=== PATIENT | male | born 1950 | race Caucasian/White ===

== ENCOUNTER 2017-06-13 02:19 | Observation (INO) | payer MEDICARE, SELFPAY ==
[2017-06-13] VITALS (18 sets, daily range): BP systolic 108–128; BP diastolic 46–68; PULSE 63–83; RESP 14–18; TEMP 36.4–37.1; O2SAT 94–100; BMI 23.1; BMI 19.5; BMI 19.6
--- NOTE | 2017-06-13 02:21 | NURSING ---
CALLED FOR EKG, PULLED OLD EKG'S FOR
--- NOTE | 2017-06-13 02:39 | RAD_ITS ---
STUDY: X-RAY CHEST REASON FOR EXAM: Male, 67 years old. Chest pain TECHNIQUE: Single frontal view of the chest. COMPARISON: 07/31/2016 FINDINGS: The lungs are clear and expanded. There is no demonstrated pleural abnormality. Normal size heart. Normal mediastinum and aj. Normal visualized pulmonary arteries. Normal visualized aortic arch and descending thoracic aorta. There are diffuse degenerative changes of the visualized thoracic spine. Normal visualized ribs, clavicles, and shoulders. There is no demonstrated abnormality of the visualized soft tissue structures of the upper abdomen. RAD/Chest 1 View (Portable) IMPRESSION: No acute pulmonary findings. Electronically Signed: Kalia Garcia MD at 3:43 EDT Tel , Service support ,
--- NOTE | 2017-06-13 02:39 | EKG12_ITS ---
Test Reason : CP Blood Pressure : / mmHG Vent. Rate : 081 BPM Atrial Rate : 081 BPM P-R Int : 132 ms QRS Dur : 084 ms QT Int : 348 ms P-R-T Axes : 073 064 -61 degrees QTc Int : 404 ms Sinus rhythm with marked sinus arrhythmia Nonspecific ST and T wave abnormality Abnormal ECG Confirmed by JOSE HERNANDEZ, FRANCO ([id number]), science editor KWAKU MOSER ([id number] on 06/18/2017 3:43:54 PM Referred By: XANDER Confirmed By:FRANCO GARCIA MD
[2017-06-13 02:54] LABS: Absolute Neutrophil Count 4.1 X10^3/uL (2.0-7.7); Basophil# 0.03 X10^3/uL; Basophil% 0.4 % (0-1); Eosinophil# 0.11 X10^3/uL; Eosinophils% 1.4 % (0-5); Hemoglobin 13.2 g/dl (13.0-16.5); Lymphocyte % 35.4 % (19-41); Mean Corp Hgb Conc 34.7 g/gl (32-36); Mean Corpuscular Hgb 32.1 pg (27.0-32.0); Mean Corpuscular Volume 92.5 fL (80-94); Mean Platelet Vol. 10.4 fl (6.2-12.0); Monocyte# 0.89 X10^3/uL; Monocyte% 11.3 % (0-10); Neutrophil # 4.08 X10^3/uL (2.7-7.7); Neutrophil % 51.5 % (47-70); Platelet Count 220 K/mm3 (150-450); RBC Distribution Width CV 12.9 % (11.6-14.6); RBC Distribution Width SD 43.3 fl (35.1-43.9); Red Blood Count 4.11 M/mm3 (4.6-6.2); White Blood Count 7.9 K/mm3 (4.4-11.0)
[2017-06-13 02:55] LABS: POSITIVE COUNT NO; POSITIVE DIFFERENTIAL NO; POSITIVE MORPHOLOGY NO
[2017-06-13 04:22] LABS: Anion Gap 7 (5-15); BUN 29 mg/dL (7-18); BUN/Creat Ratio 17.4 RATIO (10-20); Calcium,Total 8.7 mg/dL (8.5-10.1); Chloride 99 mmol/L (98-107); Creatinine, Serum 1.67 mg/dL (0.70-1.30); EST Glomerular Filtration Rate 44 mL/min (>60); Est Glom Filt Rate - Afr Amer 53 mL/min (>60); Glucose 99 mg/dL (74-106); Potassium 3.9 mmol/L (3.5-5.1); Sodium Level 138 mmol/L (136-145)
--- NOTE | 2017-06-13 04:40 | ED.DCSUM_ITS ---
- ER Visit Summary Date of Service: 06/13/17 Chief Complaint: [] Chest pain History of Present Illness: The patient is a 67 M resents with chest pain that started an hour and a half ago right-sided continuous heaviness. Current severity is mild to moderate. Relieved by nitroglycerin ?1 by EMS. Given aspirin by them. History of COPD. He had a heart catheterization in August 2015 which showed a branch of his LAD with 70-80% blockage. No stent was placed. He has had multiple chest pain visits to the emergency department. He is on Xarelto for history of atrial fibrillation. He does have multiple cardiac risk factors for disease. Physical Examination: Vital signs reviewed General: Well-nourished well-developed Head: Normocephalic atraumatic Eyes: Pupils equal round and reactive to light extraocular movements intact ENT: TMs clear no hemotympanum no trauma Neck: Nontender full range of motion Cardiovascular: Regular rate iregular rhythm no murmurs normal S1-S2 Respiratory: No distress clear to auscultation bilaterally chest nontender Abdomen: Soft nontender nondistended normal bowel sounds no masses Back: Nontender no CVA tenderness Extremities: Nontender active range of motion ?4 extremities no trauma Skin: Normal color no trauma Neuro alert oriented cranial nerves II through XII intact normal strength sensation reflexes Test Results: [] Emergency Department Course and Treatment: [] EKG shows sinus arrhythmia 81. ST depression noted inferior leads as well as V4 through V6. Chest x-ray is chronic COPD changes. Troponin negative. CBC normal. Chemistry shows creatinine 1.6. Patient was given 2 nitroglycerin here with good relief of symptoms. He still has some very mild tightness. Discussed with the hospitalist and will be admitted. His heart score is 7. Treatment Plan: [] Disposition: [] Impression: [] Chest pain with EKG changes This note was generated with [employer] dictation software. It may contain incorrect words, spelling, and punctuation that were not noted in review of the chart prior to signing ED Disposition - Plan for ED Patient: Chief Complaint: Chest Pain Referrals: Russell White MD [Primary Care Provider] -
--- NOTE | 2017-06-13 04:52 | PCM.HP.STD ---
Problem List (1) WHIT (obstructive sleep apnea) Status: Chronic (2) CAD (coronary artery disease) Status: Chronic Comment: [facility]: 10/07/2010, 09/06/2015 (3) HTN (hypertension) Status: Chronic Qualifiers: (4) Paroxysmal atrial fibrillation Status: Chronic (5) Dilated cardiomyopathy Status: Chronic (6) HLD (hyperlipidemia) Status: Chronic Qualifiers: (7) Benign essential HTN Status: Chronic (8) DM2 (diabetes mellitus, type 2) Status: Chronic Qualifiers: (9) COPD (chronic obstructive pulmonary disease) Status: Chronic Qualifiers: History of Present Illness Date of Admission: 06/13/17 Chief Complaint: Chest pain, could not get up. The patient is a 67 year old M with past medical history as mentioned above presented to the emergency room because of chest pain and he mentioned that he was not able to get up. When I interviewed the patient, his main and first complaint was that he was not able to get up. Shortly after, he started having chest pain at rest, on the right side of his chest, pressure-like pain, 6 out of 10 in severity, not radiating, somewhat relieved by nitroglycerin, without aggravating factors and without other associated symptoms. He denied associated shortness of breath, palpitation, dizziness or lightheadedness. He reported chronic cough. He has a history of chronic chest pain. He had cardiac catheterization back in August, that revealed angiographically normal left main coronary artery, mild disease of the left anterior descending artery, moderate diffuse disease of the first diagonal branch, mild to moderate disease of the RCA and no high-grade stenosis of the left circumflex. At that time, he had no interventions. He had a stress test on June, for chest pain and that was normal without evidence of stress-induced myocardial ischemia. After that stress test in June,, patient was admitted 1 month ago for chest pain and he had no more workup done at that time except for cardiac enzymes and EKG and he was discharged home and continued on medical treatment. In the emergency room, his vital signs were stable. His routine blood work is remarkable for creatinine of 1.67. His troponin is negative. EKG revealed normal sinus rhythm with minimal ST segment depression in leads V5 and V6 and those changes are new compared to EKG from Jul, 2016. Chest x-ray showed no acute infiltrate, consolidation or effusion. Past Medical History Past Medical History (Chronic Problems): Chronic Problems (Last Updated 06/13/17 @ 04:52 by Donnie Chacko MD) Hypokalemia (Chronic) HWIT (obstructive sleep apnea) (Chronic) CAD (coronary artery disease) (Chronic) C: 10/07/2010, 09/06/2015 HTN (hypertension) (Chronic) Unspecified systolic (congestive) heart failure (Chronic) Paroxysmal atrial fibrillation (Chronic) Dilated cardiomyopathy (Chronic) HLD (hyperlipidemia) (Chronic) Overweight (Chronic) Lower extremity edema (Chronic) Chest pain (Chronic) Benign essential HTN (Chronic) DM2 (diabetes mellitus, type 2) (Chronic) Tobacco user (Chronic) COPD (chronic obstructive pulmonary disease) (Chronic) Allergies Penicillins Allergy (Verified 06/12/17 14:11) Shortness of breath Home Medications: Ambulatory Orders Medication Instructions Recorded Atorvastatin Calcium [Lipitor] 40 mg PO QHS 05/27/16 Digoxin 125 mcg PO DAILY 05/27/16 Furosemide [Lasix] 40 mg PO DAILY 05/27/16 Levothyroxine [Synthroid] 75 mcg PO DAILY 05/27/16 Rivaroxaban [Xarelto] 20 mg PO DAILY 05/27/16 Sitagliptin Phosphate [Januvia] 50 mg PO DAILY 05/27/16 Multivitamin [Multiple Vitamins] 1 ea PO DAILY 06/24/16 Metformin HCl [Metformin HCl ER] 500 mg PO BID 07/31/16 Citalopram [Celexa] 10 mg PO DAILY 12/04/16 Pantoprazole Sodium [Protonix] 20 mg PO DAILY 12/04/16 Carvedilol [Coreg] 25 mg PO BID 01/10/17 Ranolazine [Ranexa] 500 mg PO BID 01/10/17 potassium chloride ER 20 mEq 20 meq PO BID #60 tab 03/19/17 tablet,extended release(part/cryst) Surgical History: herniorrhaphy, tonsillectomy Psychiatric History: Depression Lives: Alone Smoking Status: Current every day smoker Tobacco Use: Cigarettes Alcohol: None Drugs: None - *Family History Maternal History Items: No pertinent history Paternal History Items: - - Rheumatic heart disease Review of Systems Constitutional: Reports: Weakness, Fatigue. Denies: Anorexia, Chills, Fever Eyes: Denies: Blurred vision, Double vision, Drainage, Redness HEENT: Denies: Difficulty Hearing, Ear Pain, Eye Pain, Nasal Congestion, Sore Throat Cardiovascular: Reports: Chest Pain, Chest Pressure. Denies: Edema, Heaviness, Light Headedness, Paroxysmal Noc. Dyspnea, Syncope Respiratory: Reports: Cough. Denies: Pleuritic Pain, Shortness of Breath, Sputum production, Wheezing Gastrointestinal: Denies: Abdominal Pain, Constipation, Diarrhea, Nausea, Vomiting Genitourinary: Denies: Dysuria, Frequency, Hematuria Musculoskeletal: Denies: Arm Pain, Back Pain, Foot Pain Skin: Denies: Dryness, Rash Neurological: Denies: Balance problems, Double vision, Change in Speech, Slurred speech, Confusion, Incoordination, Numbness Psychiatric: Denies: Anxiety, Depression VTE Information - Inpt Only VTE Present on Admission: No VTE Mechan Device Prophylaxis: None VTE Pharm Prophylaxis ordered?: No - Physical Exam General: Alert, Oriented x3, Cooperative, No apparent distress HEENT: Atraumatic, PERRLA, EOMI Oral: Moist Mucosa, No Gingival or Mucosal Lesions/ Ulcerations Neck: Supple, No JVD, Negative Carotid Bruits, Trachea Midline, Thyroid Normal Size and Texture Lungs: Clear to auscultation, No rhonchi, No wheeze, No rales, Diminished, - - Decreased breath sounds bilateral, otherwise clear. Cardiovascular: Regular rate, Regular Rhythm, Normal S1, Normal S2, PMI Normal Abdomen: Bowel Sounds Present, Soft, Non Tender, Non-Distended, No Hepato-splenomegaly Extremities: No clubbing, No cyanosis, No edema Skin: No rashes, No breakdown Lymphatic: No Cervical, Supraclavicular, or Inguinal Adenopathy Neurological: Cranial nerves II-XII grossly intact, Motor Exam 5/5 strength throughout Psych/Mental Status: Flat Affect Vital Signs Temp Pulse Resp BP Pulse Ox 98.8 F 69 18 116/62 97 06/13/17 02:20 06/13/17 03:29 06/13/17 03:29 06/13/17 03:29 06/13/17 03:29 Oxygen Flow Rate (L/min) 2 Oxygen Delivery Method Nasal Cannula Weight: 143 lb 1.28 oz Body Mass Index (BMI) 23.1 Finger Stick Blood Glucose 202 Laboratory Tests Past 24 Hrs 06/13/17 06/13/17 02:29 02:29 WBC 7.9 RBC 4.11 L Hgb 13.2 Hct 38.0 L MCV 92.5 MCH 32.1 H MCHC 34.7 RDW 12.9 RDW Differential 43.3 Plt Count 220 MPV 10.4 Immature Gran % (Auto) 0.000 Neut % (Auto) 51.5 Lymph % (Auto) 35.4 [place] % (Auto) 11.3 H Eos % (Auto) 1.4 Baso % (Auto) 0.4 Absolute Neuts (auto) 4.1 Absolute Lymphs (auto) 2.80 Total Counted Not Reportable Sodium 138 Potassium 3.9 Chloride 99 Carbon Dioxide 32.0 Anion Gap 7 BUN 29 H Creatinine 1.67 H Estim Creat Clear Calc 38.20 Est GFR (MDRD) Af Amer 53 L Est GFR (MDRD) Non-Af 44 L BUN/Creatinine Ratio 17.4 Glucose 99 Calcium 8.7 Troponin I < 0.02 Clinical Impression(s) from Imaging Studies Chest X-Ray 06/13/17 02:39 IMPRESSION: No acute pulmonary findings. Electronically Signed: Kalia Garcia MD at 3:43 EDT Tel , Service support , Assessment/Plan This is a 67 years old male patient presented to the medicine because of chest pain and difficulty ambulating and he was found to have minimal EKG changes on lateral chest leads including V5 and V6 and he is being admitted for evaluation. #1 atypical chest pain/EKG changes: It is on the right side. EKG reviewed, revealed minimal ST segment depression in leads V5 and V6. Those changes are new compared to EKG from Jul, 2016. First troponin is negative. Patient had cardiac catheterization back in August, which was reviewed as above. Also, had a stress test on June, which was normal. 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 Hold Coreg because he is going for stress test. Also, patient complains of difficulty ambulating and he is not sure why. Plan for PT OT evaluation and treatment. #2 stage III chronic kidney disease: His baseline creatinine has been fluctuating anywhere from 1.1-1.8 mg/dL. Admission creatinine is 1.67 mg/dL, stable at baseline. #3 paroxysmal A. fib: Heart rate stable, rate in the control. Continue digoxin for rate control, continue Xarelto for anticoagulation, hold Coreg for stress test. #4 type 2 diabetes mellitus: N.p.o. for now for stress test, Accu-Cheks, insulin scale, hold metformin, continue Januvia. #5 hypertension: Blood pressure stable, continue digoxin, hold Coreg as above. #6 dilated nonischemic cardiomyopathy/chronic probably diastolic CHF: #7 COPD: Albuterol as needed, DuoNeb every 6 hours. Chest x-ray showed no acute findings. #8 DVT prophylaxis: Continue Xarelto. This note was generated with [employer] dictation software. It may contain incorrect words, spelling, and punctuation that were not noted in checking the note before signing. Code Visit OBSV E&M: 87368 Initial observation care L3
--- NOTE | 2017-06-13 05:03 | HP.PCM_ITS ---
Problem List (1) WHIT (obstructive sleep apnea) Status: Chronic (2) CAD (coronary artery disease) Status: Chronic Comment: [facility]: 10/07/2010, 09/06/2015 (3) HTN (hypertension) Status: Chronic Qualifiers: (4) Paroxysmal atrial fibrillation Status: Chronic (5) Dilated cardiomyopathy Status: Chronic (6) HLD (hyperlipidemia) Status: Chronic Qualifiers: (7) Benign essential HTN Status: Chronic (8) DM2 (diabetes mellitus, type 2) Status: Chronic Qualifiers: (9) COPD (chronic obstructive pulmonary disease) Status: Chronic Qualifiers: History of Present Illness Date of Admission: 06/13/17 Chief Complaint: Chest pain, could not get up. The patient is a 67 year old M with past medical history as mentioned above presented to the emergency room because of chest pain and he mentioned that he was not able to get up. When I interviewed the patient, his main and first complaint was that he was not able to get up. Shortly after, he started having chest pain at rest, on the right side of his chest, pressure-like pain, 6 out of 10 in severity, not radiating, somewhat relieved by nitroglycerin, without aggravating factors and without other associated symptoms. He denied associated shortness of breath, palpitation, dizziness or lightheadedness. He reported chronic cough. He has a history of chronic chest pain. He had cardiac catheterization back in August, that revealed angiographically normal left main coronary artery, mild disease of the left anterior descending artery, moderate diffuse disease of the first diagonal branch, mild to moderate disease of the RCA and no high-grade stenosis of the left circumflex. At that time, he had no interventions. He had a stress test on June, for chest pain and that was normal without evidence of stress-induced myocardial ischemia. After that stress test in June,, patient was admitted 1 month ago for chest pain and he had no more workup done at that time except for cardiac enzymes and EKG and he was discharged home and continued on medical treatment. In the emergency room, his vital signs were stable. His routine blood work is remarkable for creatinine of 1.67. His troponin is negative. EKG revealed normal sinus rhythm with minimal ST segment depression in leads V5 and V6 and those changes are new compared to EKG from Jul, 2016. Chest x-ray showed no acute infiltrate, consolidation or effusion. Past Medical History Past Medical History (Chronic Problems): Chronic Problems (Last Updated 06/13/17 @ 04:52 by Donnie Chacko MD) Hypokalemia (Chronic) WHIT (obstructive sleep apnea) (Chronic) CAD (coronary artery disease) (Chronic) C: 10/07/2010, 09/06/2015 HTN (hypertension) (Chronic) Unspecified systolic (congestive) heart failure (Chronic) Paroxysmal atrial fibrillation (Chronic) Dilated cardiomyopathy (Chronic) HLD (hyperlipidemia) (Chronic) Overweight (Chronic) Lower extremity edema (Chronic) Chest pain (Chronic) Benign essential HTN (Chronic) DM2 (diabetes mellitus, type 2) (Chronic) Tobacco user (Chronic) COPD (chronic obstructive pulmonary disease) (Chronic) Allergies Penicillins Allergy (Verified 06/12/17 14:11) Shortness of breath Home Medications: Ambulatory Orders Medication Instructions Recorded Atorvastatin Calcium [Lipitor] 40 mg PO QHS 05/27/16 Digoxin 125 mcg PO DAILY 05/27/16 Furosemide [Lasix] 40 mg PO DAILY 05/27/16 Levothyroxine [Synthroid] 75 mcg PO DAILY 05/27/16 Rivaroxaban [Xarelto] 20 mg PO DAILY 05/27/16 Sitagliptin Phosphate [Januvia] 50 mg PO DAILY 05/27/16 Multivitamin [Multiple Vitamins] 1 ea PO DAILY 06/24/16 Metformin HCl [Metformin HCl ER] 500 mg PO BID 07/31/16 Citalopram [Celexa] 10 mg PO DAILY 12/04/16 Pantoprazole Sodium [Protonix] 20 mg PO DAILY 12/04/16 Carvedilol [Coreg] 25 mg PO BID 01/10/17 Ranolazine [Ranexa] 500 mg PO BID 01/10/17 potassium chloride ER 20 mEq 20 meq PO BID #60 tab 03/19/17 tablet,extended release(part/cryst) Surgical History: herniorrhaphy, tonsillectomy Psychiatric History: Depression Lives: Alone Smoking Status: Current every day smoker Tobacco Use: Cigarettes Alcohol: None Drugs: None - *Family History Maternal History Items: No pertinent history Paternal History Items: - - Rheumatic heart disease Review of Systems Constitutional: Reports: Weakness, Fatigue. Denies: Anorexia, Chills, Fever Eyes: Denies: Blurred vision, Double vision, Drainage, Redness HEENT: Denies: Difficulty Hearing, Ear Pain, Eye Pain, Nasal Congestion, Sore Throat Cardiovascular: Reports: Chest Pain, Chest Pressure. Denies: Edema, Heaviness, Light Headedness, Paroxysmal Noc. Dyspnea, Syncope Respiratory: Reports: Cough. Denies: Pleuritic Pain, Shortness of Breath, Sputum production, Wheezing Gastrointestinal: Denies: Abdominal Pain, Constipation, Diarrhea, Nausea, Vomiting Genitourinary: Denies: Dysuria, Frequency, Hematuria Musculoskeletal: Denies: Arm Pain, Back Pain, Foot Pain Skin: Denies: Dryness, Rash Neurological: Denies: Balance problems, Double vision, Change in Speech, Slurred speech, Confusion, Incoordination, Numbness Psychiatric: Denies: Anxiety, Depression VTE Information - Inpt Only VTE Present on Admission: No VTE Mechan Device Prophylaxis: None VTE Pharm Prophylaxis ordered?: No - Physical Exam General: Alert, Oriented x3, Cooperative, No apparent distress HEENT: Atraumatic, PERRLA, EOMI Oral: Moist Mucosa, No Gingival or Mucosal Lesions/ Ulcerations Neck: Supple, No JVD, Negative Carotid Bruits, Trachea Midline, Thyroid Normal Size and Texture Lungs: Clear to auscultation, No rhonchi, No wheeze, No rales, Diminished, - - Decreased breath sounds bilateral, otherwise clear. Cardiovascular: Regular rate, Regular Rhythm, Normal S1, Normal S2, PMI Normal Abdomen: Bowel Sounds Present, Soft, Non Tender, Non-Distended, No Hepato- splenomegaly Extremities: No clubbing, No cyanosis, No edema Skin: No rashes, No breakdown Lymphatic: No Cervical, Supraclavicular, or Inguinal Adenopathy Neurological: Cranial nerves II-XII grossly intact, Motor Exam 5/5 strength throughout Psych/Mental Status: Flat Affect Vital Signs Temp Pulse Resp BP Pulse Ox 98.8 F 69 18 116/62 97 06/13/17 02:20 06/13/17 03:29 06/13/17 03:29 06/13/17 03:29 06/13/17 03:29 Oxygen Flow Rate (L/min) 2 Oxygen Delivery Method Nasal Cannula Weight: 143 lb 1.28 oz Body Mass Index (BMI) 23.1 Finger Stick Blood Glucose 202 Laboratory Tests Past 24 Hrs 06/13/17 06/13/17 02:29 02:29 WBC 7.9 RBC 4.11 L Hgb 13.2 Hct 38.0 L MCV 92.5 MCH 32.1 H MCHC 34.7 RDW 12.9 RDW Differential 43.3 Plt Count 220 MPV 10.4 Immature Gran % (Auto) 0.000 Neut % (Auto) 51.5 Lymph % (Auto) 35.4 [place] % (Auto) 11.3 H Eos % (Auto) 1.4 Baso % (Auto) 0.4 Absolute Neuts (auto) 4.1 Absolute Lymphs (auto) 2.80 Total Counted Not Reportable Sodium 138 Potassium 3.9 Chloride 99 Carbon Dioxide 32.0 Anion Gap 7 BUN 29 H Creatinine 1.67 H Estim Creat Clear Calc 38.20 Est GFR (MDRD) Af Amer 53 L Est GFR (MDRD) Non-Af 44 L BUN/Creatinine Ratio 17.4 Glucose 99 Calcium 8.7 Troponin I < 0.02 Clinical Impression(s) from Imaging Studies Chest X-Ray 06/13/17 02:39 IMPRESSION: No acute pulmonary findings. Electronically Signed: Kalia Garcia MD at 3:43 EDT Tel , Service support , Assessment/Plan This is a 67 years old male patient presented to the medicine because of chest pain and difficulty ambulating and he was found to have minimal EKG changes on lateral chest leads including V5 and V6 and he is being admitted for evaluation. #1 atypical chest pain/EKG changes: It is on the right side. EKG reviewed, revealed minimal ST segment depression in leads V5 and V6. Those changes are new compared to EKG from Jul, 2016. First troponin is negative. Patient had cardiac catheterization back in August, which was reviewed as above. Also, had a stress test on June, which was normal. 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 Hold Coreg because he is going for stress test. Also, patient complains of difficulty ambulating and he is not sure why. Plan for PT OT evaluation and treatment. #2 stage III chronic kidney disease: His baseline creatinine has been fluctuating anywhere from 1.1-1.8 mg/dL. Admission creatinine is 1.67 mg/dL, stable at baseline. #3 paroxysmal A. fib: Heart rate stable, rate in the control. Continue digoxin for rate control, continue Xarelto for anticoagulation, hold Coreg for stress test. #4 type 2 diabetes mellitus: N.p.o. for now for stress test, Accu-Cheks, insulin scale, hold metformin, continue Januvia. #5 hypertension: Blood pressure stable, continue digoxin, hold Coreg as above. #6 dilated nonischemic cardiomyopathy/chronic probably diastolic CHF: #7 COPD: Albuterol as needed, DuoNeb every 6 hours. Chest x-ray showed no acute findings. #8 DVT prophylaxis: Continue Xarelto. This note was generated with [employer] dictation software. It may contain incorrect words, spelling, and punctuation that were not noted in checking the note before signing. Code Visit OBSV E&M: 05752 Initial observation care L3
[2017-06-13] MEDS: 0.9% Normal Saline 1,000 ML 75 ML IV ×2 (05:58→20:07)
[2017-06-13] MEDS: Levothyroxine 75 MCG Tablet PO (06:56)
[2017-06-13 07:06] LABS: Bedside Glucose 90 mg/dL (70-110)
[2017-06-13] MEDS: Ipratropium/Albuterol Sulfate 3 ML AMPUL.NEB INHALATION ×3 (07:11→18:47)
[2017-06-13 08:43] LABS: International Normalized Ratio 1.5; Prothrombin Time (Protime)PT. 17.9 SECONDS (11.7-14.9)
[2017-06-13 08:44] LABS: Partial Thromboplast Time 31.4 Seconds (24.1-36.2)
[2017-06-13 13:00] LABS: Bedside Glucose 150 mg/dL (70-110)
--- NOTE | 2017-06-13 13:03 | STRESSREP ---
Stress Test Report Pharmacologic myocardial perfusion stress test. 67-year-old man with a history of chest pain. Medications Lipitor Lanoxin Xarelto Ranexa. Stress protocol: Resting EKG demonstrates normal sinus rhythm with a rate of [address] changes noted resting blood pressure is 150/78 mmHg. 0.4 mg of regadenoson was infused per usual protocol followed by rapid intravenous saline flush injection continuous EKG monitoring was performed. The maximum heart rate attained was 105 bpm which was 69% maximum predicted heart rate maximum workload attained was 1 metabolic equivalent. At rest nonspecific ST-T wave changes were noted at peak infusion nonspecific ST-T wave changes were noted. Resting blood pressure is 150/78 with a final blood pressure 128/64. Myocardial perfusion protocol. 11.5 mCi of technetium 99m sestamibi was injected at rest. 0.4 mg of regadenoson was infused per usual protocol. At peak infusion 32.4 mCi of technetium 99m sestamibi was injected. Stress images were obtained stress and rest images were reconstructed and compared in the short axis vertical long horizontal long axis. Gated images were also obtained pre- Perfusion SPECT analysis: Review of the stress images demonstrate normal uptake of tracer noted in all areas of the myocardium. The resting images similarly demonstrate normal uptake of tracer noted in all areas of the myocardium. No areas of reversibility are noted to suggest ischemia. No previous infarct is noted. Gated SPECT analysis: The gated ejection fraction is noted to be 67%. Conclusion: Normal pharmacologic myocardial perfusion stress test. Preserved ejection fraction.
[2017-06-13] MEDS: Citalopram 10 MG Tablet PO (13:53)
[2017-06-13] MEDS: Ranolazine 500 MG Tablet PO ×2 (13:53→22:45)
[2017-06-13] MEDS: LINAGLIPTIN 5 MG TABLET PO (13:53)
[2017-06-13] MEDS: Digoxin 125 MCG Tablet PO (13:53)
[2017-06-13] MEDS: Rivaroxaban 20 MG Tablet PO (13:53)
[2017-06-13] MEDS: Pantoprazole Sodium 20 MG Tablet PO (13:53)
[2017-06-13] MEDS: Furosemide 40 MG Tablet PO (13:53)
--- NOTE | 2017-06-13 14:53 | CASEMGMT ---
SW reviewed chart and patient is active with [employer]. ROSANA called [facility] and let Radha on the coverage line know this information as well as patient is being d/c today. Patient gets Meals on Wheels M-F, he has a medical alert button, and he has home health aides through [facility] 8.5 hrs a week split over 3 days. Sandrita SMALL MSW
[2017-06-13 16:36] LABS: Bedside Glucose 159 mg/dL (70-110)
--- NOTE | 2017-06-13 16:42 | CHAPLAIN ---
Type of Pastoral Visit _x__ Initial Visit ___ Follow-up Visit ___ On-call Visit ___ General Patient Visit ___ Spiritual Assessment ___ Family Conference ___ Bereavement ___ Rapid Response ___ Code Blue ___ Other (describe below) Pastoral Care Referral From _x__ Patient ___ Family ___ Nurse ___ Physician ___ Production Trainer ___ Winter Intern ___ Other (describe below) Sacrament/Intervention _x__ Active listening ___ Anointing ___ Buddhism ___ Bereavement ___ Communion _x__ Manuela exploration ___ _x__ Life review _x__ Prayer ___ Reconciliation ___ Sacrament of Sick _x__ Supportive presence ___ Wedding ___ Other (describe below) Pastoral Comments patient is slow in speech but is very talkative; pt lives alone and expressed his understanding that sometimes he needs help; pt has many ideas about religions; pt says that I may be psychic; pt admits to having history of mental health issues; this is birthday for patient and when asked what he needs he replies I just want to have someone to talk with; gave some extra time and presence to patient
[2017-06-13] MEDS: Capsaicin 0.025% 1 APPLIC Tube TOPICAL (17:04)
--- NOTE | 2017-06-13 18:16 | PN_ITS ---
Subjective: Patient is a 67-year-old male with a past medical history of nonischemic cardiomyopathy, obstructive sleep apnea, coronary artery disease, fatty infiltration of the liver, hypertension, paroxysmal atrial fibrillation, hyperlipidemia, diabetes mellitus type 2 and tobacco dependence who presented to the ED on 06/13/17 complaining of chest pain. Apparently he was lying on his couch and tried to get up but was unable to do so. He made multiple attempts and the pain started after these multiple attempts. He had to call 911 for help to get off his couch. The pain was located on the right side of the chest and increased with deep breath and movement. He had no shortness of breath, palpitations, dizziness or lightheadedness. Vital signs at presentation to the emergency room were temperature 98.8, pulse rate 72, blood pressure 128/70, respiratory rate 16 and he was 94% saturated on 2 L nasal cannula. Chest x-ray showed no infiltrates, no pulmonary vascular congestion and no pleural effusions. The heart was not enlarged. EKG showed normal sinus rhythm with NS ST/T wave changes in the inferior and lateral leads. Troponin was less than 0.02. Creatinine was elevated at 1.67 with a BUN of 29. Creatinine clearance is 38. White blood cell count, hemoglobin and platelets were all within normal limits. He was admitted to a monitored bed on PCU and serial cardiac enzymes were obtained and were negative. A chemical nuclear stress test was done and was negative for ischemia and revealed a 67% gated nuclear ejection fraction. An echocardiogram done in December 2016 showed a 50% ejection fraction. Telemetry showed NSR with PAC's. CT scan of the abd and pelvis done in 2013 showed normal size kidneys. He is taking Lasix 40 mg PO daily. He was seen in Dr. Godfrey's office yesterday and he complained of trouble swallowing. 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 He denied any CP yesterday. He continues to smoke and drinks beer a few times a week. Heart catheterization in 2015 demonstrated angiographically normal left main, LAD mild disease, first diagonal moderate mid segment diffuse disease, codominant left circumflex with no high-grade stenosis, codominant RCA with mild to moderate disease. He has lost 60 LBS in the past year. He is severely malnourished. He told the school psychology specialist that he has decreased intake because he has reflux when swallowing. - Physical Exam General: Alert, Cooperative, No apparent distress, - - cachectic in appearance HEENT: Atraumatic, Normocephalic Oral: Dry Mucosa, - - Poor dentition Neck: Supple, Negative Carotid Bruits, Trachea Midline Lungs: Clear to auscultation, Diminished Cardiovascular: Regular rate, Regular Rhythm, Normal S1, Normal S2, No murmurs, No rub noted, No Gallop Abdomen: Bowel Sounds Present, Soft, Non Tender, Non-Distended Extremities: No clubbing, No cyanosis, No edema, No Calf Tenderness Skin: No rashes Musculoskeletal: Muscle Wasting Neurological: Cranial nerves II-XII grossly intact, Neuro grossly intact Psych/Mental Status: Flat Affect Vital Signs Temp Pulse Resp BP Pulse Ox 98.7 F 66 16 120/62 99 06/13/17 15:39 06/13/17 15:39 06/13/17 15:39 06/13/17 15:39 06/13/17 15:39 Oxygen Flow Rate (L/min) 2 Oxygen Delivery Method Room Air Weight: 125 lb 0.034 oz Body Mass Index (BMI) 19.5 Laboratory Tests Past 24 Hrs 06/13/17 06/13/17 06/13/17 07:05 07:05 10:57 PT 17.9 H INR 1.5 APTT 31.4 Troponin I < 0.02 < 0.02 06/13/17 16:44 PT INR APTT Troponin I < 0.02 POC Glucose 06/13/17 06/13/17 06/13/17 16:23 12:57 06:59 POC Glucose 159 H 150 H 90 Medical Necessity - Tobacco Use Smoking Status: Current every day smoker Tobacco Use: Cigarettes Assessment/Plan Impressions 1. non-cardiac chest pain. With the weight loss and the trouble swallowing I am worried he may have esophageal pathology. Will order a UGI with esophagram for the AM. Obtain Dr. White's recent office notes and the results of any EGD's or colonoscopies done within the past year. Also obtain recent lab. 2. CRF? etiology? dry? UTI obstruction? check a renal US. Hold the lasix. 1 Liter of fluid over night. Recheck the lab in the AM. check a post void residual and a PSA 3. unintentional 60 lb weight loss over the past year 4. COPD - no reversibility with bronchodilators 5. WHIT 6. dysphagia 7. tobacco dependence 8. Severe malnutrition 9. Nonischemic cardiomyopathy - EF on the stress today is 67% 10. Hypertension 11. Hyperlipidemia. DC the Metformin in light of the renal failure. 12. Diabetes mellitus type 2 - check a HGBA1C 13. Hypothyroidism 14. Chronic anticoagulation with Xarelto for atrial fibrillation-with creatinine clearance of 38 Xarelto should probably be changed to apixaban. 15. Depression 16. PAC's Keep in the hospital tonight for further testing.
--- NOTE | 2017-06-13 18:36 | US_ITS ---
STUDY: RENAL ULTRASOUND - COMPLETE REASON FOR EXAM: Male, 67 years old. Abnormal labs TECHNIQUE: Ultrasound evaluation of the kidneys was performed with real-time and static munguia-scale imaging. COMPARISON: None. FINDINGS: RIGHT KIDNEY: Normal location of the right kidney, which is normal in size. The right kidney measures 9.6 cm. There is a normal cortex of the right kidney. The renal cortex measures 1.0 cm. There is no right renal mass or cyst. There are no right renal calculi. There is no right hydronephrosis. DISTAL RIGHT URETER: There is non-visualization of the distal right ureter. There is no demonstrated right ureterovesical junction calculus. There is no demonstrated right ureteral jet. LEFT KIDNEY: Normal location of the left kidney, which is normal in size. The left kidney measures 10.3 cm. There is a normal cortex of the left kidney. The renal cortex measures 1.4 cm. There is no left renal mass or cyst. There is 0.4 cm echogenic focus with a stone or prominent vessel. There is no left hydronephrosis. DISTAL LEFT URETER: There is non-visualization of the distal left ureter. There is no demonstrated left ureterovesical junction calculus. There is no demonstrated left ureteral jet. BLADDER: The distended urinary bladder has a volume of 184 ml. There is a normal wall thickness of the distended urinary bladder. There is no demonstrated mass within the urinary bladder. There are no demonstrated bladder calculi. US/Kidney and Bladder IMPRESSION: No hydronephrosis. Echogenic focus of the left kidney with stone or prominent vessel. Electronically Signed: Willie Guzman MD at 23:57 EDT , Service support ,
[2017-06-13 20:06] LABS: Hemoglobin A1c 6.4 % (4.2-6.3)
[2017-06-13 20:10] LABS: PSA,Total - Annual Screen 3.95 ng/mL (0.00-4.00)
[2017-06-13 20:52] LABS: Digoxin Level 1.53 ng/mL (0.80-2.00)
--- NOTE | 2017-06-13 20:58 | NURSING ---
Pt up to bathroom to void, unable to obtain ua or prevoid amt. Pt missed urinary hat, but pt with large amount of output. Bladder scanned post void and was a 0, pt feels like bladder emptied completely.
[2017-06-13] MEDS: Atorvastatin Calcium 40 MG Tablet PO (22:45)
[2017-06-13] MEDS: Glucerna Shake 120 ML LIQUID PO (22:50)
[2017-06-13 23:20] LABS: Bedside Glucose 86 mg/dL (70-110)
[2017-06-14] VITALS (17 sets, daily range): BP systolic 124–145; BP diastolic 55–60; PULSE 62–80; RESP 12–18; TEMP 36.5–37.6; O2SAT 94–99
[2017-06-14] MEDS: Ipratropium/Albuterol Sulfate 3 ML AMPUL.NEB INHALATION ×4 (00:34→19:10)
[2017-06-14 00:35] LABS: Bacteria 0 SEEN /hpf (None Seen); Mucous, Urine 0 SEEN /hpf (<or=2+); Red Blood Cells-Urine 0 SEEN /hpf (0-5); White Blood Cells 0 SEEN /hpf (0-5)
[2017-06-14 00:36] LABS: Color, Urine Straw (Yellow); Glucose, Dipstick Normal (Normal); Ketone-Dipstick Negative (Negative); Leukocyte Esterase-Dipstick Negative /ul (Negative); Nitrite-Dipstick Negative (Negative); Occult Blood-Urine Negative /ul (Negative); Protein-Dipstick Negative (Negative); Urine Bilirubin Dipstick Negative (Negative); Urine Clarity Clear (Clear); Urine Urobilinogen 1 mg/dl (Normal)
[2017-06-14 00:48] LABS: Squamous Epithelial Cells - UA 0-5 SEEN /hpf (0-5)
[2017-06-14 06:26] LABS: Hematocrit 36.2 % (40-54); Hemoglobin 12.6 g/dl (13.0-16.5); Mean Corp Hgb Conc 34.8 g/gl (32-36); Mean Corpuscular Hgb 32.7 pg (27.0-32.0); Mean Platelet Vol. 10.4 fl (6.2-12.0); Platelet Count 170 K/mm3 (150-450); RBC Distribution Width CV 12.5 % (11.6-14.6); RBC Distribution Width SD 41.9 fl (35.1-43.9); Red Blood Count 3.85 M/mm3 (4.6-6.2); White Blood Count 7.9 K/mm3 (4.4-11.0)
[2017-06-14 06:33] LABS: Scan Indicated on CBC? Y/N NO
[2017-06-14 06:50] LABS: ALB/GLOB Ratio 0.9 RATIO (0.9-2.4); AST(SGOT) 33 U/L (15-37); Alanine Aminotransfer ALT/SGPT 24 U/L (16-61); Albumin, Serum 2.9 g/dL (3.2-5.0); Alkaline Phosphatase 71 U/L (45-117); Anion Gap 7 (5-15); BUN 23 mg/dL (7-18); BUN/Creat Ratio 15.9 RATIO (10-20); Calcium,Total 8.2 mg/dL (8.5-10.1); Chloride 103 mmol/L (98-107); Cholesterol 67 mg/dL (200); Creatinine, Serum 1.45 mg/dL (0.70-1.30); EST Glomerular Filtration Rate 51 mL/min (>60); Est Glom Filt Rate - Afr Amer 62 mL/min (>60); Globulin 3.4 g/dL (2.2-4.2); Glucose 125 mg/dL (74-106); High Density Lipoprotein 32 mg/dL; Magnesium 1.7 mg/dL (1.6-2.6); Phosphorus 2.2 mg/dL (2.5-4.9); Potassium 3.9 mmol/L (3.5-5.1); Protein, Total 6.3 g/dL (6.4-8.2); Sodium Level 142 mmol/L (136-145); Triglycerides 65 mg/dL; Very Low Density Lipoprotein 13 mg/dL (5-40)
[2017-06-14] MEDS: Levothyroxine 75 MCG Tablet PO (06:51)
[2017-06-14 07:10] LABS: Bedside Glucose 153 mg/dL (70-110)
[2017-06-14 12:21] LABS: Bedside Glucose 112 mg/dL (70-110)
--- NOTE | 2017-06-14 12:30 | RAD_ITS ---
STUDY: AIR-CONTRAST UPPER GI SERIES. REASON FOR EXAM: Male, 67 years old. Dysphasia. FLUOROSCOPY TIME (if supplied): (0:52) minutes/seconds TECHNIQUE: The patient ingested barium. An upper GI series was obtained. This is a limited study. COMPARISON: None. FINDINGS: The patient ingested barium. Imaging was obtained. There is evidence of tertiary contractions of the mid and distal esophagus. There is evidence of gastroesophageal reflux. Limited imaging of the stomach shows no evidence of ulceration or obstruction. IMPRESSION: Tertiary contraction of the mid and distal esophagus with gastroesophageal Electronically Signed: Hakeem Wilson MD at 7:58 EDT Tel [phone], Service support , STUDY: X-RAY - ESOPHAGUS (BARIUM SWALLOW) WITH FLUOROSCOPY REASON FOR EXAM: Male, 67 years old. Dysphagia. TECHNIQUE: 14 view(s) of the esophagus were obtained following swallowing of barium. FLUOROSCOPY TIME (if supplied): (0:51) minutes/seconds COMPARISON: None. FINDINGS: There is no demonstrated esophageal foreign body. Tertiary contractions of the mid and distal esophagus with gastroesophageal reflux. There is a small hiatal hernia of the fundus of the stomach. There is atherosclerotic calcification of the aortic arch with tortuosity of the descending aorta. Normal visualized pulmonary parenchyma. There are diffuse degenerative changes of the visualized thoracic spine. RAD/Upper GI w/BA Swallow IMPRESSION: Tertiary contractions of the mid and distal esophagus with gastroesophageal reflux. Electronically Signed: Hakeem Wilson MD at 7:59 EDT Tel [phone], Service support ,
[2017-06-14] MEDS: Ranolazine 500 MG Tablet PO ×2 (14:48→21:47)
[2017-06-14] MEDS: Digoxin 125 MCG Tablet PO (14:48)
[2017-06-14] MEDS: LINAGLIPTIN 5 MG TABLET PO (14:48)
[2017-06-14] MEDS: Pantoprazole Sodium 20 MG Tablet PO (14:48)
[2017-06-14] MEDS: APIXABAN 2.5 MG TABLET PO ×2 (14:48→21:47)
[2017-06-14] MEDS: Citalopram 10 MG Tablet PO (14:48)
[2017-06-14] MEDS: Glucerna Shake 120 ML LIQUID PO ×3 (14:49→21:48)
[2017-06-14 15:02] LABS: Bedside Glucose 139 mg/dL (70-110)
--- NOTE | 2017-06-14 21:08 | PN_ITS ---
Subjective: UGI with esophagram done today but not interpreted by the radiologist. Tells me that if he eats too much at a time he has emesis. He has a chronic pain in his chest. He also tells me that his appetite is not very good. He does not really have trouble swallowing....he just regurgitates......he can not tell me what the vomitus looks like and whether it is undigested food. Denies nausea. He used to drink alot and has used marijuana and peyote and other drugs in the past. Objective: - Physical Exam General: Alert, Cooperative, No apparent distress, - alert and smiling, better appetite today. HEENT: Atraumatic, PERRLA, EOMI, Normocephalic Oral: Moist Mucosa Neck: Supple, No Nuchal Rigidity, Trachea Midline Lungs: Rales - Left side in the upper lobe mostly. No wheezes. Not tachypniec at rest and no conversational dyspnea Cardiovascular: Irregular Rate - AF/Flutter, Murmur - Systolic MM at the second right intercostal space radiating to the lower left sternal border and apex since the lung sounds are improved and he is not coughing, No Gallop Abdomen: Soft, Non Tender, Hypoactive Bowel Sounds, Distended - And tympanic Extremities: No clubbing, No cyanosis, No Calf Tenderness, Edema - Right upper extremity has pain with palpation just distal to the elbow. There is also swelling at the wrist with decreased range of motion but no complaint of pain with range of motion. Skin: No rashes, Ulcer/ Wound - he has stage II decubitus ulcers on the left buttock and the sacrum that were present on admission Musculoskeletal: Arthritic Changes Neurological: Cranial nerves II-XII grossly intact, Neuro grossly intact Psych/Mental Status: Appropriate - Physical Exam Vital Signs Temp Pulse Resp BP Pulse Ox 98.8 F 71 18 124/60 H 98 06/14/17 20:03 06/14/17 20:03 06/14/17 20:03 06/14/17 20:03 06/14/17 20:03 Oxygen Flow Rate (L/min) 2 Oxygen Delivery Method Room Air Weight: 125 lb 0.034 oz Body Mass Index (BMI) 19.5 Intake and Output for Last 24 Hours 06/12/17 06/13/17 06/14/17 23:59 23:59 23:59 Intake Total 1567 / 1567 1012 / 1012 Output Total 400 / 400 Balance 1567 / 1567 612 / 612 Laboratory Tests Past 24 Hrs 06/14/17 06/14/17 06/14/17 00:20 06:10 06:10 WBC 7.9 RBC 3.85 L Hgb 12.6 L Hct 36.2 L MCV 94.0 MCH 32.7 H MCHC 34.8 RDW 12.5 RDW Differential 41.9 Plt Count 170 MPV 10.4 Sodium 142 Potassium 3.9 Chloride 103 Carbon Dioxide 32.0 Anion Gap 7 BUN 23 H Creatinine 1.45 H Estim Creat Clear Calc 39.10 Est GFR (MDRD) Af Amer 62 Est GFR (MDRD) Non-Af 51 L BUN/Creatinine Ratio 15.9 Glucose 125 H Calcium 8.2 L Phosphorus 2.2 L Magnesium 1.7 Total Bilirubin 0.80 AST 33 ALT 24 Alkaline Phosphatase 71 Total Protein 6.3 L Albumin 2.9 L Globulin 3.4 Albumin/Globulin Ratio 0.9 Triglycerides 65 Cholesterol 67 LDL Cholesterol 22 VLDL Cholesterol 13 HDL Cholesterol 32 L Urine Color Straw Urine Clarity Clear Urine pH 7.0 Ur Specific [place] 1.010 Urine Protein Negative Urine Glucose (UA) Normal Urine Ketones Negative Urine Occult Blood Negative Urine Nitrite Negative Urine Bilirubin Negative Urine Urobilinogen 1 H Ur Leukocyte Esterase Negative Urine RBC 0 SEEN Urine WBC 0 SEEN Ur Squamous Epith Cells 0-5 SEEN Urine Bacteria 0 SEEN Urine Mucus 0 SEEN POC Glucose 06/14/17 06/14/17 06/14/17 14:53 12:05 06:46 POC Glucose 139 H 112 H 153 H 06/13/17 22:47 POC Glucose 86 Medical Necessity - Tobacco Use Smoking Status: Current every day smoker Tobacco Use: Cigarettes Assessment/Plan Impressions 1. non-cardiac chest pain. With the weight loss and the trouble swallowing I am worried he may have esophageal pathology. Will order a UGI with esophagram for the AM. Obtain Dr. White's recent office notes and the results of any EGD's or colonoscopies done within the past year. Also obtain recent lab. 2. CRF? etiology? dry? UTI obstruction? check a renal US. Hold the lasix. 1 Liter of fluid over night. Recheck the lab in the AM. check a post void residual and a PSA 3. unintentional 60 lb weight loss over the past year 4. COPD - no reversibility with bronchodilators 5. WHIT 6. dysphagia 7. tobacco dependence 8. Severe malnutrition 9. Nonischemic cardiomyopathy - EF on the stress today is 67% 10. Hypertension 11. Hyperlipidemia. DC the Metformin in light of the renal failure. 12. Diabetes mellitus type 2 - check a HGBA1C 13. Hypothyroidism 14. Chronic anticoagulation with Xarelto for atrial fibrillation-with creatinine clearance of 38 Xarelto should probably be changed to apixaban. 15. Depression 16. PAC's Will keep in the hospital tonight until I can get the results of the UGI/ esophagram done today Continue the current drug regimen Code Visit OBSV E&M: 30380 Subsequent observation care L1
[2017-06-14] MEDS: Atorvastatin Calcium 40 MG Tablet PO (21:47)
[2017-06-14 22:01] LABS: Bedside Glucose 114 mg/dL (70-110)
[2017-06-15] VITALS (12 sets, daily range): BP systolic 111–139; BP diastolic 60–79; PULSE 68–86; RESP 12–18; TEMP 36.8–37.2; O2SAT 95–99
[2017-06-15] MEDS: Ipratropium/Albuterol Sulfate 3 ML AMPUL.NEB INHALATION ×3 (01:08→13:10)
[2017-06-15] MEDS: Levothyroxine 75 MCG Tablet PO (06:05)
[2017-06-15 07:01] LABS: Bedside Glucose 131 mg/dL (70-110)
[2017-06-15] MEDS: Glucerna Shake 120 ML LIQUID PO (09:23)
[2017-06-15] MEDS: Digoxin 125 MCG Tablet PO (09:23)
[2017-06-15] MEDS: Citalopram 10 MG Tablet PO (09:23)
[2017-06-15] MEDS: Pantoprazole Sodium 20 MG Tablet PO (09:23)
[2017-06-15] MEDS: Ranolazine 500 MG Tablet PO (09:23)
[2017-06-15] MEDS: APIXABAN 2.5 MG TABLET PO (09:24)
[2017-06-15] MEDS: LINAGLIPTIN 5 MG TABLET PO (09:24)
[2017-06-15] MEDS: 0.9% NaCl Peripheral Flush Adult/Peds IV (09:25)
[2017-06-15 11:25] LABS: Bedside Glucose 200 mg/dL (70-110)
--- NOTE | 2017-06-15 16:18 | PCM.DC ---
You will use the following diet at home:: Calorie/Carbohydrate Controlled (specify 1200, 1400, etc), Cardiac Your food should be the consistency of: Mechanical soft (ground) Your liquids should be the consistency of: Regular/Thin Discharge Activity: Return to Normal Activity Call your doctor if you observe: Fever of 101 or Higher, Shortness of breath, Dizziness, Fainting spells, Swelling in the ankles, Chest pain Additional Instructions: 1. The stress test done in the hospital was normal so the pain you have in your chest if NOT due to the heart. I suspect the pain may be due to spasms of the esophagus and this can be intermittent. This may be why you sometimes have to vomit when you are eating. I have started you on a medication called Diltiazem which helps prevent spasms. I have also increased the Pantoprazole to 20 mg TWICE a day which provides better coverage for reflux. If in 1 month you are still having chest Pain and you have been faithful about taking the medications as prescribed then I think you should be referred to a Animal Her[facility]. You no longer need lasix. Your heart has recovered and you were dehydrated at admission to the hospital. Stop the Lasix. You had some kidney dysfunction at admission to the hospital and we stopped the Xarelto because you can not use this medication in patients with kidney dysfunction. You have been started on a similar medication called Apixaban which is safe to use when your kidneys do not work as well as they should. You will take the Apixaban twice a day. Allergies/Adverse Reactions: Allergies Penicillins Allergy (Verified 06/12/17 14:11) Shortness of breath Medications to take at Discharge Atorvastatin Calcium [Lipitor] 40 mg PO QHS 05/27/16 Digoxin 125 mcg PO DAILY 05/27/16 Levothyroxine [Synthroid] 75 mcg PO DAILY 05/27/16 Sitagliptin Phosphate [Januvia] 50 mg PO DAILY 05/27/16 Multivitamin [Multiple Vitamins] 1 ea PO DAILY 06/24/16 Citalopram [Celexa] 10 mg PO DAILY 12/04/16 Ranolazine [Ranexa] 500 mg PO BID 01/10/17 potassium chloride ER 20 mEq tablet,extended release(part/cryst) 20 meq PO BID #60 tab 03/19/17 Apixaban [Eliquis] 2.5 mg PO BID #60 tab 06/15/17 Diltiazem CD [Cardizem CD] 180 mg PO DAILY #30 cap 06/15/17 Glimepiride [Amaryl] 1 mg PO DAILY #30 tab 06/15/17 Pantoprazole Sodium [Protonix] 20 mg PO BID #60 tab 06/15/17 The following prescriptions were given: Diltiazem CD [Cardizem CD] 180 mg PO DAILY #30 cap Glimepiride [Amaryl] 1 mg PO DAILY #30 tab Apixaban [Eliquis] 2.5 mg PO BID #60 tab Pantoprazole Sodium [Protonix] 20 mg PO BID #60 tab Primary Care Physician: Russell White MD [Primary Care Provider] - Please follow up with your Primary Care Physician in: 7-10 days Proposed Discharge Date: 06/15/17
--- NOTE | 2017-06-15 16:32 | PCM.DC.SUM ---
Discharge Date and Diagnosis Date of Admission: 06/13/17 Date of Discharge: 06/15/17 - Primary Discharge Diagnosis Active and Suspected Problems (Last Updated 06/15/17 @ 16:22 by Adela Arellano DO) Esophageal spasm (Suspected) non-cardiac chest pain Dehydration with elevated creat - improved with discontinuation of the Lasix and hydration - Secondary Discharge Diagnosis Chronic Problems (Last Updated 06/15/17 @ 16:22 by Adela Arellano DO) Depression (Chronic) Chronic anticoagulation (Chronic) Tobacco dependence due to cigarettes (Chronic) Severe malnutrition (Chronic) - new diagnosis Hypokalemia (Chronic) WHIT (obstructive sleep apnea) (Chronic) CAD (coronary artery disease) (Chronic) LHC: 10/07/2010, 09/06/2015 HTN (hypertension) (Chronic) Paroxysmal atrial fibrillation (Chronic) HLD (hyperlipidemia) (Chronic) DM2 (diabetes mellitus, type 2) (Chronic) - HGBA1C is 6.4 on 06/14/17 COPD (chronic obstructive pulmonary disease) (Chronic) Hospital Course and Treatment Imaging Results: Clinical Impression(s) from Imaging Studies Chest X-Ray 06/13/17 02:39 IMPRESSION: No acute pulmonary findings. Electronically Signed: Kalia Garcia MD at 3:43 EDT Tel , Service support , Renal Ultrasound 06/13/17 18:36 IMPRESSION: No hydronephrosis. Echogenic focus of the left kidney with stone or prominent vessel. Electronically Signed: Willie Guzman MD at 23:57 EDT , Service support , Upper GI/Barium Swallow X-Ray 06/14/17 12:30 IMPRESSION: Tertiary contractions of the mid and distal esophagus with gastroesophageal reflux. Electronically Signed: Hakeem Wilson MD at 7:59 EDT Tel [phone], Service support , none Operations: None Procedures: Stress test - negative with a gated nuclear EF of 67% Summary of Care Provided: Patient is a 67-year-old male with a past medical history of nonischemic cardiomyopathy, obstructive sleep apnea, coronary artery disease, fatty infiltration of the liver, hypertension, paroxysmal atrial fibrillation, hyperlipidemia, diabetes mellitus type 2, alcohol abuse in the past and illicit drug use and tobacco dependence who presented to the ED on 06/13/17 complaining of chest pain. Apparently he was lying on his couch and tried to get up but was unable to do so. He made multiple attempts and the pain started after these multiple attempts. He had to call 911 for help to get off his couch. The pain was located on the right side of the chest and increased with deep breath and movement. He had no shortness of breath, palpitations, dizziness or lightheadedness. Vital signs at presentation to the emergency room were temperature 98.8, pulse rate 72, blood pressure 128/70, respiratory rate 16 and he was 94% saturated on 2 L nasal cannula. Chest x-ray showed no infiltrates, no pulmonary vascular congestion and no pleural effusions. The heart was not enlarged. EKG showed normal sinus rhythm with NS ST/T wave changes in the inferior and lateral leads. Troponin was less than 0.02. Creatinine was elevated at 1.67 with a BUN of 29. Creatinine clearance is 38. White blood cell count, hemoglobin and platelets were all within normal limits. He was admitted to a monitored bed on PCU and serial cardiac enzymes were obtained and were negative. A chemical nuclear stress test was done and was negative for ischemia and revealed a 67% gated nuclear ejection fraction. An echocardiogram done in December 2016 showed a 50% ejection fraction. Telemetry showed NSR with PAC's. CT scan of the abd and pelvis done in 2013 showed normal size kidneys. A renal US was ordered and showed no hydronephrosis. There was an echogenic focus of the left kidney which the radiologist felt was likely a stone or prominent vessel. He is taking Lasix 40 mg PO daily. He was seen in Dr. Godfrey's office 06/12/17 and he complained of trouble swallowing. A few years ago he had a MBS and had no oropharyngeal dysfunction. He denied any CP on 06/12/17. I suspect the pain is musculoskeletal and related to his efforts to get himself off the couch. He continues to smoke and drinks beer a few times a week. Heart catheterization in 2015 demonstrated angiographically normal left main, LAD mild disease, first diagonal moderate mid segment diffuse disease, codominant left circumflex with no high-grade stenosis, codominant RCA with mild to moderate disease. He has lost 60 LBS in the past year. He was diagnosed by the production clerks supervisor as being severely malnourished. He told the production clerks supervisor that he has decreased intake because he has reflux when swallowing and sometimes even regurgitates. Because of long standing hx of tobacco dependence and heavy alcohol consumption he is at risk for esophageal malignancy and an UGI/esophagram was ordered. The upper GI showed no esophageal foreign body. There were tertiary contractions of the mid and distal esophagus with gastroesophageal reflux. There was a small hiatal hernia. He was discharged home on 06/15/2017 with prescriptions for pantoprazole 20 mg twice daily, Amaryl 1 mg p.o. daily, diltiazem CD 180 mg daily and apixaban 2.5 mg twice daily. Xarelto was discontinued due to chronic renal failure. Lasix was discontinued because he was dehydrated at admission and his EF is now normal. Creat improved with hydration in the hospital. He will follow-up with Dr. White in 7-10 days. He will follow up with Dr. Godfrey as previously arranged. He will try and follow the suggestions from the production clerks supervisor for nutritional supplements. This note was generated with [employer] dictation software. It may contain incorrect words, spelling, and punctuation that were not noted in checking the note before signing. Discharge Activity: Return to Normal Activity Call your doctor if you observe: Fever of 101 or Higher, Shortness of breath, Dizziness, Fainting spells, Swelling in the ankles, Chest pain Home Medications: Medications to take at Discharge Atorvastatin Calcium [Lipitor] 40 mg PO QHS 05/27/16 Digoxin 125 mcg PO DAILY 05/27/16 Levothyroxine [Synthroid] 75 mcg PO DAILY 05/27/16 Sitagliptin Phosphate [Januvia] 50 mg PO DAILY 05/27/16 Multivitamin [Multiple Vitamins] 1 ea PO DAILY 06/24/16 Citalopram [Celexa] 10 mg PO DAILY 12/04/16 Ranolazine [Ranexa] 500 mg PO BID 01/10/17 potassium chloride ER 20 mEq tablet,extended release(part/cryst) 20 meq PO BID #60 tab 01/08/18 Apixaban [Eliquis] 2.5 mg PO BID #60 tab 06/15/17 Diltiazem CD [Cardizem CD] 180 mg PO DAILY #30 cap 06/15/17 Glimepiride [Amaryl] 1 mg PO DAILY #30 tab 06/15/17 Pantoprazole Sodium [Protonix] 20 mg PO BID #60 tab 06/15/17 Following Prescrptions Were Given to Patient: Diltiazem CD [Cardizem CD] 180 mg PO DAILY #30 cap Glimepiride [Amaryl] 1 mg PO DAILY #30 tab Apixaban [Eliquis] 2.5 mg PO BID #60 tab Pantoprazole Sodium [Protonix] 20 mg PO BID #60 tab Primary Care Physician: Russell White MD [Primary Care Provider] - Please follow up with your Primary Care Physician in: 7-10 days Disposition: Home Minutes spent on discharge:: 35 Patient Condition:: Stable [facility] Medical Necessity - Tobacco Use Smoking Status: Current every day smoker Tobacco Use: Cigarettes Meaningful Use Info Meaningful Use Diagnoses (Choose all that apply): None applicable Code Visit OBSV E&M: 76502 Observation care discharge
--- NOTE | 2017-06-15 16:40 | DS.PCM_ITS ---
Discharge Date and Diagnosis Date of Admission: 06/13/17 Date of Discharge: 06/15/17 - Primary Discharge Diagnosis Active and Suspected Problems (Last Updated 06/15/17 @ 16:22 by Adela Arellano DO) Esophageal spasm (Suspected) non-cardiac chest pain Dehydration with elevated creat - improved with discontinuation of the Lasix and hydration - Secondary Discharge Diagnosis Chronic Problems (Last Updated 06/15/17 @ 16:22 by Adela Arellano DO) Depression (Chronic) Chronic anticoagulation (Chronic) Tobacco dependence due to cigarettes (Chronic) Severe malnutrition (Chronic) - new diagnosis Hypokalemia (Chronic) WHIT (obstructive sleep apnea) (Chronic) CAD (coronary artery disease) (Chronic) LHC: 10/07/2010, 09/06/2015 HTN (hypertension) (Chronic) Paroxysmal atrial fibrillation (Chronic) HLD (hyperlipidemia) (Chronic) DM2 (diabetes mellitus, type 2) (Chronic) - HGBA1C is 6.4 on 06/14/17 COPD (chronic obstructive pulmonary disease) (Chronic) Hospital Course and Treatment Imaging Results: Clinical Impression(s) from Imaging Studies Chest X-Ray 06/13/17 02:39 IMPRESSION: No acute pulmonary findings. Electronically Signed: Kalia Garcia MD at 3:43 EDT Tel , Service support , Renal Ultrasound 06/13/17 18:36 IMPRESSION: No hydronephrosis. Echogenic focus of the left kidney with stone or prominent vessel. Electronically Signed: Willie Guzman MD at 23:57 EDT , Service support , Upper GI/Barium Swallow X-Ray 06/14/17 12:30 IMPRESSION: Tertiary contractions of the mid and distal esophagus with gastroesophageal reflux. Electronically Signed: Hakeem Wilson MD at 7:59 EDT Tel [phone], Service support , none Operations: None Procedures: Stress test - negative with a gated nuclear EF of 67% Summary of Care Provided: Patient is a 67-year-old male with a past medical history of nonischemic cardiomyopathy, obstructive sleep apnea, coronary artery disease, fatty infiltration of the liver, hypertension, paroxysmal atrial fibrillation, hyperlipidemia, diabetes mellitus type 2, alcohol abuse in the past and illicit drug use and tobacco dependence who presented to the ED on 06/13/17 complaining of chest pain. Apparently he was lying on his couch and tried to get up but was unable to do so. He made multiple attempts and the pain started after these multiple attempts. He had to call 911 for help to get off his couch. The pain was located on the right side of the chest and increased with deep breath and movement. He had no shortness of breath, palpitations, dizziness or lightheadedness. Vital signs at presentation to the emergency room were temperature 98.8, pulse rate 72, blood pressure 128/70, respiratory rate 16 and he was 94% saturated on 2 L nasal cannula. Chest x-ray showed no infiltrates, no pulmonary vascular congestion and no pleural effusions. The heart was not enlarged. EKG showed normal sinus rhythm with NS ST/T wave changes in the inferior and lateral leads. Troponin was less than 0.02. Creatinine was elevated at 1.67 with a BUN of 29. Creatinine clearance is 38. White blood cell count, hemoglobin and platelets were all within normal limits. He was admitted to a monitored bed on PCU and serial cardiac enzymes were obtained and were negative. A chemical nuclear stress test was done and was negative for ischemia and revealed a 67% gated nuclear ejection fraction. An echocardiogram done in December 2016 showed a 50% ejection fraction. Telemetry showed NSR with PAC's. CT scan of the abd and pelvis done in 2013 showed normal size kidneys. A renal US was ordered and showed no hydronephrosis. There was an echogenic focus of the left kidney which the radiologist felt was likely a stone or prominent vessel. He is taking Lasix 40 mg PO daily. He was seen in Dr. Godfrey' s office 06/12/17 and he complained of trouble swallowing. A few years ago he had a MBS and had no oropharyngeal dysfunction. He denied any CP on 06/12/17. I suspect the pain is musculoskeletal and related to his efforts to get himself off the couch. He continues to smoke and drinks beer a few times a week. Heart catheterization in 2015 demonstrated angiographically normal left main, LAD mild disease, first diagonal moderate mid segment diffuse disease, codominant left circumflex with no high-grade stenosis, codominant RCA with mild to moderate disease. He has lost 60 LBS in the past year. He was diagnosed by the stock speculator as being severely malnourished. He told the stock speculator that he has decreased intake because he has reflux when swallowing and sometimes even regurgitates. Because of long standing hx of tobacco dependence and heavy alcohol consumption he is at risk for esophageal malignancy and an UGI/esophagram was ordered. The upper GI showed no esophageal foreign body. There were tertiary contractions of the mid and distal esophagus with gastroesophageal reflux. There was a small hiatal hernia. He was discharged home on 06/15/2017 with prescriptions for pantoprazole 20 mg twice daily, Amaryl 1 mg p.o. daily, diltiazem CD 180 mg daily and apixaban 2.5 mg twice daily. Xarelto was discontinued due to chronic renal failure. Lasix was discontinued because he was dehydrated at admission and his EF is now normal. Creat improved with hydration in the hospital. He will follow-up with Dr. White in 7-10 days. He will follow up with Dr. Godfrey as previously arranged. He will try and follow the suggestions from the stock speculator for nutritional supplements. This note was generated with [employer] dictation software. It may contain incorrect words, spelling, and punctuation that were not noted in checking the note before signing. Discharge Activity: Return to Normal Activity Call your doctor if you observe: Fever of 101 or Higher, Shortness of breath, Dizziness, Fainting spells, Swelling in the ankles, Chest pain Home Medications: Medications to take at Discharge Atorvastatin Calcium [Lipitor] 40 mg PO QHS 05/27/16 Digoxin 125 mcg PO DAILY 05/27/16 Levothyroxine [Synthroid] 75 mcg PO DAILY 05/27/16 Sitagliptin Phosphate [Januvia] 50 mg PO DAILY 05/27/16 Multivitamin [Multiple Vitamins] 1 ea PO DAILY 06/24/16 Citalopram [Celexa] 10 mg PO DAILY 12/04/16 Ranolazine [Ranexa] 500 mg PO BID 01/10/17 potassium chloride ER 20 mEq tablet,extended release(part/cryst) 20 meq PO BID # 60 tab 01/08/18 Apixaban [Eliquis] 2.5 mg PO BID #60 tab 06/15/17 Diltiazem CD [Cardizem CD] 180 mg PO DAILY #30 cap 06/15/17 Glimepiride [Amaryl] 1 mg PO DAILY #30 tab 06/15/17 Pantoprazole Sodium [Protonix] 20 mg PO BID #60 tab 06/15/17 Following Prescrptions Were Given to Patient: Diltiazem CD [Cardizem CD] 180 mg PO DAILY #30 cap Glimepiride [Amaryl] 1 mg PO DAILY #30 tab Apixaban [Eliquis] 2.5 mg PO BID #60 tab Pantoprazole Sodium [Protonix] 20 mg PO BID #60 tab Primary Care Physician: Russell White MD [Primary Care Provider] - Please follow up with your Primary Care Physician in: 7-10 days Disposition: Home Minutes spent on discharge:: 35 Patient Condition:: Stable - [facility] Medical Necessity - Tobacco Use Smoking Status: Current every day smoker Tobacco Use: Cigarettes Meaningful Use Info Meaningful Use Diagnoses (Choose all that apply): None applicable Code Visit OBSV E&M: 74661 Observation care discharge
[2017-06-19 09:25] LABS: Bedside Glucose 127 mg/dL (70-110)
== END 2017-06-15 16:31 | disposition home or self-care (01) ==
LOC: ED 03:08 → PCU 04:53
PROVIDERS: Admitting Provider Hospitalist; Emergency Provider Emergency Medicine; Family Provider Internal Medicine; PCP Internal Medicine; Visit Provider Internal Medicine
DX: R07.89 Other chest pain (principal); J44.9 Chronic obstructive pulmonary disease, unspecified; I48.0 Paroxysmal atrial fibrillation; Z79.01 Long term (current) use of anticoagulants; G47.33 Obstructive sleep apnea (adult) (pediatric); I25.10 Atherosclerotic heart disease of native coronary artery without angina pectoris; E78.5 Hyperlipidemia, unspecified; I42.0 Dilated cardiomyopathy; Z79.899 Other long term (current) drug therapy; F17.210 Nicotine dependence, cigarettes, uncomplicated; E11.22 Type 2 diabetes mellitus with diabetic chronic kidney disease; I12.9 Hypertensive chronic kidney disease with stage 1 through stage 4 chronic kidney disease, or unspecified chronic kidney disease; N18.3 Chronic kidney disease, stage 3 (moderate); E43 Unspecified severe protein-calorie malnutrition; Z68.1 Body mass index [BMI] 19.9 or less, adult; F32.9 Major depressive disorder, single episode, unspecified; E03.9 Hypothyroidism, unspecified; L89.322 Pressure ulcer of left buttock, stage 2; L89.152 Pressure ulcer of sacral region, stage 2; E86.0 Dehydration; R94.4 Abnormal results of kidney function studies
CPT/HCPCS: 36415; 71045; 74246; 76770; 78452; 80048; 80053; 80061; 80162; 81001; 82962; 83036; 83735; 84100; 84153; 84436; 84443; 84484; 85025; 85027; 85610; 85730; 93005; 93017; 94640; 96360; 96361; 97110; 97116; 97161; 97166; 97530; 97535; 97802; 99218; 99285; A9500; J7030; A4216; G0103; G0378; J2785

== ENCOUNTER 2017-06-24 01:06 | Inpatient (IN) | payer MEDICARE, SELFPAY ==
[2017-06-24] VITALS (20 sets, daily range): BP systolic 99–130; BP diastolic 33–55; PULSE 62–101; RESP 12–25; TEMP 36.6–37.8; O2SAT 86–98; BMI 23.3; BMI 21.2; BMI 21.3
[2017-06-24 01:16] LABS: Bedside Glucose 57 mg/dL (70-110)
--- NOTE | 2017-06-24 01:23 | RAD_ITS ---
STUDY: X-RAY - UNILATERAL RIBS ( RIGHT ) WITH CHEST REASON FOR EXAM: Male, 67 years old. Right-sided rib pain after fall. TECHNIQUE - RIBS: view(s) of the ribs. TECHNIQUE - CHEST: COMPARISON: None. FINDINGS - RIBS: There is demineralization of the osseous structures which diminishes the diagnostic sensitivity of this examination. Deformity of the anterior seventh rib may be the result of old rib fracture. There is questionable undisplaced fractures of the posterior right fifth and sixth ribs. Some of this appearance may be related to overlying soft tissue shadows. FINDINGS - CHEST: There is hyperinflation of the lungs consistent with chronic obstructive lung disease (COPD). There is interstitial thickening present in both lungs. Nodular opacity at the right lung base is probably a nipple shadow. There is no demonstrated pleural abnormality. Normal size heart. Normal mediastinum and aj. There is prominence of the pulmonary hilar arteries without peripheral pulmonary vascular congestion. There is atherosclerotic calcification of the aortic arch with tortuosity. There are diffuse degenerative changes of the visualized thoracic spine. Normal visualized clavicles, and shoulders. There is no demonstrated abnormality of the visualized soft tissue structures of the upper abdomen. RAD/Ribs Uni Min 3V w/PA Chest IMPRESSION: RIBS: 1. Osteoporosis. 2. Sequela of old right-sided rib fracture. 3. Questionable acute right-sided rib fractures. If there is still clinical concern for acute fracture, follow-up bone scan maybe helpful in evaluating a healing radiographically occult fracture. CHEST: No radiographic evidence of acute cardiopulmonary disease. Electronically Signed: Ivania Keys MD at 2:42 EDT , Service support ,
--- NOTE | 2017-06-24 01:23 | CT_ITS ---
STUDY: CT CERVICAL SPINE WITHOUT CONTRAST REASON FOR EXAM: Male, 67 years old. Recent fall with right-sided arm and shoulder pain. Patient also has neck pain. RADIATION DOSAGE (If Supplied By Facility): CTDIvol = ( 15.87 ) mGy, DLP = ( 308.15 ) mGycm TECHNIQUE: High resolution transaxial imaging was performed without contrast material. Sagittal and coronal images were reconstructed. Individualized dose optimization techniques were used for this CT. COMPARISON: CT of the cervical spine dated December 04, 2016. FINDINGS: Normal craniovertebral junction. There are degenerative changes of the anterior atlantoaxial articulation. Normal odontoid process. There is straightening of the normal cervical lordosis. There are large bridging osteophytes and possible syndesmophytes of the cervical spine. There is suggestion for possible ankylosis. This is unchanged since the previous CT. C2-3: There is narrowing of the disc space. Neural foramina are patent. There is no significant central acquired canal stenosis. C3-4: There are large bridging endplate osteophytes. There are severe left-sided neural foraminal narrowing and moderate right-sided neural foraminal narrowing. There is a no significant central acquired canal stenosis. C4-5: There are large bridging anterior osteophytes. There is severe left-sided neural foraminal narrowing and moderate right-sided neural foraminal narrowing. There is uncovertebral facet joint arthropathy. There is no significant central acquired canal stenosis. C5-6: There is narrowing of this disc space. There are large anterior endplate osteophytes. There is moderately severe bilateral neural foraminal narrowing. There is a posteriorly directed disc protrusion osteophyte complex with moderate acquired canal stenosis. There is uncovertebral degenerative hypertrophy. C6-7: There is a large anterior bridging osteophyte. There is moderate to severe bilateral neural foraminal narrowing. There is no significant central acquired canal stenosis. C7-T1: Normal endplates. Normal disc height and morphology. Normal central canal and intervertebral neuroforamina. The visualized lung apices appear to be clear. Nasopharynx, oropharynx, hypopharynx and larynx have a normal appearance. The mild atherosclerotic calcification of the carotid bulbs. CT/Spine Cervical without Contras IMPRESSION: 1. No CT evidence of acute compression or displaced fracture of the cervical spine. 2. Large anterior bridging osteophytes with possible ankylosis of the cervical spine. 3. 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 Electronically Signed: Ivania Keys MD at 3:08 EDT , Service support ,
--- NOTE | 2017-06-24 01:23 | CT_ITS ---
STUDY: CT BRAIN WITHOUT CONTRAST REASON FOR EXAM: Male, 67 years old. Recent fall without loss of consciousness. RADIATION DOSAGE (If Supplied By Facility): CTDIvol = ( 44.99 ) mGy, DLP = ( 829.85 ) mGycm TECHNIQUE: Transaxial CT imaging of the brain was performed without administration of intravenous contrast material. Multiplanar reformations are submitted for interpretation. Individualized dose optimization techniques were used for this CT. COMPARISON: CT of the head dated January 10, 2017. FINDINGS: Normal soft tissue structures. Normal calvarium. There is mild cerebral atrophy with widening of the extra-axial spaces and ventricular dilatation. There are areas of decreased attenuation within the white matter tracts of the supratentorial brain, consistent with microvascular disease changes. Normal basal ganglia and thalami. Normal brainstem. There is mild cerebellar atrophy. There is no intracranial hemorrhage. There is mild atherosclerotic calcification of intracranial arteries. The right frontal sinus is aplastic. There is mucoperiosteal thickening in the right maxillary sinus appeared is abnormal thickening of the cantrell of the right maxillary sinus consistent with chronic disease. Patient has had surgical resection of the right ostiomeatal complex. CT/Brain/Head without Contrast IMPRESSION: 1. Chronic involutional changes of the brain. 2. No CT evidence of acute intracranial hemorrhage. Electronically Signed: Ivania Keys MD at 3:01 EDT , Service support ,
--- NOTE | 2017-06-24 01:24 | EKG12_ITS ---
Test Reason : RIB PAIN Blood Pressure : / mmHG Vent. Rate : 083 BPM Atrial Rate : 083 BPM P-R Int : 148 ms QRS Dur : 092 ms QT Int : 370 ms P-R-T Axes : 076 067 080 degrees QTc Int : 434 ms Normal sinus rhythm Normal ECG Confirmed by JOSE HERNANDEZ, FRANCO ([id number]), offline editor KWAKU MOSER ([id number]) on 06/26/2017 2:32:29 PM Referred By: CD Confirmed By:FRANCO GARCIA MD
[2017-06-24 01:39] LABS: Absolute Lymphocyte Count 1.23 X10^3/ul (0.83-4.51); Absolute Neutrophil Count 7.9 X10^3/uL (2.0-7.7); Basophil# 0.01 X10^3/uL; Basophil% 0.1 % (0-1); Eosinophil# 0.03 X10^3/uL; Eosinophils% 0.3 % (0-5); Hematocrit 36.8 % (40-54); Hemoglobin 12.8 g/dl (13.0-16.5); Lymphocyte # 1.23 X10^3/ul (4.0); Lymphocyte % 11.6 % (19-41); Mean Corp Hgb Conc 34.8 g/gl (32-36); Mean Corpuscular Hgb 32.6 pg (27.0-32.0); Mean Corpuscular Volume 93.6 fL (80-94); Mean Platelet Vol. 10.5 fl (6.2-12.0); Monocyte# 1.37 X10^3/uL; Monocyte% 12.9 % (0-10); Neutrophil # 7.93 X10^3/uL (2.7-7.7); Neutrophil % 74.9 % (47-70); POSITIVE COUNT NO; POSITIVE DIFFERENTIAL NO; POSITIVE MORPHOLOGY NO; Platelet Count 161 K/mm3 (150-450); RBC Distribution Width CV 13.5 % (11.6-14.6); RBC Distribution Width SD 46.3 fl (35.1-43.9); Red Blood Count 3.93 M/mm3 (4.6-6.2); White Blood Count 10.6 K/mm3 (4.4-11.0)
--- NOTE | 2017-06-24 01:42 | ED.RN ---
pt bgt [address]. dr. kraus informed. pt given glass of orange juice. iv initiated and fluids given, no further medication orders at this time.
[2017-06-24 01:58] LABS: International Normalized Ratio 1.3; Partial Thromboplast Time 35.4 Seconds (24.1-36.2); Prothrombin Time (Protime)PT. 15.7 SECONDS (11.7-14.9)
[2017-06-24 02:07] LABS: Anion Gap 8 (5-15); BUN 45 mg/dL (7-18); BUN/Creat Ratio 19.9 RATIO (10-20); Calcium,Total 8.6 mg/dL (8.5-10.1); Chloride 103 mmol/L (98-107); Creatinine, Serum 2.26 mg/dL (0.70-1.30); EST Glomerular Filtration Rate 31 mL/min (>60); Est Glom Filt Rate - Afr Amer 37 mL/min (>60); Estimated Creatinine Clearance 29.25 ml/min; Glucose 48 mg/dL (74-106); Potassium 4.3 mmol/L (3.5-5.1); Sodium Level 136 mmol/L (136-145)
[2017-06-24 02:23] LABS: Digoxin Level 1.04 ng/mL (0.80-2.00)
--- NOTE | 2017-06-24 02:23 | NURSING ---
PATIENT'S BLOOD GLUCOSE IS STILL ONLY 53 AFTER ONE ORANGE JUICE. ANOTHER OJ IS GIVEN ALONG WITH PEANUT BUTTER AND CORNELIUS CRACKERS.
[2017-06-24 02:25] LABS: Bedside Glucose 53 mg/dL (70-110)
--- NOTE | 2017-06-24 02:48 | NURSING ---
BG IS STILL ON 52. DR. TSANG SAID TO ORDER AMP OF D50 PER VERBAL ORDER
[2017-06-24 02:51] LABS: Bedside Glucose 52 mg/dL (70-110)
[2017-06-24] MEDS: Dextrose 50%-Water 25 GM/50 ML DISP.SYRIN IV ×3 (02:58→12:57)
--- NOTE | 2017-06-24 03:08 | PCM.HP.STD ---
Problem List (1) Hypoglycemia Status: Acute (2) Depression Status: Chronic Qualifiers: Depression Type: unspecified Qualified Code(s): F32.9 - Major depressive disorder, single episode, unspecified (3) Chronic anticoagulation Status: Chronic (4) Tobacco dependence due to cigarettes Status: Chronic (5) WHIT (obstructive sleep apnea) Status: Chronic (6) CAD (coronary artery disease) Status: Chronic Qualifiers: Coronary Disease-Associated Artery/Lesion type: unspecified vessel or lesion type [place] vs. transplanted heart: unspecified whether [place] or transplanted heart Associated angina: angina presence unspecified Qualified Code(s): I25.10 - Atherosclerotic heart disease of [place] coronary artery without angina pectoris Comment: [facility]: 10/07/2010, 09/06/2015 (7) HTN (hypertension) Status: Chronic Qualifiers: Hypertension type: unspecified Qualified Code(s): I10 - Essential (primary) hypertension (8) Paroxysmal atrial fibrillation Status: Chronic (9) HLD (hyperlipidemia) Status: Chronic Qualifiers: Hyperlipidemia type: unspecified Qualified Code(s): E78.5 - Hyperlipidemia, unspecified (10) DM2 (diabetes mellitus, type 2) Status: Chronic Qualifiers: Diabetes mellitus watermelon inspector insulin use: without alf use Diabetes mellitus complication status: with unspecified complications Qualified Code(s): E11.8 - Type 2 diabetes mellitus with unspecified complications (11) COPD (chronic obstructive pulmonary disease) Status: Chronic Qualifiers: COPD type: unspecified COPD Qualified Code(s): J44.9 - Chronic obstructive pulmonary disease, unspecified History of Present Illness Date of Admission: 06/24/17 Chief Complaint: Fall The patient is a 67 y/o M w/ PMHx: Chronic COPD, Tobacco use 1 ppd, CAD, Chronic BL LE Venous Stasis, Diabetes mellitus type II, PAF on anticoagulation, Hypothyroidism, CAD/NICM, HTN, HLD, WHIT, CKD stage III who presents to the [facility] ED on 06/24/17 with fall secondary to dizziness, activated his medical alert, down x 15 minutes, noted to have hit his head and R side of his chest on the bathroom fall without loss of consciousness. 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 Past Medical History Past Medical History (Chronic Problems): Chronic Problems (Last Updated 06/15/17 @ 16:22 by Adela Arellano DO) Depression (Chronic) Chronic anticoagulation (Chronic) Tobacco dependence due to cigarettes (Chronic) Severe malnutrition (Chronic) Hypokalemia (Chronic) WHIT (obstructive sleep apnea) (Chronic) CAD (coronary artery disease) (Chronic) [facility]: 10/07/2010, 09/06/2015 HTN (hypertension) (Chronic) Paroxysmal atrial fibrillation (Chronic) HLD (hyperlipidemia) (Chronic) DM2 (diabetes mellitus, type 2) (Chronic) COPD (chronic obstructive pulmonary disease) (Chronic) Allergies Penicillins Allergy (Verified 06/24/17 01:07) Shortness of breath Home Medications: Ambulatory Orders Medication Instructions Recorded Atorvastatin Calcium [Lipitor] 40 mg PO QHS 05/27/16 Digoxin 125 mcg PO DAILY 05/27/16 Levothyroxine [Synthroid] 75 mcg PO DAILY 05/27/16 Sitagliptin Phosphate [Januvia] 50 mg PO DAILY 05/27/16 Multivitamin [Multiple Vitamins] 1 ea PO DAILY 06/24/16 Citalopram [Celexa] 10 mg PO DAILY 12/04/16 Ranolazine [Ranexa] 500 mg PO BID 01/10/17 potassium chloride ER 20 mEq 20 meq PO BID #60 tab 03/19/17 tablet,extended release(part/cryst) Apixaban [Eliquis] 2.5 mg PO BID #60 tab 06/15/17 Diltiazem CD [Cardizem CD] 180 mg PO DAILY #30 cap 06/15/17 Glimepiride [Amaryl] 1 mg PO DAILY #30 tab 06/15/17 Pantoprazole Sodium [Protonix] 20 mg PO BID #60 tab 06/15/17 Surgical History: herniorrhaphy, tonsillectomy Psychiatric History: Depression Lives: Alone Smoking Status: Current every day smoker - 1 ppd. Tobacco Use: Cigarettes Alcohol: None Drugs: None - *Family History Maternal History Items: No pertinent history Paternal History Items: - - Rheumatic heart disease VTE Information - Inpt Only VTE Present on Admission: No VTE Mechan Device Prophylaxis: SCD's VTE Pharm Prophylaxis ordered?: No Reason prophylaxis not ordered:: Treatment Not Indicated Patient Problems: Active and Suspected Problems (Last Updated 06/15/17 @ 16:22 by Adela Arellano DO) Hypoglycemia (Acute) Subjective: Seated upright in the ED bed, fatigued appearance, uncomfortable with movement. Objective: Physical Examination: General: awake, alert, oriented x 3, fatigued appearance, cooperative, seated upright in ED bed in no apparent distress. Skin: normal color, turgor, no icterus, cyanosis except chronic bilateral lower extremity venous stasis skin changes and abrasions. HEENT: AT/NC, EOMI, PERRLA, dry MM, no carotid bruits or JVD noted. Lungs: Severely diminished breath sounds, > bilateral bases, poor effort secondary to recent acute rib fx, occasional coarse cough noted, no wheezing. Heart: Regular rate and rhythm; no gallop, rub audible. Abdomen: soft, cachetic habitus, NTTP, ND, normal BS, + HM. Extremities: no cyanosis, clubbing, see skin, + edema BL LE ankle to distal choudhary (chronic). Neurological: patient awake, alert, oriented x 3; cognitive function intact; pupils equally reactive to light and accomodation; cranial nerves II-XII grossly normal, moving all 4 extremities, no focal deficits, strength severely globally decreased secondary to acute presentation and co-morbidities. Psychiatric: affect appears flat, no acute evidence of depressive or anxiety feelings. - Physical Exam Vital Signs Temp Pulse Resp BP Pulse Ox 97.8 F 88 14 119/55 L 95 06/24/17 01:07 06/24/17 01:07 06/24/17 01:07 06/24/17 01:07 06/24/17 01:07 Oxygen Delivery Method Room Air Weight: 148 lb 12.992 oz Body Mass Index (BMI) 23.3 Finger Stick Blood Glucose 57 Laboratory Tests Past 24 Hrs 06/24/17 06/24/17 06/24/17 01:30 01:30 01:36 WBC 10.6 RBC 3.93 L Hgb 12.8 L Hct 36.8 L MCV 93.6 MCH 32.6 H MCHC 34.8 RDW 13.5 RDW Differential 46.3 H Plt Count 161 MPV 10.5 Immature Gran % (Auto) 0.200 Neut % (Auto) 74.9 H Lymph % (Auto) 11.6 L Child[place] % (Auto) 12.9 H Eos % (Auto) 0.3 Baso % (Auto) 0.1 Absolute Neuts (auto) 7.9 H Absolute Lymphs (auto) 1.23 Total Counted Not Reportable PT INR APTT Sodium 136 Potassium 4.3 Chloride 103 Carbon Dioxide 25.0 Anion Gap 8 BUN 45 H Creatinine 2.26 H Estim Creat Clear Calc 29.25 Est GFR (MDRD) Af Amer 37 L Est GFR (MDRD) Non-Af 31 L BUN/Creatinine Ratio 19.9 Glucose 48 L Calcium 8.6 Troponin I < 0.02 Digoxin 1.04 06/24/17 01:46 WBC RBC Hgb Hct MCV MCH MCHC RDW RDW Differential Plt Count MPV Immature Gran % (Auto) Neut % (Auto) Lymph % (Auto) Childress % (Auto) Eos % (Auto) Baso % (Auto) Absolute Neuts (auto) Absolute Lymphs (auto) Total Counted PT 15.7 H INR 1.3 APTT 35.4 Sodium Potassium Chloride Carbon Dioxide Anion Gap BUN Creatinine Estim Creat Clear Calc Est GFR (MDRD) Af Amer Est GFR (MDRD) Non-Af BUN/Creatinine Ratio Glucose Calcium Troponin I Digoxin POC Glucose 06/24/17 06/24/17 06/24/17 02:45 02:17 01:11 POC Glucose 52 L 53 L 57 L Assessment/Plan Active and Suspected Problems (Last Updated 06/15/17 @ 16:22 by Adela Arellano DO) Hypoglycemia (Acute) The patient is a 67 y/o M w/ PMHx: Chronic COPD, Tobacco use 1 ppd, CAD, Chronic BL LE Venous Stasis, Diabetes mellitus type II, PAF on anticoagulation, Hypothyroidism, CAD/NICM, HTN, HLD, WHIT, CKD stage III who presents to the [facility] ED on 06/24/17 with fall secondary to dizziness, activated his medical alert, down x 15 minutes, noted to have hit his head and R side of his chest on the bathroom fall without loss of consciousness. 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 Fall possible secondary to #2, #3, will maintain on IVFs (D5NS), hold nephrotoxic regimen, closely monitor BS, maintain on fall precautions, PRN pain regimen, PT, OT, CM consultation. Recently restarted on anticoagulant eliquis per PCP, recently discharged off xarelto secondary to renal function, but also feel given patient status POOR candidate for anticoagulation as fall risk, debility notably elevated. (2) Diabetes mellitus type II w/ Hypoglycemia: Ongoing hypoglycemia despite dextrose amp x 2, will start on D5NS regimen, continue to trend BS closely q 4 hours until improved and able to transition off dextrose IV regimen, maintain on accu checks w/ ISS. (3) Acute kidney injury: Secondary to dehydration, poor intake, nephrotoxic medications. Recent admission ad discharge 06/15/17 with TYLER, currently, worsened from discharge Cr at that time. Admission BUN/Cr 45/2.26, prior creatinine noted to be Cr 1.4 06/14/17. Will hydrate, hold nephrotoxic medications and repeat chemistry in AM. Recent admission w/ US without evidence hydronephrosis. (4) CAD: Will continue home regimen asa, statin, transitioned recently from coreg-->cardizem. (5) Hypothyroidism: Continue home synthroid regimen. (6) Tobacco Abuse: Encouraged cessation, inpatient consultation per RT. (7) PAF: EKG ED SR, off xarelto per last admission secondary to renal failure and fall risk, transitioned to eliquis recently per PCP, will again hold secondary to recent fall and acute rib fractures, maintain on digoxin, cardizem regimen. (8) Hypertension: Continue home regimen including cardizem, lasix held during recent admission upon discharge secondary to worsened renal function, PRN hydralazine. (9) Hyperlipidemia: Continue home statin regimen. (10) Chronic COPD: Will continue ATC duonebs, PRN albuterol, HOB, IS parameters. (11) Chronic Severe Protein-Calorie Malnutrition: Evidenced per habitus, muscle and fat wasting, nutrition consulted. (12) Suspected Esophageal Spasms: Recent admissions and evaluations w/ MBS and had no oropharyngeal dysfunction and w/ upper GI endoscopy with tertiary contractions of the mid and distal esophagus with gastroesophageal reflux and small hiatal hernia, continue recently started PPI 20 mg BID. (13) Normocytic Anemia, Unclear Etiology, Newer Onset: Noted during prior admission, current admission Hgb 12.8, slowly trending down per review of previous labs, will obtain guiac, iron panel, ferritin, folic acid, vitamin B12 levels. (14) DVT Prophylaxis: SCDs, hold eliquis given recent fall w/ acute rib fractures. (15) CODE status: Discussed CODE status at length including difference between FULL code, DNR-CCA and DNR-CC status. Following discussions about the differences in these status, requested DNR-CCA, no intubation status. Also discussed ongoing physical demise and severity of co-morbidities. Patient noted interest in discussion with Palliative/Hospice about their services, consult placed. Advanced Care Planning Face to Face Time: 20 minutes. Code Visit Inpatient E&M: 71745 Init Hosp L3 Procedures: 54843 Advncd Care Plan 30 Min
--- NOTE | 2017-06-24 03:19 | ED.VISSUMM ---
- ER Visit Summary Date of Service: 06/24/17 Chief Complaint: Fall History of Present Illness: The patient is a 67 M who fell just prior to arrival. He was down for about 15 minutes and activated his medic alert bracelet. He lives alone and fell when going to the bathroom. No loss of consciousness. He does complain of head and neck pain. He hit his head but did not lose consciousness. He also complains of right-sided rib pain. He has a history of COPD, DVT, diabetes, hypertension, and high cholesterol. He is a smoker. Physical Examination: Vital signs unremarkable. Afebrile. Head atraumatic. Neck nontender. Cranial nerves grossly intact. Heart regular. Lungs clear. Chest is tender, right anterior chest wall. Back nontender. Abdomen soft and nontender. Extremities nontender and atraumatic. Moves all extremities grossly. No focal or lateralizing neurologic abnormalities grossly. Test Results: EKG showed sinus rhythm at a rate of 83. No sign of acute ischemia or infarction pattern. Hemoglobin 12.8, glucose 48, BUN 45, creatinine 2.26. Digoxin therapeutic. Urinalysis pending. Troponin normal. X-ray of the chest and ribs showed old rib fractures on the right as well as possible fifth and sixth rib fractures on the right. Head and neck CT shows chronic changes. Emergency Department Course and Treatment: Patient was placed on the monitor. He received juice and food for hypoglycemia and remained hypoglycemic. He subsequently received D50. He also received a fluid bolus. He has multiple rib fractures as well as dehydration and persistent hypoglycemia. He is fairly frail and lives alone. I called the hospitalist to admit Treatment Plan: As above Disposition: Admission Impression: 1. Fall 2. Closed head injury 3. Hypoglycemia 4. Acute kidney injury This note was generated with [employer] dictation software. It may contain incorrect words, spelling, and punctuation that were not noted in review of the chart prior to signing ED Disposition - Plan for ED Patient: Chief Complaint: Fall Referrals: Russell White MD [Primary Care Provider] -
--- NOTE | 2017-06-24 03:22 | ED.DCSUM_ITS ---
- ER Visit Summary Date of Service: 06/24/17 Chief Complaint: Fall History of Present Illness: The patient is a 67 M who fell just prior to arrival. He was down for about 15 minutes and activated his medic alert bracelet. He lives alone and fell when going to the bathroom. No loss of consciousness. He does complain of head and neck pain. He hit his head but did not lose consciousness. He also complains of right-sided rib pain. He has a history of COPD, DVT, diabetes, hypertension, and high cholesterol. He is a smoker. Physical Examination: Vital signs unremarkable. Afebrile. Head atraumatic. Neck nontender. Cranial nerves grossly intact. Heart regular. Lungs clear. Chest is tender, right anterior chest wall. Back nontender. Abdomen soft and nontender. Extremities nontender and atraumatic. Moves all extremities grossly. No focal or lateralizing neurologic abnormalities grossly. Test Results: EKG showed sinus rhythm at a rate of 83. No sign of acute ischemia or infarction pattern. Hemoglobin 12.8, glucose 48, BUN 45, creatinine 2.26. Digoxin therapeutic. Urinalysis pending. Troponin normal. X -ray of the chest and ribs showed old rib fractures on the right as well as possible fifth and sixth rib fractures on the right. Head and neck CT shows chronic changes. Emergency Department Course and Treatment: Patient was placed on the monitor. He received juice and food for hypoglycemia and remained hypoglycemic. He subsequently received D50. He also received a fluid bolus. He has multiple rib fractures as well as dehydration and persistent hypoglycemia. He is fairly frail and lives alone. I called the hospitalist to admit Treatment Plan: As above Disposition: Admission Impression: 1. Fall 2. Closed head injury 3. Hypoglycemia 4. Acute kidney injury This note was generated with [employer] dictation software. It may contain incorrect words, spelling, and punctuation that were not noted in review of the chart prior to signing ED Disposition - Plan for ED Patient: Chief Complaint: Fall Referrals: Russell White MD [Primary Care Provider] -
[2017-06-24 03:26] LABS: Bedside Glucose 115 mg/dL (70-110)
[2017-06-24 03:33] LABS: Red Blood Cells-Urine 0 SEEN /hpf (0-5); Squamous Epithelial Cells - UA 0 SEEN /hpf (0-5)
--- NOTE | 2017-06-24 03:36 | HP.PCM_ITS ---
Problem List (1) Hypoglycemia Status: Acute (2) Depression Status: Chronic Qualifiers: Depression Type: unspecified Qualified Code(s): F32.9 - Major depressive disorder, single episode, unspecified (3) Chronic anticoagulation Status: Chronic (4) Tobacco dependence due to cigarettes Status: Chronic (5) WHIT (obstructive sleep apnea) Status: Chronic (6) CAD (coronary artery disease) Status: Chronic Qualifiers: Coronary Disease-Associated Artery/Lesion type: unspecified vessel or lesion type [place] vs. transplanted heart: unspecified whether [place] or transplanted heart Associated angina: angina presence unspecified Qualified Code(s): I25.10 - Atherosclerotic heart disease of [place] coronary artery without angina pectoris Comment: [facility]: 10/07/2010, 09/06/2015 (7) HTN (hypertension) Status: Chronic Qualifiers: Hypertension type: unspecified Qualified Code(s): I10 - Essential (primary ) hypertension (8) Paroxysmal atrial fibrillation Status: Chronic (9) HLD (hyperlipidemia) Status: Chronic Qualifiers: Hyperlipidemia type: unspecified Qualified Code(s): E78.5 - Hyperlipidemia , unspecified (10) DM2 (diabetes mellitus, type 2) Status: Chronic Qualifiers: Diabetes mellitus longterm insulin use: without longterm use Diabetes mellitus complication status: with unspecified complications Qualified Code(s) : E11.8 - Type 2 diabetes mellitus with unspecified complications (11) COPD (chronic obstructive pulmonary disease) Status: Chronic Qualifiers: COPD type: unspecified COPD Qualified Code(s): J44.9 - Chronic obstructive pulmonary disease, unspecified History of Present Illness Date of Admission: 06/24/17 Chief Complaint: Fall The patient is a 67 y/o M w/ PMHx: Chronic COPD, Tobacco use 1 ppd, CAD, Chronic BL LE Venous Stasis, Diabetes mellitus type II, PAF on anticoagulation, Hypothyroidism, CAD/NICM, HTN, HLD, WHIT, CKD stage III who presents to the [facility] ED on 06/24/17 with fall secondary to dizziness, activated his medical alert, down x 15 minutes, noted to have hit his head and R side of his chest on the bathroom fall without loss of consciousness. 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 Past Medical History Past Medical History (Chronic Problems): Chronic Problems (Last Updated 06/15/17 @ 16:22 by Adela Arellano DO) Depression (Chronic) Chronic anticoagulation (Chronic) Tobacco dependence due to cigarettes (Chronic) Severe malnutrition (Chronic) Hypokalemia (Chronic) WHIT (obstructive sleep apnea) (Chronic) CAD (coronary artery disease) (Chronic) [facility]: 10/07/2010, 09/06/2015 HTN (hypertension) (Chronic) Paroxysmal atrial fibrillation (Chronic) HLD (hyperlipidemia) (Chronic) DM2 (diabetes mellitus, type 2) (Chronic) COPD (chronic obstructive pulmonary disease) (Chronic) Allergies Penicillins Allergy (Verified 06/24/17 01:07) Shortness of breath Home Medications: Ambulatory Orders Medication Instructions Recorded Atorvastatin Calcium [Lipitor] 40 mg PO QHS 05/27/16 Digoxin 125 mcg PO DAILY 05/27/16 Levothyroxine [Synthroid] 75 mcg PO DAILY 05/27/16 Sitagliptin Phosphate [Januvia] 50 mg PO DAILY 05/27/16 Multivitamin [Multiple Vitamins] 1 ea PO DAILY 06/24/16 Citalopram [Celexa] 10 mg PO DAILY 12/04/16 Ranolazine [Ranexa] 500 mg PO BID 01/10/17 potassium chloride ER 20 mEq 20 meq PO BID #60 tab 03/19/17 tablet,extended release(part/cryst) Apixaban [Eliquis] 2.5 mg PO BID #60 tab 06/15/17 Diltiazem CD [Cardizem CD] 180 mg PO DAILY #30 cap 06/15/17 Glimepiride [Amaryl] 1 mg PO DAILY #30 tab 06/15/17 Pantoprazole Sodium [Protonix] 20 mg PO BID #60 tab 06/15/17 Surgical History: herniorrhaphy, tonsillectomy Psychiatric History: Depression Lives: Alone Smoking Status: Current every day smoker - 1 ppd. Tobacco Use: Cigarettes Alcohol: None Drugs: None - *Family History Maternal History Items: No pertinent history Paternal History Items: - - Rheumatic heart disease VTE Information - Inpt Only VTE Present on Admission: No VTE Mechan Device Prophylaxis: SCD's VTE Pharm Prophylaxis ordered?: No Reason prophylaxis not ordered:: Treatment Not Indicated Patient Problems: Active and Suspected Problems (Last Updated 06/15/17 @ 16:22 by Adela Arellano DO) Hypoglycemia (Acute) Subjective: Seated upright in the ED bed, fatigued appearance, uncomfortable with movement. Objective: Physical Examination: General: awake, alert, oriented x 3, fatigued appearance, cooperative, seated upright in ED bed in no apparent distress. Skin: normal color, turgor, no icterus, cyanosis except chronic bilateral lower extremity venous stasis skin changes and abrasions. HEENT: AT/NC, EOMI, PERRLA, dry MM, no carotid bruits or JVD noted. Lungs: Severely diminished breath sounds, > bilateral bases, poor effort secondary to recent acute rib fx, occasional coarse cough noted, no wheezing. Heart: Regular rate and rhythm; no gallop, rub audible. Abdomen: soft, cachetic habitus, NTTP, ND, normal BS, + HM. Extremities: no cyanosis, clubbing, see skin, + edema BL LE ankle to distal choudhary (chronic). Neurological: patient awake, alert, oriented x 3; cognitive function intact; pupils equally reactive to light and accomodation; cranial nerves II-XII grossly normal, moving all 4 extremities, no focal deficits, strength severely globally decreased secondary to acute presentation and co-morbidities. Psychiatric: affect appears flat, no acute evidence of depressive or anxiety feelings. - Physical Exam Vital Signs Temp Pulse Resp BP Pulse Ox 97.8 F 88 14 119/55 L 95 06/24/17 01:07 06/24/17 01:07 06/24/17 01:07 06/24/17 01:07 06/24/17 01:07 Oxygen Delivery Method Room Air Weight: 148 lb 12.992 oz Body Mass Index (BMI) 23.3 Finger Stick Blood Glucose 57 Laboratory Tests Past 24 Hrs 06/24/17 06/24/17 06/24/17 01:30 01:30 01:36 WBC 10.6 RBC 3.93 L Hgb 12.8 L Hct 36.8 L MCV 93.6 MCH 32.6 H MCHC 34.8 RDW 13.5 RDW Differential 46.3 H Plt Count 161 MPV 10.5 Immature Gran % (Auto) 0.200 Neut % (Auto) 74.9 H Lymph % (Auto) 11.6 L [place] % (Auto) 12.9 H Eos % (Auto) 0.3 Baso % (Auto) 0.1 Absolute Neuts (auto) 7.9 H Absolute Lymphs (auto) 1.23 Total Counted Not Reportable PT INR APTT Sodium 136 Potassium 4.3 Chloride 103 Carbon Dioxide 25.0 Anion Gap 8 BUN 45 H Creatinine 2.26 H Estim Creat Clear Calc 29.25 Est GFR (MDRD) Af Amer 37 L Est GFR (MDRD) Non-Af 31 L BUN/Creatinine Ratio 19.9 Glucose 48 L Calcium 8.6 Troponin I < 0.02 Digoxin 1.04 06/24/17 01:46 WBC RBC Hgb Hct MCV MCH MCHC RDW RDW Differential Plt Count MPV Immature Gran % (Auto) Neut % (Auto) Lymph % (Auto) [place] % (Auto) Eos % (Auto) Baso % (Auto) Absolute Neuts (auto) Absolute Lymphs (auto) Total Counted PT 15.7 H INR 1.3 APTT 35.4 Sodium Potassium Chloride Carbon Dioxide Anion Gap BUN Creatinine Estim Creat Clear Calc Est GFR (MDRD) Af Amer Est GFR (MDRD) Non-Af BUN/Creatinine Ratio Glucose Calcium Troponin I Digoxin POC Glucose 06/24/17 06/24/17 06/24/17 02:45 02:17 01:11 POC Glucose 52 L 53 L 57 L Assessment/Plan Active and Suspected Problems (Last Updated 06/15/17 @ 16:22 by Adela Arellano DO) Hypoglycemia (Acute) The patient is a 67 y/o M w/ PMHx: Chronic COPD, Tobacco use 1 ppd, CAD, Chronic BL LE Venous Stasis, Diabetes mellitus type II, PAF on anticoagulation, Hypothyroidism, CAD/NICM, HTN, HLD, WHIT, CKD stage III who presents to the [facility] ED on 06/24/17 with fall secondary to dizziness, activated his medical alert, down x 15 minutes, noted to have hit his head and R side of his chest on the bathroom fall without loss of consciousness. 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 Fall possible secondary to #2, #3, will maintain on IVFs (D5NS), hold nephrotoxic regimen, closely monitor BS, maintain on fall precautions, PRN pain regimen, PT, OT, CM consultation. Recently restarted on anticoagulant eliquis per PCP, recently discharged off xarelto secondary to renal function, but also feel given patient status POOR candidate for anticoagulation as fall risk, debility notably elevated. (2) Diabetes mellitus type II w/ Hypoglycemia: Ongoing hypoglycemia despite dextrose amp x 2, will start on D5NS regimen, continue to trend BS closely q 4 hours until improved and able to transition off dextrose IV regimen, maintain on accu checks w/ ISS. (3) Acute kidney injury: Secondary to dehydration, poor intake, nephrotoxic medications. Recent admission ad discharge 06/15/17 with TYLER, currently, worsened from discharge Cr at that time. Admission BUN/Cr 45/2.26, prior creatinine noted to be Cr 1.4 06/14/17. Will hydrate, hold nephrotoxic medications and repeat chemistry in AM. Recent admission w/ US without evidence hydronephrosis. (4) CAD: Will continue home regimen asa, statin, transitioned recently from coreg-->cardizem. (5) Hypothyroidism: Continue home synthroid regimen. (6) Tobacco Abuse: Encouraged cessation, inpatient consultation per RT. (7) PAF: EKG ED SR, off xarelto per last admission secondary to renal failure and fall risk, transitioned to eliquis recently per PCP, will again hold secondary to recent fall and acute rib fractures, maintain on digoxin, cardizem regimen. (8) Hypertension: Continue home regimen including cardizem, lasix held during recent admission upon discharge secondary to worsened renal function, PRN hydralazine. (9) Hyperlipidemia: Continue home statin regimen. (10) Chronic COPD: Will continue ATC duonebs, PRN albuterol, HOB, IS parameters. (11) Chronic Severe Protein-Calorie Malnutrition: Evidenced per habitus, muscle and fat wasting, nutrition consulted. (12) Suspected Esophageal Spasms: Recent admissions and evaluations w/ MBS and had no oropharyngeal dysfunction and w/ upper GI endoscopy with tertiary contractions of the mid and distal esophagus with gastroesophageal reflux and small hiatal hernia, continue recently started PPI 20 mg BID. (13) Normocytic Anemia, Unclear Etiology, Newer Onset: Noted during prior admission, current admission Hgb 12.8, slowly trending down per review of previous labs, will obtain guiac, iron panel, ferritin, folic acid, vitamin B12 levels. (14) DVT Prophylaxis: SCDs, hold eliquis given recent fall w/ acute rib fractures. (15) CODE status: Discussed CODE status at length including difference between FULL code, DNR-CCA and DNR-CC status. Following discussions about the differences in these status, requested DNR-CCA, no intubation status. Also discussed ongoing physical demise and severity of co-morbidities. Patient noted interest in discussion with Palliative/Hospice about their services, consult placed. Advanced Care Planning Face to Face Time: 20 minutes. Code Visit Inpatient E&M: 51102 Init Hosp L3 Procedures: 32717 Advncd Care Plan 30 Min
[2017-06-24 03:48] LABS: Color, Urine Yellow (Yellow); Glucose, Dipstick 50 mg/dl (Normal); Urine Clarity Clear (Clear)
[2017-06-24 03:49] LABS: Ketone-Dipstick Negative (Negative); Leukocyte Esterase-Dipstick 25 /ul (Negative); Nitrite-Dipstick Negative (Negative); Occult Blood-Urine Negative /ul (Negative); Protein-Dipstick 30 mg/dl (Negative); Specific Gravity, Urine 1.015 (1.002-1.030); Urine Bilirubin Dipstick Negative (Negative); Urine Urobilinogen Normal (Normal)
[2017-06-24 03:50] LABS: Bacteria RARE /hpf (None Seen); Hyaline Cast 0-5 SEEN /lpf (0-5); Mucous, Urine 1+ /hpf (<or=2+); White Blood Cells 0-5 SEEN /hpf (0-5)
[2017-06-24 04:56] LABS: Bedside Glucose 37 mg/dL (70-110)
[2017-06-24 05:14] LABS: Absolute Neutrophil Count 6.6 X10^3/uL (2.0-7.7); Basophil# 0.01 X10^3/uL; Basophil% 0.1 % (0-1); Eosinophil# 0.05 X10^3/uL; Eosinophils% 0.5 % (0-5); Hematocrit 31.8 % (40-54); Mean Corp Hgb Conc 34.6 g/gl (32-36); Mean Corpuscular Volume 95.5 fL (80-94); Mean Platelet Vol. 10.1 fl (6.2-12.0); Monocyte# 1.39 X10^3/uL; Monocyte% 15.2 % (0-10); Neutrophil # 6.57 X10^3/uL (2.7-7.7); Platelet Count 150 K/mm3 (150-450); RBC Distribution Width CV 13.5 % (11.6-14.6); RBC Distribution Width SD 44.6 fl (35.1-43.9); Red Blood Count 3.33 M/mm3 (4.6-6.2); White Blood Count 9.1 K/mm3 (4.4-11.0)
[2017-06-24] MEDS: Dextrose 5%/0.9% NaCl 1,000 ML 125 ML IV (05:32)
[2017-06-24] MEDS: 0.9% NaCl Peripheral Flush Adult/Peds IV (05:34)
[2017-06-24 05:48] LABS: Differential Indicated SCAN CRITERIA MET; POSITIVE COUNT NO; POSITIVE DIFFERENTIAL NO; POSITIVE MORPHOLOGY YES
[2017-06-24] MEDS: Levothyroxine 75 MCG Tablet PO (06:24)
[2017-06-24] MEDS: Dextrose 10%-Water 250 ML 125 ML IV ×4 (06:35→13:19)
[2017-06-24 06:42] LABS: Anion Gap 5 (5-15); BUN 40 mg/dL (7-18); BUN/Creat Ratio 19.3 RATIO (10-20); Calcium,Total 8.2 mg/dL (8.5-10.1); Chloride 102 mmol/L (98-107); Creatinine, Serum 2.07 mg/dL (0.70-1.30); EST Glomerular Filtration Rate 34 mL/min (>60); Est Glom Filt Rate - Afr Amer 41 mL/min (>60); Estimated Creatinine Clearance 29.76 ml/min; Ferritin 229 ng/mL (26-388); Glucose 141 mg/dL (74-106); Iron 16 ug/dL (65-175); Iron Binding Capacity,Total 243 ug/dL (250-450); PERCENT IRON SATURATION 6.6 % (15.0-55.0); Phosphorus 1.7 mg/dL (2.5-4.9); Potassium 4.2 mmol/L (3.5-5.1); Sodium Level 137 mmol/L (136-145)
[2017-06-24] MEDS: Ipratropium/Albuterol Sulfate 3 ML AMPUL.NEB INHALATION ×3 (07:24→19:30)
--- NOTE | 2017-06-24 07:38 | PN_ITS ---
Progress Note Patient is a 67 year old gentleman with multiple comorbidities who presented with fall with right-sided chest discomfort imaging studies obtained demonstrated acute right-sided rib fractures. Patient admitted to a regular nursing floor where patient is currently being managed Patient seen and examined. Patient's assessment including history and physical , diagnostic clinical data management director orders reviewed will follow. Ribs w/Chest X-Ray 06/24/17 01:23 IMPRESSION: RIBS: 1. Osteoporosis. 2. Sequela of old right-sided rib fracture. 3. Questionable acute right-sided rib fractures. If there is still clinical concern for acute fracture, follow-up bone scan maybe helpful in evaluating a healing radiographically occult fracture. CHEST: No radiographic evidence of acute cardiopulmonary disease. Electronically Signed: Ivania Keys MD at 2:42 EDT , Service support ,
--- NOTE | 2017-06-24 07:51 | NURSING ---
Patient was on tele at start of shift- discussed with Dr. Noriega- no change in heart rhythm- and pt is DNRCC-A with consult for palliative/ hospice care. New order entered to d/c telemetry. Same completed.
[2017-06-24 08:20] LABS: Bedside Glucose 58 mg/dL (70-110)
[2017-06-24 08:20] LABS: Bedside Glucose 50 mg/dL (70-110)
[2017-06-24 08:20] LABS: Bedside Glucose 77 mg/dL (70-110)
[2017-06-24 08:26] LABS: Bedside Glucose 71 mg/dL (70-110)
[2017-06-24] MEDS: Ranolazine 500 MG Tablet PO ×2 (08:27→22:29)
[2017-06-24] MEDS: Digoxin 125 MCG Tablet PO (08:27)
[2017-06-24] MEDS: Pantoprazole Sodium 20 MG Tablet PO ×2 (08:27→22:28)
[2017-06-24] MEDS: Senna/Docusate Sodium 1 Tablet PO (08:27)
[2017-06-24] MEDS: Citalopram 10 MG Tablet PO (08:28)
[2017-06-24 10:36] LABS: Bedside Glucose 67 mg/dL (70-110)
[2017-06-24 11:15] LABS: Bedside Glucose 61 mg/dL (70-110)
--- NOTE | 2017-06-24 13:05 | NURSING ---
Primary Nurse Luci made this nurse aware that Mr. Eason's blood sugar is 44. This nurse grabbed 1 amp of d50 and gave via IV while Luci grabbed orange juice with 3 packets of sugar, ice cream, and few sips of coke. Lab is here to obtain lab back up at this time and Dr. Noriega is aware of the blood sugar being 44.
[2017-06-24 13:22] LABS: Glucose 158 mg/dL (74-106)
[2017-06-24 13:25] LABS: Bedside Glucose 44 mg/dL (70-110)
--- NOTE | 2017-06-24 13:32 | NURSING ---
Attempted to call [facility] for home medication list- only open on - . Will pass on that we will need to check home medication list tomorrow AM. Unable to call patient's PCP at this time due to being Sunday. Patient is unable to tell this RN what medications he takes at home- but state she takes AM meds and has PM meds. States he took metformin yesterday but that was all. Noticed that previous home med list (patient was here in beginning of June in PCU for chest pain) does not have metformin- but has amaryl and januvia.
[2017-06-24 14:21] LABS: Bedside Glucose 116 mg/dL (70-110)
[2017-06-24] MEDS: Glucerna Shake 120 ML LIQUID PO ×2 (15:16→22:30)
[2017-06-24] MEDS: Dextrose 10%-Water 250 ML 150 ML IV ×5 (15:16→22:27)
[2017-06-24 15:31] LABS: Bedside Glucose 95 mg/dL (70-110)
--- NOTE | 2017-06-24 15:45 | NURSING ---
This morning, [facility] in to see patient per order for consult- Irina, from [facility]- spoke with patient and he signed consent to have palliative hospice assist him. Irina states that the wait for an appointment will be approximately 2 weeks or so. Patient was in room resting with eyes closed, as he has been most of the morning. vitals checked at this time as scheduled. spo2= 86% on RA- 3L oxygen applied via NC and respiratory called. Bipap placed on patient per home settings and patient spo2 = 96% after application. Patient easily awakens and will answer questions- remains A&O x3. Will continue to monitor.
[2017-06-24 16:30] LABS: Bedside Glucose 119 mg/dL (70-110)
[2017-06-24 17:20] LABS: Bedside Glucose 92 mg/dL (70-110)
[2017-06-24 18:11] LABS: Bedside Glucose 110 mg/dL (70-110)
[2017-06-24 19:01] LABS: Bedside Glucose 119 mg/dL (70-110)
[2017-06-24 20:51] LABS: Bedside Glucose 106 mg/dL (70-110)
[2017-06-24 21:00] LABS: T4 Free Direct 1.17 ng/dL (0.76-1.46); Thyroid Stim Hormone (TSH) 1.17 uIU/mL (0.358-3.74)
[2017-06-24] MEDS: Atorvastatin Calcium 40 MG Tablet PO (22:28)
[2017-06-24 22:41] LABS: Bedside Glucose 82 mg/dL (70-110)
[2017-06-24] MEDS: oxyCODONE 5 MG Tablet PO (23:45)
[2017-06-24 23:55] LABS: Bedside Glucose 81 mg/dL (70-110)
[2017-06-25] VITALS (11 sets, daily range): BP systolic 102–132; BP diastolic 30–57; PULSE 77–99; RESP 16–24; TEMP 36.1–37.6; O2SAT 92–98
[2017-06-25] MEDS: Dextrose 10%-Water 250 ML 150 ML IV ×6 (00:03→08:59)
[2017-06-25 01:56] LABS: Bedside Glucose 98 mg/dL (70-110)
[2017-06-25 03:36] LABS: Bedside Glucose 99 mg/dL (70-110)
[2017-06-25] MEDS: Levothyroxine 75 MCG Tablet PO (05:26)
[2017-06-25 05:36] LABS: Bedside Glucose 105 mg/dL (70-110)
[2017-06-25 06:22] LABS: Anion Gap 5 (5-15); BUN 27 mg/dL (7-18); BUN/Creat Ratio 19.4 RATIO (10-20); Chloride 103 mmol/L (98-107); Creatinine, Serum 1.39 mg/dL (0.70-1.30); EST Glomerular Filtration Rate 54 mL/min (>60); Est Glom Filt Rate - Afr Amer 65 mL/min (>60); Estimated Creatinine Clearance 44.32 ml/min; Glucose 92 mg/dL (74-106); Magnesium 1.7 mg/dL (1.6-2.6); Potassium 4.7 mmol/L (3.5-5.1); Sodium Level 136 mmol/L (136-145)
[2017-06-25] MEDS: Ipratropium/Albuterol Sulfate 3 ML AMPUL.NEB INHALATION ×3 (07:09→18:54)
[2017-06-25 08:25] LABS: Bedside Glucose 119 mg/dL (70-110)
[2017-06-25] MEDS: Citalopram 10 MG Tablet PO (08:29)
[2017-06-25] MEDS: Digoxin 125 MCG Tablet PO (08:29)
[2017-06-25] MEDS: Ranolazine 500 MG Tablet PO ×2 (08:29→21:56)
[2017-06-25] MEDS: Senna/Docusate Sodium 1 Tablet PO (08:29)
[2017-06-25] MEDS: Acetaminophen 325 MG Tablet 650 MG PO (08:30)
[2017-06-25] MEDS: Glucerna Shake 120 ML LIQUID PO ×3 (08:30→21:56)
[2017-06-25] MEDS: Pantoprazole Sodium 20 MG Tablet PO ×2 (08:30→21:56)
[2017-06-25] MEDS: dilTIAZem CD 180 MG Capsule PO (08:30)
--- NOTE | 2017-06-25 08:30 | NURSING ---
Addendum entered by Janette Pulliam 06/25/17 11:23: home med list updated and MD notified of changes. primary RN Meliza johnson. Original Note: called [facility] and requested they fax updated home med list to verify.
[2017-06-25 08:45] LABS: Vitamin B12 701 pg/mL (211-911)
--- NOTE | 2017-06-25 09:30 | PCM.PN.HOSP ---
Patient Problems: Active and Suspected Problems (Last Updated 06/15/17 @ 16:22 by Adela Arellano DO) Hypoglycemia (Acute) Subjective: complaining of headache, chest pain (right lateral), and tail bone pain. Vitals/I&O's: Vital Signs Temp Pulse Resp BP Pulse Ox 37.6 C H 99 24 H 132/44 H 95 06/25/17 08:14 06/25/17 08:29 06/25/17 08:14 06/25/17 08:14 06/25/17 08:14 Oxygen Flow Rate (L/min) 3 Oxygen Delivery Method Nasal Cannula Weight: 61.6 kg Body Mass Index (BMI) 21.2 Intake and Output for Last 24 Hours 06/23/17 06/24/17 06/25/17 23:59 23:59 23:59 Intake Total 2317 / 8 2184 / 2184 Balance 2317 218 / 2184 General: Alert, Cooperative, No apparent distress HEENT: Atraumatic, Normocephalic Neck: No Nodes, Thyroid Normal Size and Texture Lungs: Clear to auscultation, Normal air movement, No rhonchi, No wheeze Cardiovascular: Regular rate, Regular Rhythm, Normal S1, Normal S2 Abdomen: Bowel Sounds Present, Soft, Non Tender, Non-Distended, No Hepato-splenomegaly Extremities: No edema, No Calf Tenderness Skin: No rashes, No breakdown Psych/Mental Status: Normal Affect, Appropriate Microbiology Past 72 Hours 06/24/17 09:45 Stool Stool Occult Blood (EDGARD) - Final Occult Blood Positive Laboratory Results 06/24/17 04:55: Vitamin B12 701 06/24/17 10:18: POC Glucose 67 L 06/24/17 11:09: POC Glucose 61 L 06/24/17 12:45: POC Glucose 44 L* 06/24/17 13:10: Glucose 158 H 06/24/17 13:10: TSH 1.17, Free T4 1.17 06/24/17 14:11: POC Glucose 116 H 06/24/17 15:11: POC Glucose 95 06/24/17 16:13: POC Glucose 119 H 06/24/17 17:09: POC Glucose 92 06/24/17 17:58: POC Glucose 110 06/24/17 18:54: POC Glucose 119 H 06/24/17 20:03: POC Glucose 106 06/24/17 22:21: POC Glucose 82 06/24/17 23:33: POC Glucose 81 06/25/17 01:51: POC Glucose 98 06/25/17 03:31: POC Glucose 99 06/25/17 05:15: Sodium 136, Potassium 4.7, Chloride 103, Carbon Dioxide 28.0, Anion Gap 5, BUN 27 H, Creatinine 1.39 H, Estim Creat Clear Calc 44.32, Est GFR (MDRD) Af Amer 65, Est GFR (MDRD) Non-Af 54 L, BUN/Creatinine Ratio 19.4, Glucose 92, Calcium 8.0 L, Magnesium 1.7 06/25/17 05:15: Cortisol 17.50 06/25/17 05:28: POC Glucose 105 06/25/17 08:10: POC Glucose 119 H Current Medications Acetaminophen (Tylenol) 650 mg PO Q6H PRN PRN PRN Reason: pain, fever Last Admin: 06/25/17 08:30 Dose: 650 mg Al Hydroxide/Mg Hydroxide (Mylanta Ii) 30 ml PO Q6H PRN PRN PRN Reason: Gastric burning Albuterol Sulfate (Ventolin Aerosols) 2.5 mg INHALATION Q2H PRN PRN PRN Reason: dyspnea, wheezing Albuterol/Ipratropium (Duoneb) 3 ml INHALATION Q6HWA.RT [facility] Last Admin: 06/25/17 07:09 Dose: 3 ml Atorvastatin Calcium (Lipitor) 40 mg PO QHS [facility] Last Admin: 06/24/17 22:28 Dose: 40 mg Citalopram Hydrobromide (Celexa) 10 mg PO DAILY [facility] Last Admin: 06/25/17 08:29 Dose: 10 mg Dextrose (D50w Syringe) 0 gm IV X1 PRN; Protocol PRN Reason: Hypoglycemia Last Admin: 06/24/17 12:57 Dose: 25 gm Digoxin (Lanoxin) 125 mcg PO DAILY [facility] Last Admin: 06/25/17 08:29 Dose: 125 mcg Diltiazem HCl (Cardizem Cd) 180 mg PO DAILY [facility] Last Admin: 06/25/17 08:30 Dose: 180 mg Glucagon () 1 mg IM .X1 PRN PRN Reason: Hypoglycemia Hydralazine HCl (Apresoline Iv) 10 mg IV Q4H PRN PRN PRN Reason: SBP > 160 Dextrose (Dextrose 10%-Water) 250 mls @ 150 mls/hr IV .Q1H40M [facility] Last Admin: 06/25/17 08:59 Dose: 150 mls/hr Insulin Aspart (Novolog Flexpen (Bkc)) 0 units SC Q4 HANS PRN Reason: Protocol Last Admin: 06/25/17 05:32 Dose: Not Given Levothyroxine Sodium (Synthroid) 75 mcg PO DAILY@0600 [facility] Last Admin: 06/25/17 05:26 Dose: 75 mcg Magnesium Hydroxide (Milk Of Magnesia) 30 ml PO DAILY PRN PRN PRN Reason: Constipation Morphine Sulfate () 1 - 2 mg IV Q4H PRN PRN PRN Reason: PAIN Nicotine (Nicoderm Cq (Pbkc)) 21 mg TRANSDERM. DAILY [facility] Last Admin: 06/25/17 08:29 Dose: 21 mg Nutritional Formula (Lactose Free) (Glucerna Shake) 120 ml PO 4X/DAY [facility] Last Admin: 06/25/17 08:30 Dose: 120 ml Ondansetron HCl (Zofran) 4 mg IV Q8H PRN PRN PRN Reason: NAUSEA Oxycodone HCl (Oxyir) 5 mg PO Q4H PRN PRN PRN Reason: SEVERE PAIN (6-10/10) Last Admin: 06/24/17 23:45 Dose: 5 mg Pantoprazole Sodium (Protonix) 20 mg PO BID [facility] Last Admin: 06/25/17 08:30 Dose: 20 mg Potassium Chloride (K-Dur) 20 meq PO BID [facility] Last Admin: 06/25/17 08:30 Dose: 20 meq Promethazine HCl (Phenergan) 12.5 mg IV Q6H PRN PRN PRN Reason: NAUSEA/VOMITING Ranolazine (Ranexa) 500 mg PO BID [facility] Last Admin: 06/25/17 08:29 Dose: 500 mg Senna/Docusate Sodium (Senokot-S, Zahra-Colace) 1 tablet PO DAILY [facility] Last Admin: 06/25/17 08:29 Dose: 1 tablet Sodium Chloride () 5 - 30 ml IV UD PRN PRN Reason: SALINE FLUSH Last Admin: 06/24/17 05:34 Dose: 10 ml Medical Necessity - Tobacco Use Smoking Status: Current every day smoker Tobacco Use: Cigarettes Assessment/Plan Active and Suspected Problems (Last Updated 06/15/17 @ 16:22 by Adela Arellano DO) Hypoglycemia (Acute) 1. Mechanical fall await PT OT patient from home. Unclear to therapy eval, if he will be safe to return directly home from the hospital. 2. hypoglycemia: resolved amaryl held, would not restart DC D5 3. right rib fractures new and possibly old new is due to fall check 25-OH d level 4. TYLER prerenal. resolved Creatinine now at baseline. 5. pAfib cont dilt resume eliquis 6. DVT proph: SCD and eliquis. Code Visit Inpatient E&M: 19456 Subs Hosp L2
--- NOTE | 2017-06-25 09:40 | PN_ITS ---
Patient Problems: Active and Suspected Problems (Last Updated 06/15/17 @ 16:22 by Adela Arellano DO) Hypoglycemia (Acute) Subjective: complaining of headache, chest pain (right lateral), and tail bone pain. Vitals/I&O's: Vital Signs Temp Pulse Resp BP Pulse Ox 37.6 C H 99 24 H 132/44 H 95 06/25/17 08:14 06/25/17 08:29 06/25/17 08:14 06/25/17 08:14 06/25/17 08:14 Oxygen Flow Rate (L/min) 3 Oxygen Delivery Method Nasal Cannula Weight: 61.6 kg Body Mass Index (BMI) 21.2 Intake and Output for Last 24 Hours 06/23/17 06/24/17 06/25/17 23:59 23:59 23:59 Intake Total 2317 / 8 2184 / 2184 Balance 2317 218 / 2184 General: Alert, Cooperative, No apparent distress HEENT: Atraumatic, Normocephalic Neck: No Nodes, Thyroid Normal Size and Texture Lungs: Clear to auscultation, Normal air movement, No rhonchi, No wheeze Cardiovascular: Regular rate, Regular Rhythm, Normal S1, Normal S2 Abdomen: Bowel Sounds Present, Soft, Non Tender, Non-Distended, No Hepato- splenomegaly Extremities: No edema, No Calf Tenderness Skin: No rashes, No breakdown Psych/Mental Status: Normal Affect, Appropriate Microbiology Past 72 Hours 06/24/17 09:45 Stool Stool Occult Blood (EDGARD) - Final Occult Blood Positive Laboratory Results 06/24/17 04:55: Vitamin B12 701 06/24/17 10:18: POC Glucose 67 L 06/24/17 11:09: POC Glucose 61 L 06/24/17 12:45: POC Glucose 44 L* 06/24/17 13:10: Glucose 158 H 06/24/17 13:10: TSH 1.17, Free T4 1.17 06/24/17 14:11: POC Glucose 116 H 06/24/17 15:11: POC Glucose 95 06/24/17 16:13: POC Glucose 119 H 06/24/17 17:09: POC Glucose 92 06/24/17 17:58: POC Glucose 110 06/24/17 18:54: POC Glucose 119 H 06/24/17 20:03: POC Glucose 106 06/24/17 22:21: POC Glucose 82 06/24/17 23:33: POC Glucose 81 06/25/17 01:51: POC Glucose 98 06/25/17 03:31: POC Glucose 99 06/25/17 05:15: Sodium 136, Potassium 4.7, Chloride 103, Carbon Dioxide 28.0, Anion Gap 5, BUN 27 H, Creatinine 1.39 H, Estim Creat Clear Calc 44.32, Est GFR (MDRD) Af Amer 65, Est GFR (MDRD) Non-Af 54 L, BUN/Creatinine Ratio 19.4, Glucose 92, Calcium 8.0 L, Magnesium 1.7 06/25/17 05:15: Cortisol 17.50 06/25/17 05:28: POC Glucose 105 06/25/17 08:10: POC Glucose 119 H Current Medications Acetaminophen (Tylenol) 650 mg PO Q6H PRN PRN PRN Reason: pain, fever Last Admin: 06/25/17 08:30 Dose: 650 mg Al Hydroxide/Mg Hydroxide (Mylanta Ii) 30 ml PO Q6H PRN PRN PRN Reason: Gastric burning Albuterol Sulfate (Ventolin Aerosols) 2.5 mg INHALATION Q2H PRN PRN PRN Reason: dyspnea, wheezing Albuterol/Ipratropium (Duoneb) 3 ml INHALATION Q6HWA.RT [facility] Last Admin: 06/25/17 07:09 Dose: 3 ml Atorvastatin Calcium (Lipitor) 40 mg PO QHS [facility] Last Admin: 06/24/17 22:28 Dose: 40 mg Citalopram Hydrobromide (Celexa) 10 mg PO DAILY [facility] Last Admin: 06/25/17 08:29 Dose: 10 mg Dextrose (D50w Syringe) 0 gm IV X1 PRN; Protocol PRN Reason: Hypoglycemia Last Admin: 06/24/17 12:57 Dose: 25 gm Digoxin (Lanoxin) 125 mcg PO DAILY [facility] Last Admin: 06/25/17 08:29 Dose: 125 mcg Diltiazem HCl (Cardizem Cd) 180 mg PO DAILY [facility] Last Admin: 06/25/17 08:30 Dose: 180 mg Glucagon () 1 mg IM .X1 PRN PRN Reason: Hypoglycemia Hydralazine HCl (Apresoline Iv) 10 mg IV Q4H PRN PRN PRN Reason: SBP > 160 Dextrose (Dextrose 10%-Water) 250 mls @ 150 mls/hr IV .Q1H40M [facility] Last Admin: 06/25/17 08:59 Dose: 150 mls/hr Insulin Aspart (Novolog Flexpen (Bkc)) 0 units SC Q4 HANS PRN Reason: Protocol Last Admin: 06/25/17 05:32 Dose: Not Given Levothyroxine Sodium (Synthroid) 75 mcg PO DAILY@0600 [facility] Last Admin: 06/25/17 05:26 Dose: 75 mcg Magnesium Hydroxide (Milk Of Magnesia) 30 ml PO DAILY PRN PRN PRN Reason: Constipation Morphine Sulfate () 1 - 2 mg IV Q4H PRN PRN PRN Reason: PAIN Nicotine (Nicoderm Cq (Pbkc)) 21 mg TRANSDERM. DAILY [facility] Last Admin: 06/25/17 08:29 Dose: 21 mg Nutritional Formula (Lactose Free) (Glucerna Shake) 120 ml PO 4X/DAY [facility] Last Admin: 06/25/17 08:30 Dose: 120 ml Ondansetron HCl (Zofran) 4 mg IV Q8H PRN PRN PRN Reason: NAUSEA Oxycodone HCl (Oxyir) 5 mg PO Q4H PRN PRN PRN Reason: SEVERE PAIN (6-10/10) Last Admin: 06/24/17 23:45 Dose: 5 mg Pantoprazole Sodium (Protonix) 20 mg PO BID [facility] Last Admin: 06/25/17 08:30 Dose: 20 mg Potassium Chloride (K-Dur) 20 meq PO BID [facility] Last Admin: 06/25/17 08:30 Dose: 20 meq Promethazine HCl (Phenergan) 12.5 mg IV Q6H PRN PRN PRN Reason: NAUSEA/VOMITING Ranolazine (Ranexa) 500 mg PO BID [facility] Last Admin: 06/25/17 08:29 Dose: 500 mg Senna/Docusate Sodium (Senokot-S, Zahra-Colace) 1 tablet PO DAILY [facility] Last Admin: 06/25/17 08:29 Dose: 1 tablet Sodium Chloride () 5 - 30 ml IV UD PRN PRN Reason: SALINE FLUSH Last Admin: 06/24/17 05:34 Dose: 10 ml Medical Necessity - Tobacco Use Smoking Status: Current every day smoker Tobacco Use: Cigarettes Assessment/Plan Active and Suspected Problems (Last Updated 06/15/17 @ 16:22 by Adela Arellano DO) Hypoglycemia (Acute) 1. Mechanical fall * await PT OT * patient from home. Unclear to therapy eval, if he will be safe to return directly home from the hospital. 2. hypoglycemia: * resolved * amaryl held, would not restart * DC D5 3. right rib fractures * new and possibly old * new is due to fall * check 25-OH d level 4. TYLER * prerenal. * resolved * Creatinine now at baseline. 5. pAfib * cont dilt * resume eliquis 6. DVT proph: SCD and eliquis. Code Visit Inpatient E&M: 62498 Subs Hosp L2
[2017-06-25] MEDS: 0.9% NaCl Peripheral Flush Adult/Peds IV (09:56)
[2017-06-25 10:06] LABS: Bedside Glucose 133 mg/dL (70-110)
[2017-06-25 10:19] LABS: Vitamin D,25 Hydroxy 31.9 ng/mL (29.95-100.01)
[2017-06-25] MEDS: APIXABAN 2.5 MG TABLET PO ×2 (11:13→21:56)
--- NOTE | 2017-06-25 12:22 | CASEMGMT ---
Addendum entered by Alla De La Rosa 06/25/17 13:18: [facility] confirmed they take pt, cannot start until early next week if that is okay w/the pt. SW explained will check w/pt and if there is a problem will let her know, otherwise, can plan on starting care for pt next week. SW spoke w/pt, let him know [facility] can take pt, cannot start until early next week. Pt is fine with this. SW let SHANIA Logan know about referral, she will follow up w/face to face and discharge instructions to [place] once pt is discharged. OBDULIA Limon, TECHNICAL SERVICES ASSISTANT Original Note: See assessment. SW spoke w/pt in room, pt's friend Radha is in the room as well. Pt has [facility], has 8.5 hours/week of aides, has [facility] M-F and a life alert button. Radha states she can help pt with whatever he needs at home. Pt is agreeable to return home, he would like skilled care for PT/OT. SW explained will make a referral for skilled care for PT/OT. SW called [facility], pt's housing case manager is Diane Sotomayor. She is not available, spoke w/a covering youth career specialist who confirmed pt's services. SW called [facility], they can likely take pt for PT/OT, would start early next week. SW faxed referral, will follow up w/pt again once [place] confirms they can take pt for PT/OT. OBDULIA Limon, TECHNICAL SERVICES ASSISTANT
[2017-06-25 13:21] LABS: Bedside Glucose 126 mg/dL (70-110)
[2017-06-25 13:26] LABS: Bedside Glucose 142 mg/dL (70-110)
[2017-06-25] MEDS: oxyCODONE 5 MG Tablet PO ×2 (13:57→21:56)
--- NOTE | 2017-06-25 14:36 | CHAPLAIN ---
Type of Pastoral Visit _x__ Initial Visit ___ Follow-up Visit ___ On-call Visit ___ General Patient Visit ___ Spiritual Assessment ___ Family Conference ___ Bereavement ___ Rapid Response ___ Code Blue ___ Other (describe below) Pastoral Care Referral From _x__ Patient ___ Family ___ Nurse ___ Physician ___ Ammonia Technician ___ Rock Worker ___ Other (describe below) Sacrament/Intervention _x__ Active listening ___ Anointing ___ Sikh ___ Bereavement ___ Communion ___ Manuela exploration ___ _x__ Life review _x__ Prayer ___ Reconciliation ___ Sacrament of Sick ___ Supportive presence ___ Wedding ___ Other (describe below) Pastoral Comments
[2017-06-25 16:31] LABS: Bedside Glucose 154 mg/dL (70-110)
[2017-06-25] MEDS: Budesonide Respules 0.5 MG/2 ML AMPUL.NEB. INHALATION (18:55)
[2017-06-25 21:55] LABS: Bedside Glucose 148 mg/dL (70-110)
[2017-06-25] MEDS: Carvedilol 25 MG Tablet PO (21:56)
[2017-06-25] MEDS: Atorvastatin Calcium 40 MG Tablet PO (21:57)
[2017-06-25] MEDS: Mirtazapine 15 MG Tablet PO (21:57)
[2017-06-25] MEDS: Albuterol 2.5 MG/3 ML VIAL.NEB. INHALATION (22:47)
[2017-06-26] VITALS (8 sets, daily range): BP systolic 102–116; BP diastolic 51–54; PULSE 59–85; RESP 16–20; TEMP 36.4–37; O2SAT 81–98
[2017-06-26] MEDS: Ipratropium/Albuterol Sulfate 3 ML AMPUL.NEB INHALATION ×3 (02:09→13:04)
[2017-06-26] MEDS: Levothyroxine 75 MCG Tablet PO (05:38)
[2017-06-26] MEDS: oxyCODONE 5 MG Tablet PO (05:45)
[2017-06-26 06:09] LABS: Anion Gap 3 (5-15); BUN 26 mg/dL (7-18); BUN/Creat Ratio 18.4 RATIO (10-20); Calcium,Total 8.1 mg/dL (8.5-10.1); Chloride 103 mmol/L (98-107); Creatinine, Serum 1.41 mg/dL (0.70-1.30); EST Glomerular Filtration Rate 53 mL/min (>60); Est Glom Filt Rate - Afr Amer 64 mL/min (>60); Estimated Creatinine Clearance 43.69 ml/min; Glucose 116 mg/dL (74-106); Potassium 5.3 mmol/L (3.5-5.1); Sodium Level 138 mmol/L (136-145)
--- NOTE | 2017-06-26 06:40 | CPS ---
pt refused to wear bipap
[2017-06-26 07:00] LABS: Bedside Glucose 117 mg/dL (70-110)
[2017-06-26] MEDS: Budesonide Respules 0.5 MG/2 ML AMPUL.NEB. INHALATION (07:22)
[2017-06-26] MEDS: Digoxin 125 MCG Tablet PO (08:34)
[2017-06-26] MEDS: Carvedilol 25 MG Tablet PO (08:38)
[2017-06-26] MEDS: Pantoprazole Sodium 20 MG Tablet PO (08:38)
[2017-06-26] MEDS: APIXABAN 2.5 MG TABLET PO (08:38)
[2017-06-26] MEDS: Citalopram 10 MG Tablet PO (08:38)
[2017-06-26] MEDS: dilTIAZem CD 180 MG Capsule PO (08:38)
[2017-06-26] MEDS: Glucerna Shake 120 ML LIQUID PO ×2 (08:38→13:14)
[2017-06-26] MEDS: Senna/Docusate Sodium 1 Tablet PO (08:39)
[2017-06-26] MEDS: Ranolazine 500 MG Tablet PO (08:39)
--- NOTE | 2017-06-26 08:39 | PCM.PN.HOSP ---
Patient Problems: Active and Suspected Problems (Last Updated 06/15/17 @ 16:22 by Adela Arellano DO) Hypoglycemia (Acute) Subjective: felling better. breathing better. Vitals/I&O's: Vital Signs Temp Pulse Resp BP Pulse Ox 36.4 C L 70 16 110/51 L 98 06/26/17 02:31 06/26/17 07:22 06/26/17 07:22 06/26/17 02:31 06/26/17 07:22 Oxygen Flow Rate (L/min) 3 Oxygen Delivery Method Nasal Cannula Weight: 61.6 kg Body Mass Index (BMI) 21.2 Intake and Output for Last 24 Hours 06/24/17 06/25/17 06/26/17 23:59 23:59 23:59 Intake Total 8 / 8 3474 / 3474 300 / 300 Balance 8 / 2317 3474 / 3474 300 / 300 General: Alert, Cooperative, No apparent distress HEENT: Atraumatic, Normocephalic Neck: No Nodes, Thyroid Normal Size and Texture Lungs: Clear to auscultation, Normal air movement, No rhonchi, No wheeze Cardiovascular: Regular rate, Regular Rhythm, Normal S1, Normal S2, No murmurs Abdomen: Bowel Sounds Present, Soft, Non Tender, Non-Distended, No Hepato-splenomegaly Extremities: No edema, No Calf Tenderness Psych/Mental Status: Normal Affect, Appropriate Microbiology Past 72 Hours 06/24/17 09:45 Stool Stool Occult Blood (EDGARD) - Final Occult Blood Positive Laboratory Results 06/24/17 04:55: Vitamin B12 701 06/25/17 05:15: Cortisol 17.50 06/25/17 05:15: Vitamin D 25-Hydroxy 31.9 06/25/17 09:58: POC Glucose 133 H 06/25/17 11:11: POC Glucose 126 H 06/25/17 13:19: POC Glucose 142 H 06/25/17 16:01: POC Glucose 154 H 06/25/17 21:50: POC Glucose 148 H 06/26/17 05:35: Sodium 138, Potassium 5.3 H, Chloride 103, Carbon Dioxide 32.0, Anion Gap 3 L, BUN 26 H, Creatinine 1.41 H, Estim Creat Clear Calc 43.69, Est GFR (MDRD) Af Amer 64, Est GFR (MDRD) Non-Af 53 L, BUN/Creatinine Ratio 18.4, Glucose 116 H, Calcium 8.1 L 06/26/17 06:53: POC Glucose 117 H Current Medications Acetaminophen (Tylenol) 650 mg PO Q6H PRN PRN PRN Reason: pain, fever Last Admin: 06/25/17 08:30 Dose: 650 mg Al Hydroxide/Mg Hydroxide (Mylanta Ii) 30 ml PO Q6H PRN PRN PRN Reason: Gastric burning Albuterol Sulfate (Ventolin Aerosols) 2.5 mg INHALATION Q2H PRN PRN PRN Reason: dyspnea, wheezing Last Admin: 06/25/17 22:47 Dose: 2.5 mg Albuterol/Ipratropium (Duoneb) 3 ml INHALATION Q6HWA.RT [facility] Last Admin: 06/26/17 07:22 Dose: 3 ml Apixaban (Eliquis) 2.5 mg PO BID [facility] Last Admin: 06/25/17 21:56 Dose: 2.5 mg Atorvastatin Calcium (Lipitor) 40 mg PO QHS [facility] Last Admin: 06/25/17 21:57 Dose: 40 mg Budesonide (Pulmicort Aerosol) 0.5 mg INHALATION BID.RT [facility] Last Admin: 06/26/17 07:22 Dose: 0.5 mg Carvedilol (Coreg) 25 mg PO BID [facility] Last Admin: 06/25/17 21:56 Dose: 25 mg Citalopram Hydrobromide (Celexa) 10 mg PO DAILY [facility] Last Admin: 06/25/17 08:29 Dose: 10 mg Dextrose (D50w Syringe) 0 gm IV X1 PRN; Protocol PRN Reason: Hypoglycemia Last Admin: 06/24/17 12:57 Dose: 25 gm Digoxin (Lanoxin) 125 mcg PO DAILY [facility] Last Admin: 06/25/17 08:29 Dose: 125 mcg Diltiazem HCl (Cardizem Cd) 180 mg PO DAILY [facility] Last Admin: 06/25/17 08:30 Dose: 180 mg Glucagon () 1 mg IM .X1 PRN PRN Reason: Hypoglycemia Hydralazine HCl (Apresoline Iv) 10 mg IV Q4H PRN PRN PRN Reason: SBP > 160 Insulin Aspart (Novolog Flexpen (Bkc)) 0 units SC ACHS HANS PRN Reason: Protocol Last Admin: 06/26/17 06:56 Dose: Not Given Levothyroxine Sodium (Synthroid) 75 mcg PO DAILY@0600 [facility] Last Admin: 06/26/17 05:38 Dose: 75 mcg Magnesium Hydroxide (Milk Of Magnesia) 30 ml PO DAILY PRN PRN PRN Reason: Constipation Mirtazapine (Remeron) 15 mg PO QHS [facility] Last Admin: 06/25/17 21:57 Dose: 15 mg Nicotine (Nicoderm Cq (Pbkc)) 21 mg TRANSDERM. DAILY [facility] Last Admin: 06/25/17 08:29 Dose: 21 mg Nutritional Formula (Lactose Free) (Glucerna Shake) 120 ml PO 4X/DAY [facility] Last Admin: 06/25/17 21:56 Dose: 120 ml Ondansetron HCl (Zofran) 4 mg IV Q8H PRN PRN PRN Reason: NAUSEA Oxycodone HCl (Oxyir) 5 mg PO Q4H PRN PRN PRN Reason: SEVERE PAIN (6-10/10) Last Admin: 06/26/17 05:45 Dose: 5 mg Pantoprazole Sodium (Protonix) 20 mg PO BID [facility] Last Admin: 06/25/17 21:56 Dose: 20 mg Potassium Chloride (K-Dur) 20 meq PO BID [facility] Last Admin: 06/25/17 21:56 Dose: 20 meq Promethazine HCl (Phenergan) 12.5 mg IV Q6H PRN PRN PRN Reason: NAUSEA/VOMITING Ranolazine (Ranexa) 500 mg PO BID [facility] Last Admin: 06/25/17 21:56 Dose: 500 mg Senna/Docusate Sodium (Senokot-S, Zahra-Colace) 1 tablet PO DAILY [facility] Last Admin: 06/25/17 08:29 Dose: 1 tablet Sodium Chloride () 5 - 30 ml IV UD PRN PRN Reason: SALINE FLUSH Last Admin: 06/25/17 09:56 Dose: 10 ml Medical Necessity - Tobacco Use Smoking Status: Current every day smoker Tobacco Use: Cigarettes Assessment/Plan Active and Suspected Problems (Last Updated 06/15/17 @ 16:22 by Adela Arellano DO) Hypoglycemia (Acute) 1. Mechanical fall await PT OT patient from home. Unclear to therapy eval, if he will be safe to return directly home from the hospital. home with C. 2. hypoglycemia: resolved no further amaryl. metformin. 3. right rib fractures new and possibly old new is due to fall check 25-OH d level 4. TYLER prerenal. resolved Creatinine now at baseline. 5. pAfib cont dilt resume eliquis 6. DVT proph: SCD and eliquis.
--- NOTE | 2017-06-26 08:54 | DCINST_ITS ---
- Discharge Diagnoses Current Active Problems: Current Active and Chronic Problems (Last Updated 06/15/17 @ 16:22 by Adela Arellano DO) Hypoglycemia (Acute) You will use the following diet at home:: Calorie/Carbohydrate Controlled ( specify 1200, 1400, etc) Your food should be the consistency of: Regular Your liquids should be the consistency of: Regular/Thin Discharge Activity: Return to Normal Activity Call your doctor if you observe: Fever of 101 or Higher, Shortness of breath Allergies/Adverse Reactions: Allergies Penicillins Allergy (Verified 06/24/17 01:07) Shortness of breath Medications to take at Discharge Atorvastatin Calcium [Lipitor] 40 mg PO QHS 05/27/16 Digoxin 125 mcg PO DAILY 05/27/16 Levothyroxine [Synthroid] 75 mcg PO DAILY 05/27/16 Multivitamin [Multiple Vitamins] 1 ea PO DAILY 06/24/16 Citalopram [Celexa] 10 mg PO DAILY 12/04/16 Ranolazine [Ranexa] 500 mg PO BID 01/10/17 potassium chloride ER 20 mEq tablet,extended release(part/cryst) 20 meq PO BID # 60 tab 03/19/17 Apixaban [Eliquis] 2.5 mg PO BID #60 tab 06/15/17 Diltiazem CD [Cardizem CD] 180 mg PO DAILY #30 cap 06/15/17 Pantoprazole Sodium [Protonix] 20 mg PO BID #60 tab 06/15/17 Carvedilol 25 mg PO BID 06/25/17 Fluticasone/Salmeterol [Advair 250-50 Diskus] 1 puff INHALATION BID 06/25/17 Ipratropium/Albuterol Sulfate [Duoneb] 3 ml INHALATION TID 06/25/17 Mirtazapine 15 mg PO QHS 06/25/17 Oxycodone [Oxyir] 5 mg PO Q6H PRN 3 Days #12 tablet 06/26/17 The following prescriptions were given: Oxycodone [Oxyir] 5 mg PO Q6H PRN 3 Days #12 tablet PRN Reason: Severe Pain (6-10/10) Primary Care Physician: Russell White MD [Primary Care Provider] - Within 2 Weeks Proposed Discharge Date: 06/26/17
--- NOTE | 2017-06-26 08:54 | PCM.DC.SUM ---
Discharge Date and Diagnosis - Problem List Patient Problems: Active and Suspected Problems (Last Updated 06/15/17 @ 16:22 by Adela Arellano DO) Hypoglycemia (Acute) Date of Admission: 06/24/17 Date of Discharge: 06/26/17 - Primary Discharge Diagnosis Active and Suspected Problems (Last Updated 06/15/17 @ 16:22 by Adela Arellano DO) Hypoglycemia (Acute) - Secondary Discharge Diagnosis Chronic Problems (Last Updated 06/15/17 @ 16:22 by Adela Arellano DO) Depression (Chronic) Chronic anticoagulation (Chronic) Tobacco dependence due to cigarettes (Chronic) Severe malnutrition (Chronic) Hypokalemia (Chronic) WHIT (obstructive sleep apnea) (Chronic) CAD (coronary artery disease) (Chronic) [facility] [place]: 10/07/2010, 09/06/2015 HTN (hypertension) (Chronic) Paroxysmal atrial fibrillation (Chronic) HLD (hyperlipidemia) (Chronic) DM2 (diabetes mellitus, type 2) (Chronic) COPD (chronic obstructive pulmonary disease) (Chronic) Hospital Course and Treatment Imaging Results: Clinical Impression(s) from Imaging Studies Brain CT 06/24/17 01:23 IMPRESSION: 1. Chronic involutional changes of the brain. 2. No CT evidence of acute intracranial hemorrhage. Electronically Signed: Ivania Keys MD at 3:01 EDT , Service support , Cervical Spine CT 06/24/17 01:23 IMPRESSION: 1. No CT evidence of acute compression or displaced fracture of the cervical spine. 2. Large anterior bridging osteophytes with possible ankylosis of the cervical spine. 3. 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 Electronically Signed: Ivania Keys MD at 3:08 EDT , Service support , Ribs w/Chest X-Ray 06/24/17 01:23 IMPRESSION: RIBS: 1. Osteoporosis. 2. Sequela of old right-sided rib fracture. 3. Questionable acute right-sided rib fractures. If there is still clinical concern for acute fracture, follow-up bone scan maybe helpful in evaluating a healing radiographically occult fracture. CHEST: No radiographic evidence of acute cardiopulmonary disease. Electronically Signed: Ivania Keys MD at 2:42 EDT , Service support , Operations: None Procedures: None Summary of Care Provided: The patient is a 67 year old M with fall after being hypoglycemic. Patient sustained right rib fractures. Patient was on Amaryl, metformin and Januvia and also combined with acute kidney injury the patient had likely lead to those medications lingering in the system for a sustained time. Patient had to be put on a continuous dextrose infusion. Patient's dextrose was discontinued yesterday and blood sugars have remained in the 130s-150s. Patient did have some hypoxia which is improved due to his rib fractures. Patient will have an amatory pulse ox to see if he may require any oxygen at home. Patient will be discharged to home with home health care. Patient will receive oxycodone total of 12 doses for pain. [] 1. Mechanical fall await PT OT patient from home. Unclear to therapy eval, if he will be safe to return directly home from the hospital. home with [facility]. 2. hypoglycemia: resolved no further amaryl, metformin, januvia. 3. right rib fractures new and possibly old new is due to fall check 25-OH d level 4. TYLER prerenal. resolved Creatinine now at baseline. hold lasix 5. pAfib cont dilt resume eliquis Discharge Diet: 1800 Calorie Control Diet Discharge Activity: Return to Normal Activity Call your doctor if you observe: Fever of 101 or Higher, Shortness of breath Home Medications: Medications to take at Discharge Atorvastatin Calcium [Lipitor] 40 mg PO QHS 05/27/16 Digoxin 125 mcg PO DAILY 05/27/16 Levothyroxine [Synthroid] 75 mcg PO DAILY 05/27/16 Multivitamin [Multiple Vitamins] 1 ea PO DAILY 06/24/16 Citalopram [Celexa] 10 mg PO DAILY 12/04/16 Ranolazine [Ranexa] 500 mg PO BID 01/10/17 potassium chloride ER 20 mEq tablet,extended release(part/cryst) 20 meq PO BID #60 tab 03/19/17 Apixaban [Eliquis] 2.5 mg PO BID #60 tab 06/15/17 Diltiazem CD [Cardizem CD] 180 mg PO DAILY #30 cap 06/15/17 Pantoprazole Sodium [Protonix] 20 mg PO BID #60 tab 06/15/17 Carvedilol 25 mg PO BID 06/25/17 Fluticasone/Salmeterol [Advair 250-50 Diskus] 1 puff INHALATION BID 06/25/17 Ipratropium/Albuterol Sulfate [Duoneb] 3 ml INHALATION TID 06/25/17 Mirtazapine 15 mg PO QHS 06/25/17 Oxycodone [Oxyir] 5 mg PO Q6H PRN 3 Days #12 tablet 06/26/17 Following Prescrptions Were Given to Patient: Oxycodone [Oxyir] 5 mg PO Q6H PRN 3 Days #12 tablet PRN Reason: Severe Pain (6-10/10) Primary Care Physician: Russell White MD [Primary Care Provider] - Within 2 Weeks Disposition: Home with Home Health Minutes spent on discharge:: 32 Patient Condition:: Good Medical Necessity - Tobacco Use Smoking Status: Current every day smoker Tobacco Use: Cigarettes Meaningful Use Info Meaningful Use Diagnoses (Choose all that apply): None applicable Code Visit Inpatient E&M: 40373 Disch Hosp
--- NOTE | 2017-06-26 09:01 | DS.PCM_ITS ---
Discharge Date and Diagnosis - Problem List Patient Problems: Active and Suspected Problems (Last Updated 06/15/17 @ 16:22 by Adela Arellano DO) Hypoglycemia (Acute) Date of Admission: 06/24/17 Date of Discharge: 06/26/17 - Primary Discharge Diagnosis Active and Suspected Problems (Last Updated 06/15/17 @ 16:22 by Adela Arellano DO) Hypoglycemia (Acute) - Secondary Discharge Diagnosis Chronic Problems (Last Updated 06/15/17 @ 16:22 by Adela Arellano DO) Depression (Chronic) Chronic anticoagulation (Chronic) Tobacco dependence due to cigarettes (Chronic) Severe malnutrition (Chronic) Hypokalemia (Chronic) WHIT (obstructive sleep apnea) (Chronic) CAD (coronary artery disease) (Chronic) [facility]: 10/07/2010, 09/06/2015 HTN (hypertension) (Chronic) Paroxysmal atrial fibrillation (Chronic) HLD (hyperlipidemia) (Chronic) DM2 (diabetes mellitus, type 2) (Chronic) COPD (chronic obstructive pulmonary disease) (Chronic) Hospital Course and Treatment Imaging Results: Clinical Impression(s) from Imaging Studies Brain CT 06/24/17 01:23 IMPRESSION: 1. Chronic involutional changes of the brain. 2. No CT evidence of acute intracranial hemorrhage. Electronically Signed: Ivania Keys MD at 3:01 EDT , Service support , Cervical Spine CT 06/24/17 01:23 IMPRESSION: 1. No CT evidence of acute compression or displaced fracture of the cervical spine. 2. Large anterior bridging osteophytes with possible ankylosis of the cervical spine. 3. 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 Electronically Signed: Ivania Keys MD at 3:08 EDT , Service support , Ribs w/Chest X-Ray 06/24/17 01:23 IMPRESSION: RIBS: 1. Osteoporosis. 2. Sequela of old right-sided rib fracture. 3. Questionable acute right-sided rib fractures. If there is still clinical concern for acute fracture, follow-up bone scan maybe helpful in evaluating a healing radiographically occult fracture. CHEST: No radiographic evidence of acute cardiopulmonary disease. Electronically Signed: Ivanai Keys MD at 2:42 EDT , Service support , Operations: None Procedures: None Summary of Care Provided: The patient is a 67 year old M with fall after being hypoglycemic. Patient sustained right rib fractures. Patient was on Amaryl, metformin and Januvia and also combined with acute kidney injury the patient had likely lead to those medications lingering in the system for a sustained time. Patient had to be put on a continuous dextrose infusion. Patient's dextrose was discontinued yesterday and blood sugars have remained in the 130s-150s. Patient did have some hypoxia which is improved due to his rib fractures. Patient will have an amatory pulse ox to see if he may require any oxygen at home. Patient will be discharged to home with home health care. Patient will receive oxycodone total of 12 doses for pain. [] 1. Mechanical fall * await PT OT * patient from home. Unclear to therapy eval, if he will be safe to return directly home from the hospital. * home with [facility]. 2. hypoglycemia: * resolved * no further amaryl, metformin, januvia. 3. right rib fractures * new and possibly old * new is due to fall * check 25-OH d level 4. TYLER * prerenal. * resolved * Creatinine now at baseline. * hold lasix 5. pAfib * cont dilt * resume eliquis Discharge Diet: 1800 Calorie Control Diet Discharge Activity: Return to Normal Activity Call your doctor if you observe: Fever of 101 or Higher, Shortness of breath Home Medications: Medications to take at Discharge Atorvastatin Calcium [Lipitor] 40 mg PO QHS 05/27/16 Digoxin 125 mcg PO DAILY 05/27/16 Levothyroxine [Synthroid] 75 mcg PO DAILY 05/27/16 Multivitamin [Multiple Vitamins] 1 ea PO DAILY 06/24/16 Citalopram [Celexa] 10 mg PO DAILY 12/04/16 Ranolazine [Ranexa] 500 mg PO BID 01/10/17 potassium chloride ER 20 mEq tablet,extended release(part/cryst) 20 meq PO BID # 60 tab 03/19/17 Apixaban [Eliquis] 2.5 mg PO BID #60 tab 06/15/17 Diltiazem CD [Cardizem CD] 180 mg PO DAILY #30 cap 06/15/17 Pantoprazole Sodium [Protonix] 20 mg PO BID #60 tab 06/15/17 Carvedilol 25 mg PO BID 06/25/17 Fluticasone/Salmeterol [Advair 250-50 Diskus] 1 puff INHALATION BID 06/25/17 Ipratropium/Albuterol Sulfate [Duoneb] 3 ml INHALATION TID 06/25/17 Mirtazapine 15 mg PO QHS 06/25/17 Oxycodone [Oxyir] 5 mg PO Q6H PRN 3 Days #12 tablet 06/26/17 Following Prescrptions Were Given to Patient: Oxycodone [Oxyir] 5 mg PO Q6H PRN 3 Days #12 tablet PRN Reason: Severe Pain (6-10/10) Primary Care Physician: Russell White MD [Primary Care Provider] - Within 2 Weeks Disposition: Home with Home Health Minutes spent on discharge:: 32 Patient Condition:: Good Medical Necessity - Tobacco Use Smoking Status: Current every day smoker Tobacco Use: Cigarettes Meaningful Use Info Meaningful Use Diagnoses (Choose all that apply): None applicable Code Visit Inpatient E&M: 43033 Disch Hosp
[2017-06-26 11:56] LABS: Bedside Glucose 165 mg/dL (70-110)
--- NOTE | 2017-06-26 11:56 | CASEMGMT ---
Intro role of CM to patient in room. Discussed oxygen qualification. Pt is agreeable to Home Oxygen through [facility] (uses them for [facility]). Home Health Face to Face, DC instructions faxed to [facility] . Pt states he plans to take a taxi home. VERONICA CM called to ROSANA Avila to request assistance with ride home (hospital van vs ambulette) for safety. -Script to Dr. Astorga to sign for Oxygen, awaiting completion and will fax to [email or web address]. Cele DACOSTAN RN ACM
--- NOTE | 2017-06-26 12:56 | CASEMGMT ---
Script faxed to [facility] for [facility]. Call to Susan who will deliver portable tank. Cele DACOSTAN RN ACM
--- NOTE | 2017-06-26 12:59 | CASEMGMT ---
Addendum entered by Margarita Lee 06/26/17 15:31: SW placed transportation by ground ambulance sheet on pt's chart. Original Note: Social Work Note SW received call from VERONICA Logan that pt needs transportation set up to discharge home. SW confirmed with pt that he will need transportation and pt confirmed. ROSANA asked VERONICA Camara if pt can regulate his oxygen or if he needs assistance as this determines if pt can go by cot or wheelchair. Per VERONICA Camara, pt will need assistance regulating his oxygen. Per [facility] pt will need to go by ambulance. ROSANA set up transportation through [facility] for 3:30 via ambulance. ROSANA informed VERONICA Camara of this and pt. Pt denied additional needs or concerns at this time. ROSANA placed call to pt's Passport SHANIA Sotomayor to inform her of pt's discharge. Plan: Return home and resume Passport Aide services and receive [facility]. Margarita Lee [employer], [employer] COORDINATOR
== END 2017-06-26 15:36 | disposition home or self-care (01) | DRG 183 ==
LOC: ED 02:50 → MS2 03:50
PROVIDERS: Internal Medicine; Admitting Provider Family Medicine; Emergency Provider Emergency Medicine; Family Provider Internal Medicine; PCP Internal Medicine
DX: S22.41XA Multiple fractures of ribs, right side, initial encounter for closed fracture (principal); E43 Unspecified severe protein-calorie malnutrition; I42.9 Cardiomyopathy, unspecified; N17.9 Acute kidney failure, unspecified; E11.649 Type 2 diabetes mellitus with hypoglycemia without coma; W18.39XA Other fall on same level, initial encounter; I12.9 Hypertensive chronic kidney disease with stage 1 through stage 4 chronic kidney disease, or unspecified chronic kidney disease; E11.22 Type 2 diabetes mellitus with diabetic chronic kidney disease; N18.3 Chronic kidney disease, stage 3 (moderate); E78.00 Pure hypercholesterolemia, unspecified; F17.210 Nicotine dependence, cigarettes, uncomplicated; J44.9 Chronic obstructive pulmonary disease, unspecified; I25.10 Atherosclerotic heart disease of native coronary artery without angina pectoris; I48.0 Paroxysmal atrial fibrillation; E78.5 Hyperlipidemia, unspecified; E03.9 Hypothyroidism, unspecified; G47.33 Obstructive sleep apnea (adult) (pediatric); F32.9 Major depressive disorder, single episode, unspecified; K21.9 Gastro-esophageal reflux disease without esophagitis; E87.6 Hypokalemia; E86.0 Dehydration; I87.8 Other specified disorders of veins; D64.9 Anemia, unspecified; M81.0 Age-related osteoporosis without current pathological fracture; Z68.23 Body mass index [BMI] 23.0-23.9, adult; Z79.84 Long term (current) use of oral hypoglycemic drugs; Z79.01 Long term (current) use of anticoagulants; Z79.899 Other long term (current) drug therapy; Z99.81 Dependence on supplemental oxygen; Z86.718 Personal history of other venous thrombosis and embolism; Y93.89 Activity, other specified; Y92.009 Unspecified place in unspecified non-institutional (private) residence as the place of occurrence of the external cause
CPT/HCPCS: 36415; 70450; 71101; 72125; 80048; 80162; 81001; 82274; 82306; 82533; 82607; 82728; 82746; 82947; 82962; 83540; 83550; 83735; 84100; 84439; 84443; 84484; 85025; 85610; 85730; 93005; 94002; 94640; 97116; 97162; 97166; 97530; 97802; 99285; J7030; J7040; P9612; A4216

== ENCOUNTER 2017-06-27 04:47 | Observation (INO) | payer MEDICARE, SELFPAY ==
[2017-06-27] VITALS (20 sets, daily range): BP systolic 118–216; BP diastolic 43–60; PULSE 71–87; RESP 16–24; TEMP 36.5–37.1; O2SAT 86–100; BMI 23.2
[2017-06-27 04:56] LABS: Bedside Glucose 219 mg/dL (70-110)
--- NOTE | 2017-06-27 05:01 | CT_ITS ---
STUDY: CT BRAIN WITHOUT CONTRAST REASON FOR EXAM: Male, 67 years old. Fall, right-sided head trauma. RADIATION DOSAGE (If Supplied By Facility): CTDIvol = ( 44.99 ) mGy, DLP = ( 846.73 ) mGycm TECHNIQUE: Transaxial CT imaging of the brain was performed without administration of intravenous contrast material. Individualized dose optimization techniques were used for this CT. COMPARISON: June 24, 2017. FINDINGS: Normal soft tissue structures. Normal calvarium. Normal size ventricles and extra-axial spaces for the patient's age. Normal white matter tracts of the cerebral hemispheres. Normal basal ganglia and thalami. Normal brainstem. Normal cerebellum. There is no intracranial hemorrhage. There are no findings of an acute ischemic infarction. Mild deformity of the nasal bones compatible with old trauma unchanged. Postoperative changes of right maxillary sinus surgery. There is thickening of the wall right maxillary sinus unchanged compatible chronic infection. There is moderate mucosal thickening which has remained stable. There is now a moderate-sized air-fluid level within the floor the left maxillary sinus compatible with acute or chronic sinusitis. CT/Brain/Head without Contrast IMPRESSION: No acute intracranial abnormality. Normal for age. Old nasal bone fractures. Moderate right maxillary sinus mucosal thickening. Postoperative changes of sinus surgery. Findings of chronic inflammation of the right maxillary sinus. Acute versus chronic left maxillary sinusitis which is new since the prior study. Electronically Signed: Geovanny Koch MD at 6:39 EDT , Service support ,
--- NOTE | 2017-06-27 05:02 | EKG12_ITS ---
Test Reason : SOB Blood Pressure : / mmHG Vent. Rate : 080 BPM Atrial Rate : 080 BPM P-R Int : 138 ms QRS Dur : 098 ms QT Int : 348 ms P-R-T Axes : 062 056 059 degrees QTc Int : 401 ms Normal sinus rhythm Low voltage QRS (limb leads) Confirmed by NADEEM HERNANDEZ, OLIVER ([id number]), news copy editor KWAKU MOSER ([id number]) on 07/02/2017 3:20:40 PM Referred By: MILTON Confirmed By:OLIVER SILVER MD
--- NOTE | 2017-06-27 05:03 | CT_ITS ---
STUDY: CT CERVICAL SPINE WITHOUT CONTRAST REASON FOR EXAM: Male, 67 years old. Fall. RADIATION DOSAGE (If Supplied By Facility): CTDIvol = ( 17.03 ) mGy, DLP = ( 343.35 ) mGycm TECHNIQUE: High resolution transaxial imaging was performed without contrast material. Sagittal and coronal images were reconstructed. Individualized dose optimization techniques were used for this CT. COMPARISON: June 24, 2017. FINDINGS: Normal craniovertebral junction. Normal anterior atlantoaxial articulation. Normal odontoid process. Normal cervical lordosis. Large anterior bridging osteophyte C2-3 through C5-6. 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 C2-3: Disc space narrowing. Normal central canal and intervertebral neuroforamina. C3-4: Normal disc height and morphology. Mild disc bulge produces mild spinal stenosis. Left neural foraminal narrowing. C4-5: Normal disc height and morphology. Mild disc bulge produces mild spinal stenosis. Bilateral neural foramina narrowing left greater than right. C5-6: Disc space narrowing. Posterior osteophyte produces moderate spinal stenosis. Bilateral neural foraminal narrowing. C6-7: Normal endplates. Normal disc height and morphology. Normal central canal. Bilateral neural foraminal narrowing C7-T1: Normal endplates. Normal disc height and morphology. Normal central canal and intervertebral neuroforamina. Normal visualized soft tissue structures. CT/Spine Cervical without Contras IMPRESSION: Multilevel degenerative changes of the cervical spine similar in appearance to the prior study. No fracture identified. Electronically Signed: Geovanny Koch MD at 6:47 EDT , Service support ,
--- NOTE | 2017-06-27 05:03 | CT_ITS ---
STUDY: CT CHEST WITHOUT CONTRAST REASON FOR EXAM: Male, 67 years old. Fall, right-sided chest and rib pain. RADIATION DOSAGE (If Supplied By Facility): CTDIvol = ( 12.42 ) mGy, DLP = ( 518.47 ) mGycm TECHNIQUE: Transaxial imaging was performed without the administration of intravenous contrast material. Individualized dose optimization techniques were used for this CT. COMPARISON: October 11, 2016. Rib series June 24, 2017. FINDINGS: Emphysematous changes. Peribronchial thickening in the lower lobes. New peripheral patchy densities in the lower lobes bilaterally right greater than left. New focal opacity medial aspect of the right middle lobe. 1.1 cm opacity posterior aspect of the left upper lobe axial image 41 series 2. Small right pleural effusion. No pneumothorax. The heart is not enlarged. Coronary artery calcifications. No pericardial effusion. Normal mediastinum. Normal hilar regions. Normal unenhanced pulmonary arteries. Normal aorta arch and descending thoracic aorta. No rib fractures identified. Multilevel degenerative changes of the thoracic spine. There is no demonstrated abnormality of the visualized upper abdomen. CT/Chest without Contrast IMPRESSION: Bilateral lower lobe and possibly right middle lobe pneumonias. Small patchy density left upper lobe which also is probably related to infection. Recommend continued follow-up of the above-described densities. Small right pleural effusion. Bilateral low peribronchial thickening suggestive of bronchitis. Coronary artery calcifications. No rib fractures. Emphysematous changes. Electronically Signed: Geovanny Koch MD at 7:04 EDT , Service support ,
--- NOTE | 2017-06-27 05:04 | ED.VISSUMM ---
- ER Visit Summary Date of Service: 06/27/17 Chief Complaint: Fall History of Present Illness: The patient is a 67 M with history of COPD and recent right rib fractures from a fall, recent hospitalization for hypoglycemia and acute kidney injury, presents after a fall this morning. Patient was just discharged yesterday afternoon and is now on home oxygen. He states he got up this morning and was trying to adjust his oxygen because his O2 sat was in the mid 80s. He tripped and fell. He denies any prodromal symptoms. He did hit his head but denies loss of consciousness. Patient is on Eliquis. He is complaining of right sided chest pain shortness of breath. He landed on his right side. Denies any extremity pain, hip pain, abdominal pain, nausea or vomiting, vision changes, neck or back pain. Patient does have complaint of right sided head pain and right-sided rib pain. Physical Examination: Vital signs: afebrile, hemodynamically stable, on nasal cannula, 92% General: Thin, unkempt appearing, in mild respiratory distress more frequent moist cough Skin: warm, dry, no rash, no pallor, no soft tissue injuries noted HEENT: normocephalic, tenderness to palpation to the right temporoparietal scalp, no contusions or deformities; PERRL, EOMI, tacky mucous membranes Cardiovascular: regular rate and rhythm without murmurs, 1+ symmetric peripheral edema, 2+ pulses all distal extremities Respiratory: Mild increased work of breathing, wheezing and rhonchi noted on the right lynne Abdominal: Abdomen is soft, nontender with normoactive bowel sounds, no guarding or rebound, no masses MSK: Moves all extremities, no deformities, normal strength, pelvis is stable, negative logroll bilateral hips, full range of motion of all extremity joints Neuro: Awake and alert, oriented ?4. No facial droop, sensation and motor function intact and symmetric Test Results: Abnormal Lab Results 06/27/17 06/27/17 06/27/17 04:52 05:20 05:20 WBC 9.1 RBC 3.61 L Hgb 11.8 L Hct 35.1 L MCV 97.2 H MCH 32.7 H MCHC 33.6 RDW 13.8 RDW Differential 47.2 H Plt Count 188 MPV 10.3 Immature Gran % (Auto) 0.400 Neut % (Auto) 75.8 H Lymph % (Auto) 7.9 L [place] % (Auto) 15.4 H Eos % (Auto) 0.3 Baso % (Auto) 0.2 Absolute Neuts (auto) 6.9 Absolute Lymphs (auto) 0.72 L Total Counted Not Reportable PT 14.8 INR 1.2 APTT 40.5 H Sodium Potassium Chloride Carbon Dioxide Anion Gap BUN Creatinine Estim Creat Clear Calc Est GFR (MDRD) Af Amer Est GFR (MDRD) Non-Af BUN/Creatinine Ratio Glucose Lactic Acid Calcium Total Bilirubin AST ALT Alkaline Phosphatase Troponin I Total Protein Albumin Globulin Albumin/Globulin Ratio Urine Color Urine Clarity Urine pH Ur Specific [place] Urine Protein Urine Glucose (UA) Urine Ketones Urine Occult Blood Urine Nitrite Urine Bilirubin Urine Urobilinogen Ur Leukocyte Esterase Urine RBC Urine WBC Ur Squamous Epith Cells Amorphous Sediment Urine Bacteria Hyaline Casts Coarse Granular Casts Urine Mucus POC Glucose 219 H 06/27/17 06/27/17 06/27/17 05:20 05:20 06:45 WBC RBC Hgb Hct MCV MCH MCHC RDW RDW Differential Plt Count MPV Immature Gran % (Auto) Neut % (Auto) Lymph % (Auto) [place] % (Auto) Eos % (Auto) Baso % (Auto) Absolute Neuts (auto) Absolute Lymphs (auto) Total Counted PT INR APTT Sodium 135 L Potassium 5.8 H Chloride 98 Carbon Dioxide 30.0 Anion Gap 7 BUN 34 H Creatinine 1.56 H Estim Creat Clear Calc 42.37 Est GFR (MDRD) Af Amer 57 L Est GFR (MDRD) Non-Af 47 L BUN/Creatinine Ratio 21.8 H Glucose 239 H Lactic Acid 2.0 Calcium 8.8 Total Bilirubin 0.90 AST 40 H ALT 42 Alkaline Phosphatase 137 H Troponin I < 0.02 Total Protein 7.1 Albumin 2.7 L Globulin 4.4 H Albumin/Globulin Ratio 0.6 L Urine Color Yellow Urine Clarity Clear Urine pH 5.0 Ur Specific [place] 1.015 Urine Protein 30 H Urine Glucose (UA) 250 H Urine Ketones Negative Urine Occult Blood Negative Urine Nitrite Negative Urine Bilirubin Negative Urine Urobilinogen Normal Ur Leukocyte Esterase 25 H Urine RBC 0 SEEN Urine WBC 0-5 SEEN Ur Squamous Epith Cells 0-5 SEEN Amorphous Sediment R Urine Bacteria RARE Hyaline Casts 0-5 SEEN Coarse Granular Casts 0-5 SEEN Urine Mucus RARE POC Glucose Clinical Impression(s) from Imaging Studies Brain CT 06/27/17 05:01 IMPRESSION: No acute intracranial abnormality. Normal for age. Old nasal bone fractures. Moderate right maxillary sinus mucosal thickening. Postoperative changes of sinus surgery. Findings of chronic inflammation of the right maxillary sinus. Acute versus chronic left maxillary sinusitis which is new since the prior study. Cervical Spine CT 06/27/17 05:03 IMPRESSION: Multilevel degenerative changes of the cervical spine similar in appearance to the prior study. No fracture identified. Chest CT 06/27/17 05:03 IMPRESSION: Bilateral lower lobe and possibly right middle lobe pneumonias. Small patchy density left upper lobe which also is probably related to infection. Recommend continued follow-up of the above-described densities. Small right pleural effusion. Bilateral low peribronchial thickening suggestive of bronchitis. Coronary artery calcifications. No rib fractures. Emphysematous changes. Emergency Department Course and Treatment: Patient is on Eliquis and states he hit his head when he fell. Head CT showed no intracranial hemorrhage. C-spine CT showed no fracture or dislocation. Chest CT was performed given patient also struck his chest and has history of dyspnea and cough. No fractures were shown but the chest showed multi lobar pneumonia patient has had multiple hospitalizations recently and has a penicillin allergy so he was started on vancomycin, Levaquin and aztreonam. No leukocytosis. Potassium mildly elevated at 5.8.. Patient had no EKG changes with this and thus potassium was not aggressively treated. Troponin negative. Lactate 2. Patient does not meet sepsis criteria. She was given IV fluids. He was given a DuoNeb for his dyspnea. Patient will require admission for treatment of multilobar pneumonia. He was discussed with the hospitalist and admitted. Treatment Plan: [] Disposition: [] Impression: Multilobar pneumonia, mild hyperkalemia without EKG changes This note was generated with Visible Me[employer] software. It may contain incorrect words, spelling, and punctuation that were not noted in review of the chart prior to signing ED Disposition - Plan for ED Patient: Chief Complaint: Fall
[2017-06-27] MEDS: Ipratropium/Albuterol Sulfate 3 ML AMPUL.NEB INHALATION ×5 (05:13→23:20)
[2017-06-27 05:33] LABS: Absolute Lymphocyte Count 0.72 X10^3/ul (0.83-4.51); Absolute Neutrophil Count 6.9 X10^3/uL (2.0-7.7); Basophil# 0.02 X10^3/uL; Basophil% 0.2 % (0-1); Eosinophil# 0.03 X10^3/uL; Eosinophils% 0.3 % (0-5); Hematocrit 35.1 % (40-54); Hemoglobin 11.8 g/dl (13.0-16.5); Lymphocyte # 0.72 X10^3/ul (4.0); Lymphocyte % 7.9 % (19-41); Mean Corp Hgb Conc 33.6 g/gl (32-36); Mean Corpuscular Hgb 32.7 pg (27.0-32.0); Mean Corpuscular Volume 97.2 fL (80-94); Mean Platelet Vol. 10.3 fl (6.2-12.0); Monocyte% 15.4 % (0-10); Neutrophil # 6.87 X10^3/uL (2.7-7.7); Neutrophil % 75.8 % (47-70); POSITIVE COUNT NO; POSITIVE DIFFERENTIAL NO; POSITIVE MORPHOLOGY NO; Platelet Count 188 K/mm3 (150-450); RBC Distribution Width CV 13.8 % (11.6-14.6); RBC Distribution Width SD 47.2 fl (35.1-43.9); Red Blood Count 3.61 M/mm3 (4.6-6.2); White Blood Count 9.1 K/mm3 (4.4-11.0)
[2017-06-27 05:40] LABS: International Normalized Ratio 1.2; Prothrombin Time (Protime)PT. 14.8 SECONDS (11.7-14.9)
[2017-06-27 05:41] LABS: Partial Thromboplast Time 40.5 Seconds (24.1-36.2)
[2017-06-27 05:57] LABS: ALB/GLOB Ratio 0.6 RATIO (0.9-2.4); AST(SGOT) 40 U/L (15-37); Alanine Aminotransfer ALT/SGPT 42 U/L (16-61); Albumin, Serum 2.7 g/dL (3.2-5.0); Alkaline Phosphatase 137 U/L (45-117); Anion Gap 7 (5-15); BUN 34 mg/dL (7-18); BUN/Creat Ratio 21.8 RATIO (10-20); Calcium,Total 8.8 mg/dL (8.5-10.1); Chloride 98 mmol/L (98-107); Creatinine, Serum 1.56 mg/dL (0.70-1.30); EST Glomerular Filtration Rate 47 mL/min (>60); Est Glom Filt Rate - Afr Amer 57 mL/min (>60); Estimated Creatinine Clearance 42.37 ml/min; Globulin 4.4 g/dL (2.2-4.2); Glucose 239 mg/dL (74-106); Potassium 5.8 mmol/L (3.5-5.1); Protein, Total 7.1 g/dL (6.4-8.2); Sodium Level 135 mmol/L (136-145)
[2017-06-27 06:50] LABS: Red Blood Cells-Urine 0 SEEN /hpf (0-5)
[2017-06-27 06:59] LABS: Color, Urine Yellow (Yellow); Glucose, Dipstick 250 mg/dl (Normal); Ketone-Dipstick Negative (Negative); Leukocyte Esterase-Dipstick 25 /ul (Negative); Nitrite-Dipstick Negative (Negative); Occult Blood-Urine Negative /ul (Negative); Protein-Dipstick 30 mg/dl (Negative); Specific Gravity, Urine 1.015 (1.002-1.030); Urine Bilirubin Dipstick Negative (Negative); Urine Clarity Clear (Clear); Urine Urobilinogen Normal (Normal)
[2017-06-27 07:05] LABS: Hyaline Cast 0-5 SEEN /lpf (0-5); Mucous, Urine RARE /hpf (<or=2+); Squamous Epithelial Cells - UA 0-5 SEEN /hpf (0-5)
[2017-06-27 07:06] LABS: Amorphous Sediment R; Bacteria RARE /hpf (None Seen); Coarse Granular Cast 0-5 SEEN /lpf (0-5 /lpf); White Blood Cells 0-5 SEEN /hpf (0-5)
--- NOTE | 2017-06-27 07:41 | NURSING ---
DR YARA ROSE
--- NOTE | 2017-06-27 07:46 | NURSING ---
DR LIVINGSTON IN ER
[2017-06-27] MEDS: levoFLOXacin IV 750 MG/150 ML BAG 100 MG IV (08:02)
--- NOTE | 2017-06-27 08:15 | PCM.HP.STD ---
Problem List (1) Fall Status: Acute (2) Depression Status: Chronic Qualifiers: (3) Esophageal spasm Status: Suspected (4) Tobacco dependence due to cigarettes Status: Chronic (5) Severe malnutrition Status: Chronic (6) WHIT (obstructive sleep apnea) Status: Chronic (7) CAD (coronary artery disease) Status: Chronic Qualifiers: Comment: [facility]: 10/07/2010, 09/06/2015 (8) HTN (hypertension) Status: Chronic Qualifiers: (9) Paroxysmal atrial fibrillation Status: Chronic (10) HLD (hyperlipidemia) Status: Chronic Qualifiers: (11) Chest pain Status: Acute Qualifiers: (12) DM2 (diabetes mellitus, type 2) Status: Chronic Qualifiers: (13) COPD (chronic obstructive pulmonary disease) Status: Chronic Qualifiers: History of Present Illness Date of Admission: 06/27/17 Chief Complaint: fall The patient is a 67 year old M discharged yesterday with fall due to hypoglycemia. During course the patient's hospitalization patient did require oxygen. Patient did sustain rib fractures from his fall. Patient was put on D5 drip for his hypoglycemia. Patient was on metformin, Amaryl and Januvia which were all discontinued. Patient also likely had prolongation of these medications in his system given acute kidney injury the patient sustained and his Lasix was discontinued. Patient was discharged home with home care. While at home patient was intermittently using his oxygen noting that his oxygenation was down to 79%. Patient will put himself back onto oxygen at 6-7 L and then tapered down. Patient got up this morning felt weak in his legs and then fell. Patient called his first alert and came to the hospital. [] Past Medical History Past Medical History (Chronic Problems): Chronic Problems (Last Updated 06/15/17 @ 16:22 by Adela Arellano DO) Depression (Chronic) Chronic anticoagulation (Chronic) Tobacco dependence due to cigarettes (Chronic) Severe malnutrition (Chronic) Hypokalemia (Chronic) WHIT (obstructive sleep apnea) (Chronic) CAD (coronary artery disease) (Chronic) [facility]: 10/07/2010, 09/06/2015 HTN (hypertension) (Chronic) Paroxysmal atrial fibrillation (Chronic) HLD (hyperlipidemia) (Chronic) DM2 (diabetes mellitus, type 2) (Chronic) COPD (chronic obstructive pulmonary disease) (Chronic) Allergies Penicillins Allergy (Verified 06/24/17 01:07) Shortness of breath Home Medications: Ambulatory Orders Medication Instructions Recorded Atorvastatin Calcium [Lipitor] 40 mg PO QHS 05/27/16 Digoxin 125 mcg PO DAILY 05/27/16 Levothyroxine [Synthroid] 75 mcg PO DAILY 05/27/16 Multivitamin [Multiple Vitamins] 1 ea PO DAILY 06/24/16 Citalopram [Celexa] 10 mg PO DAILY 12/04/16 Ranolazine [Ranexa] 500 mg PO BID 01/10/17 potassium chloride ER 20 mEq 20 meq PO BID #60 tab 03/19/17 tablet,extended release(part/cryst) Apixaban [Eliquis] 2.5 mg PO BID #60 tab 06/15/17 Diltiazem CD [Cardizem CD] 180 mg PO DAILY #30 cap 06/15/17 Pantoprazole Sodium [Protonix] 20 mg PO BID #60 tab 06/15/17 Carvedilol 25 mg PO BID 06/25/17 Fluticasone/Salmeterol [Advair 1 puff INHALATION BID 06/25/17 250-50 Diskus] Ipratropium/Albuterol Sulfate 3 ml INHALATION TID 06/25/17 [Duoneb] Mirtazapine 15 mg PO QHS 06/25/17 Surgical History: herniorrhaphy, tonsillectomy Psychiatric History: Depression Smoking Status: Current every day smoker - *Family History Maternal History Items: No pertinent history Paternal History Items: - - Rheumatic heart disease Review of Systems Constitutional: Denies: Chills, Fever Eyes: Denies: Blurred vision, Double vision HEENT: Reports: - - headache from head injury.. Denies: Head Aches, Sinus Congestion, Sinus Drainage Cardiovascular: Reports: Chest Pain, Edema Respiratory: Reports: Shortness of Breath. Denies: Cough Gastrointestinal: Denies: Abdominal Pain, Nausea, Vomiting Genitourinary: Denies: Dysuria Musculoskeletal: Denies: Joint Pain, Joint Tenderness Skin: Denies: Rash, Wounds Neurological: Denies: Numbness, Tingling, Focal weakness Psychiatric: Denies: Anxiety, Depression Hematologic/ Lymphatic: Denies: Easy Bruising, Easy Bleeding, Hx of blood clot VTE Information - Inpt Only VTE Present on Admission: No VTE Mechan Device Prophylaxis: SCD's Patient Problems: Active and Suspected Problems (Last Updated 06/15/17 @ 16:22 by Adela Arellano DO) Fall (Acute) - Physical Exam General: Alert, Cooperative, No apparent distress HEENT: Atraumatic, Normocephalic Neck: No Nodes, Thyroid Normal Size and Texture Lungs: Diminished, Wheezes Cardiovascular: Regular rate, Regular Rhythm, Normal S1, Normal S2 Abdomen: Bowel Sounds Present, Soft, Non Tender, Non-Distended, No Hepato-splenomegaly Extremities: No Calf Tenderness, Edema Skin: No rashes, No breakdown Musculoskeletal: No Tenderness to Palpation of Joints or Extremities, No Muscle Wasting Neurological: Sensory exam intact to light touch and pain, Coordination normal Psych/Mental Status: Normal Affect, Appropriate Vital Signs Temp Pulse Resp BP Pulse Ox 36.7 C 78 24 H 216/52 H 96 06/27/17 08:08 06/27/17 08:13 06/27/17 08:13 06/27/17 08:13 06/27/17 08:13 Oxygen Flow Rate (L/min) 3 Oxygen Delivery Method Nasal Cannula Weight: 67.2 kg Body Mass Index (BMI) 23.2 Finger Stick Blood Glucose 219 Laboratory Tests Past 24 Hrs 06/27/17 06/27/17 06/27/17 05:20 05:20 05:20 WBC 9.1 RBC 3.61 L Hgb 11.8 L Hct 35.1 L MCV 97.2 H MCH 32.7 H MCHC 33.6 RDW 13.8 RDW Differential 47.2 H Plt Count 188 MPV 10.3 Immature Gran % (Auto) 0.400 Neut % (Auto) 75.8 H Lymph % (Auto) 7.9 L [place] % (Auto) 15.4 H Eos % (Auto) 0.3 Baso % (Auto) 0.2 Absolute Neuts (auto) 6.9 Absolute Lymphs (auto) 0.72 L Total Counted Not Reportable PT 14.8 INR 1.2 APTT 40.5 H Sodium 135 L Potassium 5.8 H Chloride 98 Carbon Dioxide 30.0 Anion Gap 7 BUN 34 H Creatinine 1.56 H Estim Creat Clear Calc 42.37 Est GFR (MDRD) Af Amer 57 L Est GFR (MDRD) Non-Af 47 L BUN/Creatinine Ratio 21.8 H Glucose 239 H Lactic Acid Calcium 8.8 Total Bilirubin 0.90 AST 40 H ALT 42 Alkaline Phosphatase 137 H Troponin I < 0.02 Total Protein 7.1 Albumin 2.7 L Globulin 4.4 H Albumin/Globulin Ratio 0.6 L Urine Color Urine Clarity Urine pH Ur Specific [place] Urine Protein Urine Glucose (UA) Urine Ketones Urine Occult Blood Urine Nitrite Urine Bilirubin Urine Urobilinogen Ur Leukocyte Esterase Urine RBC Urine WBC Ur Squamous Epith Cells Amorphous Sediment Urine Bacteria Hyaline Casts Coarse Granular Casts Urine Mucus 06/27/17 06/27/17 05:20 06:45 WBC RBC Hgb Hct MCV MCH MCHC RDW RDW Differential Plt Count MPV Immature Gran % (Auto) Neut % (Auto) Lymph % (Auto) [place] % (Auto) Eos % (Auto) Baso % (Auto) Absolute Neuts (auto) Absolute Lymphs (auto) Total Counted PT INR APTT Sodium Potassium Chloride Carbon Dioxide Anion Gap BUN Creatinine Estim Creat Clear Calc Est GFR (MDRD) Af Amer Est GFR (MDRD) Non-Af BUN/Creatinine Ratio Glucose Lactic Acid 2.0 Calcium Total Bilirubin AST ALT Alkaline Phosphatase Troponin I Total Protein Albumin Globulin Albumin/Globulin Ratio Urine Color Yellow Urine Clarity Clear Urine pH 5.0 Ur Specific [place] 1.015 Urine Protein 30 H Urine Glucose (UA) 250 H Urine Ketones Negative Urine Occult Blood Negative Urine Nitrite Negative Urine Bilirubin Negative Urine Urobilinogen Normal Ur Leukocyte Esterase 25 H Urine RBC 0 SEEN Urine WBC 0-5 SEEN Ur Squamous Epith Cells 0-5 SEEN Amorphous Sediment R Urine Bacteria RARE Hyaline Casts 0-5 SEEN Coarse Granular Casts 0-5 SEEN Urine Mucus RARE POC Glucose 06/27/17 04:52 POC Glucose 219 H Assessment/Plan Active and Suspected Problems (Last Updated 06/15/17 @ 16:22 by Adela Arellano DO) Fall (Acute) 1. Mechanical fall Patient states that his legs felt weak and then he fell. Patient was just discharged home with home care on the . Given the patient has already demonstrated 2 falls in a short period of time that it is unsafe for him to go home at this time. Plan is for him to be seen by physical and occupational therapy and anticipated that the patient will go to a residential facility upon discharge. Patient is being admitted for a fall and so he is under observation status. Head CT and CT neck were unremarkable. Given the fact the patient is on Eliquis and hit his head pretty hard get a repeat head CT to evaluate for any latent bleed on the . 2. COPD Patient has some more wheezing today Will start the patient on prednisone as well as continue with bronchodilators. Patient still actively smoking. 3. Diabetes mellitus type 2 Patient presented with prolonged hypoglycemia due to metformin, Amaryl and Januvia. Those agents have been held and will continue to be held for now. We will just monitor the patient's blood sugars for now. 4. Paroxysmal atrial fibrillation Controlled at this time Hold Eliquis given the falls until we can verify the patient does not have any latent bleed on repeat head CT on the . If no bleed then patient can restart his Eliquis. 5. Code status: Addressed with the patient. Patient states that he wants to be full CODE STATUS. I told him that if he does develop cardiac arrest we will to do chest compressions and that we will break his ribs. Patient did break his ribs with past admission which caused him a lot of discomfort. Patient still insists on being full CODE STATUS at this time. 6. DVT prophylaxis with SCDs for now. 7. Hypoxic respiratory failure, acute. There is been essentially no change from the patient's status from his admission and discharge as yesterday I personally reviewed the patient's CAT scan and did not appreciate any pneumonia and therefore not will not be continuing antibiotics beyond the emergency room. Unclear if how much is acute versus chronic. Patient does have noted COPD. We will be treating his COPD but I am not really convinced he is having an acute exacerbation. Patient will need follow-up with pulmonology as outpatient. Code Visit OBSV E&M: [id number] Initial observation care L3
--- NOTE | 2017-06-27 08:15 | NURSING ---
MED SURG OBS [facility]
--- NOTE | 2017-06-27 08:26 | HP.PCM_ITS ---
Problem List (1) Fall Status: Acute (2) Depression Status: Chronic Qualifiers: (3) Esophageal spasm Status: Suspected (4) Tobacco dependence due to cigarettes Status: Chronic (5) Severe malnutrition Status: Chronic (6) WHIT (obstructive sleep apnea) Status: Chronic (7) CAD (coronary artery disease) Status: Chronic Qualifiers: Comment: [facility]: 10/07/2010, 09/06/2015 (8) HTN (hypertension) Status: Chronic Qualifiers: (9) Paroxysmal atrial fibrillation Status: Chronic (10) HLD (hyperlipidemia) Status: Chronic Qualifiers: (11) Chest pain Status: Acute Qualifiers: (12) DM2 (diabetes mellitus, type 2) Status: Chronic Qualifiers: (13) COPD (chronic obstructive pulmonary disease) Status: Chronic Qualifiers: History of Present Illness Date of Admission: 06/27/17 Chief Complaint: fall The patient is a 67 year old M discharged yesterday with fall due to hypoglycemia. During course the patient's hospitalization patient did require oxygen. Patient did sustain rib fractures from his fall. Patient was put on D5 drip for his hypoglycemia. Patient was on metformin, Amaryl and Januvia which were all discontinued. Patient also likely had prolongation of these medications in his system given acute kidney injury the patient sustained and his Lasix was discontinued. Patient was discharged home with home care. While at home patient was intermittently using his oxygen noting that his oxygenation was down to 79%. Patient will put himself back onto oxygen at 6-7 L and then tapered down. Patient got up this morning felt weak in his legs and then fell. Patient called his first alert and came to the hospital. [] Past Medical History Past Medical History (Chronic Problems): Chronic Problems (Last Updated 06/15/17 @ 16:22 by Adela Arellano DO) Depression (Chronic) Chronic anticoagulation (Chronic) Tobacco dependence due to cigarettes (Chronic) Severe malnutrition (Chronic) Hypokalemia (Chronic) WHIT (obstructive sleep apnea) (Chronic) CAD (coronary artery disease) (Chronic) [facility]: 10/07/2010, 09/06/2015 HTN (hypertension) (Chronic) Paroxysmal atrial fibrillation (Chronic) HLD (hyperlipidemia) (Chronic) DM2 (diabetes mellitus, type 2) (Chronic) COPD (chronic obstructive pulmonary disease) (Chronic) Allergies Penicillins Allergy (Verified 06/24/17 01:07) Shortness of breath Home Medications: Ambulatory Orders Medication Instructions Recorded Atorvastatin Calcium [Lipitor] 40 mg PO QHS 05/27/16 Digoxin 125 mcg PO DAILY 05/27/16 Levothyroxine [Synthroid] 75 mcg PO DAILY 05/27/16 Multivitamin [Multiple Vitamins] 1 ea PO DAILY 06/24/16 Citalopram [Celexa] 10 mg PO DAILY 12/04/16 Ranolazine [Ranexa] 500 mg PO BID 01/10/17 potassium chloride ER 20 mEq 20 meq PO BID #60 tab 03/19/17 tablet,extended release(part/cryst) Apixaban [Eliquis] 2.5 mg PO BID #60 tab 06/15/17 Diltiazem CD [Cardizem CD] 180 mg PO DAILY #30 cap 06/15/17 Pantoprazole Sodium [Protonix] 20 mg PO BID #60 tab 06/15/17 Carvedilol 25 mg PO BID 06/25/17 Fluticasone/Salmeterol [Advair 1 puff INHALATION BID 06/25/17 250-50 Diskus] Ipratropium/Albuterol Sulfate 3 ml INHALATION TID 06/25/17 [Duoneb] Mirtazapine 15 mg PO QHS 06/25/17 Surgical History: herniorrhaphy, tonsillectomy Psychiatric History: Depression Smoking Status: Current every day smoker - *Family History Maternal History Items: No pertinent history Paternal History Items: - - Rheumatic heart disease Review of Systems Constitutional: Denies: Chills, Fever Eyes: Denies: Blurred vision, Double vision HEENT: Reports: - - headache from head injury.. Denies: Head Aches, Sinus Congestion, Sinus Drainage Cardiovascular: Reports: Chest Pain, Edema Respiratory: Reports: Shortness of Breath. Denies: Cough Gastrointestinal: Denies: Abdominal Pain, Nausea, Vomiting Genitourinary: Denies: Dysuria Musculoskeletal: Denies: Joint Pain, Joint Tenderness Skin: Denies: Rash, Wounds Neurological: Denies: Numbness, Tingling, Focal weakness Psychiatric: Denies: Anxiety, Depression Hematologic/ Lymphatic: Denies: Easy Bruising, Easy Bleeding, Hx of blood clot VTE Information - Inpt Only VTE Present on Admission: No VTE Mechan Device Prophylaxis: SCD's Patient Problems: Active and Suspected Problems (Last Updated 06/15/17 @ 16:22 by Adela Arellano DO) Fall (Acute) - Physical Exam General: Alert, Cooperative, No apparent distress HEENT: Atraumatic, Normocephalic Neck: No Nodes, Thyroid Normal Size and Texture Lungs: Diminished, Wheezes Cardiovascular: Regular rate, Regular Rhythm, Normal S1, Normal S2 Abdomen: Bowel Sounds Present, Soft, Non Tender, Non-Distended, No Hepato- splenomegaly Extremities: No Calf Tenderness, Edema Skin: No rashes, No breakdown Musculoskeletal: No Tenderness to Palpation of Joints or Extremities, No Muscle Wasting Neurological: Sensory exam intact to light touch and pain, Coordination normal Psych/Mental Status: Normal Affect, Appropriate Vital Signs Temp Pulse Resp BP Pulse Ox 36.7 C 78 24 H 216/52 H 96 06/27/17 08:08 06/27/17 08:13 06/27/17 08:13 06/27/17 08:13 06/27/17 08:13 Oxygen Flow Rate (L/min) 3 Oxygen Delivery Method Nasal Cannula Weight: 67.2 kg Body Mass Index (BMI) 23.2 Finger Stick Blood Glucose 219 Laboratory Tests Past 24 Hrs 06/27/17 06/27/17 06/27/17 05:20 05:20 05:20 WBC 9.1 RBC 3.61 L Hgb 11.8 L Hct 35.1 L MCV 97.2 H MCH 32.7 H MCHC 33.6 RDW 13.8 RDW Differential 47.2 H Plt Count 188 MPV 10.3 Immature Gran % (Auto) 0.400 Neut % (Auto) 75.8 H Lymph % (Auto) 7.9 L [place] % (Auto) 15.4 H Eos % (Auto) 0.3 Baso % (Auto) 0.2 Absolute Neuts (auto) 6.9 Absolute Lymphs (auto) 0.72 L Total Counted Not Reportable PT 14.8 INR 1.2 APTT 40.5 H Sodium 135 L Potassium 5.8 H Chloride 98 Carbon Dioxide 30.0 Anion Gap 7 BUN 34 H Creatinine 1.56 H Estim Creat Clear Calc 42.37 Est GFR (MDRD) Af Amer 57 L Est GFR (MDRD) Non-Af 47 L BUN/Creatinine Ratio 21.8 H Glucose 239 H Lactic Acid Calcium 8.8 Total Bilirubin 0.90 AST 40 H ALT 42 Alkaline Phosphatase 137 H Troponin I < 0.02 Total Protein 7.1 Albumin 2.7 L Globulin 4.4 H Albumin/Globulin Ratio 0.6 L Urine Color Urine Clarity Urine pH Ur Specific [place] Urine Protein Urine Glucose (UA) Urine Ketones Urine Occult Blood Urine Nitrite Urine Bilirubin Urine Urobilinogen Ur Leukocyte Esterase Urine RBC Urine WBC Ur Squamous Epith Cells Amorphous Sediment Urine Bacteria Hyaline Casts Coarse Granular Casts Urine Mucus 06/27/17 06/27/17 05:20 06:45 WBC RBC Hgb Hct MCV MCH MCHC RDW RDW Differential Plt Count MPV Immature Gran % (Auto) Neut % (Auto) Lymph % (Auto) [place] % (Auto) Eos % (Auto) Baso % (Auto) Absolute Neuts (auto) Absolute Lymphs (auto) Total Counted PT INR APTT Sodium Potassium Chloride Carbon Dioxide Anion Gap BUN Creatinine Estim Creat Clear Calc Est GFR (MDRD) Af Amer Est GFR (MDRD) Non-Af BUN/Creatinine Ratio Glucose Lactic Acid 2.0 Calcium Total Bilirubin AST ALT Alkaline Phosphatase Troponin I Total Protein Albumin Globulin Albumin/Globulin Ratio Urine Color Yellow Urine Clarity Clear Urine pH 5.0 Ur Specific [place] 1.015 Urine Protein 30 H Urine Glucose (UA) 250 H Urine Ketones Negative Urine Occult Blood Negative Urine Nitrite Negative Urine Bilirubin Negative Urine Urobilinogen Normal Ur Leukocyte Esterase 25 H Urine RBC 0 SEEN Urine WBC 0-5 SEEN Ur Squamous Epith Cells 0-5 SEEN Amorphous Sediment R Urine Bacteria RARE Hyaline Casts 0-5 SEEN Coarse Granular Casts 0-5 SEEN Urine Mucus RARE POC Glucose 06/27/17 04:52 POC Glucose 219 H Assessment/Plan Active and Suspected Problems (Last Updated 06/15/17 @ 16:22 by Adela Arellano DO) Fall (Acute) 1. Mechanical fall * Patient states that his legs felt weak and then he fell. * Patient was just discharged home with home care on the . Given the patient has already demonstrated 2 falls in a short period of time that it is unsafe for him to go home at this time. Plan is for him to be seen by physical and occupational therapy and anticipated that the patient will go to a penitentiary facility upon discharge. Patient is being admitted for a fall and so he is under observation status. * Head CT and CT neck were unremarkable. Given the fact the patient is on Eliquis and hit his head pretty hard get a repeat head CT to evaluate for any latent bleed on the . 2. COPD * Patient has some more wheezing today * Will start the patient on prednisone as well as continue with bronchodilators. Patient still actively smoking. 3. Diabetes mellitus type 2 * Patient presented with prolonged hypoglycemia due to metformin, Amaryl and Januvia. Those agents have been held and will continue to be held for now. We will just monitor the patient's blood sugars for now. 4. Paroxysmal atrial fibrillation * Controlled at this time * Hold Eliquis given the falls until we can verify the patient does not have any latent bleed on repeat head CT on the . If no bleed then patient can restart his Eliquis. 5. Code status: Addressed with the patient. Patient states that he wants to be full CODE STATUS. I told him that if he does develop cardiac arrest we will to do chest compressions and that we will break his ribs. Patient did break his ribs with past admission which caused him a lot of discomfort. Patient still insists on being full CODE STATUS at this time. 6. DVT prophylaxis with SCDs for now. 7. Hypoxic respiratory failure, acute. * There is been essentially no change from the patient's status from his admission and discharge as yesterday * I personally reviewed the patient's CAT scan and did not appreciate any pneumonia and therefore not will not be continuing antibiotics beyond the emergency room. * Unclear if how much is acute versus chronic. Patient does have noted COPD. We will be treating his COPD but I am not really convinced he is having an acute exacerbation. * Patient will need follow-up with pulmonology as outpatient. Code Visit OBSV E&M: [id number] Initial observation care L3
[2017-06-27 09:26] LABS: Reflex Lactate? Y
--- NOTE | 2017-06-27 09:40 | CASEMGMT ---
Social Work Note In to complete initial assessment with pt as he will be admitted. Introduced self and role at [facility]. The pt reports that he lives in a 5th floor apartment with a friend, Radha, who has been living with him for approximately 1 week. DME consists of a rollator, shower bench and oxygen through [employer]. Uses rollator at his baseline. Pt reports 3 falls in the past 3 weeks, one resulted in fractured ribs. Pt has PASSPORT services M, T and F for 3 hrs/day through [employer] to assist with laundry as the laundry room is on the ground floor. Pt does have elevator access. Pt's clinical case manager is Birgit Sotomayor. He also gets 1 hot meal/day M-F through [employer] and has a life line through [employer]. Pt reports to have a hx of depression and sees the BIOMEDICAL EQUIPMENT TECH at [facility] every three months. He also has a clinical case manager through [facility], but is unsure of their name. Pt reports that he has smoked for 50+ years and smokes 1/2 pack of cigars per day. Used to drink a lot, but only occasionally after now he reports. Pt states that he also used to use marijuana and LSD, but denies use at this time. Confirms that his PCP is Dr. White. He has an appointment with Dr. Wiggins, podiatry, at the [facility] tomorrow. Called appointment desk and spoke with Anaid and canceled appointment and rescheduled for 10/04 at 13:10. His panel raiser operator is Dr. Ortiz who he reports to have seen the BIOMEDICAL EQUIPMENT TECH last week, and he has appointment with Dr. Hernandez on 07/04. Pt is agreeable to SNF placement for short term rehab for strengthening and states that he has been to [facility] and [facility] in the past. First choice would be [facility] and second would be [facility]. Information relayed to inpatient SW, NAEEM Mason confirms that the pt did agree to palliative care services which should be initiated in approximately 2 weeks. Brianne Garcia, TECHNICAL ENGINEER, EXCAVATOR BACKHOE OPERATOR
--- NOTE | 2017-06-27 09:55 | CASEMGMT ---
SW received call from Rebekah diallo/[facility] requesting additional information for face to face form. Pt is now being readmitted and will need placement. SW called Rebekah Guajardo and let her know via voicemail that pt is back in the hospital and we are now looking at placement for pt. SW in ED saw pt, SW here will follow up once pt is on the floor. OBDULIA Limon, CASTING PLUG ASSEMBLER
[2017-06-27 10:25] LABS: Lactic Acid 2.2 mmol/L (0.4-2.0)
--- NOTE | 2017-06-27 11:18 | CASEMGMT ---
Addendum entered by Alla De La Rosa 06/27/17 13:32: [facility] can take pt and will start precert once they receive PT/OT evaluations. SW will fax the evaluations once they are completed. SW let pt know that [facility] can take him and now we will need to send PT/OT evaluations once completed so they can start the precert process w/his insurance. Pt states understanding. SW will continue to follow. OBDULIA Limon, LEVEL VIAL INSPECTOR Original Note: [facility], [facility], SW faxed initial referral and PAS/RR initiated in [facility]. OBDULIA Limon, LEVEL VIAL INSPECTOR
[2017-06-27] MEDS: Pantoprazole Sodium 20 MG Tablet PO ×2 (11:26→21:19)
[2017-06-27] MEDS: predniSONE 20 MG Tablet 40 MG PO (11:26)
[2017-06-27] MEDS: Carvedilol 25 MG Tablet PO ×2 (11:26→21:18)
[2017-06-27] MEDS: Citalopram 10 MG Tablet PO (11:26)
[2017-06-27] MEDS: dilTIAZem CD 180 MG Capsule PO (11:27)
[2017-06-27] MEDS: Ranolazine 500 MG Tablet PO ×2 (11:27→21:19)
[2017-06-27] MEDS: Digoxin 125 MCG Tablet PO (11:30)
[2017-06-27] MEDS: Acetaminophen 325 MG Tablet 650 MG PO ×2 (13:40→23:37)
--- NOTE | 2017-06-27 15:59 | CASEMGMT ---
Social work Note SW faxed OT evaluation to [facility]. Pt evaluation is not available yet. Alla STEINER will continue to follow pt and assist with discharge planning. Plan: [facility] pending pre-cert Margarita Lee LABORER PETROLEUM REFINERY, CLIENT SERVICE ADMINISTRATOR
[2017-06-27] MEDS: Atorvastatin Calcium 40 MG Tablet PO (21:18)
[2017-06-27] MEDS: Mirtazapine 15 MG Tablet PO (21:19)
[2017-06-28] VITALS (13 sets, daily range): BP systolic 112–137; BP diastolic 46–112; PULSE 64–80; RESP 18–20; TEMP 36.4–36.9; O2SAT 94–98
[2017-06-28] MEDS: Ipratropium/Albuterol Sulfate 3 ML AMPUL.NEB INHALATION ×3 (03:14→15:19)
--- NOTE | 2017-06-28 05:55 | CT_ITS ---
STUDY: CT BRAIN WITHOUT CONTRAST REASON FOR EXAM: Male, 67 years old. Fall yesterday follow-up. Patient on eliquis, history of frequent fall, hypertension, [place] RADIATION DOSAGE (If Supplied By Facility): CTDIvol = ( 44.99 ) mGy, DLP = ( 829.85 ) mGycm TECHNIQUE: Transaxial CT imaging of the brain was performed without administration of intravenous contrast material. Multiplanar coronal and sagittal images were reformatted. Individualized dose optimization techniques were used for this CT. COMPARISON: CT brain noncontrast June 27 and 2017. 01/10/2017. FINDINGS: Small minimal right parietal soft tissue swelling. Normal calvarium. There is mild cerebral atrophy with widening of the extra-axial spaces and ventricular dilatation. Normal white matter tracts of the cerebral hemispheres. Normal basal ganglia and thalami. Normal brainstem. Normal cerebellum. There is no intracranial hemorrhage. There are no findings of an acute ischemic infarction. Chronic sinus inflammation involving the right maxillary sinus, chronic opacification right tonsil sinus, status post right ethmoidectomy and medial antrectomy. Stable air-fluid level dependent left maxillary sinus since 06/27/2017, new since 06/24/2017.. The bilateral mastoid air cells are clear. CT/Brain/Head without Contrast IMPRESSION: Chronic involutional changes of the brain. Chronic sinus inflammation and postoperative changes, probable acute on chronic left sinus inflammation. There is no acute intracranial pathology. Electronically Signed: Divine Scott MD at 6:42 EDT , Service support ,
[2017-06-28] MEDS: Levothyroxine 75 MCG Tablet PO (06:11)
[2017-06-28] MEDS: Multivitamins,Therapeutic Tablet 1 TABLET PO (09:22)
[2017-06-28] MEDS: dilTIAZem CD 180 MG Capsule PO (09:22)
[2017-06-28] MEDS: predniSONE 20 MG Tablet 40 MG PO (09:22)
[2017-06-28] MEDS: Ranolazine 500 MG Tablet PO (09:23)
[2017-06-28] MEDS: Pantoprazole Sodium 20 MG Tablet PO (09:23)
[2017-06-28] MEDS: Digoxin 125 MCG Tablet PO (09:23)
[2017-06-28] MEDS: Citalopram 10 MG Tablet PO (09:23)
[2017-06-28] MEDS: Carvedilol 25 MG Tablet PO (09:23)
--- NOTE | 2017-06-28 09:39 | PCM.PN.HOSP ---
Patient Problems: Active and Suspected Problems (Last Reviewed 06/28/17 @ 08:19 by Alexandra Sanders) Fall (Acute) Subjective: Means of trouble swallowing and feeling that food and drink are going down his trachea. Patient states that he has been evaluated up in [place] for this and told he has reflux. This been going on for months. Vitals/I&O's: Vital Signs Temp Pulse Resp BP Pulse Ox 36.6 C 72 18 112/46 L 94 06/28/17 03:56 06/28/17 09:23 06/28/17 07:40 06/28/17 03:56 06/28/17 03:57 Oxygen Flow Rate (L/min) 3 Oxygen Delivery Method Nasal Cannula Intake and Output for Last 24 Hours 06/26/17 06/27/17 06/28/17 23:59 23:59 23:59 Intake Total 1650 / 1650 350 / 350 Output Total 300 / 300 Balance 1650 / 1650 50 / 50 General: Alert, Cooperative, No apparent distress, - - Disheveled. Gaunt. HEENT: Atraumatic, Normocephalic Neck: No Nodes, Thyroid Normal Size and Texture Lungs: Normal air movement, Diminished, - - coarse breath sounds bilaterally Cardiovascular: Regular rate, Regular Rhythm, Normal S1, Normal S2, No murmurs Abdomen: Bowel Sounds Present, Soft, Non Tender Extremities: No edema Psych/Mental Status: Normal Affect, Appropriate Laboratory Results 06/27/17 09:40: Lactic Acid 2.2 H Current Medications Acetaminophen (Tylenol) 650 mg PO Q6H PRN PRN PRN Reason: Mild Pain (scale 0-3)/T>100.7 Last Admin: 06/27/17 23:37 Dose: 650 mg Albuterol Sulfate (Ventolin Aerosols) 2.5 mg INHALATION Q2H PRN PRN PRN Reason: SHORTNESS OF BREATH Albuterol/Ipratropium (Duoneb) 3 ml INHALATION Q4H.RT [facility] Last Admin: 06/28/17 07:28 Dose: 3 ml Atorvastatin Calcium (Lipitor) 40 mg PO QHS [facility] Last Admin: 06/27/17 21:18 Dose: 40 mg Carvedilol (Coreg) 25 mg PO BID [facility] Last Admin: 06/28/17 09:23 Dose: 25 mg Citalopram Hydrobromide (Celexa) 10 mg PO DAILY [facility] Last Admin: 06/28/17 09:23 Dose: 10 mg Digoxin (Lanoxin) 125 mcg PO DAILY [facility] Last Admin: 06/28/17 09:23 Dose: 125 mcg Diltiazem HCl (Cardizem Cd) 180 mg PO DAILY [facility] Last Admin: 06/28/17 09:22 Dose: 180 mg Levothyroxine Sodium (Synthroid) 75 mcg PO DAILY@0600 [facility] Last Admin: 06/28/17 06:11 Dose: 75 mcg Magnesium Hydroxide (Milk Of Magnesia) 30 ml PO DAILY PRN PRN PRN Reason: Constipation Mirtazapine (Remeron) 15 mg PO QHS [facility] Last Admin: 06/27/17 21:19 Dose: 15 mg Multivitamins (Multivitamin) 1 tablet PO DAILY@0800 [facility] Last Admin: 06/28/17 09:22 Dose: 1 tablet Ondansetron HCl (Zofran) 4 mg IV Q8H PRN PRN PRN Reason: Nausea Pantoprazole Sodium (Protonix) 20 mg PO BID [facility] Last Admin: 06/28/17 09:23 Dose: 20 mg Prednisone () 40 mg PO DAILY@0800 [facility] Last Admin: 06/28/17 09:22 Dose: 40 mg Ranolazine (Ranexa) 500 mg PO BID [facility] Last Admin: 06/28/17 09:23 Dose: 500 mg Sodium Chloride () 5 - 30 ml IV UD PRN PRN Reason: SALINE FLUSH Medical Necessity - Tobacco Use Smoking Status: Current every day smoker Assessment/Plan Active and Suspected Problems (Last Reviewed 06/28/17 @ 08:19 by Alexandra Sanders) Fall (Acute) 1. Mechanical fall Patient states that his legs felt weak and then he fell. Patient was just discharged home with home care on the . Given the patient has already demonstrated 2 falls in a short period of time that it is unsafe for him to go home at this time. Plan is for him to be seen by physical and occupational therapy and anticipated that the patient will go to a senior living facility upon discharge. Patient is being admitted for a fall and so he is under observation status. Head CT and CT neck were unremarkable. Given the fact the patient is on Eliquis and hit his head pretty hard get a repeat head CT to evaluate for any latent bleed on the . 2. COPD Patient has some more wheezing today Will start the patient on prednisone as well as continue with bronchodilators. Patient still actively smoking. 3. Diabetes mellitus type 2 Patient presented with prolonged hypoglycemia due to metformin, Amaryl and Januvia. Those agents have been held and will continue to be held for now. We will just monitor the patient's blood sugars for now. 4. Paroxysmal atrial fibrillation Controlled at this time Hold Eliquis given the falls until we can verify the patient does not have any latent bleed on repeat head CT on the . If no bleed then patient can restart his Eliquis. 5. Code status: Addressed with the patient. Patient states that he wants to be full CODE STATUS. I told him that if he does develop cardiac arrest we will to do chest compressions and that we will break his ribs. Patient did break his ribs with past admission which caused him a lot of discomfort. Patient still insists on being full CODE STATUS at this time. 6. DVT prophylaxis with SCDs for now. 7. Hypoxic respiratory failure, acute. There is been essentially no change from the patient's status from his admission and discharge as yesterday I personally reviewed the patient's CAT scan and did not appreciate any pneumonia and therefore not will not be continuing antibiotics beyond the emergency room. Unclear if how much is acute versus chronic. Patient does have noted COPD. We will be treating his COPD but I am not really convinced he is having an acute exacerbation. Patient will need follow-up with pulmonology as outpatient. Stable today. Continue with the 5 days of prednisone. 8. Possible dysphagia Patient complaining of food and liquids going to his lungs and he would have to cough that up. Is actually not a new phenomenon for the patient exhibits been going on for months. Consult speech therapy Code Visit Inpatient E&M: 03014 Subs Hosp L2
--- NOTE | 2017-06-28 09:43 | PN_ITS ---
Patient Problems: Active and Suspected Problems (Last Reviewed 06/28/17 @ 08:19 by Alexandra Sanders) Fall (Acute) Subjective: Means of trouble swallowing and feeling that food and drink are going down his trachea. Patient states that he has been evaluated up in [place] for this and told he has reflux. This been going on for months. Vitals/I&O's: Vital Signs Temp Pulse Resp BP Pulse Ox 36.6 C 72 18 112/46 L 94 06/28/17 03:56 06/28/17 09:23 06/28/17 07:40 06/28/17 03:56 06/28/17 03:57 Oxygen Flow Rate (L/min) 3 Oxygen Delivery Method Nasal Cannula Intake and Output for Last 24 Hours 06/26/17 06/27/17 06/28/17 23:59 23:59 23:59 Intake Total 1650 / 1650 350 / 350 Output Total 300 / 300 Balance 1650 / 1650 50 / 50 General: Alert, Cooperative, No apparent distress, - - Disheveled. Gaunt. HEENT: Atraumatic, Normocephalic Neck: No Nodes, Thyroid Normal Size and Texture Lungs: Normal air movement, Diminished, - - coarse breath sounds bilaterally Cardiovascular: Regular rate, Regular Rhythm, Normal S1, Normal S2, No murmurs Abdomen: Bowel Sounds Present, Soft, Non Tender Extremities: No edema Psych/Mental Status: Normal Affect, Appropriate Laboratory Results 06/27/17 09:40: Lactic Acid 2.2 H Current Medications Acetaminophen (Tylenol) 650 mg PO Q6H PRN PRN PRN Reason: Mild Pain (scale 0-3)/T>100.7 Last Admin: 06/27/17 23:37 Dose: 650 mg Albuterol Sulfate (Ventolin Aerosols) 2.5 mg INHALATION Q2H PRN PRN PRN Reason: SHORTNESS OF BREATH Albuterol/Ipratropium (Duoneb) 3 ml INHALATION Q4H.RT [facility] Last Admin: 06/28/17 07:28 Dose: 3 ml Atorvastatin Calcium (Lipitor) 40 mg PO QHS [facility] Last Admin: 06/27/17 21:18 Dose: 40 mg Carvedilol (Coreg) 25 mg PO BID [facility] Last Admin: 06/28/17 09:23 Dose: 25 mg Citalopram Hydrobromide (Celexa) 10 mg PO DAILY [facility] Last Admin: 06/28/17 09:23 Dose: 10 mg Digoxin (Lanoxin) 125 mcg PO DAILY [facility] Last Admin: 06/28/17 09:23 Dose: 125 mcg Diltiazem HCl (Cardizem Cd) 180 mg PO DAILY [facility] Last Admin: 06/28/17 09:22 Dose: 180 mg Levothyroxine Sodium (Synthroid) 75 mcg PO DAILY@0600 [facility] Last Admin: 06/28/17 06:11 Dose: 75 mcg Magnesium Hydroxide (Milk Of Magnesia) 30 ml PO DAILY PRN PRN PRN Reason: Constipation Mirtazapine (Remeron) 15 mg PO QHS [facility] Last Admin: 06/27/17 21:19 Dose: 15 mg Multivitamins (Multivitamin) 1 tablet PO DAILY@0800 [facility] Last Admin: 06/28/17 09:22 Dose: 1 tablet Ondansetron HCl (Zofran) 4 mg IV Q8H PRN PRN PRN Reason: Nausea Pantoprazole Sodium (Protonix) 20 mg PO BID [facility] Last Admin: 06/28/17 09:23 Dose: 20 mg Prednisone () 40 mg PO DAILY@0800 [facility] Last Admin: 06/28/17 09:22 Dose: 40 mg Ranolazine (Ranexa) 500 mg PO BID [facility] Last Admin: 06/28/17 09:23 Dose: 500 mg Sodium Chloride () 5 - 30 ml IV UD PRN PRN Reason: SALINE FLUSH Medical Necessity - Tobacco Use Smoking Status: Current every day smoker Assessment/Plan Active and Suspected Problems (Last Reviewed 06/28/17 @ 08:19 by Alexandra Sanders) Fall (Acute) 1. Mechanical fall * Patient states that his legs felt weak and then he fell. * Patient was just discharged home with home care on the . Given the patient has already demonstrated 2 falls in a short period of time that it is unsafe for him to go home at this time. Plan is for him to be seen by physical and occupational therapy and anticipated that the patient will go to a senior care facility upon discharge. Patient is being admitted for a fall and so he is under observation status. * Head CT and CT neck were unremarkable. Given the fact the patient is on Eliquis and hit his head pretty hard get a repeat head CT to evaluate for any latent bleed on the . 2. COPD * Patient has some more wheezing today * Will start the patient on prednisone as well as continue with bronchodilators. Patient still actively smoking. 3. Diabetes mellitus type 2 * Patient presented with prolonged hypoglycemia due to metformin, Amaryl and Januvia. Those agents have been held and will continue to be held for now. We will just monitor the patient's blood sugars for now. 4. Paroxysmal atrial fibrillation * Controlled at this time * Hold Eliquis given the falls until we can verify the patient does not have any latent bleed on repeat head CT on the . If no bleed then patient can restart his Eliquis. 5. Code status: Addressed with the patient. Patient states that he wants to be full CODE STATUS. I told him that if he does develop cardiac arrest we will to do chest compressions and that we will break his ribs. Patient did break his ribs with past admission which caused him a lot of discomfort. Patient still insists on being full CODE STATUS at this time. 6. DVT prophylaxis with SCDs for now. 7. Hypoxic respiratory failure, acute. * There is been essentially no change from the patient's status from his admission and discharge as yesterday * I personally reviewed the patient's CAT scan and did not appreciate any pneumonia and therefore not will not be continuing antibiotics beyond the emergency room. * Unclear if how much is acute versus chronic. Patient does have noted COPD. We will be treating his COPD but I am not really convinced he is having an acute exacerbation. * Patient will need follow-up with pulmonology as outpatient. * Stable today. Continue with the 5 days of prednisone. 8. Possible dysphagia * Patient complaining of food and liquids going to his lungs and he would have to cough that up. Is actually not a new phenomenon for the patient exhibits been going on for months. * Consult speech therapy Code Visit Inpatient E&M: 85858 Subs Hosp L2
--- NOTE | 2017-06-28 10:23 | CASEMGMT ---
Addendum entered by Alla De La Rosa 06/28/17 12:25: SW received a message from Juan Carlos diallo/KETAN. She states pt would like to go to a SNF where he can smoke. SW spoke w/pt, he also is now stating wants to go to SNF where he can smoke. SW explained will check w/[facility]. ROSANA called [facility], as per Jelly, pt can go out and smoke but would need to be able to go on his own or have family take him out. Jelly did start precert. SW spoke w/pt, let him know he can smoke at [facility] but he would need to take himself out to smoke or have family take him out to smoke. Pt states understanding. Jelly did request ST evaluation as well, ROSANA will fax it to her once it is completed. ROSANA will continue to follow. OBDULIA Limon, DRENCHER Original Note: PT evaluation was completed, SW faxed to [facility]. Pt also has a ST evaluation pending. ROSANA called [facility], message left for Jelly letting her know that the PT evaluation was faxed and pt has a ST eval pending. ROSANA asked via to start the precert. OBDULIA Limon, DRENCHER
--- NOTE | 2017-06-28 18:21 | NURSING ---
dr rendon notified that speech therapy can not complete cookie swallow until sunday am
[2017-06-28 19:46] LABS: Bedside Glucose 310 mg/dL (70-110)
[2017-06-28] MEDS: 0.9% Normal Saline 1,000 ML 100 ML IV (22:56)
[2017-06-28] MEDS: 0.9% NaCl Peripheral Flush Adult/Peds IV (23:01)
[2017-06-28 23:06] LABS: Bedside Glucose 264 mg/dL (70-110)
[2017-06-29] VITALS (11 sets, daily range): BP systolic 131–146; BP diastolic 62–70; PULSE 66–75; RESP 16–20; TEMP 36.5–37.2; O2SAT 94–97
[2017-06-29] MEDS: Albuterol 2.5 MG/3 ML VIAL.NEB. INHALATION (00:22)
[2017-06-29] MEDS: Ipratropium/Albuterol Sulfate 3 ML AMPUL.NEB INHALATION ×6 (03:09→22:56)
[2017-06-29] MEDS: Ketorolac 30 MG/ML Syringe IV (04:11)
[2017-06-29 05:51] LABS: Bedside Glucose 147 mg/dL (70-110)
[2017-06-29 07:35] LABS: Anion Gap 5 (5-15); BUN 28 mg/dL (7-18); Calcium,Total 8.4 mg/dL (8.5-10.1); Chloride 105 mmol/L (98-107); Creatinine, Serum 1.12 mg/dL (0.70-1.30); EST Glomerular Filtration Rate 69 mL/min (>60); Est Glom Filt Rate - Afr Amer 84 mL/min (>60); Estimated Creatinine Clearance 59.02 ml/min; Glucose 107 mg/dL (74-106); Potassium 4.4 mmol/L (3.5-5.1); Sodium Level 141 mmol/L (136-145)
[2017-06-29] MEDS: 0.9% Normal Saline 1,000 ML 100 ML IV ×2 (07:55→17:23)
--- NOTE | 2017-06-29 08:36 | CASEMGMT ---
Addendum entered by Alla De La Rosa 06/29/17 10:46: SW spoke w/Jelly at [facility], they have precert for pt to be admitted today or tomorrow. If pt is not ready until Sunday however, the precert will be by then and pt would need to stay until Sunday in order for a new precert to be attained. As per RN, pt's swallow evaluation was moved to tomorrow morning. If he passes the swallow evaluation he may be able to go to SNF tomorrow. If pt fails however, it is anticipated pt would be here through the weekend anyway. SW spoke w/pt, let him know that we have precert for pt to go to [facility] if he is ready tomorrow. SW explained to pt it will depend on the results of the swallow evaluation tomorrow if pt can go tomorrow or not. Pt states understanding. SW asked pt if he would like SW to notify his brother and let him know what is going on. Pt states that he spoke to his brother yesterday and let him know. ROSANA completed the PAS/RR in the [employer] system, faxed it along with the results to [facility]. Green sheet w/PAS/RR placed on chart in event pt is ready on Sunday. ROSANA also called pt's human services case manager at [facility], Diane Sotomayor, let her know via voicemail that it is anticipated pt will go to [facility] pending his swallow evaluation. OBDULIA Limon, INSPECTOR [employer] Original Note: ROSANA faxed the SLT evaluation to [facility], message left for Jelly in admissions letting her know the SLT evaluation was faxed. Precert is still pending, and pt is to have a barium swallow today. OBDULIA Limon, INSPECT[employer]
--- NOTE | 2017-06-29 08:46 | PN_ITS ---
Patient Problems: Active and Suspected Problems (Last Reviewed 06/28/17 @ 08:19 by Alexandra Sanders) Fall (Acute) Subjective: Breathing well. Vitals/I&O's: Vital Signs Temp Pulse Resp BP Pulse Ox 36.6 C 72 18 131/62 H 94 06/29/17 02:00 06/29/17 03:09 06/29/17 03:09 06/29/17 02:00 06/29/17 03:09 Oxygen Flow Rate (L/min) 3 Oxygen Delivery Method Nasal Cannula Intake and Output for Last 24 Hours 06/27/17 06/28/17 06/29/17 23:59 23:59 23:59 Intake Total 1650 / 1650 350 / 350 667 / 667 Output Total 300 / 300 Balance 1650 / 1650 50 / 50 667 / 667 General: Alert, Cooperative, No apparent distress, - - hypophonia HEENT: Atraumatic, Normocephalic Neck: No Nodes, Thyroid Normal Size and Texture Lungs: Clear to auscultation, Diminished Cardiovascular: Regular rate, Regular Rhythm, Normal S1, Normal S2, - - 3/6 MARILYN at RUSB Abdomen: Bowel Sounds Present, Soft, Non Tender, Non-Distended, No Hepato- splenomegaly Extremities: No edema, No Calf Tenderness Skin: No rashes, No breakdown Musculoskeletal: No Tenderness to Palpation of Joints or Extremities, No Muscle Wasting Psych/Mental Status: Normal Affect, Appropriate Laboratory Results 06/28/17 19:42: POC Glucose 310 H 06/28/17 22:58: POC Glucose 264 H 06/29/17 05:44: POC Glucose 147 H 06/29/17 06:45: Sodium 141, Potassium 4.4, Chloride 105, Carbon Dioxide 31.0, Anion Gap 5, BUN 28 H, Creatinine 1.12, Estim Creat Clear Calc 59.02, Est GFR ( MDRD) Af Amer 84, Est GFR (MDRD) Non-Af 69, BUN/Creatinine Ratio 25.0 H, Glucose 107 H, Calcium 8.4 L Current Medications Acetaminophen (Tylenol) 650 mg PO Q6H PRN PRN PRN Reason: Mild Pain (scale 0-3)/T>100.7 Last Admin: 06/27/17 23:37 Dose: 650 mg Albuterol Sulfate (Ventolin Aerosols) 2.5 mg INHALATION Q2H PRN PRN PRN Reason: SHORTNESS OF BREATH Last Admin: 06/29/17 00:22 Dose: 2.5 mg Albuterol/Ipratropium (Duoneb) 3 ml INHALATION Q4H.RT [facility] Last Admin: 06/29/17 06:53 Dose: 3 ml Atorvastatin Calcium (Lipitor) 40 mg PO QHS [facility] Last Admin: 06/28/17 21:51 Dose: Not Given Carvedilol (Coreg) 25 mg PO BID [facility] Last Admin: 06/29/17 07:56 Dose: Not Given Citalopram Hydrobromide (Celexa) 10 mg PO DAILY [facility] Last Admin: 06/29/17 07:56 Dose: Not Given Dextrose (D50w Syringe) 0 gm IV X1 PRN; Protocol PRN Reason: Hypoglycemia Digoxin (Lanoxin) 125 mcg PO DAILY [facility] Last Admin: 06/29/17 07:56 Dose: Not Given Diltiazem HCl (Cardizem Cd) 180 mg PO DAILY [facility] Last Admin: 06/29/17 07:56 Dose: Not Given Glucagon () 1 mg IM .X1 PRN PRN Reason: Hypoglycemia Sodium Chloride () 1,000 mls @ 100 mls/hr IV .Q10H [facility] Last Admin: 06/29/17 07:55 Dose: 100 mls/hr Insulin Aspart (Novolog Flexpen (Bkc)) 0 units SC Q6 HANS PRN Reason: Protocol Last Admin: 06/29/17 05:47 Dose: Not Given Levothyroxine Sodium (Synthroid) 75 mcg PO DAILY@0600 [facility] Last Admin: 06/29/17 05:47 Dose: Not Given Magnesium Hydroxide (Milk Of Magnesia) 30 ml PO DAILY PRN PRN PRN Reason: Constipation Mirtazapine (Remeron) 15 mg PO QHS [facility] Last Admin: 06/28/17 21:51 Dose: Not Given Multivitamins (Multivitamin) 1 tablet PO DAILY@0800 [facility] Last Admin: 06/29/17 07:56 Dose: Not Given Ondansetron HCl (Zofran) 4 mg IV Q8H PRN PRN PRN Reason: Nausea Pantoprazole Sodium (Protonix) 20 mg PO BID [facility] Last Admin: 06/29/17 07:56 Dose: Not Given Prednisone () 40 mg PO DAILY@0800 [facility] Last Admin: 04/20/18 07:56 Dose: Not Given Ranolazine (Ranexa) 500 mg PO BID [facility] Last Admin: 06/29/17 07:57 Dose: Not Given Sodium Chloride () 5 - 30 ml IV UD PRN PRN Reason: SALINE FLUSH Last Admin: 06/28/17 23:01 Dose: 10 ml Medical Necessity - Tobacco Use Smoking Status: Current every day smoker Assessment/Plan Active and Suspected Problems (Last Reviewed 06/28/17 @ 08:19 by Alexandra Sanders) Fall (Acute) 1. Mechanical fall * Patient states that his legs felt weak and then he fell. * Patient was just discharged home with home care on the . Given the patient has already demonstrated 2 falls in a short period of time that it is unsafe for him to go home at this time. Plan is for him to be seen by physical and occupational therapy and anticipated that the patient will go to a prison facility upon discharge. Patient is being admitted for a fall and so he is under observation status. * Head CT and CT neck were unremarkable. Given the fact the patient is on Eliquis and hit his head pretty hard get a repeat head CT to evaluate for any latent bleed on the . 2. COPD * Patient has some more wheezing today * Will start the patient on prednisone as well as continue with bronchodilators. Patient still actively smoking. 3. Diabetes mellitus type 2 * Patient presented with prolonged hypoglycemia due to metformin, Amaryl and Januvia. Those agents have been held and will continue to be held for now. We will just monitor the patient's blood sugars for now. 4. Paroxysmal atrial fibrillation * Controlled at this time * Hold Eliquis given the falls until we can verify the patient does not have any latent bleed on repeat head CT on the . If no bleed then patient can restart his Eliquis. 5. Code status: Addressed with the patient. Patient states that he wants to be full CODE STATUS. I told him that if he does develop cardiac arrest we will to do chest compressions and that we will break his ribs. Patient did break his ribs with past admission which caused him a lot of discomfort. Patient still insists on being full CODE STATUS at this time. 6. DVT prophylaxis with SCDs for now. 7. Hypoxic respiratory failure, acute. * There is been essentially no change from the patient's status from his admission and discharge as yesterday * I personally reviewed the patient's CAT scan and did not appreciate any pneumonia and therefore not will not be continuing antibiotics beyond the emergency room. * Unclear if how much is acute versus chronic. Patient does have noted COPD. We will be treating his COPD but I am not really convinced he is having an acute exacerbation. * Patient will need follow-up with pulmonology as outpatient. * Stable today. Continue with the 5 days of prednisone. 8. dysphagia * Patient complaining of food and liquids going to his lungs and he would have to cough that up. Is actually not a new phenomenon for the patient exhibits been going on for months. * speech therapy noted aspiration and recommending MBS, which will done 06/30 ( unclear why not today) Code Visit Inpatient E&M: 23851 Subs Hosp L2
[2017-06-29] MEDS: Ketorolac 15 MG/ML Vial IV (10:28)
[2017-06-29 11:16] LABS: Bedside Glucose 84 mg/dL (70-110)
[2017-06-29 17:35] LABS: Bedside Glucose 89 mg/dL (70-110)
[2017-06-30] VITALS (9 sets, daily range): BP systolic 126–148; BP diastolic 62–74; PULSE 60–109; RESP 15–18; TEMP 36.4–36.8; O2SAT 90–98
[2017-06-30] MEDS: Dextrose 50%-Water 25 GM/50 ML DISP.SYRIN IV (00:28)
[2017-06-30] MEDS: Ketorolac 15 MG/ML Vial IV ×2 (00:28→06:55)
[2017-06-30] MEDS: 0.9% NaCl Peripheral Flush Adult/Peds IV ×2 (00:29→06:55)
[2017-06-30 00:40] LABS: Bedside Glucose 62 mg/dL (70-110)
[2017-06-30 01:56] LABS: Bedside Glucose 81 mg/dL (70-110)
[2017-06-30] MEDS: Ipratropium/Albuterol Sulfate 3 ML AMPUL.NEB INHALATION ×4 (02:50→14:59)
[2017-06-30] MEDS: 0.9% Normal Saline 1,000 ML 100 ML IV (03:02)
[2017-06-30 06:45] LABS: Bedside Glucose 66 mg/dL (70-110)
[2017-06-30] MEDS: Sodium Chloride 19.25 MEQ in Dextrose 10%-Water 250 ML 100 MEQ IV ×2 (07:04→09:33)
--- NOTE | 2017-06-30 08:30 | SP.MBSS_ITS ---
PRIMARY / SECONDARY DIAGNOSIS: dysphagia (R13.10) REFERRING PHYSICIAN: Dr. Ivan Astorga MD CURRENT DIET: NPO DENTITION: edentulous MENTAL STATUS: WNL RESPIRATORY STATUS: O2 at 3L/min via nasal cannula PREVIOUS MODIFIED BARIUM SWALLOW STUDY: 03/06/2013 MBS revealed swallow function within normal limits. REASON FOR REFERRAL: Patient is a 67 year old male referred for a modified barium swallow (MBS) study due to inability to advance to PO diet via bedside assessment, with documented high suspicion for silent aspiration. 06/15/2017 upper GI series with barium swallow revealed tertiary contractions of the mid and distal esophagus with gastroesophageal reflux. 06/28/2017 CT revealed chronic involutional changes of the brain. 06/27/2017 CT revealed no acute intracranial abnormality. 06/27/[address] revealed bilateral lower lobe and possibly right middle lobe pneumonias; small patchy density left upper lobe which also is probably related to infection; bilateral low peribranchial thickening suggestive of bronchitis. MEDICAL HISTORY: Chronic obstructive pulmonary disease, tobacco dependence (current everyday smoker), severe malnutrition, obstructive sleep apnea, coronary artery disease, hypertension, paroxysmal atrial fibrillation, hyperlipidemia, chronic anticoagulation, type II diabetes mellitus, depression, hypokalemia, herniorrhaphy, tonsillectomy. STUDY FINDINGS: Patient participated in a Modified Barium Swallow (MBS) study on 06/30/2017. Dr. Wilson was the radiologist present for this evaluation. This study was recorded in the lateral view and images were sent to PACs for storage. The following consistencies were presented to this patient for analysis of oropharyngeal swallow function: thin liquids, nectar thickened liquids, pudding , and a regular textured, [place] cookie. Results of the MBS are as follows: PENETRATION / ASPIRATION SCALE (FONSECA): 1 = does not enter airway 2 = enters airway/above vocal folds/ejected 3 = enters airway/above vocal folds/not ejected 4 = enters airway/contacts vocal folds/ejected 5 = enters airway/contacts vocal folds/not ejected 6 = enters airway/below vocal folds/ejected 7 = enters airway/below vocal folds/not ejected despite effort 8 = enters airway/below vocal folds/no effort VIDEOFLOROSCOPIC SCALE SCORE (FONSECA): Grade I = aspiration of material that has penetrated into the laryngeal vestibule, intact cough reflex Grade II = aspiration < 10 % of the bolus, intact cough reflex Grade III = aspiration of < 10 % of the bolus, reduced cough reflex or aspiration of > 10 % of the bolus, intact cough reflex Grade IV = aspiration of > 10 % of the bolus, reduced cough reflex PENETRATION / ASPIRATION SCALE (SCORE) WITH VIDEOFLOROSCOPIC SCALE SCORE: Thin liquid - 5 mL tsp.: 1 Thin liquids via cup (single sip): 1 Thin liquids via cup (single sip): 2 Thin liquids via cup (single sip): 5* Thin liquids via cup (sequential swallows): 7 - Grade III [place] thickened liquids via cup (single sip): 1 [place] thickened liquids via cup (single sip): 1 [place] thickened liquids via cup (single sip): 1 Pudding via spoon: 1 Regular textured cookie: 1 [place] thickened liquids via cup (single sip): 1 [place] thickened liquids via cup (single sip): 1 * denotes post prandial coughing without fluoroscopy on, suspect overt aspiration IMPRESSION: DIAGNOSIS: moderate oropharyngeal dysphagia (R13.12) ORAL PHASE CHARACTERIZED BY: LABIAL SEAL: no labial escape TONGUE CONTROL DURING BOLUS MANIPULATION: posterior escape of less than half of bolus BOLUS PREPARATION / MASTICATION: slow prolonged chewing/mashing with complete recollection BOLUS TRANSPORT / LINGUAL MOTION: slowed tongue motion ORAL RESIDUE: trace residue lining oral structures PHARYNGEAL PHASE CHARACTERIZED BY: INITIATION OF PHARYNGEAL SWALLOW: bolus head in valleculae at first hyoid excursion SOFT PALATE ELEVATION: no bolus between soft palate and pharyngeal wall LARYNGEAL ELEVATION: partial superior movement of thyroid cartilage/partial approximation of arytenoids cartilage to epiglottic petiole ANTERIOR HYOID EXCURSION: partial anterior movement EPIGLOTTIC MOVEMENT: complete epiglottic inversion LARYNGEAL VESTIBULE CLOSURE AT HEIGHT OF SWALLOW: incomplete laryngeal vestibule closure with narrow column of air/contrast in laryngeal vestibule PHARYNGEAL STRIPPING WAVE: pharyngeal stripping wave present / diminished PHARYNGOESOPHAGEAL SEGMENT OPENING: complete distension and complete duration with no obstruction of flow TONGUE BASE RETRACTION: trace column of contrast between tongue base and posterior pharyngeal wall PHARYNGEAL RESIDUE: collection of residue within or on pharyngeal structures ESOPHAGEAL PHASE CHARACTERIZED BY: ESOPHAGEAL BOLUS CLEARANCE IN THE UPRIGHT POSITION: could not view EFFECTS OF TREATMENT STRATEGIES ATTEMPTED: Reduced bolus size = moderately effective DIET TEXTURE RECOMMENDATIONS: Will recommend a regular-soft textured, nectar thickened liquid diet. COMPENSATORY STRATEGIES RECOMMENDED: Supervision, reduced bolus volume, avoid straws, seated upright at 90 degrees during PO intake, remain upright for 30-60 minutes post meal (GERD precaution) INTERPRETATION OF RESULTS: Patient presents with moderate oropharyngeal dysphagia (R13.12) likely secondary to a combination of chronic obstructive pulmonary disease and secondary presbyphagia. Oral phase primarily marked by mastication inefficiency (mild) with noted slow, albeit effective mastication ; and suboptimal lingual control with noted posterior bolus loss particularly during trials of thin liquids leading to pre-prandial penetration and aspiration. Pharyngeal phase marked by reduced closure of the airway during deglutition attributed to reduced hyolaryngeal excursion; and impaired pharyngeal swallow onset timing ( mild) suboptimal bolus location upon swallow onset; all contributing to pre- prandial and prandial aspiration of thin liquids. All deficits ameliorated with liquid texture and bolus volume adjustments. Mild bony projections at the C-4 to C-6 levels suggestive of mild diffuse idiopathic skeletal hyperostosis; no impact on bolus motility. Patient noted to overtly aspirate during trials of thin liquids, suggesting clinical assessment at bedside relying on identification of classic overt signs and symptoms of aspiration may be sufficient to determine appropriateness for PO texture upgrade to thin liquids. RECOMMENDATIONS: Patient requires intensive skilled speech-language intervention targeting continued diet texture management; training and implementation of recommended compensatory strategies; training and implementation of recommended oropharyngeal strengthening exercises to facilitate improved oropharyngeal strength and coordination; considerations for training, implementation, and Patient education regarding implementation of the [place] Free [place] Protocol ( FFWP) if clinically appropriate; and Patient and caregiver training targeting meal preparation / thickened liquid preparation if unable to advance to baseline diet textures prior to discharge. ADDITIONAL COMMENTS/RECOMMENDATIONS: Results and recommendations were discussed with the Patient immediately following MBS completion, with the Patient verbalizing understanding and agreement with all recommendations and education provided. IMAGE COUNT: [id number] G-CODES: SWALLOWING [id number] Current Status: CJ SWALLOWING [id number] Goal Status: CI
--- NOTE | 2017-06-30 08:30 | RAD_ITS ---
STUDY: SWALLOWING STUDY REASON FOR EXAM: Male, 67 years old. Dysphagia TECHNIQUE: The examination was performed with Speech Pathology in attendance. Under fluoroscopic observation, the patient ingested thin barium, thick barium, barium pudding, and barium coated cracker. FLUOROSCOPY TIME: 2:40 minutes/seconds RADIOLOGIST INVOLVEMENT: Radiologist was not present during the procedure, but did review the images. COMPARISON: None. FINDINGS: The following was observed during swallowing of the various mixtures of barium: There was a delay in initiation of swallowing. Thin Barium: There was evidence of aspiration or laryngeal penetration. [place] Thick Barium: There was evidence of aspiration or laryngeal penetration. Barium Pudding: There was no evidence of aspiration or laryngeal penetration. Barium Coated Cracker: There was no evidence of aspiration or laryngeal penetration. RAD/Swallowing Function w/Video IMPRESSION: Delayed initiation of swallowing with early pharyngeal penetration and kai aspiration with thin and nectar thick barium The swallow study findings were discussed with the patient by the speech pathologist at the conclusion of the examination. Please see speech pathology report for more information and recommendations. The procedure was performed by speech therapy Electronically Signed: Khari Bateman MD at 14:17 EDT , Service support ,
[2017-06-30] MEDS: predniSONE 20 MG Tablet 40 MG PO (09:33)
[2017-06-30] MEDS: Multivitamins,Therapeutic Tablet 1 TABLET PO (09:33)
[2017-06-30] MEDS: dilTIAZem CD 180 MG Capsule PO (09:33)
[2017-06-30] MEDS: Carvedilol 25 MG Tablet PO (09:34)
[2017-06-30] MEDS: Citalopram 10 MG Tablet PO (09:34)
[2017-06-30] MEDS: Pantoprazole Sodium 20 MG Tablet PO (09:35)
[2017-06-30] MEDS: Ranolazine 500 MG Tablet PO (09:35)
[2017-06-30] MEDS: Digoxin 125 MCG Tablet PO (09:39)
--- NOTE | 2017-06-30 10:59 | PCM.PN.HOSP ---
Patient Problems: Active and Suspected Problems (Last Reviewed 06/28/17 @ 08:19 by Alexandra Sanders) Fall (Acute) Subjective: no new events. Vitals/I&O's: Vital Signs Temp Pulse Resp BP Pulse Ox 36.4 C L 63 18 138/74 H 93 06/30/17 07:59 06/30/17 09:39 06/30/17 07:59 06/30/17 09:39 06/30/17 07:59 Oxygen Flow Rate (L/min) 3 Oxygen Delivery Method Nasal Cannula Intake and Output for Last 24 Hours 06/28/17 06/29/17 06/30/17 23:59 23:59 23:59 Intake Total 350 / 350 1829 / 1829 1475 / 1475 Output Total 300 / 300 Balance 50 / 50 1829 / 182 1475 / 1475 General: Alert, No apparent distress HEENT: Atraumatic, Normocephalic Neck: No Nodes, Thyroid Normal Size and Texture Lungs: Clear to auscultation, No rhonchi, No wheeze, Diminished Cardiovascular: Regular rate, Regular Rhythm, Normal S1, Normal S2, No murmurs Abdomen: Bowel Sounds Present, Soft, Non Tender, Non-Distended, No Hepato-splenomegaly Extremities: No edema, No Calf Tenderness Skin: No rashes, No breakdown Psych/Mental Status: Normal Affect, Appropriate Laboratory Results 06/29/17 11:12: POC Glucose 84 06/29/17 17:22: POC Glucose 89 06/30/17 00:22: POC Glucose 62 L 06/30/17 01:51: POC Glucose 81 06/30/17 06:40: POC Glucose 66 L Current Medications Acetaminophen (Tylenol) 650 mg PO Q6H PRN PRN PRN Reason: Mild Pain (scale 0-3)/T>100.7 Last Admin: 06/27/17 23:37 Dose: 650 mg Albuterol Sulfate (Ventolin Aerosols) 2.5 mg INHALATION Q2H PRN PRN PRN Reason: SHORTNESS OF BREATH Last Admin: 06/29/17 00:22 Dose: 2.5 mg Albuterol/Ipratropium (Duoneb) 3 ml INHALATION Q4H.RT HANS Last Admin: 06/30/17 10:43 Dose: 3 ml Atorvastatin Calcium (Lipitor) 40 mg PO QHS HANS Last Admin: 06/29/17 21:11 Dose: Not Given Carvedilol (Coreg) 25 mg PO BID [facility] Last Admin: 06/30/17 09:34 Dose: 25 mg Citalopram Hydrobromide (Celexa) 10 mg PO DAILY [facility] Last Admin: 06/30/17 09:34 Dose: 10 mg Dextrose (D50w Syringe) 0 gm IV X1 PRN; Protocol PRN Reason: Hypoglycemia Last Admin: 06/30/17 00:28 Dose: 12.5 gm Digoxin (Lanoxin) 125 mcg PO DAILY [facility] Last Admin: 06/30/17 09:39 Dose: 125 mcg Diltiazem HCl (Cardizem Cd) 180 mg PO DAILY [facility] Last Admin: 06/30/17 09:33 Dose: 180 mg Glucagon () 1 mg IM .X1 PRN PRN Reason: Hypoglycemia Insulin Aspart (Novolog Flexpen (Bkc)) 0 units SC Q6 HANS PRN Reason: Protocol Last Admin: 06/30/17 06:44 Dose: Not Given Ketorolac Tromethamine (Toradol) 15 mg IV Q6H PRN PRN PRN Reason: PAIN Stop: 07/04/17 09:00 Last Admin: 06/30/17 06:55 Dose: 15 mg Levothyroxine Sodium (Synthroid) 75 mcg PO DAILY@0600 [facility] Last Admin: 06/30/17 05:10 Dose: Not Given Magnesium Hydroxide (Milk Of Magnesia) 30 ml PO DAILY PRN PRN PRN Reason: Constipation Mirtazapine (Remeron) 15 mg PO QHS [facility] Last Admin: 06/29/17 21:11 Dose: Not Given Multivitamins (Multivitamin) 1 tablet PO DAILY@0800 [facility] Last Admin: 06/30/17 09:33 Dose: 1 tablet Nicotine (Nicoderm Cq (Pbkc)) 21 mg TRANSDERM. DAILY [facility] Last Admin: 06/30/17 09:37 Dose: Not Given Ondansetron HCl (Zofran) 4 mg IV Q8H PRN PRN PRN Reason: Nausea Pantoprazole Sodium (Protonix) 20 mg PO BID [facility] Last Admin: 06/30/17 09:35 Dose: 20 mg Prednisone () 40 mg PO DAILY@0800 [facility] Last Admin: 06/30/17 09:33 Dose: 40 mg Ranolazine (Ranexa) 500 mg PO BID HANS Last Admin: 06/30/17 09:35 Dose: 500 mg Sodium Chloride () 5 - 30 ml IV UD PRN PRN Reason: SALINE FLUSH Last Admin: 06/30/17 06:55 Dose: 10 ml Medical Necessity - Tobacco Use Smoking Status: Current every day smoker Assessment/Plan Active and Suspected Problems (Last Reviewed 06/28/17 @ 08:19 by Alexandra Sanders) Fall (Acute) 1. Mechanical fall Patient states that his legs felt weak and then he fell. Patient was just discharged home with home care on the . Given the patient has already demonstrated 2 falls in a short period of time that it is unsafe for him to go home at this time. Plan is for him to be seen by physical and occupational therapy and anticipated that the patient will go to a penitentiary facility upon discharge. Patient is being admitted for a fall and so he is under observation status. Head CT and CT neck were unremarkable. Given the fact the patient is on Eliquis and hit his head pretty hard get a repeat head CT to evaluate for any latent bleed on the . 2. COPD Patient has some more wheezing today Will start the patient on prednisone as well as continue with bronchodilators. Patient still actively smoking. 3. Diabetes mellitus type 2 Patient presented with prolonged hypoglycemia due to metformin, Amaryl and Januvia. Those agents have been held and will continue to be held for now. We will just monitor the patient's blood sugars for now. 4. Paroxysmal atrial fibrillation Controlled at this time Hold Eliquis given the falls until we can verify the patient does not have any latent bleed on repeat head CT on the . If no bleed then patient can restart his Eliquis. 5. Code status: Addressed with the patient. Patient states that he wants to be full CODE STATUS. I told him that if he does develop cardiac arrest we will to do chest compressions and that we will break his ribs. Patient did break his ribs with past admission which caused him a lot of discomfort. Patient still insists on being full CODE STATUS at this time. 6. DVT prophylaxis with SCDs for now. 7. Hypoxic respiratory failure, acute. There is been essentially no change from the patient's status from his admission and discharge as yesterday I personally reviewed the patient's CAT scan and did not appreciate any pneumonia and therefore not will not be continuing antibiotics beyond the emergency room. Unclear if how much is acute versus chronic. Patient does have noted COPD. We will be treating his COPD but I am not really convinced he is having an acute exacerbation. Patient will need follow-up with pulmonology as outpatient. Stable today. Continue with the 5 days of prednisone. 8. dysphagia Patient complaining of food and liquids going to his lungs and he would have to cough that up. Is actually not a new phenomenon for the patient exhibits been going on for months. on modified diet continue speech therapy. Code Visit Inpatient E&M: 86601 Subs Hosp L2
[2017-06-30 12:10] LABS: Bedside Glucose 245 mg/dL (70-110)
--- NOTE | 2017-06-30 14:33 | PCM.TXEXTCAR ---
- Diet 06/30/17 09:23 Diet: Calorie Controlled Food consistency:: Soft Liquid Consistency:: [place] Thick Dietary Modifications:: Soft Diet [place] Thick Liquids Is pt able to select menu?: No Diet Comments: Seated upright, small bites and sips How many daily calories?: 1800 calorie - Routine Orders/Code Status O2 Frequency: Continuous Routine Lab Work: BMP Code Status: Full Code - Therapies Weight Bearing: Full weight bearing Physical Therapy: Eval and Treat Occupational Therapy: Eval and Treat Speech Therapy: Eval and Treat - Problem/Diagnosis (1) Fall Status: Acute Current Visit: Yes (2) Depression Status: Chronic Current Visit: No (3) Esophageal spasm Status: Suspected Current Visit: No (4) Tobacco dependence due to cigarettes Status: Chronic Current Visit: No (5) Severe malnutrition Status: Chronic Current Visit: No (6) WHIT (obstructive sleep apnea) Status: Chronic Current Visit: No (7) CAD (coronary artery disease) Status: Chronic Comment: [facility]: 10/07/2010, 09/06/2015 Current Visit: No (8) HTN (hypertension) Status: Chronic Current Visit: No (9) Paroxysmal atrial fibrillation Status: Chronic Current Visit: No (10) HLD (hyperlipidemia) Status: Chronic Current Visit: No (11) Chest pain Status: Acute Current Visit: No (12) DM2 (diabetes mellitus, type 2) Status: Chronic Current Visit: No (13) COPD (chronic obstructive pulmonary disease) Status: Chronic Current Visit: No - Allergies/Procedures Done in Hospital Allergies/Adverse Reactions: Allergies Penicillins Allergy (Verified 06/28/17 08:11) Shortness of breath - Type of Care/Length of Stay Estimated LOS: Convalescent Care Less Than 30 days Type of Care Needed: Skilled Rehab Potential: Fair Prognosis: Fair - Additional Orders/Day of Discharge Day of Discharge: 06/30/17 - Follow Up Care Primary Care Physician: Russell White MD [Primary Care Provider] - Within 2 Weeks
--- NOTE | 2017-06-30 14:36 | PCM.DC.SUM ---
Discharge Date and Diagnosis - Problem List Patient Problems: Active and Suspected Problems (Last Reviewed 06/28/17 @ 08:19 by Alexandra Sanders) Fall (Acute) Date of Admission: 06/27/17 Date of Discharge: 06/30/17 - Primary Discharge Diagnosis Active and Suspected Problems (Last Reviewed 06/28/17 @ 08:19 by Alexandra Sanders) Fall (Acute) - Secondary Discharge Diagnosis Chronic Problems (Last Reviewed 06/28/17 @ 08:19 by Alexandra Sanders) History of tonsillectomy (Chronic) History of inguinal hernia repair (Chronic) Depression (Chronic) Chronic anticoagulation (Chronic) Tobacco dependence due to cigarettes (Chronic) Severe malnutrition (Chronic) Hypokalemia (Chronic) WHIT (obstructive sleep apnea) (Chronic) CAD (coronary artery disease) (Chronic) [facility]: 10/07/2010, 09/06/2015 HTN (hypertension) (Chronic) Paroxysmal atrial fibrillation (Chronic) HLD (hyperlipidemia) (Chronic) DM2 (diabetes mellitus, type 2) (Chronic) COPD (chronic obstructive pulmonary disease) (Chronic) Hospital Course and Treatment Imaging Results: 06/30/17 08:30 Swallowing Function w/Video [RAD] Urgent Clinical Impression(s) from Imaging Studies Brain CT 06/27/17 05:01 IMPRESSION: No acute intracranial abnormality. Normal for age. Old nasal bone fractures. Moderate right maxillary sinus mucosal thickening. Postoperative changes of sinus surgery. Findings of chronic inflammation of the right maxillary sinus. Acute versus chronic left maxillary sinusitis which is new since the prior study. Electronically Signed: Geovanny Koch MD at 6:39 EDT , Service support , Cervical Spine CT 06/27/17 05:03 IMPRESSION: Multilevel degenerative changes of the cervical spine similar in appearance to the prior study. No fracture identified. Electronically Signed: Geovanny Koch MD at 6:47 EDT , Service support , Chest CT 06/27/17 05:03 IMPRESSION: Bilateral lower lobe and possibly right middle lobe pneumonias. Small patchy density left upper lobe which also is probably related to infection. Recommend continued follow-up of the above-described densities. Small right pleural effusion. Bilateral low peribronchial thickening suggestive of bronchitis. Coronary artery calcifications. No rib fractures. Emphysematous changes. Electronically Signed: Geovanny Koch MD at 7:04 EDT , Service support , Brain CT 06/28/17 05:55 IMPRESSION: Chronic involutional changes of the brain. Chronic sinus inflammation and postoperative changes, probable acute on chronic left sinus inflammation. There is no acute intracranial pathology. Electronically Signed: Divine Scott MD at 6:42 EDT , Service support , Operations: None Procedures: None Summary of Care Provided: The patient is a 67 year old M other fall from home. This is just more of mechanical fall where the patient's legs just felt weak. Patient did hit his head but CAT scans are negative for any intracranial hemorrhage and patient was started back on his Eliquis. Patient noted that he was not taking his oxygen and did have a lactic acidosis but the presume is related with his hypoxia. Patient had noted that he was having issues regards to food and water going into his trachea and having a cough. Did have speech therapy see him and recommend a modified barium swallow. They have recommended he be on a modified diet with mechanical soft with nectar thickened liquids. Patient is not can be going to a shelter facility for further rehab as patient is already demonstrated home with home health care is not a good location for him at this time. One concern I would have the patient's weakness and trouble swallowing is that he has some other underlying neurologic disorder. This will need to be further elucidated on an outpatient basis. 1. Mechanical fall Patient states that his legs felt weak and then he fell. Patient was just discharged home with home care on the . Given the patient has already demonstrated 2 falls in a short period of time that it is unsafe for him to go home at this time. Plan is for him to be seen by physical and occupational therapy and anticipated that the patient will go to a shelter facility upon discharge. Patient is being admitted for a fall and so he is under observation status. Head CT and CT neck were unremarkable. Given the fact the patient is on Eliquis and hit his head pretty hard get a repeat head CT to evaluate for any latent bleed on the . 2. COPD Patient has some more wheezing today Will start the patient on prednisone as well as continue with bronchodilators. Patient still actively smoking. 3. Diabetes mellitus type 2 Patient presented with prolonged hypoglycemia due to metformin, Amaryl and Januvia. Those agents have been held and will continue to be held for now. We will just monitor the patient's blood sugars for now. 4. Paroxysmal atrial fibrillation Controlled at this time Hold Eliquis given the falls until we can verify the patient does not have any latent bleed on repeat head CT on the . If no bleed then patient can restart his Eliquis. 5. Code status: Addressed with the patient. Patient states that he wants to be full CODE STATUS. I told him that if he does develop cardiac arrest we will to do chest compressions and that we will break his ribs. Patient did break his ribs with past admission which caused him a lot of discomfort. Patient still insists on being full CODE STATUS at this time. 6. Hypoxic respiratory failure, acute. There is been essentially no change from the patient's status from his admission and discharge as yesterday I personally reviewed the patient's CAT scan and did not appreciate any pneumonia and therefore not will not be continuing antibiotics beyond the emergency room. Unclear if how much is acute versus chronic. Patient does have noted COPD. We will be treating his COPD but I am not really convinced he is having an acute exacerbation. Patient will need follow-up with pulmonology as outpatient. Stable today. Continue with the 5 days of prednisone. 7. dysphagia Patient complaining of food and liquids going to his lungs and he would have to cough that up. Is actually not a new phenomenon for the patient exhibits been going on for months. on modified diet continue speech therapy. [] Discharge Diet: - - mechanical soft. nectar thickened liquids. Discharge Activity: Return to Normal Activity Call your doctor if you observe: Fever of 101 or Higher, Shortness of breath, Chest pain Home Medications: Medications to take at Discharge Atorvastatin Calcium [Lipitor] 40 mg PO QHS 05/27/16 Digoxin 125 mcg PO DAILY 05/27/16 Levothyroxine [Synthroid] 75 mcg PO DAILY 05/27/16 Multivitamin [Multiple Vitamins] 1 ea PO DAILY 06/24/16 Citalopram [Celexa] 10 mg PO DAILY 12/04/16 Ranolazine [Ranexa] 500 mg PO BID 01/10/17 potassium chloride ER 20 mEq tablet,extended release(part/cryst) 20 meq PO BID #60 tab 03/19/17 Apixaban [Eliquis] 2.5 mg PO BID #60 tab 06/15/17 Diltiazem CD [Cardizem CD] 180 mg PO DAILY #30 cap 06/15/17 Pantoprazole Sodium [Protonix] 20 mg PO BID #60 tab 06/15/17 Carvedilol 25 mg PO BID 06/25/17 Fluticasone/Salmeterol [Advair 250-50 Diskus] 1 puff INHALATION BID 06/25/17 Ipratropium/Albuterol Sulfate [Duoneb] 3 ml INHALATION TID 06/25/17 Mirtazapine 15 mg PO QHS 06/25/17 sitagliptin 50 mg tablet 50 mg PO ONCE 06/28/17 Nicotine [Nicoderm Cq] 21 mg TRANSDERM. DAILY patch 06/30/17 Prednisone 4 tab PO DAILY 3 Days #12 tablet 06/30/17 Following Prescrptions Were Given to Patient: Prednisone 4 tab PO DAILY 3 Days #12 tablet Primary Care Physician: Russell White MD [Primary Care Provider] - Within 2 Weeks Disposition: Snf facility Minutes spent on discharge:: 35 Patient Condition:: Fair Medical Necessity - Tobacco Use Smoking Status: Current every day smoker Meaningful Use Info Meaningful Use Diagnoses (Choose all that apply): None applicable Code Visit Inpatient E&M: 26462 Disch Hosp
--- NOTE | 2017-06-30 14:39 | DS.PCM_ITS ---
Discharge Date and Diagnosis - Problem List Patient Problems: Active and Suspected Problems (Last Reviewed 06/28/17 @ 08:19 by Alexandra Sanders) Fall (Acute) Date of Admission: 06/27/17 Date of Discharge: 06/30/17 - Primary Discharge Diagnosis Active and Suspected Problems (Last Reviewed 06/28/17 @ 08:19 by Alexandra Sanders) Fall (Acute) - Secondary Discharge Diagnosis Chronic Problems (Last Reviewed 06/28/17 @ 08:19 by Alexandra Sanders) History of tonsillectomy (Chronic) History of inguinal hernia repair (Chronic) Depression (Chronic) Chronic anticoagulation (Chronic) Tobacco dependence due to cigarettes (Chronic) Severe malnutrition (Chronic) Hypokalemia (Chronic) WHIT (obstructive sleep apnea) (Chronic) CAD (coronary artery disease) (Chronic) [facility]: 10/07/2010, 09/06/2015 HTN (hypertension) (Chronic) Paroxysmal atrial fibrillation (Chronic) HLD (hyperlipidemia) (Chronic) DM2 (diabetes mellitus, type 2) (Chronic) COPD (chronic obstructive pulmonary disease) (Chronic) Hospital Course and Treatment Imaging Results: 06/30/17 08:30 Swallowing Function w/Video [RAD] Urgent Clinical Impression(s) from Imaging Studies Brain CT 06/27/17 05:01 IMPRESSION: No acute intracranial abnormality. Normal for age. Old nasal bone fractures. Moderate right maxillary sinus mucosal thickening. Postoperative changes of sinus surgery. Findings of chronic inflammation of the right maxillary sinus. Acute versus chronic left maxillary sinusitis which is new since the prior study. Electronically Signed: Geovanny Koch MD at 6:39 EDT , Service support , Cervical Spine CT 06/27/17 05:03 IMPRESSION: Multilevel degenerative changes of the cervical spine similar in appearance to the prior study. No fracture identified. Electronically Signed: Geovanny Koch MD at 6:47 EDT , Service support , Chest CT 06/27/17 05:03 IMPRESSION: Bilateral lower lobe and possibly right middle lobe pneumonias. Small patchy density left upper lobe which also is probably related to infection. Recommend continued follow-up of the above-described densities. Small right pleural effusion. Bilateral low peribronchial thickening suggestive of bronchitis. Coronary artery calcifications. No rib fractures. Emphysematous changes. Electronically Signed: Geovanny Koch MD at 7:04 EDT , Service support , Brain CT 06/28/17 05:55 IMPRESSION: Chronic involutional changes of the brain. Chronic sinus inflammation and postoperative changes, probable acute on chronic left sinus inflammation. There is no acute intracranial pathology. Electronically Signed: Divine Scott MD at 6:42 EDT , Service support , Operations: None Procedures: None Summary of Care Provided: The patient is a 67 year old M other fall from home. This is just more of mechanical fall where the patient's legs just felt weak. Patient did hit his head but CAT scans are negative for any intracranial hemorrhage and patient was started back on his Eliquis. Patient noted that he was not taking his oxygen and did have a lactic acidosis but the presume is related with his hypoxia. Patient had noted that he was having issues regards to food and water going into his trachea and having a cough. Did have speech therapy see him and recommend a modified barium swallow. They have recommended he be on a modified diet with mechanical soft with nectar thickened liquids. Patient is not can be going to a [facility]pc facility for further rehab as patient is already demonstrated home with home health care is not a good location for him at this time. One concern I would have the patient's weakness and trouble swallowing is that he has some other underlying neurologic disorder. This will need to be further elucidated on an outpatient basis. 1. Mechanical fall * Patient states that his legs felt weak and then he fell. * Patient was just discharged home with home care on the . Given the patient has already demonstrated 2 falls in a short period of time that it is unsafe for him to go home at this time. Plan is for him to be seen by physical and occupational therapy and anticipated that the patient will go to a [facility] facility upon discharge. Patient is being admitted for a fall and so he is under observation status. * Head CT and CT neck were unremarkable. Given the fact the patient is on Eliquis and hit his head pretty hard get a repeat head CT to evaluate for any latent bleed on the . 2. COPD * Patient has some more wheezing today * Will start the patient on prednisone as well as continue with bronchodilators. Patient still actively smoking. 3. Diabetes mellitus type 2 * Patient presented with prolonged hypoglycemia due to metformin, Amaryl and Januvia. Those agents have been held and will continue to be held for now. We will just monitor the patient's blood sugars for now. 4. Paroxysmal atrial fibrillation * Controlled at this time * Hold Eliquis given the falls until we can verify the patient does not have any latent bleed on repeat head CT on the . If no bleed then patient can restart his Eliquis. 5. Code status: Addressed with the patient. Patient states that he wants to be full CODE STATUS. I told him that if he does develop cardiac arrest we will to do chest compressions and that we will break his ribs. Patient did break his ribs with past admission which caused him a lot of discomfort. Patient still insists on being full CODE STATUS at this time. 6. Hypoxic respiratory failure, acute. * There is been essentially no change from the patient's status from his admission and discharge as yesterday * I personally reviewed the patient's CAT scan and did not appreciate any pneumonia and therefore not will not be continuing antibiotics beyond the emergency room. * Unclear if how much is acute versus chronic. Patient does have noted COPD. We will be treating his COPD but I am not really convinced he is having an acute exacerbation. * Patient will need follow-up with pulmonology as outpatient. * Stable today. Continue with the 5 days of prednisone. 7. dysphagia * Patient complaining of food and liquids going to his lungs and he would have to cough that up. Is actually not a new phenomenon for the patient exhibits been going on for months. * on modified diet * continue speech therapy. [] Discharge Diet: - - mechanical soft. nectar thickened liquids. Discharge Activity: Return to Normal Activity Call your doctor if you observe: Fever of 101 or Higher, Shortness of breath, Chest pain Home Medications: Medications to take at Discharge Atorvastatin Calcium [Lipitor] 40 mg PO QHS 05/27/16 Digoxin 125 mcg PO DAILY 05/27/16 Levothyroxine [Synthroid] 75 mcg PO DAILY 05/27/16 Multivitamin [Multiple Vitamins] 1 ea PO DAILY 06/24/16 Citalopram [Celexa] 10 mg PO DAILY 12/04/16 Ranolazine [Ranexa] 500 mg PO BID 01/10/17 potassium chloride ER 20 mEq tablet,extended release(part/cryst) 20 meq PO BID # 60 tab 03/19/17 Apixaban [Eliquis] 2.5 mg PO BID #60 tab 06/15/17 Diltiazem CD [Cardizem CD] 180 mg PO DAILY #30 cap 06/15/17 Pantoprazole Sodium [Protonix] 20 mg PO BID #60 tab 06/15/17 Carvedilol 25 mg PO BID 06/25/17 Fluticasone/Salmeterol [Advair 250-50 Diskus] 1 puff INHALATION BID 06/25/17 Ipratropium/Albuterol Sulfate [Duoneb] 3 ml INHALATION TID 06/25/17 Mirtazapine 15 mg PO QHS 06/25/17 sitagliptin 50 mg tablet 50 mg PO ONCE 06/28/17 Nicotine [Nicoderm Cq] 21 mg TRANSDERM. DAILY patch 06/30/17 Prednisone 4 tab PO DAILY 3 Days #12 tablet 06/30/17 Following Prescrptions Were Given to Patient: Prednisone 4 tab PO DAILY 3 Days #12 tablet Primary Care Physician: Russell White MD [Primary Care Provider] - Within 2 Weeks Disposition: Residential facility Minutes spent on discharge:: 35 Patient Condition:: Fair Medical Necessity - Tobacco Use Smoking Status: Current every day smoker Meaningful Use Info Meaningful Use Diagnoses (Choose all that apply): None applicable Code Visit Inpatient E&M: 71631 Disch Hosp
--- NOTE | 2017-07-11 09:48 | CASEMGMT ---
Pt's friend Radha called in, inquiring the name of the [facility] where pt is admitted. SW explained to Radha will call the [facility] and pass on her name and number. SW called Jelly at [facility], and gave her Radha's name and number([phone]), as he can call Radha directly if he would like her to know where he is. OBDULIA Limon, WOOL GRADER
== END 2017-06-30 15:19 | disposition skilled nursing facility (03) ==
LOC: ED 05:15 → MS2 08:24
PROVIDERS: Internal Medicine; Emergency Provider Emergency Medicine; Family Provider Internal Medicine; PCP Internal Medicine
DX: R53.1 Weakness (principal); I48.0 Paroxysmal atrial fibrillation; J96.01 Acute respiratory failure with hypoxia; J44.9 Chronic obstructive pulmonary disease, unspecified; E11.649 Type 2 diabetes mellitus with hypoglycemia without coma; R13.12 Dysphagia, oropharyngeal phase; E87.5 Hyperkalemia; F32.9 Major depressive disorder, single episode, unspecified; F17.210 Nicotine dependence, cigarettes, uncomplicated; G47.33 Obstructive sleep apnea (adult) (pediatric); E43 Unspecified severe protein-calorie malnutrition; Z68.23 Body mass index [BMI] 23.0-23.9, adult; I25.10 Atherosclerotic heart disease of native coronary artery without angina pectoris; E78.5 Hyperlipidemia, unspecified; I10 Essential (primary) hypertension; Z79.899 Other long term (current) drug therapy; Z79.51 Long term (current) use of inhaled steroids; Z79.01 Long term (current) use of anticoagulants; Z79.84 Long term (current) use of oral hypoglycemic drugs; Z99.81 Dependence on supplemental oxygen; Z86.718 Personal history of other venous thrombosis and embolism; Z91.81 History of falling
CPT/HCPCS: 36415; 70450; 71250; 72125; 74230; 80048; 80053; 81001; 82962; 83605; 84484; 85025; 85610; 85730; 87040; 92526; 92610; 92611; 93005; 94640; 96361; 96365; 96367; 96375; 96376; 97162; 97165; 97530; 97535; 99218; 99285; J7030; J7040; A4216; G0378

== ENCOUNTER 2017-07-27 23:17 | Inpatient (IN) | payer MEDICARE, SELFPAY ==
[2017-07-27 23:18] VITALS: BP 104/49; PULSE 67; RESP 20; TEMP 36.8; O2SAT 91; BMI 21.4
--- NOTE | 2017-07-27 23:26 | NURSING ---
CALLED [facility] [place] FOR PTS INFORMATION. NURSE STATED SHE DOESNT KNOW ANY OF PTS MEDICAL INFO, ITS ALL LOCKED UP IN MEDICAL RECORDS FOR THE WEEKEND.
--- NOTE | 2017-07-27 23:42 | EKG12_ITS ---
Test Reason : Blood Pressure : / mmHG Vent. Rate : 062 BPM Atrial Rate : 062 BPM P-R Int : 136 ms QRS Dur : 096 ms QT Int : 390 ms P-R-T Axes : 069 048 072 degrees QTc Int : 395 ms Normal sinus rhythm Normal ECG Confirmed by NADEEM HERNANDEZ, OLIVER ([id number]), newspaper editor managing KWAKU MOSER ([id number] on 07/31/2017 2:28:21 PM Referred By: Confirmed By:OLIVER SILVER MD
--- NOTE | 2017-07-27 23:49 | ED.DCSUM_ITS ---
- ER Visit Summary Date of Service: 07/27/17 Chief Complaint: [] Weakness History of Present Illness: The patient is a 67 M stated he was weak tonight. He lives alone and was having trouble getting off the couch. He does have a walker at home. Recently was admitted for a rib fracture from a fall and spent 12 days in the residential discharge today at 4 PM. He is chronic COPD on oxygen lives at home. Stated it was just difficult to get up from the couch and called paramedics to bring him in. Currently he feels at baseline but tired Physical Examination: [] Vital signs reviewed General: Well-nourished well-developed Head: Normocephalic atraumatic Eyes: Pupils equal round and reactive to light extraocular movements intact ENT: TMs clear no hemotympanum no trauma Neck: Nontender full range of motion Cardiovascular: Regular rate rhythm no murmurs normal S1-S2 Respiratory: No distress clear to auscultation bilaterally chest nontender Abdomen: Soft nontender nondistended normal bowel sounds no masses Back: Nontender no CVA tenderness Extremities: Nontender active range of motion ?4 extremities no trauma Skin: Normal color no trauma Neuro alert oriented cranial nerves II through XII intact normal strength sensation reflexes Test Results: [] Emergency Department Course and Treatment: [] Pt appears well. He just has generalized weakness. Lab work and EKG obtained. She shows sinus rhythm at 62 without arrhythmia. CBC normal except white count 12.3. No left shift. Hemoglobin 11.9. Chemistry shows acute renal insufficiency with a creatinine of 2.3. Baseline 1.1. BUN is 78. The patient stated he has not been drinking much fluids are given a liter IV fluids. Troponin negative. Will be admitted for acute renal insufficiency secondary to dehydration causing generalized weakness. Treatment Plan: [] Disposition: [] Impression: [] Acute renal failure Dehydration Generalized weakness This note was generated with [employer] dictation software. It may contain incorrect words, spelling, and punctuation that were not noted in review of the chart prior to signing ED Disposition - Plan for ED Patient: Chief Complaint: Weakness Referrals: Russell White MD [Primary Care Provider] -
[2017-07-28] VITALS (10 sets, daily range): BP systolic 103–136; BP diastolic 44–59; PULSE 58–76; RESP 15–20; TEMP 36.4–36.7; O2SAT 92–100; BMI 20.5; BMI 21.4
[2017-07-28 00:20] LABS: Anion Gap 4 (5-15); BUN 78 mg/dL (7-18); BUN/Creat Ratio 33.5 RATIO (10-20); Calcium,Total 9.1 mg/dL (8.5-10.1); Chloride 95 mmol/L (98-107); Creatinine, Serum 2.33 mg/dL (0.70-1.30); EST Glomerular Filtration Rate 30 mL/min (>60); Est Glom Filt Rate - Afr Amer 36 mL/min (>60); Estimated Creatinine Clearance 26.65 ml/min; Glucose 133 mg/dL (74-106); Potassium 4.4 mmol/L (3.5-5.1); Sodium Level 137 mmol/L (136-145)
[2017-07-28 00:21] LABS: Absolute Lymphocyte Count 2.39 X10^3/ul (0.83-4.51); Absolute Neutrophil Count 7.9 X10^3/uL (2.0-7.7); Basophil# 0.05 X10^3/uL; Basophil% 0.4 % (0-1); Differential Indicated SCAN CRITERIA MET; Eosinophil# 0.28 X10^3/uL; Eosinophils% 2.3 % (0-5); Hematocrit 35.2 % (40-54); Hemoglobin 11.9 g/dl (13.0-16.5); Lymphocyte # 2.39 X10^3/ul (4.0); Lymphocyte % 19.5 % (19-41); Mean Corp Hgb Conc 33.8 g/gl (32-36); Mean Corpuscular Hgb 32.2 pg (27.0-32.0); Mean Corpuscular Volume 95.1 fL (80-94); Monocyte# 1.54 X10^3/uL; Monocyte% 12.6 % (0-10); Neutrophil # 7.94 X10^3/uL (2.7-7.7); Neutrophil % 64.7 % (47-70); POSITIVE COUNT NO; POSITIVE DIFFERENTIAL YES; POSITIVE MORPHOLOGY NO; Platelet Count 272 K/mm3 (150-450); RBC Distribution Width CV 14.6 % (11.6-14.6); RBC Distribution Width SD 48.5 fl (35.1-43.9); White Blood Count 12.3 K/mm3 (4.4-11.0)
[2017-07-28 00:37] LABS: Mucous, Urine 0 SEEN /hpf (<or=2+); Red Blood Cells-Urine 0 SEEN /hpf (0-5)
[2017-07-28 00:39] LABS: Color, Urine Yellow (Yellow); Glucose, Dipstick Normal (Normal); Ketone-Dipstick Negative (Negative); Leukocyte Esterase-Dipstick 25 /ul (Negative); Nitrite-Dipstick Negative (Negative); Occult Blood-Urine Negative /ul (Negative); Protein-Dipstick Negative (Negative); Urine Bilirubin Dipstick Negative (Negative); Urine Clarity Clear (Clear); Urine Urobilinogen 4 mg/dl (Normal); Urine pH 6.5 (5.0 - 8.0)
[2017-07-28 00:39] LABS: Differential Comment SCANNED
[2017-07-28 00:45] LABS: Bacteria RARE /hpf (None Seen); Squamous Epithelial Cells - UA 0-5 SEEN /hpf (0-5); White Blood Cells 0-5 SEEN /hpf (0-5)
[2017-07-28] MEDS: 0.9% Normal Saline 1,000 ML 1000 ML IV (01:09)
--- NOTE | 2017-07-28 03:11 | HP.PCM_ITS ---
Problem List (1) ARF (acute renal failure) Status: Acute (2) Dysphagia Status: Acute Qualifiers: (3) CAD (coronary artery disease) Status: Chronic Qualifiers: Comment: [facility]: 10/07/2010, 09/06/2015 (4) COPD (chronic obstructive pulmonary disease) Status: Chronic Qualifiers: (5) Chronic anticoagulation Status: Chronic (6) DM2 (diabetes mellitus, type 2) Status: Chronic Qualifiers: History of Present Illness Date of Admission: 07/28/17 Chief Complaint: Generalized weakness The patient is a 67 year old male w/ h/o Stage 2 moderate COPD by GOLD classification, depression, CAD, WHIT, DMII, and HTN admitted for generalized weakness. He was recently discharged from SNF yesterday. He was on a thicken liquid diet but did not like the diet. He did not drink much water and when he arrived home yesterday. he had several sips of soda and did not do much. His weakness started after discharged from the SNF where he spent 12 days to recover for a trauma rib fracture. His weakness has been so severe that he had a difficult time getting up from his cough. He lived by himself. Nothing made his weakness better or worse. His weakness was not associated with any other symptoms. He went to the ED for further workup. Past Medical History Past Medical History (Chronic Problems): Chronic Problems (Last Reviewed 07/27/17 @ 09:57 by Cherelle Foster NP-C) Stage 2 moderate COPD by GOLD classification (Chronic) FEV1 51% of predicted History of tonsillectomy (Chronic) History of inguinal hernia repair (Chronic) Depression (Chronic) Chronic anticoagulation (Chronic) Tobacco dependence due to cigarettes (Chronic) Severe malnutrition (Chronic) Hypokalemia (Chronic) WHIT (obstructive sleep apnea) (Chronic) BiPAP 10/6 cm of water CAD (coronary artery disease) (Chronic) [facility]: 10/07/2010, 09/06/2015 HTN (hypertension) (Chronic) Paroxysmal atrial fibrillation (Chronic) HLD (hyperlipidemia) (Chronic) DM2 (diabetes mellitus, type 2) (Chronic) COPD (chronic obstructive pulmonary disease) (Chronic) Allergies Penicillins Allergy (Verified 07/27/17 23:23) Shortness of breath Home Medications: Ambulatory Orders Medication Instructions Recorded Digoxin 125 mcg PO DAILY 05/27/16 Levothyroxine [Synthroid] 75 mcg PO DAILY 05/27/16 Multivitamin [Multiple Vitamins] 1 ea PO DAILY 06/24/16 Ranolazine [Ranexa] 500 mg PO BID 01/10/17 Diltiazem CD [Cardizem CD] 180 mg PO DAILY #30 cap 06/15/17 Pantoprazole Sodium [Protonix] 20 mg PO BID #60 tab 06/15/17 Carvedilol 25 mg PO BID 06/25/17 Ipratropium/Albuterol Sulfate 3 ml INHALATION TID 06/25/17 [Duoneb] Mirtazapine 15 mg PO QHS 06/25/17 sitagliptin 50 mg tablet 50 mg PO ONCE 06/28/17 Nicotine [Nicoderm Cq] 21 mg TRANSDERM. DAILY patch 06/30/17 fluticasone 100 mcg-vilanterol 25 1 inh INHALATION QDAY 07/26/17 mcg/dose powder for inhalation furosemide 40 mg tablet 40 mg PO QDAY 07/26/17 metformin 500 mg tablet 500 mg PO BID 07/26/17 Surgical History: herniorrhaphy, tonsillectomy Psychiatric History: Depression Smoking Status: Current every day smoker - *Family History Maternal History Items: No pertinent history Paternal History Items: - - Rheumatic heart disease Review of Systems Constitutional: Denies: Chills, Fever, Weight Change HEENT: Denies: Head Aches, Sinus Congestion, Sinus Drainage Cardiovascular: Denies: Chest Pain, Palpitations Respiratory: Denies: Cough, Shortness of breath at rest, Sputum production Gastrointestinal: Denies: Abdominal Pain, Nausea, Vomiting Genitourinary: Denies: Dysuria Musculoskeletal: Denies: Joint Pain, Joint Tenderness Skin: Denies: Rash, Wounds Neurological: Reports: - - Generalized weakness. Denies: Focal weakness, Numbness, Tingling Psychiatric: Denies: Anxiety, Depression, Homicidal Ideations, Suicidal Ideations Hematologic/ Lymphatic: Denies: Easy Bruising, Easy Bleeding VTE Information - Inpt Only VTE Present on Admission: No VTE Mechan Device Prophylaxis: SCD's VTE Pharm Prophylaxis ordered?: No Patient Problems: Active and Suspected Problems (Last Reviewed 07/27/17 @ 09:57 by CLARE GilC) ARF (acute renal failure) (Acute) - Physical Exam General: Alert, Oriented x3, Cooperative HEENT: Atraumatic, PERRLA, EOMI, Normocephalic Neck: Supple, No JVD, Negative Carotid Bruits Lungs: Clear to auscultation, Normal air movement Cardiovascular: Regular rate, No murmurs Abdomen: Bowel Sounds Present, Soft, Non Tender Extremities: No edema, Capillary Refill Less than 3 Seconds Skin: No rashes, No breakdown Musculoskeletal: No Tenderness to Palpation of Joints or Extremities Neurological: Cranial nerves II-XII grossly intact Psych/Mental Status: Normal Affect, Appropriate Vital Signs Temp Pulse Resp BP Pulse Ox 98.3 F 58 L 15 121/58 H 96 07/27/17 23:18 07/28/17 02:07 07/28/17 02:07 07/28/17 02:07 07/28/17 02:07 Oxygen Flow Rate (L/min) 3 Oxygen Delivery Method Nasal Cannula Weight: 62.1 kg Body Mass Index (BMI) 21.4 Finger Stick Blood Glucose 219 Laboratory Tests Past 24 Hrs 07/27/17 07/27/17 07/28/17 23:22 23:22 00:30 WBC 12.3 H RBC 3.70 L Hgb 11.9 L Hct 35.2 L MCV 95.1 H MCH 32.2 H MCHC 33.8 RDW 14.6 RDW Differential 48.5 H Plt Count 272 MPV 11.0 Immature Gran % (Auto) 0.500 Neut % (Auto) 64.7 Lymph % (Auto) 19.5 Fergus % (Auto) 12.6 H Eos % (Auto) 2.3 Baso % (Auto) 0.4 Absolute Neuts (auto) 7.9 H Absolute Lymphs (auto) 2.39 Total Counted Not Reportable Differential Comment SCANNED Sodium 137 Potassium 4.4 Chloride 95 L Carbon Dioxide 38.0 H Anion Gap 4 L BUN 78 H Creatinine 2.33 H Estim Creat Clear Calc 26.65 Est GFR (MDRD) Af Amer 36 L Est GFR (MDRD) Non-Af 30 L BUN/Creatinine Ratio 33.5 H Glucose 133 H Calcium 9.1 Troponin I < 0.015 Urine Color Yellow Urine Clarity Clear Urine pH 6.5 Ur Specific Alloy 1.010 Urine Protein Negative Urine Glucose (UA) Normal Urine Ketones Negative Urine Occult Blood Negative Urine Nitrite Negative Urine Bilirubin Negative Urine Urobilinogen 4 H Ur Leukocyte Esterase 25 H Urine RBC 0 SEEN Urine WBC 0-5 SEEN Ur Squamous Epith Cells 0-5 SEEN Urine Bacteria RARE Urine Mucus 0 SEEN Assessment/Plan Active and Suspected Problems (Last Reviewed 07/27/17 @ 09:57 by Cherelle Foster, ANA-C) ARF (acute renal failure) (Acute) 67 year old male w/ h/o Stage 2 moderate COPD by GOLD classification, depression , CAD, WHIT, DMII, and HTN admitted for generalized weakness. 1) Generalized weakness: Most likely secondary to ARF secondary to azotemia. Will hydrate. UA bland. Hold diuretics. Hold metformin. Supportive care. 2) Nonoliguric ARF: Likely azotemia. Baseline Cr 1.1 Cr 2.3 Hydration. Serial labs. 3) DMII: Hold metformin. Resume all other home meds. 4) Dysphagia: Will get dysphagia screen. May need thicken fluid. Will consider chest xray if worsening leukocytosis or any e/o sepsis. Monitor.
[2017-07-28 04:03] LABS: Amphetamine Urine VISTA NEGATIVE (<1000 ng/mL); Barbiturate Urine VISTA NEGATIVE (< 200 ng/mL); Benzodiazepine Urine VISTA NEGATIVE (< 200 ng/mL); Cocaine Urine VISTA NEGATIVE (< 300 ng/mL); Ecstacy Urine VISTA NEGATIVE (< 500 ng/mL); Methadone Urine VISTA NEGATIVE (< 300 ng/mL); PCP Urine VISTA NEGATIVE (< 25 ng/mL); THC Urine VISTA NEGATIVE (< 50 ng/mL); Vista UDS pH Range 6
[2017-07-28] MEDS: 0.9% Normal Saline 1,000 ML 150 ML IV ×2 (04:15→15:01)
[2017-07-28 04:26] LABS: Bedside Glucose 145 mg/dL (70-110)
[2017-07-28] MEDS: Levothyroxine 75 MCG Tablet PO (05:28)
[2017-07-28] MEDS: Ipratropium/Albuterol Sulfate 3 ML AMPUL.NEB INHALATION ×3 (06:47→19:15)
[2017-07-28] MEDS: Budesonide Respules 0.5 MG/2 ML AMPUL.NEB. INHALATION ×2 (06:47→19:16)
[2017-07-28 07:00] LABS: Bedside Glucose 172 mg/dL (70-110)
[2017-07-28] MEDS: Carvedilol 25 MG Tablet PO ×2 (09:38→21:20)
[2017-07-28] MEDS: Glucerna Shake 120 ML LIQUID PO ×2 (09:38→15:01)
[2017-07-28] MEDS: dilTIAZem CD 180 MG Capsule PO (09:38)
[2017-07-28] MEDS: LINAGLIPTIN 5 MG TABLET PO (09:38)
[2017-07-28] MEDS: Pantoprazole Sodium 20 MG Tablet PO ×2 (09:38→21:19)
[2017-07-28] MEDS: Multivitamins,Therapeutic Tablet 1 TABLET PO (09:38)
[2017-07-28] MEDS: Ranolazine 500 MG Tablet PO ×2 (09:38→21:20)
[2017-07-28 12:18] LABS: Albumin, Serum 2.3 g/dL (3.2-5.0); Anion Gap 4 (5-15); BUN 56 mg/dL (7-18); BUN/Creat Ratio 34.1 RATIO (10-20); Chloride 99 mmol/L (98-107); Creatinine, Serum 1.64 mg/dL (0.70-1.30); EST Glomerular Filtration Rate 45 mL/min (>60); Est Glom Filt Rate - Afr Amer 54 mL/min (>60); Estimated Creatinine Clearance 36.22 ml/min; Glucose 202 mg/dL (74-106); Phosphorus 2.9 mg/dL (2.5-4.9); Potassium 4.3 mmol/L (3.5-5.1); Sodium Level 138 mmol/L (136-145)
--- NOTE | 2017-07-28 12:22 | US_ITS ---
STUDY: RENAL ULTRASOUND - COMPLETE REASON FOR EXAM: Male, 67 years old. Acute kidney injury. TECHNIQUE: Ultrasound evaluation of the kidneys was performed with real-time and static munguia-scale imaging. COMPARISON: 06/13/2017. FINDINGS: RIGHT KIDNEY: Normal location of the right kidney, which is normal in size. The right kidney measures 9.1 x 3.8 x 5.4 cm. There is a normal cortex of the right kidney. The renal cortex measures 1.0 cm. There is no right renal mass or cyst. There are no right renal calculi. There is no right hydronephrosis. DISTAL RIGHT URETER: There is non-visualization of the distal right ureter. There is no demonstrated right ureterovesical junction calculus. There is a visualized right ureteral jet. LEFT KIDNEY: Normal location of the left kidney, which is normal in size. The left kidney measures 9.8 x 4.1 x 5.5 cm. There is a normal cortex of the left kidney. The renal cortex measures 1.3 cm. There is no left renal mass or cyst. There are no left renal calculi. There is no left hydronephrosis. DISTAL LEFT URETER: There is non-visualization of the distal left ureter. There is no demonstrated left ureterovesical junction calculus. There is a visualized left ureteral jet. BLADDER: The distended urinary bladder has a volume of 173 ml. There is a normal wall thickness of the distended urinary bladder. There is no demonstrated mass within the urinary bladder. There are no demonstrated bladder calculi. US/Kidney and Bladder IMPRESSION: No acute abnormality or change. No hydronephrosis. Electronically Signed: Trevor Harrington MD at 14:01 EDT , Service support ,
--- NOTE | 2017-07-28 12:48 | CASEMGMT ---
SOCIAL WORK: Referral received from vision specialist this date due to patient readmission. Chart reviewed. Patient with recent admission at [facility] from 06/27 - 06/30 at which time he was discharged to [facility] for skilled therapies. He was discharged home from [facility] on 07/27 and presented to the ER on 07/28. SW met with patient in his room. Introduced self and SW role at [facility] and assessed for discharge planning needs. Patient reports that upon returning home from [facility] that he laid down on the couch and went to sleep; when he woke up he was unable to get up from the couch and used his [employer] button to call for help. He tells this SW that what he needs to do when he goes home from the hospital is eat some food and drink some fluids and move around a little instead of laying down. SW inquired if patient thinks that he needs to return to SNF prior to returning home and patient denies need for this. Patient lives alone in an apartment and has PASSPORT services; renal case manager is Birgit Sotomayor. He receives Meals on Wheels and uses taxi passes and the bus. He is active with [facility] for psychiatry and case management services. He plans to ask a friend, Radha ([phone]), to move back in with him. Patient currently denies any additional needs or concerns for discharge at this time. PLAN: Patient denies need for return to [facility]. Plans to return home with resumption of PASSPORT services. SW will follow in the event that additional needs arise. SANDI Ramos
--- NOTE | 2017-07-28 14:42 | PCM.HOSP.N ---
Hospitalist Note Seen and examined. 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 As multiple comorbidities including moderately advanced COPD status to on 2 L of home oxygen. Patient also has difficulty moving around and greatly get short of breath. He was recently admitted in June 2017 for fall and was discharged to SNF. On exam Chest is barrel elena. Air entry severely diminished bilaterally. Expiratory phase prolonged. No rhonchi. Heart S1-S2 regular. Paroxysmal A. fib. On review of lab: Creatinine is improved from 2.3-1.64. BUN 78-56. Continue IV fluid. Patient is passing urine. UA is bland Kidneys and bladder ultrasound ordered I think, Eliquis was discontinued last time because of history of recurrent fall and admitted with fall when he hit his head but there was no major bleeding.
--- NOTE | 2017-07-28 14:48 | CCHN_ITS ---
Hospitalist Note Seen and examined. 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 As multiple comorbidities including moderately advanced COPD status to on 2 L of home oxygen. Patient also has difficulty moving around and greatly get short of breath. He was recently admitted in June 2017 for fall and was discharged to SNF. On exam Chest is barrel elena. Air entry severely diminished bilaterally. Expiratory phase prolonged. No rhonchi. Heart S1-S2 regular. Paroxysmal A. fib. On review of lab: Creatinine is improved from 2.3-1.64. BUN 78-56. Continue IV fluid. Patient is passing urine. UA is bland Kidneys and bladder ultrasound ordered I think, Eliquis was discontinued last time because of history of recurrent fall and admitted with fall when he hit his head but there was no major bleeding.
[2017-07-28 17:05] LABS: Protein, Urine (Random) 19.1 mg/dL (<11.9); Urine Chloride 64 mmol/L (Not Establ.); Urine Sodium 86 mmol/L (Not Establ.)
[2017-07-28] MEDS: Mirtazapine 15 MG Tablet PO (21:19)
[2017-07-29] VITALS (8 sets, daily range): BP systolic 108–124; BP diastolic 45–56; PULSE 61–78; RESP 16–18; TEMP 36.4–37; O2SAT 93–99
[2017-07-29] MEDS: 0.9% Normal Saline 1,000 ML 75 ML IV ×2 (04:05→15:38)
[2017-07-29] MEDS: Levothyroxine 75 MCG Tablet PO (04:06)
[2017-07-29] MEDS: Ipratropium/Albuterol Sulfate 3 ML AMPUL.NEB INHALATION ×3 (07:11→18:27)
[2017-07-29] MEDS: Budesonide Respules 0.5 MG/2 ML AMPUL.NEB. INHALATION ×2 (07:11→18:28)
[2017-07-29 08:02] LABS: Albumin, Serum 2.4 g/dL (3.2-5.0); BUN 39 mg/dL (7-18); Calcium,Total 8.3 mg/dL (8.5-10.1); Chloride 103 mmol/L (98-107); EST Glomerular Filtration Rate 49 mL/min (>60); Est Glom Filt Rate - Afr Amer 60 mL/min (>60); Glucose 141 mg/dL (74-106); Phosphorus 3.4 mg/dL (2.5-4.9); Potassium 4.6 mmol/L (3.5-5.1); Sodium Level 140 mmol/L (136-145)
[2017-07-29] MEDS: dilTIAZem CD 180 MG Capsule PO (08:52)
[2017-07-29] MEDS: Pantoprazole Sodium 20 MG Tablet PO ×2 (08:52→21:15)
[2017-07-29] MEDS: Carvedilol 25 MG Tablet PO ×2 (08:52→21:15)
[2017-07-29] MEDS: Multivitamins,Therapeutic Tablet 1 TABLET PO (08:52)
[2017-07-29] MEDS: LINAGLIPTIN 5 MG TABLET PO (08:53)
[2017-07-29] MEDS: Ranolazine 500 MG Tablet PO ×2 (08:53→21:14)
[2017-07-29] MEDS: Glucerna Shake 120 ML LIQUID PO (11:22)
--- NOTE | 2017-07-29 11:24 | PN_ITS ---
Patient Problems: Active and Suspected Problems (Last Reviewed 07/27/17 @ 09:57 by NIC Gil) ARF (acute renal failure) (Acute) Subjective: Patient did not had major issues overnight. Blood pressure is improved. Kidney function is improved with improvement in creatinine. Vitals/I&O's: Vital Signs Temp Pulse Resp BP Pulse Ox 97.8 F 68 18 124/54 H 96 07/29/17 09:20 07/29/17 09:20 07/29/17 09:20 07/29/17 09:20 07/29/17 09:20 Oxygen Flow Rate (L/min) 2 Oxygen Delivery Method Nasal Cannula Weight: 130 lb 15.273 oz Body Mass Index (BMI) 20.5 Intake and Output for Last 24 Hours 07/27/17 07/28/17 07/29/17 23:59 23:59 23:59 Intake Total 1865 / 1865 1202 / 1202 Output Total 850 / 850 525 / 525 Balance 1015 / 1015 677 / 677 General: Alert, Oriented x3, Cooperative HEENT: Atraumatic, PERRLA, EOMI, Normocephalic Neck: Supple, No JVD, Negative Carotid Bruits Lungs: Clear to auscultation, Normal air movement Cardiovascular: Regular rate, Regular Rhythm, Normal S1, Normal S2, No murmurs Abdomen: Bowel Sounds Present, Soft, Non Tender, Non-Distended Extremities: No edema, Capillary Refill Less than 3 Seconds Skin: No rashes, No breakdown Musculoskeletal: No Tenderness to Palpation of Joints or Extremities, Arthritic Changes, Muscle Wasting Neurological: Cranial nerves II-XII grossly intact Psych/Mental Status: Normal Affect, Appropriate Laboratory Results 07/28/17 11:33: Sodium 138, Potassium 4.3, Chloride 99, Carbon Dioxide 35.0 H, Anion Gap 4 L, BUN 56 H, Creatinine 1.64 H, Estim Creat Clear Calc 36.22, Est GFR (MDRD) Af Amer 54 L, Est GFR (MDRD) Non-Af 45 L, BUN/Creatinine Ratio 34.1 H , Glucose 202 H, Calcium 8.0 L, Phosphorus 2.9, Albumin 2.3 L 07/28/17 12:05: Urine Creatinine 35.40 07/28/17 12:05: U Random Total Protein 19.1 H 07/28/17 12:05: Ur Random Sodium 86, Urine Potassium 29.0, Urine Chloride 64 07/29/17 07:30: Sodium 140, Potassium 4.6, Chloride 103, Carbon Dioxide 34.0 H, BUN 39 H, Creatinine 1.50 H, Estim Creat Clear Calc 39.60, Est GFR (MDRD) Af Amer 60, Est GFR (MDRD) Non-Af 49 L, BUN/Creatinine Ratio 26.0 H, Glucose 141 H , Calcium 8.3 L, Phosphorus 3.4, Albumin 2.4 L Current Medications Albuterol/Ipratropium (Duoneb) 3 ml INHALATION TID [facility] Last Admin: 07/29/17 07:11 Dose: 3 ml Budesonide (Pulmicort Aerosol) 0.5 mg INHALATION Q12H.RT [facility] Last Admin: 07/29/17 07:11 Dose: 0.5 mg Carvedilol (Coreg) 25 mg PO BID [facility] Last Admin: 07/29/17 08:52 Dose: 25 mg Diltiazem HCl (Cardizem Cd) 180 mg PO DAILY [facility] Last Admin: 07/29/17 08:52 Dose: 180 mg Sodium Chloride () 1,000 mls @ 75 mls/hr IV .[id number] [facility] Last Admin: 07/29/17 04:05 Dose: 75 mls/hr Levothyroxine Sodium (Synthroid) 75 mcg PO DAILY@0600 [facility] Last Admin: 07/29/17 04:06 Dose: 75 mcg Linagliptin (Tradjenta) 5 mg PO DAILY [facility] Last Admin: 07/29/17 08:53 Dose: 5 mg Magnesium Hydroxide (Milk Of Magnesia) 30 ml PO DAILY PRN PRN PRN Reason: Constipation Mirtazapine (Remeron) 15 mg PO QHS [facility] Last Admin: 07/28/17 21:19 Dose: 15 mg Multivitamins (Multivitamin) 1 tablet PO DAILYCM [facility] Last Admin: 07/29/17 08:52 Dose: 1 tablet Nicotine (Nicoderm Cq (Pbkc)) 21 mg TRANSDERM. DAILY [facility] Last Admin: 07/29/17 08:52 Dose: 21 mg Nutritional Formula (Lactose Free) (Glucerna Shake) 120 ml PO TIDCM [facility] Last Admin: 07/29/17 11:22 Dose: 120 ml Pantoprazole Sodium (Protonix) 20 mg PO BID [facility] Last Admin: 07/29/17 08:52 Dose: 20 mg Ranolazine (Ranexa) 500 mg PO BID [facility] Last Admin: 07/29/17 08:53 Dose: 500 mg Sodium Chloride () 5 - 30 ml IV UD PRN PRN Reason: SALINE FLUSH Medical Necessity - Tobacco Use Smoking Status: Current every day smoker Assessment/Plan Active and Suspected Problems (Last Reviewed 07/27/17 @ 09:57 by Cherelle Foster, ANA-C) ARF (acute renal failure) (Acute) 67 year old male w/ h/o Stage 2 moderate COPD by GOLD classification, depression , CAD, WHIT, DMII, and HTN admitted for generalized weakness associated with acute kidney injury and adult failure to thrive. His other significant multiple comorbidities including moderately advanced COPD status to on 2 L of home oxygen. Patient also has difficulty moving around and easily get short of breath. He was recently admitted in June 2017 for fall and was discharged to SNF. 1) Generalized weakness: Most likely secondary to ARF secondary to azotemia. Will hydrate. 2) Nonoliguric acute kidney injury on CKD stage III most probably from nephrosclerosis secondary to hypertension, diabetic nephropathy and cardiorenal disease: Likely azotemia; most probably from nephrosclerosis Baseline Cr 1.1 UA bland. Random urine protein is 19 mildly abnormal. Hold diuretics. Hold metformin. Supportive care. On review of lab: Creatinine is improved from 2.3-1.5. BUN 78-39. Continue IV fluid. Patient is passing urine. UA is bland Kidneys and bladder ultrasound is no abnormality. Nephrology consult ordered. 3) DMII: Hold metformin. Resume all other home meds. 4) Dysphagia: Will get dysphagia screen. May need thicken fluid. Will consider chest xray if worsening leukocytosis or any e/o sepsis. Monitor. Laboratory Results 07/28/17 12:05: Urine Creatinine 35.40 07/28/17 12:05: U Random Total Protein 19.1 H 07/28/17 12:05: Ur Random Sodium 86, Urine Potassium 29.0, Urine Chloride 64 07/29/17 07:30: Sodium 140, Potassium 4.6, Chloride 103, Carbon Dioxide 34.0 H, BUN 39 H, Creatinine 1.50 H, Estim Creat Clear Calc 39.60, Est GFR (MDRD) Af Amer 60, Est GFR (MDRD) Non-Af 49 L, BUN/Creatinine Ratio 26.0 H, Glucose 141 H , Calcium 8.3 L, Phosphorus 3.4, Albumin 2.4 L 07/29/17 11:22: POC Glucose 213 H Clinical Impression(s) from Imaging Studies Renal Ultrasound 07/28/17 12:22 IMPRESSION: No acute abnormality or change. No hydronephrosis. Electronically Signed: Trevor Harrington MD at 14:01 EDT , Service support , Seen and examined. 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 Air entry severely diminished bilaterally. Expiratory phase prolonged. No rhonchi. Heart S1-S2 regular. Paroxysmal A. fib. Code Visit Inpatient E&M: 60581 Subs Hosp L2
[2017-07-29 11:45] LABS: Bedside Glucose 213 mg/dL (70-110)
--- NOTE | 2017-07-29 15:57 | PCM.CONS.R ---
Problem List (1) ARF (acute renal failure) Status: Acute Consultation - Renal PCP/ Referring MD: Requesting physician: [] Primary care physician: Russell White - History of Present Illness History of Present Illness: The patient is a 67 year old M past medical history of COPD, obstructive sleep apnea, coronary artery disease, diabetes mellitus type 2, hypertension, patient presented with generalized weakness . Patient was found to have acute kidney injury with a creatinine elevation at 2.3 . Baseline creatinine around 1.0 mg/dL . Lasix was stopped . Patient was started IV fluid at 100 cc/h . Creatinine is improving . Creatinine today 1.5 mg of deciliter . Patient status function status better today . Any NSAID use no IV contrast exposure . No urinary obstructive symptoms . Patient just left the rehab center after he spent time for recovery from rib fracture Review of system : 12 systems review is negative except some weakness , cough . Denied any shortness of breath [] - Allergies Allergies: Allergies Penicillins Allergy (Verified 07/28/17 03:54) Shortness of breath - Current Medications Current Medications: Current Medications Albuterol/Ipratropium (Duoneb) 3 ml INHALATION TID [facility] Last Admin: 07/29/17 12:48 Dose: 3 ml Budesonide (Pulmicort Aerosol) 0.5 mg INHALATION Q12H.RT [facility] Last Admin: 07/29/17 07:11 Dose: 0.5 mg Carvedilol (Coreg) 25 mg PO BID [facility] Last Admin: 07/29/17 08:52 Dose: 25 mg Diltiazem HCl (Cardizem Cd) 180 mg PO DAILY [facility] Last Admin: 07/29/17 08:52 Dose: 180 mg Sodium Chloride () 1,000 mls @ 75 mls/hr IV .[id number] [facility] Last Admin: 07/29/17 15:38 Dose: 75 mls/hr Levothyroxine Sodium (Synthroid) 75 mcg PO DAILY@0600 [facility] Last Admin: 07/29/17 04:06 Dose: 75 mcg Linagliptin (Tradjenta) 5 mg PO DAILY [facility] Last Admin: 07/29/17 08:53 Dose: 5 mg Magnesium Hydroxide (Milk Of Magnesia) 30 ml PO DAILY PRN PRN PRN Reason: Constipation Mirtazapine (Remeron) 15 mg PO QHS [facility] Last Admin: 07/28/17 21:19 Dose: 15 mg Multivitamins (Multivitamin) 1 tablet PO DAILYCM [facility] Last Admin: 07/29/17 08:52 Dose: 1 tablet Nicotine (Nicoderm Cq (Pbkc)) 21 mg TRANSDERM. DAILY [facility] Last Admin: 07/29/17 08:52 Dose: 21 mg Nutritional Formula (Lactose Free) (Glucerna Shake) 120 ml PO TIDCM [facility] Last Admin: 07/29/17 11:22 Dose: 120 ml Pantoprazole Sodium (Protonix) 20 mg PO BID [facility] Last Admin: 07/29/17 08:52 Dose: 20 mg Ranolazine (Ranexa) 500 mg PO BID [facility] Last Admin: 07/29/17 08:53 Dose: 500 mg Sodium Chloride () 5 - 30 ml IV UD PRN PRN Reason: SALINE FLUSH - Past Medical History Past Medical History (Chronic Problems): Chronic Problems (Last Reviewed 07/27/17 @ 09:57 by NIC Gil) Stage 2 moderate COPD by GOLD classification (Chronic) FEV1 51% of predicted History of tonsillectomy (Chronic) History of inguinal hernia repair (Chronic) Depression (Chronic) Chronic anticoagulation (Chronic) Tobacco dependence due to cigarettes (Chronic) Severe malnutrition (Chronic) Hypokalemia (Chronic) WHIT (obstructive sleep apnea) (Chronic) BiPAP 10/6 cm of water CAD (coronary artery disease) (Chronic) [facility]: 10/07/2010, 09/06/2015 HTN (hypertension) (Chronic) Paroxysmal atrial fibrillation (Chronic) HLD (hyperlipidemia) (Chronic) DM2 (diabetes mellitus, type 2) (Chronic) COPD (chronic obstructive pulmonary disease) (Chronic) - Past Surgical History Surgical History: herniorrhaphy, tonsillectomy - Social History Smoking Status: Current every day smoker - Family History Maternal Family History: Family History (Last Reviewed 07/27/17 @ 09:57 by NIC Gil) Father CAD (coronary artery disease) History Items: No pertinent history Paternal Family History: Family History (Last Reviewed 07/27/17 @ 09:57 by NIC Gil) Father CAD (coronary artery disease) History Items: - - Rheumatic heart disease Patient Problems: Active and Suspected Problems (Last Reviewed 07/27/17 @ 09:57 by Cherelle Foster, FNP-C) ARF (acute renal failure) (Acute) - Physical Exam General: Alert, Oriented x3 HEENT: Atraumatic Oral: Moist Mucosa Neck: Supple, No JVD Lungs: Clear to auscultation, Normal air movement, No rhonchi, No wheeze Cardiovascular: Regular rate, Regular Rhythm, Normal S1, Normal S2 Abdomen: Bowel Sounds Present, Soft, Non Tender Extremities: No clubbing, No cyanosis, - - Trace edema of lower extremity Musculoskeletal: No Tenderness to Palpation of Joints or Extremities Lymphatic: No Cervical, Supraclavicular, or Inguinal Adenopathy Neurological: Cranial nerves II-XII grossly intact, Neuro grossly intact Psych/Mental Status: Normal Affect Vital Signs Temp Pulse Resp BP Pulse Ox 97.6 F L 68 18 124/56 H 93 07/29/17 15:20 07/29/17 15:20 07/29/17 15:20 07/29/17 15:20 07/29/17 15:20 Oxygen Flow Rate (L/min) 2 Oxygen Delivery Method Room Air Weight: 59.4 kg Body Mass Index (BMI) 20.5 Intake and Output for Last 24 Hours 07/27/17 07/28/17 07/29/17 23:59 23:59 23:59 Intake Total 1865 / 1865 1965 / 1965 Output Total 850 / 850 925 / 925 Balance 1015 / 1015 1040 / 1040 Laboratory Tests Past 24 Hrs 07/28/17 07/28/17 07/28/17 12:05 12:05 12:05 Sodium Potassium Chloride Carbon Dioxide BUN Creatinine Estim Creat Clear Calc Est GFR (MDRD) Af Amer Est GFR (MDRD) Non-Af BUN/Creatinine Ratio Glucose Calcium Phosphorus Albumin U Random Total Protein 19.1 H Ur Random Sodium 86 Urine Creatinine 35.40 Urine Potassium 29.0 Urine Chloride 64 07/29/17 07:30 Sodium 140 Potassium 4.6 Chloride 103 Carbon Dioxide 34.0 H BUN 39 H Creatinine 1.50 H Estim Creat Clear Calc 39.60 Est GFR (MDRD) Af Amer 60 Est GFR (MDRD) Non-Af 49 L BUN/Creatinine Ratio 26.0 H Glucose 141 H Calcium 8.3 L Phosphorus 3.4 Albumin 2.4 L U Random Total Protein Ur Random Sodium Urine Creatinine Urine Potassium Urine Chloride POC Glucose 07/29/17 11:22 POC Glucose 213 H Assessment/Plan Active and Suspected Problems (Last Reviewed 07/27/17 @ 09:57 by NIC Gil) ARF (acute renal failure) (Acute) 1-Acute kidney injury on chronic kidney disease. Baseline creatinine around 1.0-1.5 mg deciliter. UA is benign. Acute kidney injury is most probably from decrease effective volume. Kidney function is improving with holding Lasix and IV fluid. Please continue the same IV fluid rates for now. Keep mean arterial pressure more than 65. Avoid nephrotoxic. 2-hypertension: Blood pressure was low at presentation. Please hold all blood pressure medication and continue IV fluid. 3-diabetes. Glycemic control is as per the primary service. 4-generalized weakness. PT/OT as per the primary service. We will continue to follow. Please do not hesitate to call me with any question at my cell phone #[phone] We will discuss with Dr. Tani Bauer MD
--- NOTE | 2017-07-29 16:04 | CON.PCM_ITS ---
Problem List (1) ARF (acute renal failure) Status: Acute Consultation - Renal PCP/ Referring MD: Requesting physician: [] Primary care physician: Russell White - History of Present Illness History of Present Illness: The patient is a 67 year old M past medical history of COPD, obstructive sleep apnea, coronary artery disease, diabetes mellitus type 2, hypertension, patient presented with generalized weakness . Patient was found to have acute kidney injury with a creatinine elevation at 2.3 . Baseline creatinine around 1.0 mg/ dL . Lasix was stopped . Patient was started IV fluid at 100 cc/h . Creatinine is improving . Creatinine today 1.5 mg of deciliter . Patient status function status better today . Any NSAID use no IV contrast exposure . No urinary obstructive symptoms . Patient just left the rehab center after he spent time for recovery from rib fracture Review of system : 12 systems review is negative except some weakness , cough . Denied any shortness of breath [] - Allergies Allergies: Allergies Penicillins Allergy (Verified 07/28/17 03:54) Shortness of breath - Current Medications Current Medications: Current Medications Albuterol/Ipratropium (Duoneb) 3 ml INHALATION TID [facility] Last Admin: 07/29/17 12:48 Dose: 3 ml Budesonide (Pulmicort Aerosol) 0.5 mg INHALATION Q12H.RT [facility] Last Admin: 07/29/17 07:11 Dose: 0.5 mg Carvedilol (Coreg) 25 mg PO BID [facility] Last Admin: 07/29/17 08:52 Dose: 25 mg Diltiazem HCl (Cardizem Cd) 180 mg PO DAILY [facility] Last Admin: 07/29/17 08:52 Dose: 180 mg Sodium Chloride () 1,000 mls @ 75 mls/hr IV .[id number] [facility] Last Admin: 07/29/17 15:38 Dose: 75 mls/hr Levothyroxine Sodium (Synthroid) 75 mcg PO DAILY@0600 [facility] Last Admin: 07/29/17 04:06 Dose: 75 mcg Linagliptin (Tradjenta) 5 mg PO DAILY [facility] Last Admin: 07/29/17 08:53 Dose: 5 mg Magnesium Hydroxide (Milk Of Magnesia) 30 ml PO DAILY PRN PRN PRN Reason: Constipation Mirtazapine (Remeron) 15 mg PO QHS [facility] Last Admin: 07/28/17 21:19 Dose: 15 mg Multivitamins (Multivitamin) 1 tablet PO DAILYCM [facility] Last Admin: 07/29/17 08:52 Dose: 1 tablet Nicotine (Nicoderm Cq (Pbkc)) 21 mg TRANSDERM. DAILY [facility] Last Admin: 07/29/17 08:52 Dose: 21 mg Nutritional Formula (Lactose Free) (Glucerna Shake) 120 ml PO TIDCM [facility] Last Admin: 07/29/17 11:22 Dose: 120 ml Pantoprazole Sodium (Protonix) 20 mg PO BID [facility] Last Admin: 07/29/17 08:52 Dose: 20 mg Ranolazine (Ranexa) 500 mg PO BID [facility] Last Admin: 07/29/17 08:53 Dose: 500 mg Sodium Chloride () 5 - 30 ml IV UD PRN PRN Reason: SALINE FLUSH - Past Medical History Past Medical History (Chronic Problems): Chronic Problems (Last Reviewed 07/27/17 @ 09:57 by NIC Gil) Stage 2 moderate COPD by GOLD classification (Chronic) FEV1 51% of predicted History of tonsillectomy (Chronic) History of inguinal hernia repair (Chronic) Depression (Chronic) Chronic anticoagulation (Chronic) Tobacco dependence due to cigarettes (Chronic) Severe malnutrition (Chronic) Hypokalemia (Chronic) WHIT (obstructive sleep apnea) (Chronic) BiPAP 10/6 cm of water CAD (coronary artery disease) (Chronic) [facility]: 10/07/2010, 09/06/2015 HTN (hypertension) (Chronic) Paroxysmal atrial fibrillation (Chronic) HLD (hyperlipidemia) (Chronic) DM2 (diabetes mellitus, type 2) (Chronic) COPD (chronic obstructive pulmonary disease) (Chronic) - Past Surgical History Surgical History: herniorrhaphy, tonsillectomy - Social History Smoking Status: Current every day smoker - Family History Maternal Family History: Family History (Last Reviewed 07/27/17 @ 09:57 by NIC Gil) Father CAD (coronary artery disease) History Items: No pertinent history Paternal Family History: Family History (Last Reviewed 07/27/17 @ 09:57 by NIC Gil) Father CAD (coronary artery disease) History Items: - - Rheumatic heart disease Patient Problems: Active and Suspected Problems (Last Reviewed 07/27/17 @ 09:57 by Cherelle Foster, CHUTE OPERATOR-C) ARF (acute renal failure) (Acute) - Physical Exam General: Alert, Oriented x3 HEENT: Atraumatic Oral: Moist Mucosa Neck: Supple, No JVD Lungs: Clear to auscultation, Normal air movement, No rhonchi, No wheeze Cardiovascular: Regular rate, Regular Rhythm, Normal S1, Normal S2 Abdomen: Bowel Sounds Present, Soft, Non Tender Extremities: No clubbing, No cyanosis, - - Trace edema of lower extremity Musculoskeletal: No Tenderness to Palpation of Joints or Extremities Lymphatic: No Cervical, Supraclavicular, or Inguinal Adenopathy Neurological: Cranial nerves II-XII grossly intact, Neuro grossly intact Psych/Mental Status: Normal Affect Vital Signs Temp Pulse Resp BP Pulse Ox 97.6 F L 68 18 124/56 H 93 07/29/17 15:20 07/29/17 15:20 07/29/17 15:20 07/29/17 15:20 07/29/17 15:20 Oxygen Flow Rate (L/min) 2 Oxygen Delivery Method Room Air Weight: 59.4 kg Body Mass Index (BMI) 20.5 Intake and Output for Last 24 Hours 07/27/17 07/28/17 07/29/17 23:59 23:59 23:59 Intake Total 1865 / 1865 1965 / 1965 Output Total 850 / 850 925 / 925 Balance 1015 / 1015 1040 / 1040 Laboratory Tests Past 24 Hrs 07/28/17 07/28/17 07/28/17 12:05 12:05 12:05 Sodium Potassium Chloride Carbon Dioxide BUN Creatinine Estim Creat Clear Calc Est GFR (MDRD) Af Amer Est GFR (MDRD) Non-Af BUN/Creatinine Ratio Glucose Calcium Phosphorus Albumin U Random Total Protein 19.1 H Ur Random Sodium 86 Urine Creatinine 35.40 Urine Potassium 29.0 Urine Chloride 64 07/29/17 07:30 Sodium 140 Potassium 4.6 Chloride 103 Carbon Dioxide 34.0 H BUN 39 H Creatinine 1.50 H Estim Creat Clear Calc 39.60 Est GFR (MDRD) Af Amer 60 Est GFR (MDRD) Non-Af 49 L BUN/Creatinine Ratio 26.0 H Glucose 141 H Calcium 8.3 L Phosphorus 3.4 Albumin 2.4 L U Random Total Protein Ur Random Sodium Urine Creatinine Urine Potassium Urine Chloride POC Glucose 07/29/17 11:22 POC Glucose 213 H Assessment/Plan Active and Suspected Problems (Last Reviewed 07/27/17 @ 09:57 by NIC Gil) ARF (acute renal failure) (Acute) 1-Acute kidney injury on chronic kidney disease. Baseline creatinine around 1.0 -1.5 mg deciliter. UA is benign. Acute kidney injury is most probably from decrease effective volume. Kidney function is improving with holding Lasix and IV fluid. Please continue the same IV fluid rates for now. Keep mean arterial pressure more than 65. Avoid nephrotoxic. 2-hypertension: Blood pressure was low at presentation. Please hold all blood pressure medication and continue IV fluid. 3-diabetes. Glycemic control is as per the primary service. 4-generalized weakness. PT/OT as per the primary service. We will continue to follow. Please do not hesitate to call me with any question at my cell phone #[phone] We will discuss with Dr. Tani Bauer MD
[2017-07-29 16:26] LABS: Bedside Glucose 205 mg/dL (70-110)
[2017-07-29] MEDS: Mirtazapine 15 MG Tablet PO (21:15)
[2017-07-30 03:30] VITALS: BP 113/56; PULSE 64; RESP 16; TEMP 36.8; O2SAT 97
[2017-07-30] MEDS: 0.9% Normal Saline 1,000 ML 75 ML IV (04:46)
[2017-07-30] MEDS: Levothyroxine 75 MCG Tablet PO (04:46)
[2017-07-30 06:00] LABS: Anion Gap 4 (5-15); BUN 29 mg/dL (7-18); BUN/Creat Ratio 22.5 RATIO (10-20); Chloride 104 mmol/L (98-107); Creatinine, Serum 1.29 mg/dL (0.70-1.30); EST Glomerular Filtration Rate 59 mL/min (>60); Est Glom Filt Rate - Afr Amer 71 mL/min (>60); Estimated Creatinine Clearance 46.05 ml/min; Glucose 152 mg/dL (74-106); Potassium 4.5 mmol/L (3.5-5.1); Sodium Level 142 mmol/L (136-145)
[2017-07-30 07:01] VITALS: PULSE 72; RESP 18; O2SAT 92
[2017-07-30] MEDS: Budesonide Respules 0.5 MG/2 ML AMPUL.NEB. INHALATION (07:01)
[2017-07-30] MEDS: Ipratropium/Albuterol Sulfate 3 ML AMPUL.NEB INHALATION (07:01)
[2017-07-30 07:15] LABS: Absolute Lymphocyte Count 1.85 X10^3/ul (0.83-4.51); Absolute Neutrophil Count 9.1 X10^3/uL (2.0-7.7); Basophil# 0.03 X10^3/uL; Basophil% 0.2 % (0-1); Eosinophil# 0.25 X10^3/uL; Hematocrit 32.1 % (40-54); Hemoglobin 10.4 g/dl (13.0-16.5); Lymphocyte # 1.85 X10^3/ul (4.0); Lymphocyte % 14.5 % (19-41); Mean Corp Hgb Conc 32.4 g/gl (32-36); Mean Corpuscular Hgb 31.5 pg (27.0-32.0); Mean Corpuscular Volume 97.3 fL (80-94); Mean Platelet Vol. 10.4 fl (6.2-12.0); Monocyte# 1.55 X10^3/uL; Monocyte% 12.1 % (0-10); Neutrophil # 9.06 X10^3/uL (2.7-7.7); Neutrophil % 70.9 % (47-70); Platelet Count 215 K/mm3 (150-450); RBC Distribution Width SD 53.2 fl (35.1-43.9); White Blood Count 12.8 K/mm3 (4.4-11.0)
[2017-07-30 07:47] LABS: Differential Indicated SCAN CRITERIA MET; Hypochromasia 1+; POSITIVE COUNT NO; POSITIVE DIFFERENTIAL YES; POSITIVE MORPHOLOGY NO
[2017-07-30 08:22] VITALS: BP 128/54; PULSE 69; RESP 18; TEMP 36.9; O2SAT 98
[2017-07-30] MEDS: Carvedilol 25 MG Tablet PO (08:31)
[2017-07-30] MEDS: dilTIAZem CD 180 MG Capsule PO (08:31)
[2017-07-30] MEDS: Multivitamins,Therapeutic Tablet 1 TABLET PO (08:31)
[2017-07-30] MEDS: Ranolazine 500 MG Tablet PO (08:33)
[2017-07-30] MEDS: LINAGLIPTIN 5 MG TABLET PO (08:33)
[2017-07-30] MEDS: Pantoprazole Sodium 20 MG Tablet PO (08:33)
--- NOTE | 2017-07-30 08:55 | CASEMGMT ---
ROSANA called [facility] and let Nicole on the coverage line know patient is in the hospital. Sandrita [employer] LYE TREATER
[2017-07-30] MEDS: Glucerna Shake 120 ML LIQUID PO (09:21)
--- NOTE | 2017-07-30 09:45 | DCINST_ITS ---
- Discharge Diagnoses Current Active Problems: Current Active and Chronic Problems (Last Reviewed 07/27/17 @ 09:57 by NIC Gil) ARF (acute renal failure) (Acute) You will use the following diet at home:: Calorie/Carbohydrate Controlled ( specify 1200, 1400, etc) - 1800 Your food should be the consistency of: Regular Discharge Activity: Return to Normal Activity Allergies/Adverse Reactions: Allergies Penicillins Allergy (Verified 07/28/17 03:54) Shortness of breath Medications to take at Discharge Digoxin 125 mcg PO DAILY 05/27/16 Levothyroxine [Synthroid] 75 mcg PO DAILY 05/27/16 Multivitamin [Multiple Vitamins] 1 ea PO DAILY 06/24/16 Ranolazine [Ranexa] 500 mg PO BID 01/10/17 Diltiazem CD [Cardizem CD] 180 mg PO DAILY #30 cap 06/15/17 Pantoprazole Sodium [Protonix] 20 mg PO BID #60 tab 06/15/17 Carvedilol 25 mg PO BID 06/25/17 Ipratropium/Albuterol Sulfate [Duoneb] 3 ml INHALATION TID 06/25/17 Mirtazapine 15 mg PO QHS 06/25/17 sitagliptin 50 mg tablet 50 mg PO ONCE 06/28/17 Nicotine [Nicoderm Cq] 21 mg TRANSDERM. DAILY patch 06/30/17 fluticasone 100 mcg-vilanterol 25 mcg/dose powder for inhalation 1 inh INHALATION QDAY 07/26/17 furosemide 40 mg tablet 40 mg PO QDAY 07/26/17 metformin 500 mg tablet 500 mg PO BID 07/26/17 Primary Care Physician: Russell White MD [Primary Care Provider] - Please follow up with your Primary Care Physician in: IN 3-5 DAYS Proposed Discharge Date: 07/30/17
--- NOTE | 2017-07-30 09:46 | DS.PCM_ITS ---
Discharge Date and Diagnosis - Problem List Patient Problems: Active and Suspected Problems (Last Reviewed 07/27/17 @ 09:57 by NIC Gil) ARF (acute renal failure) (Acute) Date of Admission: 07/28/17 Date of Discharge: 07/30/17 - Primary Discharge Diagnosis Active and Suspected Problems (Last Reviewed 07/27/17 @ 09:57 by NIC Gil) ARF (acute renal failure) (Acute) - Secondary Discharge Diagnosis Chronic Problems (Last Reviewed 07/27/17 @ 09:57 by NIC Gil) Stage 2 moderate COPD by GOLD classification (Chronic) FEV1 51% of predicted History of tonsillectomy (Chronic) History of inguinal hernia repair (Chronic) Depression (Chronic) Chronic anticoagulation (Chronic) Tobacco dependence due to cigarettes (Chronic) Severe malnutrition (Chronic) Hypokalemia (Chronic) WHIT (obstructive sleep apnea) (Chronic) BiPAP 10/6 cm of water CAD (coronary artery disease) (Chronic) [facility]: 10/07/2010, 09/06/2015 HTN (hypertension) (Chronic) Paroxysmal atrial fibrillation (Chronic) HLD (hyperlipidemia) (Chronic) DM2 (diabetes mellitus, type 2) (Chronic) COPD (chronic obstructive pulmonary disease) (Chronic) Hospital Course and Treatment Imaging Results: Impressions Renal Ultrasound 07/28/17 12:22 IMPRESSION: No acute abnormality or change. No hydronephrosis. Electronically Signed: Trevor Harrington MD at 14:01 EDT , Service support , Laboratory Results 07/29/17 07/29/17 07/30/17 Range/Units 11:22 16:11 05:20 WBC 12.8 H (4.4-11.0) K/mm3 RBC 3.30 L (4.6-6.2) M/mm3 Hgb 10.4 L (13.0-16.5) g/dl Hct 32.1 L (40-54) % MCV 97.3 H (80-94) fL MCH 31.5 (27.0-32.0) pg MCHC 32.4 (32-36) g/gl RDW 15.0 H (11.6-14.6) % RDW Differential 53.2 H (35.1-43.9) fl Plt Count 215 (150-450) K/mm3 MPV 10.4 (6.2-12.0) fl Immature Gran % (Auto) 0.300 (0.0-0.9) % Neut % (Auto) 70.9 H (47-70) % Lymph % (Auto) 14.5 L (19-41) % [place] % (Auto) 12.1 H (0-10) % Eos % (Auto) 2.0 (0-5) % Baso % (Auto) 0.2 (0-1) % Absolute Neuts (auto) 9.1 H (2.0-7.7) X10^3/uL Absolute Lymphs (auto) 1.85 (0.83-4.51) X10^3/ul Total Counted Not Reportable Hypochromasia 1+ Sodium (136-145) mmol/L Potassium (3.5-5.1) mmol/L Chloride (98-107) mmol/L Carbon Dioxide (21.0-32.0) mmol/L Anion Gap (5-15) BUN (7-18) mg/dL Creatinine (0.70-1.30) mg/dL Estim Creat Clear Calc ml/min Est GFR (MDRD) Af Amer (>60) mL/min Est GFR (MDRD) Non-Af (>60) mL/min BUN/Creatinine Ratio (10-20) RATIO Glucose (74-106) mg/dL Calcium (8.5-10.1) mg/dL POC Glucose 213 H 205 H (70-110) mg/dL /18 Range/Units 05:20 WBC (4.4-11.0) K/mm3 RBC (4.6-6.2) M/mm3 Hgb (13.0-16.5) g/dl Hct (40-54) % MCV (80-94) fL MCH (27.0-32.0) pg MCHC (32-36) g/gl RDW (11.6-14.6) % RDW Differential (35.1-43.9) fl Plt Count (150-450) K/mm3 MPV (6.2-12.0) fl Immature Gran % (Auto) (0.0-0.9) % Neut % (Auto) (47-70) % Lymph % (Auto) (19-41) % [place] % (Auto) (0-10) % Eos % (Auto) (0-5) % Baso % (Auto) (0-1) % Absolute Neuts (auto) (2.0-7.7) X10^3/uL Absolute Lymphs (auto) (0.83-4.51) X10^3/ul Total Counted Hypochromasia Sodium 142 (136-145) mmol/L Potassium 4.5 (3.5-5.1) mmol/L Chloride 104 (98-107) mmol/L Carbon Dioxide 34.0 H (21.0-32.0) mmol/L Anion Gap 4 L (5-15) BUN 29 H (7-18) mg/dL Creatinine 1.29 (0.70-1.30) mg/dL Estim Creat Clear Calc 46.05 ml/min Est GFR (MDRD) Af Amer 71 (>60) mL/min Est GFR (MDRD) Non-Af 59 L (>60) mL/min BUN/Creatinine Ratio 22.5 H (10-20) RATIO Glucose 152 H (74-106) mg/dL Calcium 8.0 L (8.5-10.1) mg/dL POC Glucose (70-110) mg/dL Operations: None Summary of Care Provided: Patient is a 67-year-old gentleman with multiple comorbidities admitted admitted with progressive generalized weakness 3 hours after being discharged from intermediate facility was found to be in acute kidney injury admitted to monitored nursing floor for further management 1. Acute kidney injury patient was on Lasix held on admission rehydrated with fluids kidney function did improve discharged 2 days after his admission 2. Chronic Hypoxic respiratory failure secondary to COPD patient is on baseline home O2 COPD exacerbation managed with steroids and bronchodilators as well as antibiotics 3. 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 4. Hypothyroidism: Continued levothyroxine 5. Paroxysmal A. fib rate controlled 6. Chronic systolic heart failure stable Discharge Activity: Return to Normal Activity Home Medications: Medications to take at Discharge Digoxin 125 mcg PO DAILY 05/27/16 Levothyroxine [Synthroid] 75 mcg PO DAILY 05/27/16 Multivitamin [Multiple Vitamins] 1 ea PO DAILY 06/24/16 Ranolazine [Ranexa] 500 mg PO BID 01/10/17 Diltiazem CD [Cardizem CD] 180 mg PO DAILY #30 cap 06/15/17 Pantoprazole Sodium [Protonix] 20 mg PO BID #60 tab 06/15/17 Carvedilol 25 mg PO BID 06/25/17 Ipratropium/Albuterol Sulfate [Duoneb] 3 ml INHALATION TID 06/25/17 Mirtazapine 15 mg PO QHS 06/25/17 sitagliptin 50 mg tablet 50 mg PO ONCE 06/28/17 Nicotine [Nicoderm Cq] 21 mg TRANSDERM. DAILY patch 06/30/17 fluticasone 100 mcg-vilanterol 25 mcg/dose powder for inhalation 1 inh INHALATION QDAY 07/26/17 furosemide 40 mg tablet 40 mg PO QDAY 07/26/17 metformin 500 mg tablet 500 mg PO BID 07/26/17 Primary Care Physician: Russell White MD [Primary Care Provider] - Please follow up with your Primary Care Physician in: IN 3-5 DAYS Disposition: Home with Home Health Minutes spent on discharge:: 35 Patient Condition:: Stable Medical Necessity - Tobacco Use Smoking Status: Current every day smoker Meaningful Use Info Meaningful Use Diagnoses (Choose all that apply): None applicable Code Visit Inpatient E&M: 69494 Disch Hosp
--- NOTE | 2017-07-30 10:06 | PN.RENAL_ITS ---
Patient Problems: Active and Suspected Problems (Last Reviewed 07/27/17 @ 09:57 by NIC Gil) ARF (acute renal failure) (Acute) Subjective: Patient is doing fine. On NC 2 l/m No nausea No vomiting No SOB. No CP Good appetite - Physical Exam General: Alert, Oriented x3 HEENT: Atraumatic Oral: Moist Mucosa Neck: Supple, No JVD Lungs: Clear to auscultation, Normal air movement, No rhonchi, No wheeze Cardiovascular: Regular rate, Regular Rhythm, Normal S1, Normal S2 Abdomen: Bowel Sounds Present, Soft, Non Tender Extremities: No clubbing, No cyanosis, No edema Skin: No rashes Musculoskeletal: No Tenderness to Palpation of Joints or Extremities Lymphatic: No Cervical, Supraclavicular, or Inguinal Adenopathy Neurological: Cranial nerves II-XII grossly intact, Neuro grossly intact Psych/Mental Status: Normal Affect Vital Signs Temp Pulse Resp BP Pulse Ox 98.5 F 69 18 128/54 H 98 07/30/17 08:22 07/30/17 08:22 07/30/17 08:22 07/30/17 08:22 07/30/17 08:22 Oxygen Flow Rate (L/min) 2 Oxygen Delivery Method Nasal Cannula Weight: 59.4 kg Body Mass Index (BMI) 20.5 Intake and Output for Last 24 Hours 07/28/17 07/29/17 07/30/17 23:59 23:59 23:59 Intake Total 1865 / 1865 2966 / 2966 1626 / 1626 Output Total 850 / 850 1275 / 1275 1350 / 1350 Balance 1015 / 1015 1691 / 1691 276 / 276 Laboratory Tests Past 24 Hrs 07/30/17 07/30/17 05:20 05:20 WBC 12.8 H RBC 3.30 L Hgb 10.4 L Hct 32.1 L MCV 97.3 H MCH 31.5 MCHC 32.4 RDW 15.0 H RDW Differential 53.2 H Plt Count 215 MPV 10.4 Immature Gran % (Auto) 0.300 Neut % (Auto) 70.9 H Lymph % (Auto) 14.5 L [place] % (Auto) 12.1 H Eos % (Auto) 2.0 Baso % (Auto) 0.2 Absolute Neuts (auto) 9.1 H Absolute Lymphs (auto) 1.85 Total Counted Not Reportable Hypochromasia 1+ Sodium 142 Potassium 4.5 Chloride 104 Carbon Dioxide 34.0 H Anion Gap 4 L BUN 29 H Creatinine 1.29 Estim Creat Clear Calc 46.05 Est GFR (MDRD) Af Amer 71 Est GFR (MDRD) Non-Af 59 L BUN/Creatinine Ratio 22.5 H Glucose 152 H Calcium 8.0 L POC Glucose 07/29/17 07/29/17 16:11 11:22 POC Glucose 205 H 213 H Medical Necessity - Tobacco Use Smoking Status: Current every day smoker Assessment/Plan Active and Suspected Problems (Last Reviewed 07/27/17 @ 09:57 by Cherelle Foster NP-C) ARF (acute renal failure) (Acute) 1-Acute kidney injury on chronic kidney disease. Baseline creatinine around 1.0 -1.1 mg deciliter. UA is benign. Acute kidney injury is most probably from decrease effective volume. Kidney function is improving with holding Lasix and IV fluid. d/c IVF Keep mean arterial pressure more than 65. Avoid nephrotoxic. 2-hypertension: Well controlled. D/C IVF 3-Diabetes. Glycemic control is as per the primary service. 4-Generalized weakness. PT/OT as per the primary service. Patient can be discharged home from nephrology stand point. Please discharge patient with lasix 20 mg PO daily Will D/W Dr. Matilda Bauer MD
--- NOTE | 2017-07-30 10:36 | CASEMGMT ---
Patient is not sure if [facility] set him up with home health. Patient is hard to understand as he mumbles. ROSANA spoke with Vivian at [facility] and she thought they set him up with [facility]. SW called [facility], but they do not have any record of him. ROSANA called [facility] back and asked Vivian to check on this. Patient also needs transportation home. He said [facility] will pay for it. ROSANA called [facility] and arranged for patient to get picked up in 30-45 minutes. ROSANA let RN know this information. SW will set up home health if this was not already done through [facility]. Sandrita SMALL MANAGER CARDIAC CATH
[2017-07-30 10:44] VITALS: BP 117/45; PULSE 73; RESP 18; TEMP 36.6; O2SAT 92
--- NOTE | 2017-07-30 15:50 | CASEMGMT ---
ROSANA was able to find out that patient was set up with [facility]. ROSANA called [facility] in [place] and let them know of admission and d/c. ROSANA faxed them all necessary information for referral. ROSANA also called Birgit his Passport CM and left her a message letting her know patient was d/c today. Plan: Home with [facility] chcf, PT, and OT Sandrita SMALL STATOR PLATE WASHER
--- NOTE | 2017-07-31 15:25 | CASEMGMT ---
VERONICA JAUREGUI Discharge F/U Phone Call LACE: 10 STRATA: 3 Call Date: 07/31/17 Discharge date: 07/30/17 Time of Call: 1525 Attempted with no answer and message states that pt is unable to take calls at this time. This VERONICA JAUREGUI unable to leave message for pt at this time. Adm Dx: ARF [facility] VERONICA JAUREGUI
== END 2017-07-30 11:07 | disposition home or self-care (01) | DRG 682 ==
LOC: ED 07-28 02:05 → PCU 07-28 03:19
PROVIDERS: Internal Medicine; Admitting Provider Internal Medicine; Emergency Provider Emergency Medicine; Family Provider Internal Medicine; PCP Internal Medicine; Visit Provider Internal Medicine
DX: N17.9 Acute kidney failure, unspecified (principal); E43 Unspecified severe protein-calorie malnutrition; I13.0 Hypertensive heart and chronic kidney disease with heart failure and stage 1 through stage 4 chronic kidney disease, or unspecified chronic kidney disease; I50.22 Chronic systolic (congestive) heart failure; J96.11 Chronic respiratory failure with hypoxia; J44.1 Chronic obstructive pulmonary disease with (acute) exacerbation; E11.22 Type 2 diabetes mellitus with diabetic chronic kidney disease; N18.9 Chronic kidney disease, unspecified; E11.21 Type 2 diabetes mellitus with diabetic nephropathy; E03.9 Hypothyroidism, unspecified; I48.0 Paroxysmal atrial fibrillation; E86.0 Dehydration; R53.1 Weakness; I25.10 Atherosclerotic heart disease of native coronary artery without angina pectoris; E78.00 Pure hypercholesterolemia, unspecified; R29.6 Repeated falls; F32.9 Major depressive disorder, single episode, unspecified; G47.33 Obstructive sleep apnea (adult) (pediatric); R13.10 Dysphagia, unspecified; R62.7 Adult failure to thrive; F17.210 Nicotine dependence, cigarettes, uncomplicated; E87.6 Hypokalemia; E78.5 Hyperlipidemia, unspecified; Z68.21 Body mass index [BMI] 21.0-21.9, adult; Z79.84 Long term (current) use of oral hypoglycemic drugs; Z99.81 Dependence on supplemental oxygen; Z79.899 Other long term (current) drug therapy
CPT/HCPCS: 36415; 76770; 80048; 80069; 80307; 81001; 82436; 82570; 82962; 84133; 84156; 84300; 84484; 85025; 93005; 94640; 97162; 97166; 97530; 97802; 99285; 99406; J7030; A4216

== ENCOUNTER 2017-08-02 15:10 | Emergency (ER) | payer MEDICARE, SELFPAY ==
[2017-08-02 15:12] VITALS: BP 110/70; PULSE 119; RESP 18; TEMP 37.2; O2SAT 95; BMI 22.9
--- NOTE | 2017-08-02 15:34 | RAD_ITS ---
STUDY: X-RAY CHEST REASON FOR EXAM: Male, 67 years old. Tachycardia. COPD and emphysema. TECHNIQUE: Single AP portable view of the chest. COMPARISON: Comparison is made with prior chest radiograph dated June 13, 2017. FINDINGS: EKG electrodes are seen. Hyperinflation. Increased markings at the left lung base suggestive of atelectasis and/or early infiltrate. Follow-up is recommended. There is blunting of the left costophrenic angle. Normal size heart. Normal mediastinum and aj. Normal visualized pulmonary arteries. There is atherosclerotic calcification of the aortic arch with tortuosity. There are diffuse degenerative changes of the visualized thoracic spine. Normal visualized ribs, clavicles, and shoulders. There is no demonstrated abnormality of the visualized soft tissue structures of the upper abdomen. RAD/Chest 1 View (Portable) IMPRESSION: Increased markings at the left lung base with blunting of the left costophrenic angle. Follow-up is recommended. Electronically Signed: Hakeem Wilson MD at 16:04 EDT Tel [phone], Service support ,
--- NOTE | 2017-08-02 15:34 | EKG12_ITS ---
Test Reason : A.FIB RVR Blood Pressure : / mmHG Vent. Rate : 096 BPM Atrial Rate : 096 BPM P-R Int : 128 ms QRS Dur : 090 ms QT Int : 314 ms P-R-T Axes : 073 047 070 degrees QTc Int : 396 ms Sinus rhythm with Premature supraventricular complexes Low voltage QRS (limb leads) Confirmed by NADEEM HERNANDEZ, OLIVER ([id number]), non linear editor KWAKU MOSER ([id number]) on 08/08/2017 1:41:47 PM Referred By: BEAU
[2017-08-02 15:51] LABS: Absolute Lymphocyte Count 1.69 X10^3/ul (0.83-4.51); Absolute Neutrophil Count 7.1 X10^3/uL (2.0-7.7); Basophil# 0.04 X10^3/uL; Basophil% 0.4 % (0-1); Eosinophil# 0.14 X10^3/uL; Eosinophils% 1.4 % (0-5); Hematocrit 33.8 % (40-54); Hemoglobin 10.7 g/dl (13.0-16.5); Lymphocyte # 1.69 X10^3/ul (4.0); Lymphocyte % 17.1 % (19-41); Mean Corp Hgb Conc 31.7 g/gl (32-36); Mean Corpuscular Hgb 31.1 pg (27.0-32.0); Mean Corpuscular Volume 98.3 fL (80-94); Mean Platelet Vol. 10.2 fl (6.2-12.0); Monocyte# 0.89 X10^3/uL; Neutrophil # 7.14 X10^3/uL (2.7-7.7); Platelet Count 297 K/mm3 (150-450); RBC Distribution Width SD 53.2 fl (35.1-43.9); Red Blood Count 3.44 M/mm3 (4.6-6.2); White Blood Count 9.9 K/mm3 (4.4-11.0)
[2017-08-02 15:52] LABS: POSITIVE COUNT NO; POSITIVE DIFFERENTIAL NO; POSITIVE MORPHOLOGY NO
[2017-08-02 16:08] LABS: Anion Gap 5 (5-15); BUN 15 mg/dL (7-18); BUN/Creat Ratio 13.2 RATIO (10-20); Calcium,Total 8.7 mg/dL (8.5-10.1); Chloride 97 mmol/L (98-107); Creatinine, Serum 1.14 mg/dL (0.70-1.30); EST Glomerular Filtration Rate 68 mL/min (>60); Est Glom Filt Rate - Afr Amer 82 mL/min (>60); Estimated Creatinine Clearance 57.98 ml/min; Glucose 255 mg/dL (74-106); Sodium Level 138 mmol/L (136-145)
--- NOTE | 2017-08-02 17:12 | ED.VISSUMM ---
- ER Visit Summary Date of Service: 08/02/17 Chief Complaint: Accelerated heart rate History of Present Illness: The patient is a 67 M history of CVA, CAD, COPD, dsc-cbxqbeb-pemorrloi diabetes and sleep apnea. Patient was in primary care physician's office today at a heart rate in the 150s and was sent to the ER. He denied chest pain eyes feeling like he would pass out. He said the heart rate has now normalized. He feels fine. He denies any history of DVT or PE. He has no leg pain or swelling. He denies any chest pain. He denies any hemoptysis. Currently he is symptom-free. Physical Examination: Well appearing older male. Vital signs are stable and afebrile. Pulse in triage was 119 currently in his 90s in the ER. His pulse ox is 95% on room air no hypoxia. H EENT exam unremarkable. Neck nontender no JVD no lymphadenopathy. Lungs coarse breath sounds but no rales, rhonchi or wheezing. Heart regular rhythm rate about 100 no murmur. Chest wall nontender. Abdomen soft nontender. He is moving all 4 extremities. They are neurovascularly intact. Calves are nontender without edema or cords. Neurologically is awake and alert. Without focal motor deficits. Test Results: Chest x-ray shows chronic changes and either pleural thickening or small effusion in the left lung base. EKG sinus rhythm at 96 with no acute signs of CO or ischemia. A copy of the [facility] office EKG was sent to the ER and it does show a sinus tachycardia rate of 153 at that time but again no signs of ischemia. CBC normal except for hemoglobin of 10.7 which is his baseline anemia. His electrolytes show a CO2 of 36 a gap of 5. Glucose of 255 and a normal creatinine. His troponin is normal. Emergency Department Course and Treatment: Repeat exam he is doing well at 1710. He is symptom-free and will be discharged home. Treatment Plan: Return if feeling worse. Otherwise follow-up his primary care physician. Disposition: Discharge Impression: Acute sinus tachycardia of uncertain etiology resolved History of COPD, CAD, xyb-eeocaic-xjggxydit diabetes. This note was generated with [employer] dictation software. It may contain incorrect words, spelling, and punctuation that were not noted in review of the chart prior to signing ED Disposition - Plan for ED Patient: Chief Complaint: Palpitations Referrals: Russell White MD [Primary Care Provider] -
--- NOTE | 2017-08-02 17:15 | ED.DCSUM_ITS ---
- ER Visit Summary Date of Service: 08/02/17 Chief Complaint: Accelerated heart rate History of Present Illness: The patient is a 67 M history of CVA, CAD, COPD, non -insulin-dependent diabetes and sleep apnea. Patient was in primary care physician's office today at a heart rate in the 150s and was sent to the ER. He denied chest pain eyes feeling like he would pass out. He said the heart rate has now normalized. He feels fine. He denies any history of DVT or PE. He has no leg pain or swelling. He denies any chest pain. He denies any hemoptysis. Currently he is symptom-free. Physical Examination: Well appearing older male. Vital signs are stable and afebrile. Pulse in triage was 119 currently in his 90s in the ER. His pulse ox is 95% on room air no hypoxia. H EENT exam unremarkable. Neck nontender no JVD no lymphadenopathy. Lungs coarse breath sounds but no rales, rhonchi or wheezing. Heart regular rhythm rate about 100 no murmur. Chest wall nontender. Abdomen soft nontender. He is moving all 4 extremities. They are neurovascularly intact. Calves are nontender without edema or cords. Neurologically is awake and alert. Without focal motor deficits. Test Results: Chest x-ray shows chronic changes and either pleural thickening or small effusion in the left lung base. EKG sinus rhythm at 96 with no acute signs of PR or ischemia. A copy of the [facility] office EKG was sent to the ER and it does show a sinus tachycardia rate of 153 at that time but again no signs of ischemia. CBC normal except for hemoglobin of 10.7 which is his baseline anemia. His electrolytes show a CO2 of 36 a gap of 5. Glucose of 255 and a normal creatinine. His troponin is normal. Emergency Department Course and Treatment: Repeat exam he is doing well at 1710. He is symptom-free and will be discharged home. Treatment Plan: Return if feeling worse. Otherwise follow-up his primary care physician. Disposition: Discharge Impression: Acute sinus tachycardia of uncertain etiology resolved History of COPD, CAD, tdi-rdlcrvg-gwhpedezd diabetes. This note was generated with [employer] dictation software. It may contain incorrect words, spelling, and punctuation that were not noted in review of the chart prior to signing ED Disposition - Plan for ED Patient: Chief Complaint: Palpitations Referrals: Russell White MD [Primary Care Provider] -
--- NOTE | 2017-08-02 17:15 | ED.DEP ---
ED Disposition - Plan for ED Patient: Disposition: Home or Assisted Living Chief Complaint: Palpitations Instructions: ED Palpitations Referrals: Russell White MD [Primary Care Provider] - As Needed Additional Instructions: Return if feeling worse.
[2017-08-02 17:37] VITALS: BP 128/69; PULSE 96; RESP 18
== END 2017-08-02 17:37 | disposition home or self-care (01) ==
PROVIDERS: Emergency Provider Emergency Medicine; Family Provider Internal Medicine; PCP Internal Medicine
DX: R00.0 Tachycardia, unspecified (principal); R00.2 Palpitations; I25.10 Atherosclerotic heart disease of native coronary artery without angina pectoris; I25.2 Old myocardial infarction; I10 Essential (primary) hypertension; J44.9 Chronic obstructive pulmonary disease, unspecified; E11.9 Type 2 diabetes mellitus without complications; Z86.73 Personal history of transient ischemic attack (TIA), and cerebral infarction without residual deficits; Z79.84 Long term (current) use of oral hypoglycemic drugs; Z79.899 Other long term (current) drug therapy; Z72.0 Tobacco use
CPT/HCPCS: 71045; 80048; 84484; 85025; 93005; 99285; A4216

== ENCOUNTER 2017-08-07 19:28 | Emergency (ER) | payer MEDICARE, SELFPAY ==
[2017-08-07 19:30] VITALS: BP 125/62; PULSE 87; RESP 18; TEMP 37.2; O2SAT 76; BMI 26.6
[2017-08-07 19:35] VITALS: O2SAT 92
--- NOTE | 2017-08-07 20:05 | RAD_ITS ---
STUDY: X-RAY - THORACIC SPINE REASON FOR EXAM: Male, 67 years old. Fall backwards. TECHNIQUE: 3 view(s) of the thoracic spine were obtained. COMPARISON: None. FINDINGS: Normal kyphosis of the thoracic spine. There is no substantial scoliosis. There is demineralization of the thoracic spine with endplate spondylosis. There is multilevel disc space narrowing of the thoracic spine. The soft tissue structures are unremarkable. RAD/Thoracic Spine 3 Views IMPRESSION: Degenerative changes. Electronically Signed: Alanna Sotelo MD at 21:22 EDT Tel , Service support ,
--- NOTE | 2017-08-07 20:05 | CT_ITS ---
STUDY: CT CERVICAL SPINE WITHOUT CONTRAST REASON FOR EXAM: Male, 67 years old. Fell backwards RADIATION DOSAGE (If Supplied By Facility): CTDIvol = ( 21.00 ) mGy, DLP = ( 452.40 ) mGycm TECHNIQUE: High resolution transaxial imaging was performed without contrast material. Sagittal and coronal images were reconstructed. Individualized dose optimization techniques were used for this CT. COMPARISON: June 27, 2017 FINDINGS: Normal craniovertebral junction. There are degenerative changes of the anterior atlantoaxial articulation. Normal odontoid process. Normal cervical lordosis. There are bridging anterior osteophytes from C2 through C5. There is calcification of the anterior longitudinal ligament at C5 through T1. The vertebral body heights are preserved. C2-3: There is disc space narrowing. Normal central canal and intervertebral neuroforamina. C3-4: There is a posterior disc osteophyte causing stenosis of the central canal and bilateral narrowing of the intervertebral neuroforamina. C4-5: There is a posterior disc osteophyte causing stenosis of the central canal and bilateral narrowing of the intervertebral neuroforamina. C5-6: There is a posterior disc osteophyte causing stenosis of the central canal and bilateral narrowing of the intervertebral neuroforamina. C6-7: There is a posterior disc osteophyte causing stenosis of the central canal and bilateral narrowing of the intervertebral neuroforamina. C7-T1: Normal endplates. Normal disc height and morphology. Normal central canal and intervertebral neuroforamina. Normal visualized soft tissue structures. CT/Spine Cervical without Contras IMPRESSION: Multilevel degenerative changes, as described above. Electronically Signed: Alanna Sotelo MD at 21:19 EDT Tel , Service support ,
--- NOTE | 2017-08-07 20:05 | RAD_ITS ---
STUDY: X-RAY - LEFT TIBIA AND FIBULA REASON FOR EXAM: Male, 67 years old. Fall, pain TECHNIQUE: 2 view(s) of the tibia and fibula were obtained. COMPARISON: None. FINDINGS: Normal visualized tibia. Normal visualized fibula. There are degenerative changes of the knee. The soft tissue structures are unremarkable. RAD/Tibia & Fibula 2 Views IMPRESSION: No acute osseous injury. Electronically Signed: Alanna Sotelo MD at 21:23 EDT Tel , Service support ,
--- NOTE | 2017-08-07 20:05 | CT_ITS ---
STUDY: CT BRAIN WITHOUT CONTRAST REASON FOR EXAM: Male, 67 years old. Fell backwards. Hit head. RADIATION DOSAGE (If Supplied By Facility): CTDIvol = ( 44.99 ) mGy, DLP = ( 829.85 ) mGycm TECHNIQUE: Transaxial CT imaging of the brain was performed without administration of intravenous contrast material. Individualized dose optimization techniques were used for this CT. COMPARISON: June 28, 2017 FINDINGS: Normal soft tissue structures. There is hyperostosis frontalis internus. There is mild cerebral atrophy with widening of the extra-axial spaces and ventricular dilatation. Normal white matter tracts of the cerebral hemispheres. Normal basal ganglia and thalami. Normal brainstem. Normal cerebellum. There is no intracranial hemorrhage. There are no findings of an acute ischemic infarction. There is opacification of the maxillary sinuses. There is evidence of prior surgical intervention of the maxillary sinuses. CT/Brain/Head without Contrast IMPRESSION: Chronic involutional changes of the brain. No acute intracranial process. Opacification of the maxillary sinuses consistent with a history of sinusitis. Electronically Signed: Alanna Sotelo MD at 20:59 EDT Tel , Service support ,
[2017-08-07 20:07] VITALS: O2SAT 95
[2017-08-07] MEDS: Diphth,Pertuss(Acell),Tet Vac 0.5 ML Vial IM (20:17)
--- NOTE | 2017-08-07 20:30 | RAD_ITS ---
STUDY: X-RAY - LUMBAR SPINE REASON FOR EXAM: Male, 67 years old. Fall backwards. TECHNIQUE: 3 view(s) of the lumbar spine were obtained. COMPARISON: None FINDINGS: Normal lumbar lordosis. There is no substantial scoliosis. There is a normal alignment of the vertebrae. There is diffuse demineralization with multi-level endplate spondylosis. There is multi-level degenerative disc disease with multi-level disc space narrowing. The soft tissue structures are unremarkable. RAD/Lumbar Spine 2 or 3 Views IMPRESSION: Degenerative changes of the spine, as detailed above. Electronically Signed: Alanna Sotelo MD at 21:29 EDT Tel , Service support ,
[2017-08-07] MEDS: fentaNYL 100 MCG/2 ML Ampul 50 MCG IM (21:07)
[2017-08-07 21:10] VITALS: BP 136/62; PULSE 83; RESP 20; O2SAT 98
--- NOTE | 2017-08-07 22:43 | ED.DCSUM_ITS ---
- ER Visit Summary Date of Service: 08/07/17 Chief Complaint: Fall History of Present Illness: The patient is a [address] White. Patient reports that he was trying to go up a ramp and lost his balance and fell backward off of a curb. Hit his head. Did not have a loss of consciousness. He is no longer on blood thinners. He reports he is a headache is 8 out of 10 severity. Neck pain Zeta 10 severity. Back pain is 10 out of 10 severity. Also complains of left leg pain is 6 out of 10 severity. Physical Examination: Vitals: Stable. Afebrile. Head: 4 cm T-shaped laceration to the occipital area of the scalp. No active bleeding. Neck: Mild tenderness palpation is diffuse over the cervical spine. No point tenderness. Full ROM without difficulty. Back: Mild tenderness palpation over the entire thoracic and lumbar vertebrae. No point tenderness.. General: A&O x 3. NAD. Cardiovascular exam: Regular rate and rhythm, no murmur, rub or gallop. Respiratory exam: Chest nontender. No crepitus. Clear to auscultation bilaterally. No wheezes or stridor. Abdominal exam: Soft, nontender, nondistended, normal bowel sounds. No pain in RUQ or LUQ specifically. No peritoneal signs. Extremity: Mild tenderness palpation over the anterior left tibia.. No pain with range of motion. Test Results: CT brain shows chronic changes and no acute disease. CT of the C- spine shows degenerative changes. X-rays of thoracic and lumbar spine show degenerative changes. Left tib-fib x-ray shows no acute disease. Emergency Department Course and Treatment: Patient was treated with fentanyl IM. He had his tetanus updated. His wound anesthetized and repaired and tolerated it well. Treatment Plan: Patient's been able to ambulate about the department without any difficulty. He feels well and would like to go home. He will be discharged instructions to follow-up Dr. White in 10-14 days for staple removal. Disposition: To home in improved and stable condition. Impression: 1. Mechanical fall. 2. Scalp laceration, 4 cm, repaired. Procedure note: Wound was cleansed with chlorhexidine soap. Anesthetized with 1% lidocaine without epinephrine. Copiously irrigated with normal saline. Wound was explored there is no foreign material present. It was closed with 7 wilbur. The patient tolerated it well. This note was generated with [employer] dictation software. It may contain incorrect words, spelling, and punctuation that were not noted in review of the chart prior to signing ED Disposition - Plan for ED Patient: Disposition: Home or Assisted Living Chief Complaint: Fall Instructions: ED Laceration Scalp Stitch Or Stap Prescriptions: Oxycodone HCl/Acetaminophen [Percocet 5/325] 1 tablet PO Q6H PRN PRN 3 Days #12 tablet PRN Reason: Pain Docusate Sodium [Colace] 100 mg PO DAILY #20 capsule Referrals: Russell White MD [Primary Care Provider] - 10-14 Days suture removal
[2017-08-07] MEDS: oxyCODONE 5 MG Tablet PO (23:25)
[2017-08-07 23:26] VITALS: BP 137/58; PULSE 70; RESP 16; O2SAT 96
== END 2017-08-07 23:31 | disposition home or self-care (01) ==
PROVIDERS: Emergency Provider Emergency Medicine; Family Provider Internal Medicine; PCP Internal Medicine
DX: S01.01XA Laceration without foreign body of scalp, initial encounter (principal); W17.89XA Other fall from one level to another, initial encounter; Y93.89 Activity, other specified; Y92.9 Unspecified place or not applicable; I25.10 Atherosclerotic heart disease of native coronary artery without angina pectoris; I48.0 Paroxysmal atrial fibrillation; I10 Essential (primary) hypertension; E11.9 Type 2 diabetes mellitus without complications; E78.00 Pure hypercholesterolemia, unspecified; J44.9 Chronic obstructive pulmonary disease, unspecified; F32.9 Major depressive disorder, single episode, unspecified; E03.9 Hypothyroidism, unspecified; G47.33 Obstructive sleep apnea (adult) (pediatric); Z79.84 Long term (current) use of oral hypoglycemic drugs; Z79.899 Other long term (current) drug therapy; Z72.0 Tobacco use
CPT/HCPCS: 12002; 70450; 72072; 72100; 72125; 73590; 90471; 90715; 96372; 99285

== ENCOUNTER 2017-08-08 06:42 | Emergency (ER) | payer MEDICARE, SELFPAY ==
[2017-08-08 06:45] VITALS: BP 136/73; PULSE 121; RESP 26; TEMP 36.4; O2SAT 96; BMI 20.5
--- NOTE | 2017-08-08 07:29 | ED.DCSUM_ITS ---
- ER Visit Summary Date of Service: 08/08/17 Chief Complaint: Fall History of Present Illness: The patient is a 67 M presenting after mechanical fall. Patient states that he slipped in the bathroom while trying to use his walker. He fell onto his right side. He has a skin tear to the right forearm. He complains of low back pain and right elbow pain. He denies hitting his head or losing consciousness. Patient states he did have a mechanical fall yesterday as well. He was seen in the ED and had wilbur placed in his head. His tetanus was updated. He states that he uses his walker at home. He has home health. He does not feel he needs additional assistance. Physical Examination: Vitals are stable. Patient is afebrile. Alert no acute distress. HEENT exam is unremarkable. [place] intact posterior scalp Neck is nontender Lungs are clear and equal bilaterally. Heart is regular rate and rhythm. Abdomen is soft nontender nondistended. Back: nontender Extremities skin tear right forearm, active full range of motion Skin is warm and dry. No focal neurologic deficit. Remainder of exam is unremarkable. Emergency Department Course and Treatment: Wound is cleaned and dressed. Lumbar x-ray shows degenerative changes. X-ray of the right elbow shows findings suggestive of bilateral epicondylar tendinitis. Patient had a mechanical fall yesterday and today. EMS had concerns about his ability to function at home. Social work was consulted and evaluated the patient in the ED. Social work consulted physical therapy. They recommend custodial facility placement. Patient refuses this. He states that he has been in a custodial facility in the past and has discharged himself. He understands the risks and voices understanding of leaving AGAINST MEDICAL ADVICE. He signed out AGAINST MEDICAL ADVICE. Per social work, his case manager specialist will follow up with him today. Disposition: Left AGAINST MEDICAL ADVICE Impression: Status post mechanical fall, right forearm skin tear This note was generated with [employer] dictation software. It may contain incorrect words, spelling, and punctuation that were not noted in review of the chart prior to signing ED Disposition - Plan for ED Patient: Disposition: Home or Assisted Living Chief Complaint: Laceration Instructions: ED [facility] Dermal Referrals: Russell White MD [Primary Care Provider] -
--- NOTE | 2017-08-08 07:30 | RAD_ITS ---
STUDY: X-RAY - RIGHT ELBOW REASON FOR EXAM: Male, 67 years old. Pain following a fall. TECHNIQUE: 3 view(s) of the elbow. COMPARISON: None. FINDINGS: Normal visualized humerus, radius and ulna. There is degenerative arthrosis of the radiocapitellar and ulnotrochlear articulations. Focal calcifications overlying the lateral humeral epicondyles suggestive of a tendinitis. RAD/Elbow min 3 Views IMPRESSION: Findings suggestive of bilateral epicondylar tendinitis. Electronically Signed: Hakeem Wilson MD at 8:05 EDT Tel [phone], Service support ,
--- NOTE | 2017-08-08 07:36 | RAD_ITS ---
STUDY: X-RAY - LUMBAR SPINE REASON FOR EXAM: Male, 67 years old. Low back pain following a fall. TECHNIQUE: 4 view(s) of the lumbar spine were obtained. COMPARISON: Comparison is made with prior examination dated August 07, 2017. FINDINGS: Normal lumbar lordosis. There is a mild levoscoliosis of the lumbar spine. There is a normal alignment of the vertebrae. There is multilevel endplate spondylosis of the lumbar vertebrae. There is multi-level degenerative disc disease with multi-level disc space narrowing. Facet joint osteoarthritis. Moderate amount of fecal material is seen in the colon. RAD/Lumbar Spine 2 or 3 Views IMPRESSION: Degenerative changes of the spine, as detailed above. Electronically Signed: Hakeem Wilson MD at 8:06 EDT Tel [phone], Service support ,
--- NOTE | 2017-08-08 09:36 | CASEMGMT ---
Social Work Note Referral from Dr. Contreras for home going needs. Introduced self and role at [facility]. Pt reports to live alone in a fifth floor apartment with elevator access. He ambulates with a rollator and has oxygen through [employer]. Pt reports having a fall today in the kitchen and earlier this week in the parking lot. Denies knowing exactly what happened today, unsure if he slipped or legs just became weak. Inquire if pt has been to SNF int he past and he reports yes, but that he does not want to return. Pt has PASSPORT services and his case assembler is Andreia. Pt reports to have aides that assist with laundry. Claims he had physical therapy in the past, but they no longer come out. Pt denies have Palliative Care services. Reports to have MOW and to be connected with [facility]. Discuss placement and pt again denies. Express concerns with home going as pt has had multiple falls. Suggest that therapy evaluate him in the ED before further determination is made and pt is agreeable. Reinforce that ultimately it is his decision, but that therapies recommendation whether it be placement for additional DME be considered. Pt in agreement. Physician updated. Order for PT/OT entered. Placed call to Anel Xiao OT to update and they report that therapy should be down in approximately 1 hour. SW to continue to follow and assist with discharge planning. Brianne Garcia, WELDER AND FITTER, OUTDOOR RECREATION SPECIALIST
--- NOTE | 2017-08-08 11:02 | CASEMGMT ---
Social Work Note Anel Xiao, OT, recommends placement short-term. Placed call to Erin in TCU and discuss case since pt will not have all 20 days under Medicare if any before it switches to Medicaid discussed that it would be better continuity of care for pt to go to a facility he can remain in for the duration of his needed stay. Discuss with pt and he declines to go to [facility]. Suggest other facilities in the area and pt declines. States that his medicare sales representative will be out today. Would like to contact [employer] for transport and he will use a taxi voucher. Notified physician. Placed call to Ami at [facility] who confirms that the pt does have palliative care services. Was unaware that he had discharged from [facility]. Inform that pt had and was intending on going home at this time. Placed call to case manager specialist with direction home to update as well. Brianne Garcia, CRYSTALLIZER OPERATOR, LINING FOLDER
--- NOTE | 2017-08-08 11:21 | CASEMGMT ---
Social Work Note Call from EVELINE Contreras case advocate, inquiring if we have another phone number. Confirm that we do not and provide pt with SW's wireless phone to talk to case advocate. Daine to see the pt on Sunday and notify providers that he is returning today. Placed call to palliative care to inform that pt is returning today. Will fax ED documentation once completed. Placed call to [employer] to setup transport and they are not available. Placed call to [employer] and transport setup for 12:15. Notified propellant charge zone assembler and medical unit secretary that pt needs to be at ED front entrance at 12:15 for pick-up. Pt made aware. No additional questions or concerns present at this time. APS referral made as ROSANA concerned with pt's capacity to make well-informed decisions for safety. Left vm with Alexandra Garcia indicating concerns. Brianne Garcia, SENIOR FIELD SERVICE ENGINEER, ENGINEERING SCIENTIST
--- NOTE | 2017-08-08 11:31 | ED.DEP ---
ED Disposition - Plan for ED Patient: Chief Complaint: Laceration Instructions: ED [facility] Dermal Referrals: Russell White MD [Primary Care Provider] -
[2017-08-08 12:16] VITALS: RESP 16
== END 2017-08-08 12:16 | disposition home or self-care (01) ==
PROVIDERS: Emergency Provider Emergency Medicine; Family Provider Internal Medicine; PCP Internal Medicine
DX: S51.811A Laceration without foreign body of right forearm, initial encounter (principal); W01.0XXA Fall on same level from slipping, tripping and stumbling without subsequent striking against object, initial encounter; Y93.9 Activity, unspecified; Y92.89 Other specified places as the place of occurrence of the external cause; Z53.21 Procedure and treatment not carried out due to patient leaving prior to being seen by health care provider; M54.5 Low back pain; I25.10 Atherosclerotic heart disease of native coronary artery without angina pectoris; J44.9 Chronic obstructive pulmonary disease, unspecified; E11.9 Type 2 diabetes mellitus without complications; Z86.73 Personal history of transient ischemic attack (TIA), and cerebral infarction without residual deficits; Z79.4 Long term (current) use of insulin; Z79.84 Long term (current) use of oral hypoglycemic drugs; Z79.899 Other long term (current) drug therapy
CPT/HCPCS: 72100; 73080; 97165; 99284

== ENCOUNTER 2017-08-17 13:50 | Observation (INO) | payer MEDICARE, SELFPAY ==
--- NOTE | 2017-08-17 13:04 | EKG12_ITS ---
Test Reason : FALL Blood Pressure : / mmHG Vent. Rate : 088 BPM Atrial Rate : 088 BPM P-R Int : 112 ms QRS Dur : 090 ms QT Int : 332 ms P-R-T Axes : 039 062 013 degrees QTc Int : 401 ms Sinus rhythm with Premature supraventricular complexes Nonspecific ST and T wave abnormality Abnormal ECG Confirmed by JOSE HERNANDEZ, FRANCO ([id number]), newspaper or periodical editor KWAKU MOSER ([id number]) on 08/22/2017 5:32:28 PM Referred By: EYAL Confirmed By:FRANCO GARCIA MD
--- NOTE | 2017-08-17 13:33 | RAD_ITS ---
STUDY: X-RAY CHEST REASON FOR EXAM: Male, 67 years old. Shortness of breath TECHNIQUE: Frontal and lateral views of the chest. COMPARISON: August 02, 2017. FINDINGS: There are monitoring devices. The lungs are hyperexpanded. There are small pleural effusions. Normal size heart. Normal mediastinum and aj. Normal visualized pulmonary arteries. Normal visualized aortic arch and descending thoracic aorta. There are diffuse degenerative changes of the visualized thoracic spine. Normal visualized ribs, clavicles, and shoulders. There is no demonstrated abnormality of the visualized soft tissue structures of the upper abdomen. RAD/Chest PA and Lateral IMPRESSION: Small pleural effusions. Electronically Signed: Willie Guzman MD at 18:19 EDT , Service support ,
--- NOTE | 2017-08-17 17:05 | DT_ITS ---
This patient was seen during an EMR downtime August 13, 2017 - August 20, 2017. This patient may have a combination of paper and electronic documentation or all paper documentation. All documentation is viewable within the e-chart portion of [facility] for each patient visit.
--- NOTE | 2017-08-18 12:30 | RAD_ITS ---
STUDY: X-RAY - PELVIS AND BILATERAL HIPS REASON FOR EXAM: Male, 67 years old. Pain bilateral hips TECHNIQUE: Radiological exam, hip, bilateral, with pelvis when performed; 2 views COMPARISON: December 04, 2016 pelvis x-ray FINDINGS: There is moderate stool in the colon. Normal visualized soft tissue structures. There is mild narrowing with mild cortical sclerosis and mild osteophyte formation of the sacroiliac joint consistent with degenerative osteoarthritic changes. Normal bilateral superior and inferior pubic rami. Normal pubic symphysis. Normal bilateral ischial tuberosities. There is visualized degenerative change in the lower lumbar spine. Normal visualized right femoral head. There is osteoarthritic spur formation of the right acetabular rim. There is mild articular joint space narrowing of the right hip. Normal visualized left femoral head. There is osteoarthritic spur formation of the left acetabular rim. There is moderate articular joint space narrowing of the left hip. RAD/Hips B/L min 2 views w/ Pelvis IMPRESSION: Degenerative change. No visualized fracture. Electronically Signed: Kimberly Beyer MD at 13:01 EDT Tel , Service support ,
[2017-08-20] VITALS (7 sets, daily range): BP systolic 127–141; BP diastolic 58–62; PULSE 74–91; RESP 16–20; TEMP 37.2–37.4; O2SAT 94–99
[2017-08-20] MEDS: Albuterol 2.5 MG/3 ML VIAL.NEB. INHALATION (01:05)
[2017-08-20] MEDS: Ipratropium/Albuterol Sulfate 3 ML AMPUL.NEB INHALATION ×5 (01:05→18:46)
[2017-08-20] MEDS: Menthol/Lanolin/Calamine/Znox 113 GM Tube 1 APPLIC TOPICAL ×3 (06:00→22:50)
[2017-08-20] MEDS: Enoxaparin 40 MG/0.4 ML Syringe SC (06:00)
[2017-08-20] MEDS: Levothyroxine 75 MCG Tablet PO (06:00)
[2017-08-20] MEDS: HYDROcodone Bitartrate/Apap 5/325 Tablet PO ×2 (09:55→22:59)
[2017-08-20] MEDS: Pantoprazole Sodium 20 MG Tablet PO (10:00)
[2017-08-20] MEDS: Digoxin 125 MCG Tablet PO (10:00)
[2017-08-20] MEDS: Ranolazine 500 MG Tablet PO ×2 (10:00→22:47)
[2017-08-20] MEDS: LINAGLIPTIN 5 MG TABLET PO (10:00)
[2017-08-20] MEDS: dilTIAZem CD 180 MG Capsule PO (10:00)
[2017-08-20] MEDS: Citalopram 10 MG Tablet PO (10:00)
--- NOTE | 2017-08-20 10:09 | CASEMGMT ---
Social Work Note ROSANA placed a call to [facility] to inquire if they are able to accept pt and spoke with Abigail. Per Abigail she will check with Johana about referral for pt and will give this worker a call back. ROSANA received a call from Brianne WAYNE at [facility]. Per Brianne they are able to accept pt pending pre-cert and will need updated clinicals. ROSANA faxed updated clinicals to Brianne and informed her to submit for pre-cert. Plan: [facility] pending pre-cert Margarita Lee ORACLE HYPERION CONSULTANT, MEDICAL TRANSLATOR
--- NOTE | 2017-08-20 10:19 | CASEMGMT ---
Social Work Note SW received message from Vishal Liu CM, asking for an update on pt regarding SNF placement. ROSANA returned call to Diane and left her a message informing her that pt has been accepted to [facility] and that he will need pre-cert. Plan: [facility] pending acceptance Margarita Lee STEAM SERVICE INSPECTOR, AVIAN KEEPER
[2017-08-20 11:45] LABS: Bedside Glucose 383 mg/dL (70-110)
[2017-08-20] MEDS: Insulin Lispro 100 UNIT/ML INSULN.PEN SQ ×3 (11:50→22:46)
[2017-08-20 11:56] LABS: Hematocrit 30.1 % (40-54); Hemoglobin 9.8 g/dl (13.0-16.5); Mean Corpuscular Volume 96.2 fL (80-94); Red Blood Count 3.13 M/mm3 (4.6-6.2); White Blood Count 12.4 K/mm3 (4.4-11.0)
[2017-08-20 11:57] LABS: Absolute Lymphocyte Count 1.64 X10^3/ul (0.83-4.51); Absolute Neutrophil Count 9.8 X10^3/uL (2.0-7.7); Basophil# 0.04 X10^3/uL; Basophil% 0.3 % (0-1); Eosinophil# 0.41 X10^3/uL; Eosinophils% 3.3 % (0-5); Lymphocyte # 1.64 X10^3/ul (4.0); Lymphocyte % 13.2 % (19-41); Mean Corp Hgb Conc 32.6 g/gl (32-36); Mean Corpuscular Hgb 31.3 pg (27.0-32.0); Mean Platelet Vol. 9.3 fl (6.2-12.0); Monocyte# 0.48 X10^3/uL; Monocyte% 3.9 % (0-10); Neutrophil # 9.78 X10^3/uL (2.7-7.7); POSITIVE COUNT NO; POSITIVE DIFFERENTIAL NO; POSITIVE MORPHOLOGY NO; Platelet Count 355 K/mm3 (150-450); RBC Distribution Width CV 14.8 % (11.6-14.6)
--- NOTE | 2017-08-20 12:19 | PCM.PN.HOSP ---
Patient Problems: Active and Suspected Problems (Last Reviewed 07/27/17 @ 09:57 by NIC Gil) Failure to thrive (Acute) Subjective: expresses bewilderment over frequent hospitalizations over the past month. Vitals/I&O's: Vital Signs Pulse Resp Pulse Ox 84 16 95 08/20/17 10:00 08/20/17 06:55 08/20/17 06:55 Oxygen Flow Rate (L/min) 2.5 Oxygen Delivery Method Nasal Cannula General: Alert, No apparent distress, - - +dysarthria HEENT: Atraumatic, Normocephalic, - - wilbur on post scalp with good approximation. Oral: Moist Mucosa Neck: No Nodes, Thyroid Normal Size and Texture Lungs: Clear to auscultation, Normal air movement, No rhonchi, No wheeze Cardiovascular: Regular rate, Regular Rhythm, Normal S1, Normal S2, No murmurs Abdomen: Bowel Sounds Present, Soft, Non Tender, Non-Distended, No Hepato-splenomegaly Extremities: No edema, No Calf Tenderness Skin: - - superficial jolly to face and left side of neck. Musculoskeletal: Cachexia, Muscle Wasting Neurological: - - dysarthria Psych/Mental Status: Normal Affect, Appropriate Laboratory Results 08/17/17 : Sodium Pending, Potassium Pending, Chloride Pending, Carbon Dioxide Pending, Anion Gap Pending, BUN Pending, Creatinine Pending, Est GFR (MDRD) Af Amer Pending, Est GFR (MDRD) Non-Af Pending, BUN/Creatinine Ratio Pending, Glucose Pending, Calcium Pending 08/20/17 11:43: POC Glucose 383 H Current Medications Acetaminophen (Tylenol) 650 mg PO Q4H PRN PRN Reason: .PAIN/FEVER Hydrocodone Bitart/Acetaminophen ([place] 5mg-325mg) 1 - 2 tablet PO Q6H PRN PRN PRN Reason: PAIN Last Admin: 08/20/17 07:55 Dose: 2 tablet Albuterol Sulfate (Ventolin Aerosols) 2.5 mg INHALATION Q2H PRN PRN Reason: DYSPNEA/WHEEZING Albuterol/Ipratropium (Duoneb) 3 ml INHALATION Q6H.RT [facility] Atorvastatin Calcium (Lipitor) 40 mg PO QHS [facility] Calamine/Phenol (Calmoseptine Ointment) 1 applic TOPICAL TID [facility] Citalopram Hydrobromide (Celexa) 10 mg PO DAILY [facility] Last Admin: 08/20/17 10:00 Dose: 10 mg Dextrose (D50w Syringe) 0 gm IV X1 PRN; Protocol PRN Reason: Hypoglycemia Digoxin (Lanoxin) 125 mcg PO DAILY [facility] Last Admin: 08/20/17 10:00 Dose: 125 mcg Diltiazem HCl (Cardizem Cd) 180 mg PO DAILY [facility] Last Admin: 08/20/17 10:00 Dose: 180 mg Enoxaparin Sodium (Lovenox) 40 mg SC DAILY@0600 [facility] Last Admin: 08/20/17 06:00 Dose: 40 mg Glucagon () 1 mg IM .X1 PRN PRN Reason: Hypoglycemia Insulin Human Lispro (Humalog Kwikpen (Bkc)) 0 unit SQ ACHS [facility] PRN Reason: Protocol Last Admin: 08/20/17 11:50 Dose: 6 u Levothyroxine Sodium (Synthroid) 75 mcg PO DAILY@0600 [facility] Last Admin: 08/20/17 06:00 Dose: 75 mcg Linagliptin (Tradjenta) 5 mg PO DAILY [facility] Last Admin: 08/20/17 10:00 Dose: 5 mg Mirtazapine (Remeron) 15 mg PO QHS [facility] Nicotine (Nicoderm Cq (Pbkc)) 21 mg TRANSDERM. DAILY [facility] Last Admin: 08/20/17 10:00 Dose: 21 mg Ondansetron HCl (Zofran) 4 mg IV Q6H PRN PRN Reason: .N/V Pantoprazole Sodium (Protonix) 20 mg PO DAILY [facility] Last Admin: 08/20/17 10:00 Dose: 20 mg Ranolazine (Ranexa) 500 mg PO BID [facility] Last Admin: 08/20/17 10:00 Dose: 500 mg Silver Sulfadiazine (Silvadene (Bkc)) 1 applic TOPICAL BID [facility] Sodium Chloride () 5 - 30 ml IV UD PRN PRN Reason: SALINE FLUSH Sodium Chloride ([place] Nasal [place]) 2 spray NASAL Q1H PRN PRN PRN Reason: DRY NARES Medical Necessity - Tobacco Use Smoking Status: Current every day smoker Assessment/Plan All Active Problems (Last Reviewed 07/27/17 @ 09:57 by CLARE GilC) ARF (acute renal failure) (Acute) Failure to thrive (Acute) Dysphagia (Acute) History of left heart catheterization (LHC) (Resolved) Hypoglycemia (Acute) Fall (Acute) Chest pain (Acute) COPD with exacerbation (Resolved) Dilated cardiomyopathy (Resolved) Lower extremity edema (Resolved) Overweight (Resolved) Unspecified systolic (congestive) heart failure (Resolved) 1. failure to thrive this is now the patient's 5th admission since June. He also had to ER visits on 08/07 and related to falls pt to go to SNF, pending precertification my concern to some other neurologic process remains into his frequent falls and still recommend outpt neurological eval 2. cachexia supplements 3. Dysphagia will have speech therapy evaluate during this admission as this has previously been an issue before 4. Head laceration from August 07. Will have wilbur removed today 5. facial jolly self-inflicted d/t smoking while on oxygen silvadene 6. pAfib on digoxin, has not been checked since 06/24, will recheck given frequent falls, not candidate for OAC start 81 ASA. 7. VTE proph: LMWH Code Visit Inpatient E&M: 90596 Subs Hosp L2
[2017-08-20] MEDS: Silver Sulfadiazine 1% Crm 50 gm Bottle 1 APPLIC TOPICAL ×2 (12:33→22:50)
--- NOTE | 2017-08-20 12:36 | PN_ITS ---
Patient Problems: Active and Suspected Problems (Last Reviewed 07/27/17 @ 09:57 by NIC Gil) Failure to thrive (Acute) Subjective: expresses bewilderment over frequent hospitalizations over the past month. Vitals/I&O's: Vital Signs Pulse Resp Pulse Ox 84 16 95 08/20/17 10:00 08/20/17 06:55 08/20/17 06:55 Oxygen Flow Rate (L/min) 2.5 Oxygen Delivery Method Nasal Cannula General: Alert, No apparent distress, - - +dysarthria HEENT: Atraumatic, Normocephalic, - - wilbur on post scalp with good approximation. Oral: Moist Mucosa Neck: No Nodes, Thyroid Normal Size and Texture Lungs: Clear to auscultation, Normal air movement, No rhonchi, No wheeze Cardiovascular: Regular rate, Regular Rhythm, Normal S1, Normal S2, No murmurs Abdomen: Bowel Sounds Present, Soft, Non Tender, Non-Distended, No Hepato- splenomegaly Extremities: No edema, No Calf Tenderness Skin: - - superficial jolly to face and left side of neck. Musculoskeletal: Cachexia, Muscle Wasting Neurological: - - dysarthria Psych/Mental Status: Normal Affect, Appropriate Laboratory Results 08/17/17 : Sodium Pending, Potassium Pending, Chloride Pending, Carbon Dioxide Pending, Anion Gap Pending, BUN Pending, Creatinine Pending, Est GFR (MDRD) Af Amer Pending, Est GFR (MDRD) Non-Af Pending, BUN/Creatinine Ratio Pending, Glucose Pending, Calcium Pending 08/20/17 11:43: POC Glucose 383 H Current Medications Acetaminophen (Tylenol) 650 mg PO Q4H PRN PRN Reason: .PAIN/FEVER Hydrocodone Bitart/Acetaminophen ([place] 5mg-325mg) 1 - 2 tablet PO Q6H PRN PRN PRN Reason: PAIN Last Admin: 08/20/17 07:55 Dose: 2 tablet Albuterol Sulfate (Ventolin Aerosols) 2.5 mg INHALATION Q2H PRN PRN Reason: DYSPNEA/WHEEZING Albuterol/Ipratropium (Duoneb) 3 ml INHALATION Q6H.RT [facility] Atorvastatin Calcium (Lipitor) 40 mg PO QHS [facility] Calamine/Phenol (Calmoseptine Ointment) 1 applic TOPICAL TID [facility] Citalopram Hydrobromide (Celexa) 10 mg PO DAILY [facility] Last Admin: 08/20/17 10:00 Dose: 10 mg Dextrose (D50w Syringe) 0 gm IV X1 PRN; Protocol PRN Reason: Hypoglycemia Digoxin (Lanoxin) 125 mcg PO DAILY [facility] Last Admin: 08/20/17 10:00 Dose: 125 mcg Diltiazem HCl (Cardizem Cd) 180 mg PO DAILY [facility] Last Admin: 08/20/17 10:00 Dose: 180 mg Enoxaparin Sodium (Lovenox) 40 mg SC DAILY@0600 [facility] Last Admin: 08/20/17 06:00 Dose: 40 mg Glucagon () 1 mg IM .X1 PRN PRN Reason: Hypoglycemia Insulin Human Lispro (Humalog Kwikpen (Bkc)) 0 unit SQ ACHS [facility] PRN Reason: Protocol Last Admin: 08/20/17 11:50 Dose: 6 u Levothyroxine Sodium (Synthroid) 75 mcg PO DAILY@0600 [facility] Last Admin: 08/20/17 06:00 Dose: 75 mcg Linagliptin (Tradjenta) 5 mg PO DAILY [facility] Last Admin: 08/20/17 10:00 Dose: 5 mg Mirtazapine (Remeron) 15 mg PO QHS [facility] Nicotine (Nicoderm Cq (Pbkc)) 21 mg TRANSDERM. DAILY [facility] Last Admin: 08/20/17 10:00 Dose: 21 mg Ondansetron HCl (Zofran) 4 mg IV Q6H PRN PRN Reason: .N/V Pantoprazole Sodium (Protonix) 20 mg PO DAILY [facility] Last Admin: 08/20/17 10:00 Dose: 20 mg Ranolazine (Ranexa) 500 mg PO BID [facility] Last Admin: 08/20/17 10:00 Dose: 500 mg Silver Sulfadiazine (Silvadene (Bkc)) 1 applic TOPICAL BID [facility] Sodium Chloride () 5 - 30 ml IV UD PRN PRN Reason: SALINE FLUSH Sodium Chloride ([place] Nasal [place]) 2 spray NASAL Q1H PRN PRN PRN Reason: DRY NARES Medical Necessity - Tobacco Use Smoking Status: Current every day smoker Assessment/Plan All Active Problems (Last Reviewed 07/27/17 @ 09:57 by CLARE GilC) ARF (acute renal failure) (Acute) Failure to thrive (Acute) Dysphagia (Acute) History of left heart catheterization (LHC) (Resolved) Hypoglycemia (Acute) Fall (Acute) Chest pain (Acute) COPD with exacerbation (Resolved) Dilated cardiomyopathy (Resolved) Lower extremity edema (Resolved) Overweight (Resolved) Unspecified systolic (congestive) heart failure (Resolved) 1. failure to thrive * this is now the patient's 5th admission since June. He also had to ER visits on 08/07 and related to falls * pt to go to SNF, pending precertification * my concern to some other neurologic process remains into his frequent falls and still recommend outpt neurological eval 2. cachexia * supplements 3. Dysphagia * will have speech therapy evaluate during this admission as this has previously been an issue before 4. Head laceration * from August 07. * Will have wilbur removed today 5. facial jolly * self-inflicted d/t smoking while on oxygen * silvadene 6. pAfib * on digoxin, has not been checked since 06/24, will recheck * given frequent falls, not candidate for OAC * start 81 ASA. 7. VTE proph: LMWH Code Visit Inpatient E&M: 11430 Subs Hosp L2
[2017-08-20 13:58] LABS: Vitamin D,25 Hydroxy 32.8 ng/mL (29.95-100.01)
[2017-08-20 14:10] LABS: Digoxin Level 2.07 ng/mL (0.80-2.00)
[2017-08-20 17:11] LABS: Bedside Glucose 160 mg/dL (70-110)
[2017-08-20 22:03] LABS: Anion Gap 4 (5-15); BUN 17 mg/dL (7-18); BUN/Creat Ratio 16.8 RATIO (10-20); Calcium,Total 8.1 mg/dL (8.5-10.1); Chloride 100 mmol/L (98-107); Creatinine, Serum 1.01 mg/dL (0.70-1.30); EST Glomerular Filtration Rate 78 mL/min (>60); Est Glom Filt Rate - Afr Amer 95 mL/min (>60); Glucose 181 mg/dL (74-106); Potassium 4.1 mmol/L (3.5-5.1); Sodium Level 139 mmol/L (136-145)
[2017-08-20] MEDS: Atorvastatin Calcium 40 MG Tablet PO (22:46)
[2017-08-20] MEDS: Mirtazapine 15 MG Tablet PO (22:47)
[2017-08-20 22:56] LABS: Bedside Glucose 167 mg/dL (70-110)
[2017-08-21] VITALS (9 sets, daily range): BP systolic 100–134; BP diastolic 53–61; PULSE 74–93; RESP 16–20; TEMP 36.4–36.9; O2SAT 94–97
[2017-08-21] MEDS: Ipratropium/Albuterol Sulfate 3 ML AMPUL.NEB INHALATION ×4 (00:48→19:01)
[2017-08-21] MEDS: Levothyroxine 75 MCG Tablet PO (06:01)
[2017-08-21] MEDS: Enoxaparin 40 MG/0.4 ML Syringe SC (06:01)
[2017-08-21] MEDS: Menthol/Lanolin/Calamine/Znox 113 GM Tube 1 APPLIC TOPICAL ×3 (06:02→22:57)
[2017-08-21] MEDS: Insulin Lispro 100 UNIT/ML INSULN.PEN SQ ×4 (06:56→22:59)
[2017-08-21 07:05] LABS: Bedside Glucose 154 mg/dL (70-110)
[2017-08-21] MEDS: Ranolazine 500 MG Tablet PO ×2 (07:32→22:57)
[2017-08-21] MEDS: Pantoprazole Sodium 20 MG Tablet PO (07:33)
[2017-08-21] MEDS: LINAGLIPTIN 5 MG TABLET PO (07:33)
[2017-08-21] MEDS: Citalopram 10 MG Tablet PO (07:33)
[2017-08-21] MEDS: dilTIAZem CD 180 MG Capsule PO (07:33)
[2017-08-21] MEDS: Silver Sulfadiazine 1% Crm 50 gm Bottle 1 APPLIC TOPICAL ×2 (07:34→22:58)
[2017-08-21] MEDS: Aspirin 81 MG TAB.CHEW PO (07:35)
[2017-08-21] MEDS: Polyethylene Glycol 3350 17 GM PACKET PO (07:36)
--- NOTE | 2017-08-21 08:47 | CASEMGMT ---
Social Work Note SW faxed updated clinicals to Brianne agriculture worker, at [facility]. Plan: [facility] pending pre-cert Margarita Lee OIL WELL ENGINEER, WATER AND FIRE TECHNICIAN
[2017-08-21 09:49] LABS: BNP,B-Type NATRIURETIC PEPTIDE 143.9 pg/mL (0-100); Thyroid Stim Hormone (TSH) 1.44 uIU/mL (0.358-3.74)
[2017-08-21] MEDS: HYDROcodone Bitartrate/Apap 5/325 Tablet PO ×2 (11:14→22:58)
[2017-08-21 11:36] LABS: Bedside Glucose 183 mg/dL (70-110)
--- NOTE | 2017-08-21 11:52 | CASEMGMT ---
Social Work Note ROSANA faxed updated PT/OT/ST evaluations to ROSANA Decker at [facility]. ROSANA placed a call to Brianne to update her of updated clinicals. ROSANA will continue to follow along to assist with discharge planning. Plan: [facility] pending pre-cert Margarita Lee ALLEY WORKER, STORM WINDOW INSTALLER
--- NOTE | 2017-08-21 13:40 | PCM.PN.HOSP ---
Patient Problems: Active and Suspected Problems (Last Reviewed 07/27/17 @ 09:57 by NIC Gil) Failure to thrive (Acute) Subjective: CC: Falls, weaknes Objective: He presented with recurrent falls.This is now the patient's 5th admission since June. He is severely debilitated. No Acute events reported overnight. Vitals/I&O's: Vital Signs Temp Pulse Resp BP Pulse Ox 98.5 F 75 20 H 112/53 L 95 08/21/17 07:30 08/21/17 13:35 08/21/17 13:35 08/21/17 07:30 08/21/17 07:30 Oxygen Flow Rate (L/min) 3 Oxygen Delivery Method Nasal Cannula Weight: 67.1 kg Intake and Output for Last 24 Hours 08/19/17 08/20/17 08/21/17 23:59 23:59 23:59 Intake Total 240 / 240 700 / 700 Output Total 725 / 725 Balance 240 / 240 -25 / -25 General: Alert, Oriented x3 HEENT: Atraumatic Oral: Moist Mucosa Neck: Supple Lungs: Clear to auscultation Cardiovascular: Regular rate, Normal S1, Normal S2 Abdomen: Bowel Sounds Present, Soft, Non Tender, Non-Distended Extremities: No edema Skin: No rashes Neurological: Unsteady Gait Laboratory Results 08/17/17 : Sodium 139, Potassium 4.1, Chloride 100, Carbon Dioxide 35.0 H, Anion Gap 4 L, BUN 17, Creatinine 1.01, Est GFR (MDRD) Af Amer 95, Est GFR (MDRD) Non-Af 78, BUN/Creatinine Ratio 16.8, Glucose 181 H, Calcium 8.1 L 08/18/17 06:41: TSH 1.44 08/18/17 06:41: B-Natriuretic Peptide 143.9 H 08/20/17 13:10: Digoxin 2.07 H* 08/20/17 13:10: Vitamin D 25-Hydroxy 32.8 08/20/17 16:59: POC Glucose 160 H 08/20/17 22:45: POC Glucose 167 H 08/21/17 06:54: POC Glucose 154 H 08/21/17 11:05: POC Glucose 183 H Current Medications Acetaminophen (Tylenol) 650 mg PO Q4H PRN PRN Reason: .PAIN/FEVER Hydrocodone Bitart/Acetaminophen ([place] 5mg-325mg) 1 - 2 tablet PO Q6H PRN PRN PRN Reason: PAIN Last Admin: 08/21/17 11:14 Dose: 2 tablet Albuterol Sulfate (Ventolin Aerosols) 2.5 mg INHALATION Q2H PRN PRN Reason: DYSPNEA/WHEEZING Last Admin: 08/20/17 01:05 Dose: 2.5 mg Albuterol/Ipratropium (Duoneb) 3 ml INHALATION Q6H.RT [facility] Last Admin: 08/21/17 13:34 Dose: 3 ml Aspirin (Aspirin, Baby) 81 mg PO DAILY@0800 [facility] Last Admin: 08/21/17 07:35 Dose: 81 mg Atorvastatin Calcium (Lipitor) 40 mg PO QHS [facility] Last Admin: 08/21/17 11:20 Dose: Not Given Calamine/Phenol (Calmoseptine Ointment) 1 applic TOPICAL TID [facility] Last Admin: 08/21/17 11:24 Dose: Not Given Citalopram Hydrobromide (Celexa) 10 mg PO DAILY [facility] Last Admin: 08/21/17 11:22 Dose: Not Given Dextrose (D50w Syringe) 0 gm IV X1 PRN; Protocol PRN Reason: Hypoglycemia Digoxin (Lanoxin) 125 mcg PO DAILY [facility] Last Admin: 08/21/17 09:51 Dose: Not Given Diltiazem HCl (Cardizem Cd) 180 mg PO DAILY [facility] Last Admin: 08/21/17 11:22 Dose: Not Given Enoxaparin Sodium (Lovenox) 40 mg SC DAILY@0600 [facility] Last Admin: 08/21/17 11:21 Dose: Not Given Glucagon () 1 mg IM .X1 PRN PRN Reason: Hypoglycemia Insulin Human Lispro (Humalog Kwikpen (Bkc)) 0 unit SQ ACHS [facility] PRN Reason: Protocol Last Admin: 08/21/17 11:19 Dose: Not Given Levothyroxine Sodium (Synthroid) 75 mcg PO DAILY@0600 [facility] Last Admin: 08/21/17 11:21 Dose: Not Given Linagliptin (Tradjenta) 5 mg PO DAILY [facility] Last Admin: 08/21/17 11:23 Dose: Not Given Mirtazapine (Remeron) 15 mg PO QHS [facility] Last Admin: 06/12/18 11:21 Dose: Not Given Nicotine (Nicoderm Cq (Pbkc)) 21 mg TRANSDERM. DAILY [facility] Last Admin: 08/21/17 11:22 Dose: Not Given Ondansetron HCl (Zofran) 4 mg IV Q6H PRN PRN Reason: .N/V Pantoprazole Sodium (Protonix) 20 mg PO DAILY [facility] Last Admin: 08/21/17 11:23 Dose: Not Given Polyethylene Glycol (Miralax) 17 gm PO DAILY [facility] Last Admin: 08/21/17 07:36 Dose: 17 gm Ranolazine (Ranexa) 500 mg PO BID [facility] Last Admin: 08/21/17 11:20 Dose: Not Given Silver Sulfadiazine (Silvadene (Bkc)) 1 applic TOPICAL BID [facility] Last Admin: 08/21/17 11:23 Dose: Not Given Sodium Chloride () 5 - 30 ml IV UD PRN PRN Reason: SALINE FLUSH Sodium Chloride ([place] Nasal [place]) 2 spray NASAL Q1H PRN PRN PRN Reason: DRY NARES Medical Necessity - Tobacco Use Smoking Status: Current every day smoker Assessment/Plan All Active Problems (Last Reviewed 07/27/17 @ 09:57 by Cherelle Foster, ANA-C) Failure to thrive (Acute) ARF (acute renal failure) (Acute) Dysphagia (Acute) History of left heart catheterization (LHC) (Resolved) Hypoglycemia (Acute) Fall (Acute) Chest pain (Acute) COPD with exacerbation (Resolved) Dilated cardiomyopathy (Resolved) Lower extremity edema (Resolved) Overweight (Resolved) Unspecified systolic (congestive) heart failure (Resolved) 1. Failure to thrive/ Debility; the patient would require fpc facility for further post acute care rehabilitation. 2. Protein calorie malnutrition; continue nutritional support. 3. Dysphagia; ST evaluation and treatment. 4. Head laceration; wilbur removed. 5. 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 6. Paroxysmal atrial fibrillation; the patient currently remains in sinus. 7. supratherapeutic digoxin level with no toxicity; hold dose of digoxin today and repeat levels in a.m. 8. DM 2; on Tradjenta and RISS. 9. Nicotine Dependency; he is advised to quit smoking, nicotine replacement therapy has been ordered. 10. Hypothyroid; will continue on Synthroid.
--- NOTE | 2017-08-21 13:45 | PN_ITS ---
Patient Problems: Active and Suspected Problems (Last Reviewed 07/27/17 @ 09:57 by NIC Gil) Failure to thrive (Acute) Subjective: CC: Falls, weaknes Objective: He presented with recurrent falls.This is now the patient's 5th admission since June. He is severely debilitated. No Acute events reported overnight. Vitals/I&O's: Vital Signs Temp Pulse Resp BP Pulse Ox 98.5 F 75 20 H 112/53 L 95 08/21/17 07:30 08/21/17 13:35 08/21/17 13:35 08/21/17 07:30 08/21/17 07:30 Oxygen Flow Rate (L/min) 3 Oxygen Delivery Method Nasal Cannula Weight: 67.1 kg Intake and Output for Last 24 Hours 08/19/17 08/20/17 08/21/17 23:59 23:59 23:59 Intake Total 240 / 240 700 / 700 Output Total 725 / 725 Balance 240 / 240 -25 / -25 General: Alert, Oriented x3 HEENT: Atraumatic Oral: Moist Mucosa Neck: Supple Lungs: Clear to auscultation Cardiovascular: Regular rate, Normal S1, Normal S2 Abdomen: Bowel Sounds Present, Soft, Non Tender, Non-Distended Extremities: No edema Skin: No rashes Neurological: Unsteady Gait Laboratory Results 08/17/17 : Sodium 139, Potassium 4.1, Chloride 100, Carbon Dioxide 35.0 H, Anion Gap 4 L, BUN 17, Creatinine 1.01, Est GFR (MDRD) Af Amer 95, Est GFR (MDRD ) Non-Af 78, BUN/Creatinine Ratio 16.8, Glucose 181 H, Calcium 8.1 L 08/18/17 06:41: TSH 1.44 08/18/17 06:41: B-Natriuretic Peptide 143.9 H 08/20/17 13:10: Digoxin 2.07 H* 08/20/17 13:10: Vitamin D 25-Hydroxy 32.8 08/20/17 16:59: POC Glucose 160 H 08/20/17 22:45: POC Glucose 167 H 08/21/17 06:54: POC Glucose 154 H 08/21/17 11:05: POC Glucose 183 H Current Medications Acetaminophen (Tylenol) 650 mg PO Q4H PRN PRN Reason: .PAIN/FEVER Hydrocodone Bitart/Acetaminophen ([place] 5mg-325mg) 1 - 2 tablet PO Q6H PRN PRN PRN Reason: PAIN Last Admin: 08/21/17 11:14 Dose: 2 tablet Albuterol Sulfate (Ventolin Aerosols) 2.5 mg INHALATION Q2H PRN PRN Reason: DYSPNEA/WHEEZING Last Admin: 08/20/17 01:05 Dose: 2.5 mg Albuterol/Ipratropium (Duoneb) 3 ml INHALATION Q6H.RT [facility] Last Admin: 08/21/17 13:34 Dose: 3 ml Aspirin (Aspirin, Baby) 81 mg PO DAILY@0800 [facility] Last Admin: 08/21/17 07:35 Dose: 81 mg Atorvastatin Calcium (Lipitor) 40 mg PO QHS [facility] Last Admin: 08/21/17 11:20 Dose: Not Given Calamine/Phenol (Calmoseptine Ointment) 1 applic TOPICAL TID [facility] Last Admin: 08/21/17 11:24 Dose: Not Given Citalopram Hydrobromide (Celexa) 10 mg PO DAILY [facility] Last Admin: 08/21/17 11:22 Dose: Not Given Dextrose (D50w Syringe) 0 gm IV X1 PRN; Protocol PRN Reason: Hypoglycemia Digoxin (Lanoxin) 125 mcg PO DAILY [facility] Last Admin: 08/21/17 09:51 Dose: Not Given Diltiazem HCl (Cardizem Cd) 180 mg PO DAILY [facility] Last Admin: 08/21/17 11:22 Dose: Not Given Enoxaparin Sodium (Lovenox) 40 mg SC DAILY@0600 [facility] Last Admin: 08/21/17 11:21 Dose: Not Given Glucagon () 1 mg IM .X1 PRN PRN Reason: Hypoglycemia Insulin Human Lispro (Humalog Kwikpen (Bkc)) 0 unit SQ ACHS [facility] PRN Reason: Protocol Last Admin: 08/21/17 11:19 Dose: Not Given Levothyroxine Sodium (Synthroid) 75 mcg PO DAILY@0600 [facility] Last Admin: 08/21/17 11:21 Dose: Not Given Linagliptin (Tradjenta) 5 mg PO DAILY [facility] Last Admin: 08/21/17 11:23 Dose: Not Given Mirtazapine (Remeron) 15 mg PO QHS [facility] Last Admin: 06/12/18 11:21 Dose: Not Given Nicotine (Nicoderm Cq (Pbkc)) 21 mg TRANSDERM. DAILY [facility] Last Admin: 08/21/17 11:22 Dose: Not Given Ondansetron HCl (Zofran) 4 mg IV Q6H PRN PRN Reason: .N/V Pantoprazole Sodium (Protonix) 20 mg PO DAILY [facility] Last Admin: 08/21/17 11:23 Dose: Not Given Polyethylene Glycol (Miralax) 17 gm PO DAILY [facility] Last Admin: 08/21/17 07:36 Dose: 17 gm Ranolazine (Ranexa) 500 mg PO BID [facility] Last Admin: 08/21/17 11:20 Dose: Not Given Silver Sulfadiazine (Silvadene (Bkc)) 1 applic TOPICAL BID [facility] Last Admin: 08/21/17 11:23 Dose: Not Given Sodium Chloride () 5 - 30 ml IV UD PRN PRN Reason: SALINE FLUSH Sodium Chloride ([place] Nasal [place]) 2 spray NASAL Q1H PRN PRN PRN Reason: DRY NARES Medical Necessity - Tobacco Use Smoking Status: Current every day smoker Assessment/Plan All Active Problems (Last Reviewed 07/27/17 @ 09:57 by Cherelle Foster, ANA-C) Failure to thrive (Acute) ARF (acute renal failure) (Acute) Dysphagia (Acute) History of left heart catheterization (LHC) (Resolved) Hypoglycemia (Acute) Fall (Acute) Chest pain (Acute) COPD with exacerbation (Resolved) Dilated cardiomyopathy (Resolved) Lower extremity edema (Resolved) Overweight (Resolved) Unspecified systolic (congestive) heart failure (Resolved) 1. Failure to thrive/ Debility; the patient would require penitentiary facility for further post acute care rehabilitation. 2. Protein calorie malnutrition; continue nutritional support. 3. Dysphagia; ST evaluation and treatment. 4. Head laceration; wilbur removed. 5. 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 6. Paroxysmal atrial fibrillation; the patient currently remains in sinus. 7. supratherapeutic digoxin level with no toxicity; hold dose of digoxin today and repeat levels in a.m. 8. DM 2; on Tradjenta and RISS. 9. Nicotine Dependency; he is advised to quit smoking, nicotine replacement therapy has been ordered. 10. Hypothyroid; will continue on Synthroid.
--- NOTE | 2017-08-21 13:58 | CASEMGMT ---
Social Work Note SW received call from [facility] Leather Colorer Diane Sotomayor. SW updated Diane that pt is still in hospital awaiting pre-cert from his insurance. Diane asked this worker if pt would be receptive to eventually going to exterminator termite placement. This SW informed Diane that this worker hasn't talked to pt about custodial care and at this time pt is agreeable to short term skilled placement. SW informed Diane that the SW at [facility] could talk to pt about exterminator termite care if pt is approved to go to [facility]. Diane states understanding. Plan: [facility] pending pre-cert Margarita Lee ACADEMIC INTERVENTIONIST, SUPERVISOR HOME ENERGY CONSULTANT
[2017-08-21] MEDS: Sodium Chloride 0.65% 1 SPRAY SPRAY.BTL 2 SPRAY NASAL (22:30)
[2017-08-21] MEDS: Mirtazapine 15 MG Tablet PO (22:57)
[2017-08-21] MEDS: Atorvastatin Calcium 40 MG Tablet PO (22:57)
[2017-08-22] VITALS (7 sets, daily range): BP systolic 112–130; BP diastolic 43–58; PULSE 83–106; RESP 16–20; TEMP 36.7–37.3; O2SAT 91–96
[2017-08-22] LABS: Bedside Glucose 202 mg/dL (70-110)
[2017-08-22] MEDS: HYDROcodone Bitartrate/Apap 5/325 Tablet PO ×3 (06:36→22:40)
[2017-08-22] MEDS: Levothyroxine 75 MCG Tablet PO (06:36)
[2017-08-22] MEDS: Enoxaparin 40 MG/0.4 ML Syringe SC (06:37)
[2017-08-22] MEDS: Insulin Lispro 100 UNIT/ML INSULN.PEN SQ ×4 (06:38→21:02)
[2017-08-22 06:51] LABS: Bedside Glucose 175 mg/dL (70-110)
[2017-08-22] MEDS: Ipratropium/Albuterol Sulfate 3 ML AMPUL.NEB INHALATION ×2 (07:05→18:53)
[2017-08-22] MEDS: Digoxin 125 MCG Tablet PO (07:41)
[2017-08-22] MEDS: Citalopram 10 MG Tablet PO (07:41)
[2017-08-22] MEDS: dilTIAZem CD 180 MG Capsule PO (07:42)
[2017-08-22] MEDS: Ranolazine 500 MG Tablet PO ×2 (07:42→20:57)
[2017-08-22] MEDS: Aspirin 81 MG TAB.CHEW PO (07:42)
[2017-08-22] MEDS: LINAGLIPTIN 5 MG TABLET PO (07:42)
[2017-08-22] MEDS: Silver Sulfadiazine 1% Crm 50 gm Bottle 1 APPLIC TOPICAL ×2 (07:42→20:57)
[2017-08-22] MEDS: Polyethylene Glycol 3350 17 GM PACKET PO (07:42)
[2017-08-22] MEDS: Pantoprazole Sodium 20 MG Tablet PO (07:45)
--- NOTE | 2017-08-22 08:52 | CASEMGMT ---
Addendum entered by Margarita Lee 08/22/17 10:04: ROSANA placed a call to Brianne WAYNE at [facility] inquiring if she has heard from pt's insurance regarding pre-cert. Per Brianne she submitted updated clinical yesterday and pt's insurance faxed to Brianne a fax regarding SNF information including PCP and tax ID number. Brianne states that she faxed the information to pt's insurance and will be calling insurance this morning to follow up. Brianne states that she will call this worker back. Plan: [facility] pending pre-cert [facility] Original Note: Social Work Note ROSANA faxed updated progress note to ROSANA Decker at [facility]. Plan: [facility] pending pre-cert [facility]
[2017-08-22 11:30] LABS: Bedside Glucose 198 mg/dL (70-110)
--- NOTE | 2017-08-22 12:33 | PCM.PN.HOSP ---
Patient Problems: Active and Suspected Problems (Last Reviewed 07/27/17 @ 09:57 by NIC Gil) Failure to thrive (Acute) Subjective: CC: Failure to thrive, constipation Objective: The patient's main complaint is constipation, he has not had bowel movement since his admission, he denies nausea vomiting or abdominal pain. No acute events reported overnight. Vitals/I&O's: Vital Signs Temp Pulse Resp BP Pulse Ox 99.1 F 106 H 20 H 124/43 H 94 08/22/17 07:39 08/22/17 07:41 08/22/17 07:39 08/22/17 07:39 08/22/17 07:39 Oxygen Flow Rate (L/min) 3 Oxygen Delivery Method Nasal Cannula Weight: 67.7 kg Intake and Output for Last 24 Hours 08/20/17 08/21/17 08/22/17 23:59 23:59 23:59 Intake Total 240 / 240 940 / 940 740 / 740 Output Total 825 / 825 300 / 300 Balance 240 / 240 115 / 115 440 / 440 General: Alert, Oriented x3 HEENT: Atraumatic Oral: Moist Mucosa Neck: Supple, No JVD Lungs: Clear to auscultation Cardiovascular: Regular rate, Normal S1, Normal S2 Abdomen: Bowel Sounds Present, Non Tender Extremities: No edema Skin: No rashes Neurological: Cranial nerves II-XII grossly intact, Motor Exam 5/5 strength throughout Laboratory Results 08/21/17 22:56: POC Glucose 202 H 08/22/17 05:12: Digoxin 0.90 08/22/17 06:38: POC Glucose 175 H 08/22/17 11:15: POC Glucose 198 H Current Medications Acetaminophen (Tylenol) 650 mg PO Q4H PRN PRN Reason: .PAIN/FEVER Hydrocodone Bitart/Acetaminophen ([place] 5mg-325mg) 1 - 2 tablet PO Q6H PRN PRN PRN Reason: PAIN Last Admin: 08/22/17 06:36 Dose: 2 tablet Albuterol Sulfate (Ventolin Aerosols) 2.5 mg INHALATION Q2H PRN PRN Reason: DYSPNEA/WHEEZING Last Admin: 08/20/17 01:05 Dose: 2.5 mg Albuterol/Ipratropium (Duoneb) 3 ml INHALATION Q6H.RT [facility] Last Admin: 08/22/17 07:05 Dose: 3 ml Aspirin (Aspirin, Baby) 81 mg PO DAILY@0800 [facility] Last Admin: 08/22/17 07:42 Dose: 81 mg Atorvastatin Calcium (Lipitor) 40 mg PO QHS [facility] Last Admin: 08/21/17 22:57 Dose: 40 mg Calamine/Phenol (Calmoseptine Ointment) 1 applic TOPICAL TID [facility] Last Admin: 08/22/17 06:37 Dose: Not Given Citalopram Hydrobromide (Celexa) 10 mg PO DAILY [facility] Last Admin: 08/22/17 07:41 Dose: 10 mg Dextrose (D50w Syringe) 0 gm IV X1 PRN; Protocol PRN Reason: Hypoglycemia Digoxin (Lanoxin) 125 mcg PO DAILY [facility] Last Admin: 08/22/17 07:41 Dose: 125 mcg Diltiazem HCl (Cardizem Cd) 180 mg PO DAILY [facility] Last Admin: 08/22/17 07:42 Dose: 180 mg Enoxaparin Sodium (Lovenox) 40 mg SC DAILY@0600 [facility] Last Admin: 08/22/17 06:37 Dose: 40 mg Glucagon () 1 mg IM .X1 PRN PRN Reason: Hypoglycemia Insulin Human Lispro (Humalog Kwikpen (Bkc)) 0 unit SQ ACHS [facility] PRN Reason: Protocol Last Admin: 08/22/17 11:17 Dose: 2 u Levothyroxine Sodium (Synthroid) 75 mcg PO DAILY@0600 [facility] Last Admin: 08/22/17 06:36 Dose: 75 mcg Linagliptin (Tradjenta) 5 mg PO DAILY [facility] Last Admin: 08/22/17 07:42 Dose: 5 mg Magnesium Citrate (Citrate Of Magnesia) 150 ml PO X1 ONE Stop: 08/22/17 12:33 Mirtazapine (Remeron) 15 mg PO QHS [facility] Last Admin: 08/21/17 22:57 Dose: 15 mg Nicotine (Nicoderm Cq (Pbkc)) 21 mg TRANSDERM. DAILY [facility] Last Admin: 08/22/17 07:42 Dose: 21 mg Ondansetron HCl (Zofran) 4 mg IV Q6H PRN PRN Reason: .N/V Pantoprazole Sodium (Protonix) 20 mg PO DAILY [facility] Last Admin: 08/22/17 07:45 Dose: 20 mg Polyethylene Glycol (Miralax) 17 gm PO DAILY [facility] Last Admin: 08/22/17 07:42 Dose: 17 gm Polyethylene Glycol (Miralax) 17 gm PO DAILY [facility] Ranolazine (Ranexa) 500 mg PO BID [facility] Last Admin: 08/22/17 07:42 Dose: 500 mg Silver Sulfadiazine (Silvadene (Bkc)) 1 applic TOPICAL BID [facility] Last Admin: 08/22/17 07:42 Dose: 1 applicatio Sodium Chloride () 5 - 30 ml IV UD PRN PRN Reason: SALINE FLUSH Sodium Chloride ([place] Nasal [place]) 2 spray NASAL Q1H PRN PRN PRN Reason: DRY NARES Last Admin: 08/21/17 22:30 Dose: 2 spray Medical Necessity - Tobacco Use Smoking Status: Current every day smoker Assessment/Plan All Active Problems (Last Reviewed 07/27/17 @ 09:57 by Cherelle Foster NP-C) Failure to thrive (Acute) ARF (acute renal failure) (Acute) Dysphagia (Acute) History of left heart catheterization (LHC) (Resolved) Hypoglycemia (Acute) Fall (Acute) Chest pain (Acute) COPD with exacerbation (Resolved) Dilated cardiomyopathy (Resolved) Lower extremity edema (Resolved) Overweight (Resolved) Unspecified systolic (congestive) heart failure (Resolved) 1. Failure to thrive/ Debility; the patient would require long-term facility for further post acute care rehabilitation. We will continue physical and Occupational Therapy. 2. Protein calorie malnutrition; continue nutritional support. 3. Dysphagia; ST evaluation and treatment. 4. Head laceration; wilbur removed. 5. 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 6. Paroxysmal atrial fibrillation; the patient currently remains in sinus. 7. supratherapeutic digoxin level with no toxicity; hold dose of digoxin today and repeat levels in a.m. 8. DM 2; on Tradjenta and RISS. 9. Nicotine Dependency; he is advised to quit smoking, nicotine replacement therapy has been ordered. 10. Hypothyroidism; will continue on Synthroid. 11. Constipation; we will give him mag citrate x1 and MiraLAX daily 12. DVT prophylaxis with Lovenox. Code Visit Inpatient E&M: 84952 Subs Hosp L2
--- NOTE | 2017-08-22 12:36 | PN_ITS ---
Patient Problems: Active and Suspected Problems (Last Reviewed 07/27/17 @ 09:57 by NIC Gil) Failure to thrive (Acute) Subjective: CC: Failure to thrive, constipation Objective: The patient's main complaint is constipation, he has not had bowel movement since his admission, he denies nausea vomiting or abdominal pain. No acute events reported overnight. Vitals/I&O's: Vital Signs Temp Pulse Resp BP Pulse Ox 99.1 F 106 H 20 H 124/43 H 94 08/22/17 07:39 08/22/17 07:41 08/22/17 07:39 08/22/17 07:39 08/22/17 07:39 Oxygen Flow Rate (L/min) 3 Oxygen Delivery Method Nasal Cannula Weight: 67.7 kg Intake and Output for Last 24 Hours 08/20/17 08/21/17 08/22/17 23:59 23:59 23:59 Intake Total 240 / 240 940 / 940 740 / 740 Output Total 825 / 825 300 / 300 Balance 240 / 240 115 / 115 440 / 440 General: Alert, Oriented x3 HEENT: Atraumatic Oral: Moist Mucosa Neck: Supple, No JVD Lungs: Clear to auscultation Cardiovascular: Regular rate, Normal S1, Normal S2 Abdomen: Bowel Sounds Present, Non Tender Extremities: No edema Skin: No rashes Neurological: Cranial nerves II-XII grossly intact, Motor Exam 5/5 strength throughout Laboratory Results 08/21/17 22:56: POC Glucose 202 H 08/22/17 05:12: Digoxin 0.90 08/22/17 06:38: POC Glucose 175 H 08/22/17 11:15: POC Glucose 198 H Current Medications Acetaminophen (Tylenol) 650 mg PO Q4H PRN PRN Reason: .PAIN/FEVER Hydrocodone Bitart/Acetaminophen ([place] 5mg-325mg) 1 - 2 tablet PO Q6H PRN PRN PRN Reason: PAIN Last Admin: 08/22/17 06:36 Dose: 2 tablet Albuterol Sulfate (Ventolin Aerosols) 2.5 mg INHALATION Q2H PRN PRN Reason: DYSPNEA/WHEEZING Last Admin: 08/20/17 01:05 Dose: 2.5 mg Albuterol/Ipratropium (Duoneb) 3 ml INHALATION Q6H.RT [facility] Last Admin: 08/22/17 07:05 Dose: 3 ml Aspirin (Aspirin, Baby) 81 mg PO DAILY@0800 [facility] Last Admin: 08/22/17 07:42 Dose: 81 mg Atorvastatin Calcium (Lipitor) 40 mg PO QHS [facility] Last Admin: 08/21/17 22:57 Dose: 40 mg Calamine/Phenol (Calmoseptine Ointment) 1 applic TOPICAL TID [facility] Last Admin: 08/22/17 06:37 Dose: Not Given Citalopram Hydrobromide (Celexa) 10 mg PO DAILY [facility] Last Admin: 08/22/17 07:41 Dose: 10 mg Dextrose (D50w Syringe) 0 gm IV X1 PRN; Protocol PRN Reason: Hypoglycemia Digoxin (Lanoxin) 125 mcg PO DAILY [facility] Last Admin: 08/22/17 07:41 Dose: 125 mcg Diltiazem HCl (Cardizem Cd) 180 mg PO DAILY [facility] Last Admin: 08/22/17 07:42 Dose: 180 mg Enoxaparin Sodium (Lovenox) 40 mg SC DAILY@0600 [facility] Last Admin: 08/22/17 06:37 Dose: 40 mg Glucagon () 1 mg IM .X1 PRN PRN Reason: Hypoglycemia Insulin Human Lispro (Humalog Kwikpen (Bkc)) 0 unit SQ ACHS [facility] PRN Reason: Protocol Last Admin: 08/22/17 11:17 Dose: 2 u Levothyroxine Sodium (Synthroid) 75 mcg PO DAILY@0600 [facility] Last Admin: 08/22/17 06:36 Dose: 75 mcg Linagliptin (Tradjenta) 5 mg PO DAILY [facility] Last Admin: 08/22/17 07:42 Dose: 5 mg Magnesium Citrate (Citrate Of Magnesia) 150 ml PO X1 ONE Stop: 08/22/17 12:33 Mirtazapine (Remeron) 15 mg PO QHS [facility] Last Admin: 08/21/17 22:57 Dose: 15 mg Nicotine (Nicoderm Cq (Pbkc)) 21 mg TRANSDERM. DAILY [facility] Last Admin: 08/22/17 07:42 Dose: 21 mg Ondansetron HCl (Zofran) 4 mg IV Q6H PRN PRN Reason: .N/V Pantoprazole Sodium (Protonix) 20 mg PO DAILY [facility] Last Admin: 08/22/17 07:45 Dose: 20 mg Polyethylene Glycol (Miralax) 17 gm PO DAILY [facility] Last Admin: 08/22/17 07:42 Dose: 17 gm Polyethylene Glycol (Miralax) 17 gm PO DAILY [facility] Ranolazine (Ranexa) 500 mg PO BID [facility] Last Admin: 08/22/17 07:42 Dose: 500 mg Silver Sulfadiazine (Silvadene (Bkc)) 1 applic TOPICAL BID [facility] Last Admin: 08/22/17 07:42 Dose: 1 applicatio Sodium Chloride () 5 - 30 ml IV UD PRN PRN Reason: SALINE FLUSH Sodium Chloride ([place] Nasal [place]) 2 spray NASAL Q1H PRN PRN PRN Reason: DRY NARES Last Admin: 08/21/17 22:30 Dose: 2 spray Medical Necessity - Tobacco Use Smoking Status: Current every day smoker Assessment/Plan All Active Problems (Last Reviewed 07/27/17 @ 09:57 by Cherelle Foster NP-C) Failure to thrive (Acute) ARF (acute renal failure) (Acute) Dysphagia (Acute) History of left heart catheterization (LHC) (Resolved) Hypoglycemia (Acute) Fall (Acute) Chest pain (Acute) COPD with exacerbation (Resolved) Dilated cardiomyopathy (Resolved) Lower extremity edema (Resolved) Overweight (Resolved) Unspecified systolic (congestive) heart failure (Resolved) 1. Failure to thrive/ Debility; the patient would require fdc facility for further post acute care rehabilitation. We will continue physical and Occupational Therapy. 2. Protein calorie malnutrition; continue nutritional support. 3. Dysphagia; ST evaluation and treatment. 4. Head laceration; wilbur removed. 5. 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 6. Paroxysmal atrial fibrillation; the patient currently remains in sinus. 7. supratherapeutic digoxin level with no toxicity; hold dose of digoxin today and repeat levels in a.m. 8. DM 2; on Tradjenta and RISS. 9. Nicotine Dependency; he is advised to quit smoking, nicotine replacement therapy has been ordered. 10. Hypothyroidism; will continue on Synthroid. 11. Constipation; we will give him mag citrate x1 and MiraLAX daily 12. DVT prophylaxis with Lovenox. Code Visit Inpatient E&M: 47134 Subs Hosp L2
[2017-08-22] MEDS: Menthol/Lanolin/Calamine/Znox 113 GM Tube 1 APPLIC TOPICAL ×2 (14:21→20:57)
[2017-08-22] MEDS: Magnesium Citrate 300 ML 150 ML PO (15:22)
--- NOTE | 2017-08-22 15:41 | CASEMGMT ---
Addendum entered by Margarita Lee 08/22/17 15:52: Social Work Note This worker placed a call to pt's Passport CM Diane Sotomayor and left her a message updating her that pt should be discharged today to [facility]. ROSANA placed a call to [facility] as pt has Palliative Services and updated them that pt should be discharged to [facility] today. Original Note: Social Work Note ROSANA received a call from ROSANA Decker, at [facility] stating that pre-cert has been obtained. ROSANA informed Brianne that pt should be ready for discharge today. This worker updated RN SHANIA and Charge Nurse Susan that pre-cert has been obtained. ROSANA paged Dr. Benavides to call this worker but he called Charge Nurse Susan. Per Charge Nurse Susan, Dr. Benavides is not discharging pt until pt has a bowel movement. ROSANA placed a call to Brianne at [facility] updating her that pt will need to have a bowel movement before being discharged. Brianne states understanding. ROSANA completed PAS/RR and a copy placed on pt's chart. ROSANA placed green sheet on pt's chart and transportation form on pt's chart in the event pt has a bowel movement and is able to discharge this evening. Plan: Discharge to [facility] once pt has bowel movement Margarita Lee SCREW MACHINE ADJUSTER AUTOMATIC, AUXILIARY POWER EQUIPMENT OPERATOR
--- NOTE | 2017-08-22 16:21 | CHAPLAIN ---
Type of Pastoral Visit _x__ Initial Visit ___ Follow-up Visit ___ On-call Visit ___ General Patient Visit ___ Spiritual Assessment ___ Family Conference ___ Bereavement ___ Rapid Response ___ Code Blue ___ Other (describe below) Pastoral Care Referral From _x__ Patient ___ Family ___ Nurse ___ Physician ___ Production Support Engineer ___ Pneumatic Systems Operator ___ Other (describe below) Sacrament/Intervention _x__ Active listening ___ Anointing ___ Islam ___ Bereavement ___ Communion ___ Manuela exploration ___ ___ Life review _x__ Prayer ___ Reconciliation ___ Sacrament of Sick _x__ Supportive presence ___ Wedding ___ Other (describe below) Pastoral Comments patient has been admitted here previously and 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
[2017-08-22] MEDS: Atorvastatin Calcium 40 MG Tablet PO (20:58)
[2017-08-22] MEDS: 0.9% NaCl Peripheral Flush Adult/Peds IV (20:59)
[2017-08-22] MEDS: Mirtazapine 15 MG Tablet PO (21:00)
[2017-08-22 21:20] LABS: Bedside Glucose 241 mg/dL (70-110)
[2017-08-23] VITALS (7 sets, daily range): BP systolic 101–140; BP diastolic 46–55; PULSE 81–91; RESP 16–18; TEMP 36.9–37.1; O2SAT 90–96
[2017-08-23] MEDS: Ipratropium/Albuterol Sulfate 3 ML AMPUL.NEB INHALATION ×3 (00:43→13:03)
[2017-08-23] MEDS: Enoxaparin 40 MG/0.4 ML Syringe SC (05:57)
[2017-08-23] MEDS: Levothyroxine 75 MCG Tablet PO (05:57)
[2017-08-23] MEDS: Menthol/Lanolin/Calamine/Znox 113 GM Tube 1 APPLIC TOPICAL (05:58)
[2017-08-23] MEDS: Aspirin 81 MG TAB.CHEW PO (08:07)
[2017-08-23] MEDS: Pantoprazole Sodium 20 MG Tablet PO (08:07)
[2017-08-23] MEDS: dilTIAZem CD 180 MG Capsule PO (10:35)
[2017-08-23] MEDS: Digoxin 125 MCG Tablet PO (10:36)
[2017-08-23] MEDS: Citalopram 10 MG Tablet PO (10:36)
[2017-08-23] MEDS: Silver Sulfadiazine 1% Crm 50 gm Bottle 1 APPLIC TOPICAL (10:41)
[2017-08-23] MEDS: Ranolazine 500 MG Tablet PO (10:41)
[2017-08-23] MEDS: LINAGLIPTIN 5 MG TABLET PO (10:42)
[2017-08-23] MEDS: Acetaminophen 325 MG Tablet 650 MG PO (10:47)
--- NOTE | 2017-08-23 11:35 | TREXTCAR_ITS ---
- Diet 08/20/17 23:24 Diet: Cardiac/Low Cholesterol Food consistency:: Mechanical Soft/Ground Liquid Consistency:: [place] Thick Dietary Modifications:: Mechanical Soft Diet [place] Thick Liquids Diet Comments: Supervision; seated at 90 degrees, straws ok - Wound(s) FACE Wound Type: Burn LT HAND Wound Type: Burn LT SIDE OF NECK/EAR Wound Type: Burn Dressing Change: silvadene with Adaptic Right hand/wrist Wound Type: Burn Posterior scalp Wound Type: Laceration - Allergies/Procedures Done in Hospital Allergies/Adverse Reactions: Allergies Penicillins Allergy (Verified 08/08/17 06:44) Shortness of breath - Type of Care/Length of Stay Estimated LOS: Convalescent Care Less Than 30 days Type of Care Needed: Skilled Rehab Potential: Fair Prognosis: Fair - Additional Orders/Day of Discharge H&P will serve as current which was dated: 08/17/17 Day of Discharge: 08/23/17 - Dietary and Speech Recommendations Dietitian Recommendations/Changes: Consider Wilfredo 1 packet BID for wound healing as indicated. Suggest diet change to carbohydrate-controlled, cardiac. - Follow Up Care Primary Care Physician: Russell White MD [Primary Care Provider] - Within 1 Week
--- NOTE | 2017-08-23 11:36 | PCM.DC.SUM ---
Discharge Date and Diagnosis Date of Admission: 07/28/17 Date of Discharge: 08/23/17 - Primary Discharge Diagnosis Active and Suspected Problems (Last Reviewed 07/27/17 @ 09:57 by NIC Gil) Failure to thrive (Acute) - Secondary Discharge Diagnosis Chronic Problems (Last Reviewed 07/27/17 @ 09:57 by NIC Gil) Stage 2 moderate COPD by GOLD classification (Chronic) FEV1 51% of predicted History of tonsillectomy (Chronic) History of inguinal hernia repair (Chronic) Depression (Chronic) Chronic anticoagulation (Chronic) Tobacco dependence due to cigarettes (Chronic) Severe malnutrition (Chronic) Hypokalemia (Chronic) WHIT (obstructive sleep apnea) (Chronic) BiPAP 10/6 cm of water CAD (coronary artery disease) (Chronic) [facility]: 10/07/2010, 09/06/2015 HTN (hypertension) (Chronic) Paroxysmal atrial fibrillation (Chronic) HLD (hyperlipidemia) (Chronic) DM2 (diabetes mellitus, type 2) (Chronic) COPD (chronic obstructive pulmonary disease) (Chronic) Hospital Course and Treatment Consultations 08/17/17 15:42 Consult: Onc/Wound/clinical appeals auditor Routine Comment: Operations: None Summary of Care Provided: The patient is a 67 year old M who is debilitated who presented with generalized weakness failure to thrive. He underwent physical and Occupational Therapy nutritional support was provided He also had facial jolly, self-inflicted from smoking while on oxygen, because skin care was provided. 1. Failure to thrive/ Debility; the patient requires group home facility for further post acute care rehabilitation. He was discharged in a stable condition. 2. Protein calorie malnutrition; continue nutritional support as per medical e commerce director recommendations.. 3. Dysphagia; medically altered diet ordered. 4. Head laceration; wilbur removed. 5. 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 6. Paroxysmal atrial fibrillation; the patient currently remains in sinus. 7. supratherapeutic digoxin level with no toxicity; digoxin level was held for 24 hours and repeat levels were normal ,we have restarted at 125 mcg daily 8. DM 2; on Tradjenta and RISS. 9. Nicotine Dependency; he is advised to quit smoking, nicotine replacement therapy has been ordered. 10. Hypothyroidism; will continue on Synthroid. 11. Constipation; he is to continue on MiraLAX daily Home Medications: Medications to take at Discharge Digoxin 125 mcg PO DAILY 05/27/16 Levothyroxine [Synthroid] 75 mcg PO DAILY 05/27/16 Ranolazine [Ranexa] 500 mg PO BID 01/10/17 Mirtazapine 15 mg PO QHS 06/25/17 sitagliptin 50 mg tablet 50 mg PO DAILY 06/28/17 Citalopram [Celexa] 10 mg PO DAILY 08/20/17 Diltiazem CD [Cardizem CD] 180 mg PO DAILY 08/20/17 Pantoprazole Sodium [Protonix] 20 mg PO BID 08/20/17 Aspirin [Aspirin, Baby] 81 mg PO DAILY@0800 tab.chew 08/23/17 Menthol/Lanolin/Calamine/Znox [Calmoseptine Ointment] 1 applic TOPICAL TID tube 08/23/17 Nicotine [Nicoderm Cq] 21 mg TRANSDERM. DAILY patch 08/23/17 Polyethylene Glycol 3350 [Miralax] 17 gm PO DAILY packet 08/23/17 Silver Sulfadiazine 1% Crm [Silvadene Cream] 1 applic TOPICAL BID bottle 08/23/17 Primary Care Physician: Russell White MD [Primary Care Provider] - Within 1 Week Medical Necessity - Tobacco Use Smoking Status: Current every day smoker Meaningful Use Info Meaningful Use Diagnoses (Choose all that apply): None applicable Code Visit Inpatient E&M: 34499 Disch Hosp
--- NOTE | 2017-08-23 12:06 | CASEMGMT ---
Social Work Note Pt had a bowel movement and Dr. Benavides is discharging pt. ROSANA faxed completed discharge paperwork to Brianne at [facility] including transfer to extended care facility, signed medication list and any scripts. Original in SNF folder and copy on pt's chart. ROSANA set up transportation through [facility] via cot for 1:00pm. ROSANA updated pt of transportation time. Pt asked this worker why he wasn't going to [facility]. SW informed pt that per previous notes, [facility] doesn't accept pt's insurance. Pt states understanding. Pt denied wanting this worker to call any family/friends to update them that he is being discharged. Transportation form on SNF folder and copy on pt's chart. ROSANA completed PAS/RR. Original in SNF folder and copy on pt's chart. ROSANA updated Brianne WAYNE at [facility] of transportation time. Brianne states understanding and confirms that she received discharge paperwork. Pt denied additional needs or concerns. Plan: Discharge to [facility] under skilled services through [facility] via cot at 1:00pm. Margarita Lee TELECOMMUNICATION OPERATOR, COMPUTER EDUCATION PROFESSOR
[2017-08-23 15:24] LABS: Bedside Glucose 147 mg/dL (70-110)
[2017-08-23 15:28] LABS: Bedside Glucose 162 mg/dL (70-110)
[2017-08-23 22:20] LABS: Bedside Glucose 128 mg/dL (70-110)
[2017-08-24 12:13] LABS: Bedside Glucose 304 mg/dL (70-110)
[2017-08-24 12:14] LABS: Bedside Glucose 168 mg/dL (70-110)
[2017-08-24 12:16] LABS: Bedside Glucose 271 mg/dL (70-110)
[2017-08-24 12:17] LABS: Bedside Glucose 249 mg/dL (70-110)
[2017-08-24 15:19] LABS: Bedside Glucose 260 mg/dL (70-110)
[2017-08-24 15:27] LABS: Bedside Glucose 250 mg/dL (70-110)
[2017-08-24 15:28] LABS: Bedside Glucose 200 mg/dL (70-110)
[2017-08-24 15:29] LABS: Bedside Glucose 254 mg/dL (70-110)
== END 2017-08-23 13:17 | disposition skilled nursing facility (03) ==
LOC: ED 17:04 → MS3 17:07
PROVIDERS: Admitting Provider Internal Medicine; Emergency Provider Emergency Medicine; Family Provider Internal Medicine; PCP Internal Medicine; Visit Provider Internal Medicine
DX: R62.7 Adult failure to thrive (principal); J44.9 Chronic obstructive pulmonary disease, unspecified; G47.33 Obstructive sleep apnea (adult) (pediatric); E87.6 Hypokalemia; I10 Essential (primary) hypertension; I25.10 Atherosclerotic heart disease of native coronary artery without angina pectoris; I48.0 Paroxysmal atrial fibrillation; E78.5 Hyperlipidemia, unspecified; E11.9 Type 2 diabetes mellitus without complications; F17.210 Nicotine dependence, cigarettes, uncomplicated; E43 Unspecified severe protein-calorie malnutrition; Z68.22 Body mass index [BMI] 22.0-22.9, adult; Z79.01 Long term (current) use of anticoagulants; F32.9 Major depressive disorder, single episode, unspecified; E03.9 Hypothyroidism, unspecified; K59.00 Constipation, unspecified; R13.10 Dysphagia, unspecified; T20.00XA Burn of unspecified degree of head, face, and neck, unspecified site, initial encounter; X08.8XXA Exposure to other specified smoke, fire and flames, initial encounter; J96.11 Chronic respiratory failure with hypoxia; Z86.718 Personal history of other venous thrombosis and embolism; I25.2 Old myocardial infarction; F41.9 Anxiety disorder, unspecified; Z99.81 Dependence on supplemental oxygen; R29.6 Repeated falls; S01.91XD Laceration without foreign body of unspecified part of head, subsequent encounter; X58.XXXD Exposure to other specified factors, subsequent encounter
CPT/HCPCS: 36415; 71046; 73521; 80048; 80162; 82306; 82962; 83880; 84443; 85025; 92507; 92526; 93005; 94640; 96372; 97163; 97166; 97530; 97802; 99218; 99285; J7030; A4216; G0378

== ENCOUNTER 2017-09-04 22:33 | Inpatient (IN) | payer MEDICARE, SELFPAY ==
[2017-09-04 22:34] VITALS: BP 131/52; PULSE 82; RESP 14; TEMP 36.8; O2SAT 96; BMI 23.6
--- NOTE | 2017-09-04 22:59 | EKG12_ITS ---
Test Reason : HIP PAIN Blood Pressure : / mmHG Vent. Rate : 081 BPM Atrial Rate : 081 BPM P-R Int : 132 ms QRS Dur : 090 ms QT Int : 356 ms P-R-T Axes : 072 050 069 degrees QTc Int : 413 ms Sinus rhythm with marked sinus arrhythmia Otherwise normal ECG Confirmed by JOSE HERNANDEZ, FRANCO ([id number]), production editor ZITA ROONEY ([id number]) on 09/07/2017 8:57:43 AM Referred By: MAHSA Confirmed By:FRANCO GARCIA MD
--- NOTE | 2017-09-04 22:59 | RAD_ITS ---
STUDY: X-RAY CHEST REASON FOR EXAM: Male, 67 years old. Fall TECHNIQUE: Single AP portable view of the chest. COMPARISON: 08/17/2017 FINDINGS: There is hyperinflation of the lungs. There is no focal parenchymal abnormality. There is no demonstrated pleural abnormality. Normal size heart. Normal mediastinum and aj. Normal visualized pulmonary arteries. There is atherosclerotic calcification of the aortic arch with tortuosity. There are diffuse degenerative changes of the visualized thoracic spine. There is degenerative osteoarthritis of the bilateral shoulders. There is no demonstrated abnormality of the visualized soft tissue structures of the upper abdomen. RAD/Chest 1 View (Portable) IMPRESSION: Stable hyperinflation likely post obstruction. No pulmonary edema, congestive heart failure or confluent pneumonia. Electronically Signed: Divine Scott MD at 1:31 EDT , Service support ,
--- NOTE | 2017-09-04 23:00 | RAD_ITS ---
STUDY: X-RAY - PELVIS AND LEFT HIP REASON FOR EXAM: Male, 67 years old. Patient fell 1 week ago. History of fracture. TECHNIQUE: Radiological exam, hip, unilateral, with pelvis when performed; 2 or 3 views. COMPARISON: None. FINDINGS: There is fecal retention. Normal visualized soft tissue structures. Normal bilateral iliac wings, sacroiliac joints and visualized sacrum. Normal bilateral superior and inferior pubic rami. Normal pubic symphysis. Normal bilateral ischial tuberosities. There is an impacted fracture of the left femoral neck. Normal acetabulum. Normal hip joint. RAD/Hip 2-3 Views with Pelvis IMPRESSION: Impacted fracture of the base of the femoral neck. Electronically Signed: Jose French MD at 0:08 EDT Tel , Service support ,
[2017-09-04] MEDS: Morphine 4 MG/ML Syringe IV (23:15)
[2017-09-04] MEDS: Ondansetron 4 MG/2 ML Vial IV (23:15)
[2017-09-04 23:29] LABS: Absolute Lymphocyte Count 1.84 X10^3/ul (0.83-4.51); Absolute Neutrophil Count 6.2 X10^3/uL (2.0-7.7); Basophil# 0.09 X10^3/uL; Basophil% 0.9 % (0-1); Eosinophil# 0.57 X10^3/uL; Eosinophils% 5.8 % (0-5); Hematocrit 31.8 % (40-54); Hemoglobin 10.3 g/dl (13.0-16.5); Lymphocyte # 1.84 X10^3/ul (4.0); Lymphocyte % 18.6 % (19-41); Mean Corp Hgb Conc 32.4 g/gl (32-36); Mean Corpuscular Hgb 32.4 pg (27.0-32.0); Mean Platelet Vol. 9.5 fl (6.2-12.0); Monocyte# 1.17 X10^3/uL; Monocyte% 11.8 % (0-10); Neutrophil # 6.19 X10^3/uL (2.7-7.7); Neutrophil % 62.5 % (47-70); Platelet Count 499 K/mm3 (150-450); RBC Distribution Width CV 15.8 % (11.6-14.6); RBC Distribution Width SD 55.4 fl (35.1-43.9); Red Blood Count 3.18 M/mm3 (4.6-6.2); White Blood Count 9.9 K/mm3 (4.4-11.0)
[2017-09-04 23:30] LABS: POSITIVE COUNT NO; POSITIVE DIFFERENTIAL NO; POSITIVE MORPHOLOGY NO
[2017-09-04 23:45] LABS: International Normalized Ratio 1.1; Prothrombin Time (Protime)PT. 13.8 SECONDS (11.7-14.9)
[2017-09-04 23:48] LABS: Anion Gap 4 (5-15); BUN 32 mg/dL (7-18); BUN/Creat Ratio 23.2 RATIO (10-20); Calcium,Total 8.7 mg/dL (8.5-10.1); Chloride 99 mmol/L (98-107); Creatinine, Serum 1.38 mg/dL (0.70-1.30); EST Glomerular Filtration Rate 54 mL/min (>60); Est Glom Filt Rate - Afr Amer 66 mL/min (>60); Glucose 140 mg/dL (74-106); Potassium 4.4 mmol/L (3.5-5.1); Sodium Level 138 mmol/L (136-145)
[2017-09-05] VITALS (14 sets, daily range): BP systolic 104–150; BP diastolic 46–70; PULSE 71–90; RESP 16–18; TEMP 36.3–37.5; O2SAT 82–100; BMI 21.4
--- NOTE | 2017-09-05 00:28 | ED.DCSUM_ITS ---
- ER Visit Summary Date of Service: 09/05/17 Chief Complaint: Left hip fracture History of Present Illness: The patient is a 67 M who presents with a left hip fracture. He fell in his apartment about 2 weeks ago. Initial x-rays were normal. He was admitted. He went back to the long term. He has been unable to ambulate since that time. Therefore repeat x-rays were obtained today which showed a left hip fracture and the patient was sent here to the emergency department. Physical Examination: Afebrile vitals are stable Heart regular rate and rhythm Lungs clear Abdomen soft There is shortening of the left lower extremity and limited painful range of motion of the left hip there is bilateral pedal edema on the left greater than right he also has some calf tenderness he has easily palpable dorsalis pedis pulses Test Results: EKG shows sinus rhythm at a rate of 81. Labs including CBC BMP notable for creatinine 1.38. INR 1.1. Chest x-ray is read by me shows no acute process. Hip x-ray shows an impacted femoral neck fracture. Emergency Department Course and Treatment: Patient was treated with morphine and Zofran here. He was discussed with the hospitalist for admission and I also advised that given his recent immobility with leg edema that they obtain venous duplexes tomorrow they are not available overnight. I also spoke to orthopedics who will see the patient in consult. Patient admitted. Treatment Plan: [] Disposition: Admit Impression: Left femoral neck fracture This note was generated with [employer] dictation software. It may contain incorrect words, spelling, and punctuation that were not noted in review of the chart prior to signing ED Disposition - Plan for ED Patient: Chief Complaint: Lower Extremity Injury Referrals: Russell White MD [Primary Care Provider] -
[2017-09-05] MEDS: Morphine 4 MG/ML Syringe IV ×3 (02:40→20:33)
[2017-09-05] MEDS: 0.9% Normal Saline 1,000 ML 100 ML IV ×2 (02:40→23:46)
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
[2017-09-05 06:32] LABS: Digoxin Level 1.68 ng/mL (0.80-2.00)
--- NOTE | 2017-09-05 06:34 | PCM.CONS.GEN ---
Reason for Consult Date of Consultation: 09/05/17 Reason for Consultation: Left hip pain History of Present Illness: The patient is a 67 year old M that presented to the emergency department from a extended care facility. Patient was sent there after hospitalization 08/18/2017. Patient has suffered several falls. He was admitted to the hospital previously in August because he had suffered jolly to his face when attempting to smoke while wearing his home oxygen. X-rays were obtained at that visit which were read as being negative. He was transferred to extended care facility on 08/23/2017. He has been unable to ambulate since that admission he denies any numbness in his leg and he continues to have severe leg discomfort. X-rays were obtained in the ER last night which reveal a femoral neck fracture. Patient was admitted to the hospital service and orthopedics was subsequently consulted. Prior to his hospitalization in early August patient did live at home and apartment alone uses a Rollator for ambulation. He does have multiple medical comorbidities Past Medical History Past Medical History (Chronic Problems): Chronic Problems (Last Updated 09/05/17 @ 04:05 by Ike Rosas DO) Stage 2 moderate COPD by GOLD classification (Chronic) FEV1 51% of predicted History of tonsillectomy (Chronic) History of inguinal hernia repair (Chronic) Depression (Chronic) Tobacco dependence due to cigarettes (Chronic) Severe malnutrition (Chronic) WHIT (obstructive sleep apnea) (Chronic) BiPAP 10/6 cm of water CAD (coronary artery disease) (Chronic) [facility]: 10/07/2010, 09/06/2015 HTN (hypertension) (Chronic) Paroxysmal atrial fibrillation (Chronic) HLD (hyperlipidemia) (Chronic) DM2 (diabetes mellitus, type 2) (Chronic) COPD (chronic obstructive pulmonary disease) (Chronic) Medical History: Medical History (Last Updated 09/05/17 @ 04:05 by Ike Rosas DO) Hypoglycemia (Resolved) E16.2 Fall (Resolved) W19.XXXA Depression (Chronic) F32.9 Chronic anticoagulation (Inactive) Z79.01 Esophageal spasm (Suspected) K22.4 Tobacco dependence due to cigarettes (Chronic) F17.210 Severe malnutrition (Chronic) E43 Hypokalemia (Resolved) E87.6 WHIT (obstructive sleep apnea) (Chronic) G47.33 BiPAP 10/6 cm of water CAD (coronary artery disease) (Chronic) I25.10 [facility]: 10/07/2010, 09/06/2015 HTN (hypertension) (Chronic) I10 Paroxysmal atrial fibrillation (Chronic) I48.0 HLD (hyperlipidemia) (Chronic) E78.5 Chest pain (Resolved) R07.9 DM2 (diabetes mellitus, type 2) (Chronic) E11.9 COPD (chronic obstructive pulmonary disease) (Chronic) J44.9 Dilated cardiomyopathy (Resolved) I42.0 Unspecified systolic (congestive) heart failure (Resolved) I50.20 Allergies Penicillins Allergy (Verified 09/04/17 22:34) Shortness of breath Home Medications: Ambulatory Orders Medication Instructions Recorded Digoxin 125 mcg PO DAILY 05/27/16 Levothyroxine [Synthroid] 75 mcg PO DAILY 05/27/16 Ranolazine [Ranexa] 500 mg PO BID 01/10/17 Mirtazapine 15 mg PO QHS 06/25/17 Citalopram [Celexa] 10 mg PO DAILY 08/20/17 Diltiazem CD [Cardizem CD] 180 mg PO DAILY 08/20/17 Pantoprazole Sodium [Protonix] 20 mg PO BID 08/20/17 Aspirin [Aspirin, Baby] 81 mg PO DAILY@0800 tab.chew 08/23/17 Polyethylene Glycol 3350 [Miralax] 17 gm PO DAILY packet 08/23/17 Argin/Glut/Cahmb/Collag/Mv-Min 1 each PO BID 09/05/17 [Wilfredo Packet] Bisacodyl 10 mg RC DAILY PRN PRN 09/05/17 Hydrocodone/Acetaminophen 1 - 2 each PO Q6H PRN PRN 09/05/17 [Hydrocodon-Acetaminophen 5-325] Linagliptin [Tradjenta] 5 mg PO DAILY 09/05/17 Magnesium Hydroxide [Milk of 30 ml PO PRN PRN 09/05/17 Magnesia] Mineral Oil 133 ml RC DAILY PRN PRN 09/05/17 Surgical History: Surgical History (Last Reviewed 07/27/17 @ 09:57 by Cherelle Foster NP-C) History of left heart catheterization (LHC) (Resolved) Z98.890 [facility]: 10/07/2010, 09/06/2015 History of tonsillectomy (Chronic) Z98.890, Z90.89 History of inguinal hernia repair (Chronic) Z98.890, Z87.19 Surgical History: herniorrhaphy, tonsillectomy Psychiatric History: No pertinent psych hx Lives: Snf Smoking Status: Current every day smoker Tobacco Use: Non-smoker Alcohol: None Drugs: None - *Family History Maternal Family History: Family History (Last Reviewed 07/27/17 @ 09:57 by NIC Gil) Father CAD (coronary artery disease) History Items: No pertinent history Paternal Family History: Family History (Last Reviewed 07/27/17 @ 09:57 by NIC Gil) Father CAD (coronary artery disease) History Items: - - Rheumatic heart disease Review of Systems Constitutional: Denies: Chills, Fever, Weight Change HEENT: Denies: Head Aches, Sinus Congestion, Sinus Drainage Cardiovascular: Denies: Chest Pain, Palpitations Respiratory: Reports: Shortness of breath upon exertion Gastrointestinal: Denies: Abdominal Pain, Nausea, Vomiting Genitourinary: Denies: Dysuria Musculoskeletal: Reports: - - Per history of present illness Skin: Reports: - - Burn on the face and left aspect of the neck Psychiatric: Reports: Depression Patient Problems: Active and Suspected Problems (Last Updated 09/05/17 @ 04:05 by Ike Rosas DO) Closed left hip fracture (Acute) - Physical Exam General: Alert, Oriented x3, Cooperative HEENT: Atraumatic, PERRLA, - - Healing wounds from jolly noted on his neck as well as face Neck: Supple Lungs: Diminished Cardiovascular: Regular rate Abdomen: Soft, Non Tender Skin: Burn Musculoskeletal: - - Patient's left lower extremity is shortened externally rotated. He has severe pain with any type of logroll. He is able to wiggle all of his toes. No calf pain is identified sensations preserved. Secondary survey is negative for pain in the right lower extremity and bilateral upper extremities Neurological: Cranial nerves II-XII grossly intact Vital Signs Temp Pulse Resp BP Pulse Ox 97.7 F L 79 18 150/70 H 96 09/05/17 02:28 09/05/17 02:28 09/05/17 02:28 09/05/17 02:28 09/05/17 02:28 Oxygen Flow Rate (L/min) 2 Oxygen Delivery Method Nasal Cannula Weight: 141 lb 1.533 oz Body Mass Index (BMI) 21.4 Intake and Output for Last 24 Hours 09/03/17 09/04/17 09/05/17 23:59 23:59 23:59 Intake Total 338 / 338 Output Total 450 / 450 Balance -112 / -112 Laboratory Tests Past 24 Hrs 09/05/17 09/05/17 05:30 05:30 Hemoglobin A1c Pending Digoxin 1.68 Assessment/Plan All Active Problems (Last Updated 09/05/17 @ 04:05 by Ike Rosas, DO) Closed left hip fracture (Acute) Failure to thrive (Resolved) ARF (acute renal failure) (Resolved) Dysphagia (Resolved) History of left heart catheterization (LHC) (Resolved) Hypoglycemia (Resolved) Fall (Resolved) Hypokalemia (Resolved) Chest pain (Resolved) COPD with exacerbation (Resolved) Dilated cardiomyopathy (Resolved) Lower extremity edema (Resolved) Overweight (Resolved) Unspecified systolic (congestive) heart failure (Resolved) Patient has suffered a femoral neck fracture. I did review the previous x-rays from his previous admission in my opinion of the fracture is easily identified at that point. This does appear to be basicervical. The fracture certainly much more obvious on these x-rays but certainly has been limiting his ability to ambulate and participate in rehabilitation. Given the patient's medical comorbidities feel that hemiarthroplasty would be appropriate for fixation. I discussed this with Ga at length and we will proceed with surgery today. Risks of surgery were discussed including but not limited to infection bleeding injury muscles tendons nerves ligaments failure surgery loss of life or limb
[2017-09-05 06:56] LABS: Bedside Glucose 106 mg/dL (70-110)
[2017-09-05 08:04] LABS: Hemoglobin A1c 6.3 % (4.2-6.3)
--- NOTE | 2017-09-05 10:21 | PCM.PN.HOSP ---
Patient Problems: Active and Suspected Problems (Last Updated 09/05/17 @ 04:05 by Ike Rosas DO) Closed left hip fracture (Acute) Subjective: Patient was seen and examined. He is having surgery today. No acute events overnight. Objective: Physical Exam General: Alert, Oriented x3, Cooperative, chronically ill, appears comfortable, sleepy HEENT: Atraumatic, PERRLA, EOMI, Normocephalic Oral: Moist Mucosa Neck: Supple, No JVD, Negative Carotid Bruits, No Nuchal Rigidity, Trachea Midline, Thyroid Normal Size and Texture, several open wounds on his left chin and left neck area from recent jolly, areas appears scabbed. Lungs: Clear to auscultation, No rhonchi, No wheeze, No rales, Diminished Cardiovascular: Regular rate, Regular Rhythm, Normal S1, Normal S2, No murmurs, PMI Normal, No rub noted, No Gallop, - - Frequent ectopic beats were noted Abdomen: Bowel Sounds Present, Soft, Non Tender, Non-Distended, No hernias noted Extremities: No clubbing, No cyanosis, No edema, Capillary Refill Less than 3 Seconds Skin: No rashes, Ulcer/ Wound - Patient has several open wounds on his left chin and left neck area from recent jolly, these appear to be abraded areas Musculoskeletal: Cachexia, Muscle Wasting, Tenderness - There is tenderness to palpation of the left hip area, there is decreased range of motion in flexion extension and abduction as well as abduction in the left hip Neurological: Cranial nerves II-XII grossly intact, Neuro grossly intact, Sensory exam intact to light touch and pain, Coordination normal Psych/Mental Status: Appropriate, Flat Affect, Alert and oriented to time, place, person, mood and affect Vitals/I&O's: Vital Signs Temp Pulse Resp BP Pulse Ox 97.4 F L 71 16 104/50 L 99 09/05/17 08:31 09/05/17 08:31 09/05/17 08:31 09/05/17 08:31 09/05/17 08:31 Oxygen Flow Rate (L/min) 2 Oxygen Delivery Method Room Air Weight: 64 kg Body Mass Index (BMI) 21.4 Intake and Output for Last 24 Hours 09/03/17 09/04/17 09/05/17 23:59 23:59 23:59 Intake Total 338 / 338 Output Total 450 / 450 Balance -112 / -112 Laboratory Results 09/05/17 05:30: Digoxin 1.68 09/05/17 05:30: Hemoglobin A1c 6.3 09/05/17 06:49: POC Glucose 106 Current Medications Hydrocodone Bitart/Acetaminophen ([place] 5mg-325mg) 1 - 2 tablet PO Q6H PRN PRN PRN Reason: PAIN Aspirin (Aspirin, Baby) 81 mg PO DAILY@0800 [facility] Last Admin: 09/05/17 08:40 Dose: Not Given Citalopram Hydrobromide (Celexa) 10 mg PO DAILY [facility] Last Admin: 09/05/17 08:41 Dose: Not Given Digoxin (Lanoxin) 125 mcg PO DAILY [facility] Last Admin: 09/05/17 08:41 Dose: Not Given Diltiazem HCl (Cardizem Cd) 180 mg PO DAILY [facility] Last Admin: 09/05/17 08:41 Dose: Not Given Heparin Sodium (Porcine) (Heparin Na) 5,000 unit SC Q8 [facility] Last Admin: 09/05/17 06:00 Dose: Not Given Sodium Chloride () 1,000 mls @ 100 mls/hr IV .Q10H [facility] Last Admin: 09/05/17 02:40 Dose: 100 mls/hr Clindamycin Phosphate 900 mg/ (Dextrose) 106 mls @ 212 mls/hr IV SEND TO OR W/PATIENT ONE Stop: 09/05/17 10:29 Insulin Human Lispro (Humalog Kwikpen (Bkc)) 0 unit SC ACHS [facility] PRN Reason: Protocol Last Admin: 09/05/17 06:54 Dose: Not Given Levothyroxine Sodium (Synthroid) 75 mcg PO DAILY@0600 [facility] Last Admin: 09/05/17 06:00 Dose: Not Given Linagliptin (Tradjenta) 5 mg PO DAILY [facility] Last Admin: 09/05/17 08:42 Dose: Not Given Mirtazapine (Remeron) 15 mg PO QHS [facility] Morphine Sulfate () 4 mg IV Q3H PRN PRN PRN Reason: SEVERE PAIN (6-10/10) Last Admin: 09/05/17 06:54 Dose: 4 mg Nutritional Formula (Wilfredo - [place] Flavor) 1 packet PO BID [facility] Last Admin: 09/05/17 08:41 Dose: Not Given Nutritional Formula (Lactose Free) (Glucerna Shake) 120 ml PO 4X/DAY [facility] Last Admin: 09/05/17 08:41 Dose: Not Given Ondansetron HCl (Zofran) 4 mg IV Q8H PRN PRN PRN Reason: NAUSEA Oxycodone HCl (Oxyir) 5 - 10 mg PO Q4H PRN PRN PRN Reason: MOD-SEVERE PAIN (4-10/10) Pantoprazole Sodium (Protonix) 20 mg PO BID [facility] Last Admin: 09/05/17 08:42 Dose: Not Given Polyethylene Glycol (Miralax) 17 gm PO DAILY [facility] Last Admin: 09/05/17 08:42 Dose: Not Given Ranolazine (Ranexa) 500 mg PO BID [facility] Last Admin: 09/05/17 08:42 Dose: Not Given Sodium Chloride () 5 - 30 ml IV UD PRN PRN Reason: SALINE FLUSH Medical Necessity - Tobacco Use Smoking Status: Current every day smoker Tobacco Use: Non-smoker Assessment/Plan All Active Problems (Last Updated 09/05/17 @ 04:05 by Ike Rosas DO) Closed left hip fracture (Acute) Failure to thrive (Resolved) ARF (acute renal failure) (Resolved) Dysphagia (Resolved) History of left heart catheterization (LHC) (Resolved) Hypoglycemia (Resolved) Fall (Resolved) Hypokalemia (Resolved) Chest pain (Resolved) COPD with exacerbation (Resolved) Dilated cardiomyopathy (Resolved) Lower extremity edema (Resolved) Overweight (Resolved) Unspecified systolic (congestive) heart failure (Resolved) 67 y/o female with COPD/CAD/Hypertension, Type 2M, Hyperlipidemia admitted from SNF with worsening left hip pain and found to have fracture of left hip. 1. Acute traumatic impacted fracture of left femoral neck, history of recurrent falls, undergoing a left hip hemiarthroplasty today, will follow up, on Mer[place] for pain control as well as morphine prn. 2. Chronic hypoxic/hypercapneic respiratory failure secondary to COPD, not in acute exacerbation, will continue as needed breathing treatments 3. CAD, last stress test on 06/13/2017, was normal, continue on aspirin, calcium channel blockers, ranolazine 4. Severe protein and caloric malnutrition, ruled out from nutrition notes, on nutritional supplements for poor po intake 5. Type 2 DM, A1c is 6.3, sugars are controlled, continue on Tradjenta, Accu-Cheks with insulin sliding scale 6. TYLER, patient baseline creatinine is around 1, admitted with Cr 1.38, on IV fluids, will trend BMP 7. Hypertension, controlled, continue with home regimen. 8. Paroxysmal atrial fibrillation, in NSR, on aspirin, calcium channel kenya, digoxin, digoxin level is 1.68 9. Anxiety/depression, on celexa 10. Hypothyroidism, on levothyroxine 11. DVT PPx - Heparin SC Code Visit Inpatient E&M: 80975 [facility] Hosp L3
[2017-09-05 11:05] LABS: Bedside Glucose 105 mg/dL (70-110)
--- NOTE | 2017-09-05 11:43 | NURSING ---
malikt down to surgery, report called to ac.
--- NOTE | 2017-09-05 12:21 | OP.PCM_ITS ---
Report of Operation Date of Procedure: 09/05/17 Pre-Operative Diagnosis: Left femoral neck fracture Post-Operative Diagnosis: Same Surgery/Procedure Performed:: Left hip hemiarthroplasty Description of Surgical Findings:: Left femoral neck fracture main galley scullion: Chaka Recio Type of Anesthesia:: General Anesthesiologist: Casper Radford Estimated Blood Loss (mL): 100 Fluids Replaced: See anesthesia report Description of Procedure: Implants: Margarita size 4 Accolade C 127? stem with 48 mm unipolar head standard offset cemented with Simplex Surgical indications: Patient has fracture of the left hip. Patient was cleared from a medical standpoint. The risks of the surgery were discussed with the patient and family at length Procedure description: The patient was greeted in the preoperative area the left hip was marked with surgical marker preoperative antibiotics administered. The patient was then taken to or suite in stable condition. Once the patient was placed in the supine position on the operating room table and once adequate anesthesia was obtained they were then placed in the lateral decubitus position with the surgical hip facing the field. All bony prominences were well -padded. A commercial hip position was utilized. The appropriate extremity was then prepped and draped in usual sterile fashion. Ioban was placed on the skin. Surgical timeout was performed and surgery was commenced. Standard anterolateral approach to the hip was then performed incision was planned and carried out with a #10 blade. Dissection was then carried length of the incision to the IT band which was split proximally and distally. A Charnley retractor was then placed for soft tissue retraction exposing the gluteus medius. The hip was then approached through a transgluteal approach and dislocated through an anterior capsulectomy. The incarcerated femoral head was removed and measured on the back table. Findings are consistent with a femoral neck fracture. A femoral osteotomy was then created approximately 1 fingerbreadth above the lesser trochanter. No significant abnormality of the acetabulum is identified. Any remaining tissue or bone was removed from the acetabulum Attention was then turned to the femoral preparation. The hip was placed in the 90/90 position and a lateralizing box osteotome was utilized. Femoral starting awl was used followed by sequential broaching to the appropriate size. At this point it was identified that the fracture did propagate into the lateral cortex of the femur therefore I did elect to cement the stem at this time. A no calcar reamer was used. Appropriate size broach was then placed and cement was mixed on the back table. Final implant was then cemented into place using second generation technique was unable to pressurize this secondary to the lack of some of the posterior cortex of the femur. Excess cement was removed with cement removal tools. The hip was then located and taken through full range of motion flexion internal and external rotation as well as extension. Excellent stability was noted no impingement was identified of the components and leg lengths appear to be appropriate. the trunnion was cleaned and dried meticulously in the appropriate size femoral head was placed on the clean dry trunnion using a 12/14 Garcia taper. The hip was once again relocated and again taken through full range of motion. Copious irrigation was performed. Anatomic closure of the gluteus medius and minimus was performed with #1 Vicryl [id number] type fashion followed by closure of the IT band with #1 Vicryl 0 Vicryl was utilized in subcutaneous tissue and surgical wilbur were placed in the skin. A well-padded nonadherent dressing was applied. Patient was taken to PACU in stable condition. No complications were identified. Will follow standard postop protocol for hemiarthroplasty. Patient must use assistive device for ambulation for approximately 6 weeks of the gluteal musculature heals. Physician [employer] assistant manager was integral in all portions of this procedure. They assisted with positioning the patient, draping the extremity, holding retractors , closing the wound, and applying the dressing. This was all done under my direct supervision. The physician [employer] assistant manager was essential for a successful, efficient surgery. - Complications None known - Admit VTE Documentation VTE Present on Admission: Yes VTE Mechan Device Prophylaxis: SCD's, Thigh High JAMARI Hose VTE Pharm Prophylaxis ordered?: Yes
[2017-09-05] MEDS: Bupivacaine Mpf 0.5% 30 ML VIAL (13:26)
--- NOTE | 2017-09-05 14:22 | EKG12_ITS ---
Test Reason : POSS ST ELEVATION Blood Pressure : / mmHG Vent. Rate : 081 BPM Atrial Rate : 081 BPM P-R Int : 152 ms QRS Dur : 094 ms QT Int : 346 ms P-R-T Axes : 069 061 067 degrees QTc Int : 401 ms Normal sinus rhythm Normal ECG When compared with ECG of 04-SEP-2017 23:13, MANUAL COMPARISON REQUIRED, DATA IS UNCONFIRMED Confirmed by JOSE HERNANDEZ, FRANCO ([id number]), metropolitan editor ZITA ROONEY ([id number]) on 09/07/2017 10:08:57 AM Referred By: KENDY Confirmed By:FRANCO GARCIA MD
--- NOTE | 2017-09-05 15:09 | SUR.PHASEI ---
Addendum entered by Keren Marin 09/05/17 15:31: DR BURNETTE AWARE THAT EKG WNL, PATIENT DENIES ANY C/O. Original Note: AT 1420 IN PACU, DR ANNE NOTIFIED THAT MCL LEAD ALARMING AND ST ELEVATION NOTED IN THAT LEAD ONLY. 12-LEAD EKG ORDERED.
[2017-09-05 16:16] LABS: Bedside Glucose 97 mg/dL (70-110)
[2017-09-05] MEDS: Glucerna Shake 120 ML LIQUID PO ×2 (17:26→21:47)
[2017-09-05] MEDS: oxyCODONE 5 MG Tablet PO ×2 (17:42→23:44)
[2017-09-05] MEDS: 0.9% NaCl Peripheral Flush Adult/Peds IV (20:34)
[2017-09-05] MEDS: Heparin Injection (Vial) 5,000 UNIT/ML VIAL 5000 UNIT SC (21:48)
[2017-09-05] MEDS: Mirtazapine 15 MG Tablet PO (21:49)
[2017-09-05] MEDS: Pantoprazole Sodium 20 MG Tablet PO (21:49)
[2017-09-05] MEDS: Ranolazine 500 MG Tablet PO (21:49)
[2017-09-05 21:55] LABS: Bedside Glucose 129 mg/dL (70-110)
[2017-09-06 02:03] VITALS: BP 120/54; PULSE 95; RESP 18; TEMP 36.7; O2SAT 98
[2017-09-06] MEDS: oxyCODONE 5 MG Tablet PO ×2 (03:47→21:22)
[2017-09-06] MEDS: Heparin Injection (Vial) 5,000 UNIT/ML VIAL 5000 UNIT SC ×3 (06:04→21:19)
[2017-09-06] MEDS: Levothyroxine 75 MCG Tablet PO (06:05)
[2017-09-06] MEDS: Morphine 4 MG/ML Syringe IV ×3 (06:05→23:36)
[2017-09-06] MEDS: 0.9% NaCl Peripheral Flush Adult/Peds IV (06:06)
[2017-09-06 06:14] LABS: Absolute Neutrophil Count 7.9 X10^3/uL (2.0-7.7); Basophil# 0.03 X10^3/uL; Basophil% 0.3 % (0-1); Eosinophil# 0.39 X10^3/uL; Eosinophils% 3.8 % (0-5); Hematocrit 28.8 % (40-54); Hemoglobin 8.9 g/dl (13.0-16.5); Lymphocyte % 9.7 % (19-41); Mean Corp Hgb Conc 30.9 g/gl (32-36); Mean Corpuscular Hgb 31.6 pg (27.0-32.0); Mean Corpuscular Volume 102.1 fL (80-94); Mean Platelet Vol. 9.8 fl (6.2-12.0); Monocyte# 0.99 X10^3/uL; Monocyte% 9.6 % (0-10); Neutrophil # 7.92 X10^3/uL (2.7-7.7); Neutrophil % 76.4 % (47-70); Platelet Count 363 K/mm3 (150-450); RBC Distribution Width CV 14.7 % (11.6-14.6); RBC Distribution Width SD 53.1 fl (35.1-43.9); Red Blood Count 2.82 M/mm3 (4.6-6.2); White Blood Count 10.4 K/mm3 (4.4-11.0)
[2017-09-06 06:22] LABS: POSITIVE COUNT NO; POSITIVE DIFFERENTIAL NO; POSITIVE MORPHOLOGY NO
[2017-09-06 06:29] LABS: Anion Gap 6 (5-15); BUN 26 mg/dL (7-18); BUN/Creat Ratio 24.5 RATIO (10-20); Calcium,Total 8.2 mg/dL (8.5-10.1); Chloride 101 mmol/L (98-107); Creatinine, Serum 1.06 mg/dL (0.70-1.30); EST Glomerular Filtration Rate 74 mL/min (>60); Est Glom Filt Rate - Afr Amer 89 mL/min (>60); Estimated Creatinine Clearance 60.38 ml/min; Glucose 147 mg/dL (74-106); Potassium 4.7 mmol/L (3.5-5.1); Sodium Level 137 mmol/L (136-145)
[2017-09-06 06:45] LABS: Bedside Glucose 154 mg/dL (70-110)
[2017-09-06] MEDS: Insulin Lispro 100 UNIT/ML INSULN.PEN SC ×4 (06:45→21:19)
[2017-09-06 07:08] VITALS: O2SAT 98
--- NOTE | 2017-09-06 07:48 | PCM.PN.ORT ---
Patient Problems: Active and Suspected Problems (Last Updated 09/05/17 @ 04:05 by Ike Rosas DO) Closed left hip fracture (Acute) Subjective: Patient sitting up in bed, awake. Pain well managed. Denies chest pain, shortness breath, calf pain, nausea vomiting. Objective: Dressings clean dry intact. Negative signs symptoms of DVT. Vital signs labs within normal limits. Patient is afebrile neurovascular is intact. - Physical Exam General: Alert Vital Signs Temp Pulse Resp BP Pulse Ox 98.1 F 95 18 120/54 L 98 09/06/17 02:03 09/06/17 02:03 09/06/17 02:03 09/06/17 02:03 09/06/17 07:08 Oxygen Flow Rate (L/min) 3 Oxygen Delivery Method Nasal Cannula Weight: 64 kg Body Mass Index (BMI) 21.4 Finger Stick Blood Glucose 219 Intake and Output for Last 24 Hours 09/04/17 09/05/17 09/06/17 23:59 23:59 23:59 Intake Total 3346 / 3346 739 / 739 Output Total 1500 / 1500 250 / 250 Balance 1846 / 1846 489 / 489 Laboratory Tests Past 24 Hrs 09/05/17 09/06/17 09/06/17 05:30 05:36 05:36 WBC 10.4 RBC 2.82 L Hgb 8.9 L Hct 28.8 L MCV 102.1 H MCH 31.6 MCHC 30.9 L RDW 14.7 H RDW Differential 53.1 H Plt Count 363 MPV 9.8 Immature Gran % (Auto) 0.200 Neut % (Auto) 76.4 H Lymph % (Auto) 9.7 L [place] % (Auto) 9.6 Eos % (Auto) 3.8 Baso % (Auto) 0.3 Absolute Neuts (auto) 7.9 H Absolute Lymphs (auto) 1.00 Total Counted Not Reportable Sodium 137 Potassium 4.7 Chloride 101 Carbon Dioxide 30.0 Anion Gap 6 BUN 26 H Creatinine 1.06 Estim Creat Clear Calc 60.38 Est GFR (MDRD) Af Amer 89 Est GFR (MDRD) Non-Af 74 BUN/Creatinine Ratio 24.5 H Glucose 147 H Hemoglobin A1c 6.3 Calcium 8.2 L POC Glucose 09/06/17 09/05/17 09/05/17 06:40 21:44 16:08 POC Glucose 154 H 129 H 97 09/05/17 10:59 POC Glucose 105 Medical Necessity - Tobacco Use Smoking Status: Current every day smoker Tobacco Use: Non-smoker Assessment/Plan All Active Problems (Last Updated 09/05/17 @ 04:05 by Ike Rosas DO) Closed left hip fracture (Acute) Failure to thrive (Resolved) ARF (acute renal failure) (Resolved) Dysphagia (Resolved) History of left heart catheterization (LHC) (Resolved) Hypoglycemia (Resolved) Fall (Resolved) Hypokalemia (Resolved) Chest pain (Resolved) COPD with exacerbation (Resolved) Dilated cardiomyopathy (Resolved) Lower extremity edema (Resolved) Overweight (Resolved) Unspecified systolic (congestive) heart failure (Resolved) Status post left hip hemiarthroplasty Plan 1. Continue all pain medications as prescribed 2. Begin physical therapy today, weight-bear as tolerated, with walker.] 3. Continue anticoagulation as directed by medicine 4. Encourage incentive spirometry 5. Discharge to extended-care facility when cleared by medicine
[2017-09-06 08:00] VITALS: BP 121/50; PULSE 77; RESP 16; TEMP 37.1; O2SAT 98
--- NOTE | 2017-09-06 08:02 | PN_ITS ---
Patient Problems: Active and Suspected Problems (Last Updated 09/05/17 @ 04:05 by Ike Rosas DO) Closed left hip fracture (Acute) Subjective: Patient was seen and examined. He complains of pain in his left hip. No acute events overnight. He has been sleeping most of the time. He is yet to be seen by physical and Occupational Therapy. Objective: Physical Exam General: Alert, Oriented x3, cooperative, chronically ill, appears comfortable, sleepy HEENT: Atraumatic, PERRLA, EOMI, Normocephalic Oral: Moist Mucosa Neck: Supple, No JVD, Negative Carotid Bruits, No Nuchal Rigidity, Trachea Midline, Thyroid Normal Size and Texture, several open wounds on his left chin and left neck area from recent jolly, areas appears scabbed. Lungs: Clear to auscultation, No rhonchi, No wheeze, No rales, Diminished Cardiovascular: Regular rate, Regular Rhythm, Normal S1, Normal S2, No murmurs, PMI Normal, No rub noted, No Gallop, - - Frequent ectopic beats were noted Abdomen: Bowel Sounds Present, Soft, Non Tender, Non-Distended, No hernias noted Extremities: No clubbing, No cyanosis, No edema, Capillary Refill Less than 3 Seconds Skin: No rashes, Ulcer/ Wound - Patient has several open wounds on his left chin and left neck area from recent jolly, these appear to be abraded areas Musculoskeletal: Cachexia, Muscle Wasting, Tenderness - There is tenderness to palpation of the left hip area, there is decreased range of motion in flexion extension and abduction as well as abduction in the left hip Neurological: Cranial nerves II-XII grossly intact, Neuro grossly intact, Sensory exam intact to light touch and pain, Coordination normal Psych/Mental Status: Appropriate, Flat Affect, Alert and oriented to time, place , person, mood and affect Vitals/I&O's: Vital Signs Temp Pulse Resp BP Pulse Ox 98.1 F 95 18 120/54 L 98 09/06/17 02:03 09/06/17 02:03 09/06/17 02:03 09/06/17 02:03 09/06/17 07:08 Oxygen Flow Rate (L/min) 3 Oxygen Delivery Method Nasal Cannula Weight: 64 kg Body Mass Index (BMI) 21.4 Finger Stick Blood Glucose 219 Intake and Output for Last 24 Hours 09/04/17 09/05/17 09/06/17 23:59 23:59 23:59 Intake Total 3346 / 3346 739 / 739 Output Total 1500 / 1500 250 / 250 Balance 1846 / 1846 489 / 489 Laboratory Results 09/05/17 05:30: Hemoglobin A1c 6.3 09/05/17 10:59: POC Glucose 105 09/05/17 16:08: POC Glucose 97 09/05/17 21:44: POC Glucose 129 H 09/06/17 05:36: WBC 10.4, RBC 2.82 L, Hgb 8.9 L, Hct 28.8 L, MCV 102.1 H, MCH 31.6, MCHC 30.9 L, RDW 14.7 H, RDW Differential 53.1 H, Plt Count 363, MPV 9.8, Immature Gran % (Auto) 0.200, Neut % (Auto) 76.4 H, Lymph % (Auto) 9.7 L, [place] % (Auto) 9.6, Eos % (Auto) 3.8, Baso % (Auto) 0.3, Absolute Neuts (auto) 7.9 H, Absolute Lymphs (auto) 1.00, Total Counted Not Reportable 09/06/17 05:36: Sodium 137, Potassium 4.7, Chloride 101, Carbon Dioxide 30.0, Anion Gap 6, BUN 26 H, Creatinine 1.06, Estim Creat Clear Calc 60.38, Est GFR ( MDRD) Af Amer 89, Est GFR (MDRD) Non-Af 74, BUN/Creatinine Ratio 24.5 H, Glucose 147 H, Calcium 8.2 L 09/06/17 06:40: POC Glucose 154 H Current Medications Hydrocodone Bitart/Acetaminophen ([place] 5mg-325mg) 1 - 2 tablet PO Q6H PRN PRN PRN Reason: PAIN Aspirin (Aspirin, Baby) 81 mg PO DAILY@0800 [facility] Last Admin: 09/05/17 08:40 Dose: Not Given Citalopram Hydrobromide (Celexa) 10 mg PO DAILY [facility] Last Admin: 09/05/17 08:41 Dose: Not Given Digoxin (Lanoxin) 125 mcg PO DAILY [facility] Last Admin: 09/05/17 08:41 Dose: Not Given Diltiazem HCl (Cardizem Cd) 180 mg PO DAILY [facility] Last Admin: 09/05/17 08:41 Dose: Not Given Heparin Sodium (Porcine) (Heparin Na) 5,000 unit SC Q8 [facility] Last Admin: 09/06/17 06:04 Dose: 5,000 unit Sodium Chloride () 1,000 mls @ 100 mls/hr IV .Q10H [facility] Last Admin: 09/05/17 23:46 Dose: 100 mls/hr Insulin Human Lispro (Humalog Kwikpen (Bkc)) 0 unit SC ACHS [facility] PRN Reason: Protocol Last Admin: 09/06/17 06:45 Dose: 2 units Levothyroxine Sodium (Synthroid) 75 mcg PO DAILY@0600 [facility] Last Admin: 09/06/17 06:05 Dose: 75 mcg Linagliptin (Tradjenta) 5 mg PO DAILY [facility] Last Admin: 09/05/17 08:42 Dose: Not Given Mirtazapine (Remeron) 15 mg PO QHS [facility] Last Admin: 09/05/17 21:49 Dose: 15 mg Morphine Sulfate () 4 mg IV Q3H PRN PRN PRN Reason: SEVERE PAIN (6-10/10) Last Admin: 09/06/17 06:05 Dose: 4 mg Nutritional Formula (Wilfredo - [place] Flavor) 1 packet PO BID [facility] Last Admin: 09/05/17 21:47 Dose: 1 packet Nutritional Formula (Lactose Free) (Glucerna Shake) 120 ml PO 4X/DAY [facility] Last Admin: 09/05/17 21:47 Dose: 120 ml Ondansetron HCl (Zofran) 4 mg IV Q8H PRN PRN PRN Reason: NAUSEA Oxycodone HCl (Oxyir) 5 - 10 mg PO Q4H PRN PRN PRN Reason: MOD-SEVERE PAIN (4-10/10) Last Admin: 09/06/17 03:47 Dose: 10 mg Pantoprazole Sodium (Protonix) 20 mg PO BID [facility] Last Admin: 09/05/17 21:49 Dose: 20 mg Polyethylene Glycol (Miralax) 17 gm PO DAILY [facility] Last Admin: 09/05/17 08:42 Dose: Not Given Ranolazine (Ranexa) 500 mg PO BID [facility] Last Admin: 09/05/17 21:49 Dose: 500 mg Sodium Chloride () 5 - 30 ml IV UD PRN PRN Reason: SALINE FLUSH Last Admin: 09/06/17 06:06 Dose: 5 ml Medical Necessity - Tobacco Use Smoking Status: Current every day smoker Tobacco Use: Non-smoker Assessment/Plan All Active Problems (Last Updated 09/05/17 @ 04:05 by Ike Rosas DO) Closed left hip fracture (Acute) Failure to thrive (Resolved) ARF (acute renal failure) (Resolved) Dysphagia (Resolved) History of left heart catheterization (LHC) (Resolved) Hypoglycemia (Resolved) Fall (Resolved) Hypokalemia (Resolved) Chest pain (Resolved) COPD with exacerbation (Resolved) Dilated cardiomyopathy (Resolved) Lower extremity edema (Resolved) Overweight (Resolved) Unspecified systolic (congestive) heart failure (Resolved) 67 y/o male with PMHXCOPD/CAD/Hypertension, Type 2M, Hyperlipidemia admitted from SNF with worsening left hip pain and found to have fracture of left hip. 1. Acute traumatic impacted fracture of left femoral neck, history of recurrent falls, s/p left hip hemiarthroplasty POD#1, Pain is fairly controlled, will continue on [place] and morphine as needed 2. Acute postop anemia with a component of hemodilution, hemoglobin is 8.9 from 10.3, will start patient on p.o. iron as well as folic acid, trend hemoglobin 3. Chronic hypoxic/hypercapneic respiratory failure secondary to COPD, not in acute exacerbation, will continue as needed breathing treatments 4. CAD, last stress test on 06/13/2017 was normal, continue on aspirin, calcium channel blockers, ranolazine 5. Type 2 DM, A1c is 6.3, sugars are controlled, continue on Tradjenta, Accu- Cheks with insulin sliding scale 6. TYLER, patient baseline creatinine is around 1, admitted with Cr 1.38, creatinine is improved to 1.06, almost at baseline, will decrease IV fluids with eventual stopping of IV fluids tomorrow. 7. Hypertension, controlled, continue with home regimen. 8. Paroxysmal atrial fibrillation, in NSR, on aspirin, calcium channel kenya, digoxin, digoxin level is 1.68 9. Anxiety/depression, on celexa 10. Hypothyroidism, on levothyroxine 11. DVT PPx - Heparin SC 12. Disposition: DC to SNF when bed is available. Code Visit Inpatient E&M: 83996 Subs Hosp L2
[2017-09-06 08:46] VITALS: PULSE 83
[2017-09-06] MEDS: 0.9% Normal Saline 1,000 ML 100 ML IV (08:46)
[2017-09-06] MEDS: Citalopram 10 MG Tablet PO (08:46)
[2017-09-06] MEDS: Digoxin 125 MCG Tablet PO (08:46)
[2017-09-06] MEDS: Aspirin 81 MG TAB.CHEW PO (08:46)
[2017-09-06] MEDS: dilTIAZem CD 180 MG Capsule PO (08:46)
[2017-09-06] MEDS: Polyethylene Glycol 3350 17 GM PACKET PO (08:48)
[2017-09-06] MEDS: Ranolazine 500 MG Tablet PO ×2 (08:48→21:21)
[2017-09-06] MEDS: Pantoprazole Sodium 20 MG Tablet PO ×2 (08:48→21:21)
[2017-09-06] MEDS: LINAGLIPTIN 5 MG TABLET PO (08:48)
[2017-09-06] MEDS: Glucerna Shake 120 ML LIQUID PO ×4 (08:48→21:18)
--- NOTE | 2017-09-06 09:05 | CASEMGMT ---
Addendum entered by Margarita Lee 09/06/17 12:35: ROSANA met with pt. Pt confirms that he is from [place] and is agreeable to returning to [place] at discharge. ROSANA faxed clinicals to Brianne at [facility]. Original Note: Social Work Note Pt came from [place]. ROSANA placed a call to Brianne at [facility]. Per Brianne pt will need pre-cert to return to [place] at discharge. ROSANA updated Brianne that PT/OT will see pt today and that this worker can fax clinicals when available. Brianne states understanding. Plan: Return to [place] pending pre-cert Margarita Lee FARM IMPLEMENT ENGINE MECHANIC, CASTING MACHINE SERVICE OPERATOR
[2017-09-06] MEDS: HYDROcodone Bitartrate/Apap 5/325 Tablet PO (12:11)
[2017-09-06 12:25] LABS: Bedside Glucose 176 mg/dL (70-110)
[2017-09-06 16:19] VITALS: BP 128/54; PULSE 89; RESP 18; TEMP 36.9; O2SAT 93
[2017-09-06 16:21] LABS: Bedside Glucose 199 mg/dL (70-110)
--- NOTE | 2017-09-06 16:53 | CHAPLAIN ---
Type of Pastoral Visit _x__ Initial Visit ___ Follow-up Visit ___ On-call Visit ___ General Patient Visit ___ Spiritual Assessment ___ Family Conference ___ Bereavement ___ Rapid Response ___ Code Blue ___ Other (describe below) Pastoral Care Referral From _x__ Patient ___ Family ___ Nurse ___ Physician ___ Helper Electrical ___ Brand Sales Consultant ___ Other (describe below) Sacrament/Intervention _x__ Active listening ___ Anointing ___ Moravian ___ Bereavement ___ Communion ___ Manuela exploration ___ ___ Life review ___ Prayer ___ Reconciliation ___ Sacrament of Sick ___ Supportive presence ___ Wedding ___ Other (describe below) Pastoral Comments
[2017-09-06] MEDS: Ferrous Sulfate 325 MG Tablet PO (17:43)
[2017-09-06] MEDS: 0.9% Normal Saline 1,000 ML 50 ML IV (17:47)
--- NOTE | 2017-09-06 19:30 | RAD_ITS ---
STUDY: X-RAY - PELVIS AND LEFT HIP REASON FOR EXAM: Male, 67 years old. Postop TECHNIQUE: Radiological exam, hip, unilateral, with pelvis when performed; 2 or 3 views. COMPARISON: None. FINDINGS: Left hip prosthesis has been placed in anatomic alignment and position.. There are surgical clips in the soft tissues at the operative site.. RAD/Hip Min 2 Views (Portable) IMPRESSION: Status post left hip prosthesis placement Electronically Signed: Eliel Schmitz MD at 19:57 EDT , Service support ,
--- NOTE | 2017-09-06 19:40 | NURSING ---
Dr. Waite called in to see why the xray he had ordered for this am had not yet been completed. The xray techs just happened to be walking by just after our conversation, and I asked them about the situation. They stated that day shift thought the pt was going to surgery because the order stated the reason for the xray was postop. They just completed the xray.
[2017-09-06 20:49] VITALS: BP 140/53; PULSE 99; RESP 16; TEMP 36.8; O2SAT 100
[2017-09-06] MEDS: Mirtazapine 15 MG Tablet PO (21:21)
[2017-09-06 22:11] LABS: Bedside Glucose 207 mg/dL (70-110)
[2017-09-07] VITALS (7 sets, daily range): BP systolic 114–120; BP diastolic 51–60; PULSE 76–106; RESP 18–23; TEMP 36.8–37; O2SAT 96–98
[2017-09-07] MEDS: oxyCODONE 5 MG Tablet PO ×2 (02:32→15:01)
[2017-09-07] MEDS: Heparin Injection (Vial) 5,000 UNIT/ML VIAL 5000 UNIT SC ×2 (05:53→13:46)
[2017-09-07] MEDS: Levothyroxine 75 MCG Tablet PO (05:54)
[2017-09-07 06:00] LABS: Anion Gap 4 (5-15); BUN 31 mg/dL (7-18); BUN/Creat Ratio 31.4 RATIO (10-20); Calcium,Total 8.2 mg/dL (8.5-10.1); Chloride 102 mmol/L (98-107); Creatinine, Serum 0.99 mg/dL (0.70-1.30); EST Glomerular Filtration Rate 80 mL/min (>60); Est Glom Filt Rate - Afr Amer 97 mL/min (>60); Estimated Creatinine Clearance 64.65 ml/min; Glucose 160 mg/dL (74-106); Potassium 4.9 mmol/L (3.5-5.1); Sodium Level 139 mmol/L (136-145)
[2017-09-07 06:02] LABS: Absolute Lymphocyte Count 1.51 X10^3/ul (0.83-4.51); Absolute Neutrophil Count 9.4 X10^3/uL (2.0-7.7); Basophil# 0.05 X10^3/uL; Basophil% 0.4 % (0-1); Eosinophil# 0.48 X10^3/uL; Eosinophils% 3.7 % (0-5); Hematocrit 25.2 % (40-54); Hemoglobin 7.8 g/dl (13.0-16.5); Lymphocyte # 1.51 X10^3/ul (4.0); Lymphocyte % 11.5 % (19-41); Mean Corpuscular Hgb 30.7 pg (27.0-32.0); Mean Corpuscular Volume 99.2 fL (80-94); Mean Platelet Vol. 9.5 fl (6.2-12.0); Monocyte# 1.69 X10^3/uL; Monocyte% 12.9 % (0-10); Neutrophil # 9.39 X10^3/uL (2.7-7.7); Neutrophil % 71.3 % (47-70); Platelet Count 334 K/mm3 (150-450); RBC Distribution Width CV 15.1 % (11.6-14.6); RBC Distribution Width SD 54.2 fl (35.1-43.9); Red Blood Count 2.54 M/mm3 (4.6-6.2); White Blood Count 13.2 K/mm3 (4.4-11.0)
[2017-09-07 06:03] LABS: Differential Indicated SCAN CRITERIA MET; POSITIVE COUNT NO; POSITIVE DIFFERENTIAL YES; POSITIVE MORPHOLOGY NO
[2017-09-07 06:23] LABS: Differential Comment SCANNED
[2017-09-07] MEDS: Insulin Lispro 100 UNIT/ML INSULN.PEN SC ×2 (06:37→16:15)
[2017-09-07 06:50] LABS: Bedside Glucose 157 mg/dL (70-110)
[2017-09-07] MEDS: Morphine 4 MG/ML Syringe IV (06:55)
--- NOTE | 2017-09-07 07:52 | PN_ITS ---
Patient Problems: Active and Suspected Problems (Last Updated 09/05/17 @ 04:05 by Ike Rosas DO) Closed left hip fracture (Acute) Subjective: Patient was seen and examined. He is sleeping. Per nurses, he has been asking for pain meds round the clock. Denies chest pain, dizziness. Remains on his 3L oxygen. Objective: Physical Exam General: Alert, Oriented x3, cooperative, chronically ill, appears comfortable, sleepy HEENT: Atraumatic, PERRLA, EOMI, Normocephalic Oral: Moist Mucosa Neck: Supple, No JVD, Negative Carotid Bruits, No Nuchal Rigidity, Trachea Midline, Thyroid Normal Size and Texture, several open wounds on his left chin and left neck area from recent jolly, areas appears scabbed. Lungs: Clear to auscultation, No rhonchi, No wheeze, No rales, Diminished Cardiovascular: Regular rate, Regular Rhythm, Normal S1, Normal S2, No murmurs, PMI Normal, No rub noted, No Gallop, - - Frequent ectopic beats were noted Abdomen: Bowel Sounds Present, Soft, Non Tender, Non-Distended, No hernias noted Extremities: No clubbing, No cyanosis, No edema, Capillary Refill Less than 3 Seconds Skin: No rashes, Ulcer/ Wound - Patient has several open wounds on his left chin and left neck area from recent jolly, these appear to be abraded areas Musculoskeletal: Cachexia, Muscle Wasting, Tenderness - There is tenderness to palpation of the left hip area, there is decreased range of motion in flexion extension and abduction as well as abduction in the left hip Neurological: Cranial nerves II-XII grossly intact, Neuro grossly intact, Sensory exam intact to light touch and pain, Coordination normal Psych/Mental Status: Appropriate, Flat Affect, Alert and oriented to time, place , person, mood and affect Vitals/I&O's: Vital Signs Temp Pulse Resp BP Pulse Ox 98.5 F 100 18 117/53 L 96 09/07/17 03:00 09/07/17 03:00 09/07/17 03:00 09/07/17 03:00 09/07/17 07:15 Oxygen Flow Rate (L/min) 3 Oxygen Delivery Method Nasal Cannula Weight: 64 kg Body Mass Index (BMI) 21.4 Finger Stick Blood Glucose 219 Intake and Output for Last 24 Hours 0609/06/17 09/07/17 23:59 23:59 23:59 Intake Total 3346 / 3346 2224 / 2224 1106 / 1106 Output Total 1500 / 1500 550 / 550 Balance 1846 / 1846 1674 / 1674 1106 / 1106 Laboratory Results 09/06/17 12:03: POC Glucose 176 H 09/06/17 16:09: POC Glucose 199 H 09/06/17 21:16: POC Glucose 207 H 09/07/17 05:15: WBC 13.2 H, RBC 2.54 L, Hgb 7.8 L, Hct 25.2 L, MCV 99.2 H, MCH 30.7, MCHC 31.0 L, RDW 15.1 H, RDW Differential 54.2 H, Plt Count 334, MPV 9.5, Immature Gran % (Auto) 0.200, Neut % (Auto) 71.3 H, Lymph % (Auto) 11.5 L, [place] % (Auto) 12.9 H, Eos % (Auto) 3.7, Baso % (Auto) 0.4, Absolute Neuts (auto) 9.4 H, Absolute Lymphs (auto) 1.51, Total Counted Not Reportable, Differential Comment SCANNED 09/07/17 05:15: Sodium 139, Potassium 4.9, Chloride 102, Carbon Dioxide 33.0 H, Anion Gap 4 L, BUN 31 H, Creatinine 0.99, Estim Creat Clear Calc 64.65, Est GFR (MDRD) Af Amer 97, Est GFR (MDRD) Non-Af 80, BUN/Creatinine Ratio 31.4 H, Glucose 160 H, Calcium 8.2 L 09/07/17 06:35: POC Glucose 157 H Current Medications Hydrocodone Bitart/Acetaminophen ([place] 5mg-325mg) 1 - 2 tablet PO Q6H PRN PRN PRN Reason: PAIN Last Admin: 09/06/17 12:11 Dose: 2 tablet Aspirin (Aspirin, Baby) 81 mg PO DAILY@0800 [facility] Last Admin: 09/06/17 08:46 Dose: 81 mg Citalopram Hydrobromide (Celexa) 10 mg PO DAILY [facility] Last Admin: 09/06/17 08:46 Dose: 10 mg Digoxin (Lanoxin) 125 mcg PO DAILY [facility] Last Admin: 09/06/17 08:46 Dose: 125 mcg Diltiazem HCl (Cardizem Cd) 180 mg PO DAILY [facility] Last Admin: 09/06/17 08:46 Dose: 180 mg [facility]ous [facility] Last Admin: 09/06/17 17:43 Dose: 325 mg Folic Acid (Folic Acid) 1 mg PO DAILY@0800 [facility] Heparin Sodium (Porcine) (Heparin Na) 5,000 unit SC Q8 [facility] Last Admin: 09/07/17 05:53 Dose: 5,000 unit Insulin Human Lispro (Humalog Kwikpen (Bkc)) 0 unit SC ACHS [facility] PRN Reason: Protocol Last Admin: 09/07/17 06:37 Dose: 2 units Levothyroxine Sodium (Synthroid) 75 mcg PO DAILY@0600 [facility] Last Admin: 09/07/17 05:54 Dose: 75 mcg Linagliptin (Tradjenta) 5 mg PO DAILY [facility] Last Admin: 09/06/17 08:48 Dose: 5 mg Mirtazapine (Remeron) 15 mg PO QHS [facility] Last Admin: 09/06/17 21:21 Dose: 15 mg Morphine Sulfate () 4 mg IV Q3H PRN PRN PRN Reason: SEVERE PAIN (6-10/10) Last Admin: 09/07/17 06:55 Dose: 4 mg [facility]ivit[facility]amin) [facility] Nutritional Formula (Wilfredo - Maverick Flavor) 1 packet PO BID [facility] Last Admin: 09/06/17 21:20 Dose: 1 packet Nutritional Formula (Lactose Free) (Glucerna Shake) 120 ml PO 4X/DAY [facility] Last Admin: 09/06/17 21:18 Dose: 120 ml Ondansetron HCl (Zofran) 4 mg IV Q8H PRN PRN PRN Reason: NAUSEA Oxycodone HCl (Oxyir) 5 - 10 mg PO Q4H PRN PRN PRN Reason: MOD-SEVERE PAIN (4-10/10) Last Admin: 09/07/17 02:32 Dose: 10 mg Pantoprazole Sodium (Protonix) 20 mg PO BID [facility] Last Admin: 09/06/17 21:21 Dose: 20 mg Polyethylene Glycol (Miralax) 17 gm PO DAILY [facility] Last Admin: 09/06/17 08:48 Dose: 17 gm Ranolazine (Ranexa) 500 mg PO BID [facility] Last Admin: 09/06/17 21:21 Dose: 500 mg Sodium Chloride () 5 - 30 ml IV UD PRN PRN Reason: SALINE FLUSH Last Admin: 09/06/17 06:06 Dose: 5 ml Medical Necessity - Tobacco Use Smoking Status: Current every day smoker Tobacco Use: Non-smoker Assessment/Plan All Active Problems (Last Updated 09/05/17 @ 04:05 by Ike Rosas, ) Closed left hip fracture (Acute) Failure to thrive (Resolved) ARF (acute renal failure) (Resolved) Dysphagia (Resolved) History of left heart catheterization (LHC) (Resolved) Hypoglycemia (Resolved) Fall (Resolved) Hypokalemia (Resolved) Chest pain (Resolved) COPD with exacerbation (Resolved) Dilated cardiomyopathy (Resolved) Lower extremity edema (Resolved) Overweight (Resolved) Unspecified systolic (congestive) heart failure (Resolved) 67 y/o male with PMHX of COPD/CAD/Hypertension, Type 2M, Hyperlipidemia admitted from SNF with worsening left hip pain and found to have fracture of left hip. 1. POD#2 for acute traumatic impacted fracture of left femoral neck, history of recurrent falls, s/p left hip hemiarthroplasty, pain is controlled, and is lethargic, will DC [place], continue on oxycodone 5 mg p.o. every 4 hours, decrease dose of morphine to 1 mg IV every 3, encourage use of incentive spirometer 2. Acute postop anemia with a component of hemodilution, hemoglobin is 7.8, no acute source of bleeding, repeat H&H at 12 noon, continue on p.o. iron 3. Chronic hypoxic/hypercapneic respiratory failure secondary to COPD, not in acute exacerbation, will continue as needed breathing treatments, continue incentive spirometer. 4. CAD, last stress test on 06/13/2017 was normal, continue on aspirin, calcium channel blockers, ranolazine 5. Type 2 DM, A1c is 6.3, sugars are controlled, continue on Tradjenta, Accu- Cheks with insulin sliding scale 6. TYLER, patient baseline creatinine is around 1, admitted with Cr 1.38, resolved 7. Hypertension, controlled, continue with home regimen. 8. Paroxysmal atrial fibrillation, in NSR, on aspirin, calcium channel ken[place], digoxin, digoxin level is 1.68 9. Anxiety/depression, on celexa 10. Hypothyroidism, on levothyroxine 11. DVT PPx - Heparin SC 12. Disposition: DC to SNF when bed is available. Code Visit Inpatient E&M: 79175 Subs Hosp L2
[2017-09-07] MEDS: Multivitamins,Therapeutic Tablet 1 TABLET PO (08:50)
[2017-09-07] MEDS: Ferrous Sulfate 325 MG Tablet PO ×2 (08:50→16:16)
[2017-09-07] MEDS: Aspirin 81 MG TAB.CHEW PO (08:50)
[2017-09-07] MEDS: Folic Acid 1 MG Tablet PO (08:50)
[2017-09-07] MEDS: Citalopram 10 MG Tablet PO (09:08)
[2017-09-07] MEDS: dilTIAZem CD 180 MG Capsule PO (09:08)
[2017-09-07] MEDS: Ranolazine 500 MG Tablet PO (09:09)
[2017-09-07] MEDS: Polyethylene Glycol 3350 17 GM PACKET PO (09:09)
[2017-09-07] MEDS: Pantoprazole Sodium 20 MG Tablet PO (09:09)
[2017-09-07] MEDS: Digoxin 125 MCG Tablet PO (09:09)
[2017-09-07] MEDS: LINAGLIPTIN 5 MG TABLET PO (09:09)
--- NOTE | 2017-09-07 09:10 | CASEMGMT ---
Addendum entered by Margarita Lee 09/07/17 13:22: ROSANA placed a call to Brianne at [facility] asking for update. Brianne states that she submitted updated clinicals and is waiting to hear from pt's insurance. Original Note: Social Work Note ROSANA faxed updated clinicals to Brianne at [facility]. Plan: [facility] pending pre-cert Margarita Lee [employer]
[2017-09-07] MEDS: Glucerna Shake 120 ML LIQUID PO ×2 (09:12→13:46)
[2017-09-07] MEDS: Ipratropium/Albuterol Sulfate 3 ML AMPUL.NEB INHALATION (09:20)
[2017-09-07 11:16] LABS: Bedside Glucose 142 mg/dL (70-110)
--- NOTE | 2017-09-07 11:44 | PCM.PN.ORT ---
Patient Problems: Active and Suspected Problems (Last Updated 09/05/17 @ 04:05 by Ike Rosas DO) Closed left hip fracture (Acute) Subjective: Patient sitting in chair at bedside sleeping. Patient easy to awake. Patient states pain is well-managed. No other complaints, denies chest pain, shortness breath, calf pain, or nausea vomiting. Objective: Dressings clean dry intact no calf tenderness negative signs symptoms of DVT good plantar flexion dorsiflexion of the operative right leg. Vital signs within normal limits. - Physical Exam General: Alert Vital Signs Temp Pulse Resp BP Pulse Ox 98.2 F 106 H 23 H 120/51 L 96 09/07/17 08:43 09/07/17 09:23 09/07/17 09:23 09/07/17 08:43 09/07/17 08:43 Oxygen Flow Rate (L/min) 3 Oxygen Delivery Method Nasal Cannula Weight: 64 kg Body Mass Index (BMI) 21.4 Finger Stick Blood Glucose 219 Intake and Output for Last 24 Hours 09/05/17 09/06/17 09/07/17 23:59 23:59 23:59 Intake Total 3346 / 3346 2224 / 2224 1106 / 1106 Output Total 1500 / 1500 550 / 550 Balance 1846 / 1846 1674 / 1674 1106 / 1106 Laboratory Tests Past 24 Hrs 09/07/17 09/07/17 05:15 05:15 WBC 13.2 H RBC 2.54 L Hgb 7.8 L Hct 25.2 L MCV 99.2 H MCH 30.7 MCHC 31.0 L RDW 15.1 H RDW Differential 54.2 H Plt Count 334 MPV 9.5 Immature Gran % (Auto) 0.200 Neut % (Auto) 71.3 H Lymph % (Auto) 11.5 L [place] % (Auto) 12.9 H Eos % (Auto) 3.7 Baso % (Auto) 0.4 Absolute Neuts (auto) 9.4 H Absolute Lymphs (auto) 1.51 Total Counted Not Reportable Differential Comment SCANNED Sodium 139 Potassium 4.9 Chloride 102 Carbon Dioxide 33.0 H Anion Gap 4 L BUN 31 H Creatinine 0.99 Estim Creat Clear Calc 64.65 Est GFR (MDRD) Af Amer 97 Est GFR (MDRD) Non-Af 80 BUN/Creatinine Ratio 31.4 H Glucose 160 H Calcium 8.2 L POC Glucose 09/07/17 09/07/17 09/06/17 11:07 06:35 21:16 POC Glucose 142 H 157 H 207 H 09/06/17 09/06/17 16:09 12:03 POC Glucose 199 H 176 H Medical Necessity - Tobacco Use Smoking Status: Current every day smoker Tobacco Use: Non-smoker Assessment/Plan All Active Problems (Last Updated 09/05/17 @ 04:05 by Ike Rosas DO) Closed left hip fracture (Acute) Failure to thrive (Resolved) ARF (acute renal failure) (Resolved) Dysphagia (Resolved) History of left heart catheterization (LHC) (Resolved) Hypoglycemia (Resolved) Fall (Resolved) Hypokalemia (Resolved) Chest pain (Resolved) COPD with exacerbation (Resolved) Dilated cardiomyopathy (Resolved) Lower extremity edema (Resolved) Overweight (Resolved) Unspecified systolic (congestive) heart failure (Resolved) Status post left hip hemiarthroplasty\stable Plan 1. Continue all pain medications as prescribed 2. Continue physical therapy today, weight-bear as tolerated, with walker.] 3. Continue anticoagulation as directed by medicine 4. Encourage incentive spirometry 5. Discharge to extended-care facility when cleared by medicine 6. Shower 09/08/2017 7. Change dressing to AG dressing on day of discharge to [facility] 8. Dressing to remain in place until staple removal 09/17/[address] Waite in 2 weeks. Call office for appointment
[2017-09-07 12:14] LABS: Hemoglobin 8.1 g/dl (13.0-16.5)
--- NOTE | 2017-09-07 15:07 | TREXTCAR_ITS ---
- Diet 09/05/17 03:45 Diet: Cardiac: Calorie-Controlled Food consistency:: Mechanical Soft/Ground Liquid Consistency:: [place] Thick Is pt able to select menu?: Yes How many daily calories?: 1999 calorie - Routine Orders/Code Status O2 Liters per Minute: 3L O2 Frequency: Continuous Keep PO Greater than or Equal to (%): 92 - encourage us eof incentive spirometer Routine Lab Work: CBC - in 3 days, BMP - in 3 days Code Status: Full Code - Wound(s) left neck Wound Type: Burn chin Wound Type: Burn LEFT HIP Wound Type: Surgical Incision Dressing Change: MEPILEX - Therapies Extremity Affected:: Left Lower Physical Therapy: Eval and Treat Occupational Therapy: Eval and Treat - Allergies/Procedures Done in Hospital Allergies/Adverse Reactions: Allergies Penicillins Allergy (Verified 09/04/17 22:34) Shortness of breath Procedures: - - s/p left hip arthroplasty - Type of Care/Length of Stay Estimated LOS: Convalescent Care Less Than 30 days Type of Care Needed: Skilled Rehab Potential: Fair Prognosis: Fair - Additional Orders/Day of Discharge Additional Orders: Shower 09/08/17. Dressings to remain in place until staple removal 09/17/17. Encourage ambulation with therapy, weight bearing as can be tolerated with walker Day of Discharge: 09/07/17 - Dietary and Speech Recommendations Dietitian Recommendations/Changes: Suggest resume PO post-op with liberal carbohydrate-controlled, cardiac, low sodium, FR diet as needed with texture/ consistency of mech soft/nectar-thick liquids as tolerated--suggest speech eval as needed once ready for PO. Continue giorgi for wound healing & glucerna shake on medpass as tolerated. - Follow Up Care Primary Care Physician: Russell White MD [Primary Care Provider] - Please follow up with your Primary Care Physician in: within 2 weeks of discharge Please Follow Up With: Howard Waite DO When: in 2 weeks, call office for appointment
--- NOTE | 2017-09-07 15:07 | PCM.DC.SUM ---
Discharge Date and Diagnosis - Problem List Patient Problems: Active and Suspected Problems (Last Updated 09/05/17 @ 04:05 by Ike Rosas DO) Closed left hip fracture (Acute) Date of Admission: 09/05/17 Date of Discharge: 09/07/17 - Primary Discharge Diagnosis Active and Suspected Problems (Last Updated 09/05/17 @ 04:05 by Ike Rosas DO) Closed left hip fracture (Acute) Post-op anemia - Secondary Discharge Diagnosis Chronic Problems (Last Updated 09/05/17 @ 04:05 by Ike Rosas DO) Stage 2 moderate COPD by GOLD classification (Chronic) FEV1 51% of predicted History of tonsillectomy (Chronic) History of inguinal hernia repair (Chronic) Depression (Chronic) Tobacco dependence due to cigarettes (Chronic) Severe malnutrition (Chronic) WHIT (obstructive sleep apnea) (Chronic) BiPAP 10/6 cm of water CAD (coronary artery disease) (Chronic) LHC: 10/07/2010, 09/06/2015 HTN (hypertension) (Chronic) Paroxysmal atrial fibrillation (Chronic) HLD (hyperlipidemia) (Chronic) DM2 (diabetes mellitus, type 2) (Chronic) COPD (chronic obstructive pulmonary disease) (Chronic) Hospital Course and Treatment Imaging Results: Clinical Impression(s) from Imaging Studies Chest X-Ray 09/04/17 22:59 IMPRESSION: Stable hyperinflation likely post obstruction. No pulmonary edema, congestive heart failure or confluent pneumonia. Electronically Signed: Divine Scott MD at 1:31 EDT , Service support , Hip/Pelvis X-Ray 09/04/17 23:00 IMPRESSION: Impacted fracture of the base of the femoral neck. Electronically Signed: Jose French MD at 0:08 EDT Tel , Service support , Hip X-Ray 09/06/17 19:30 IMPRESSION: Status post left hip prosthesis placement Electronically Signed: Eliel Schmitz MD at 19:57 EDT , Service support , Consultations 09/05/17 07:04 Consult: Onc/Wound/iphone developer Routine Comment: Reason for Consult:: jolly from smoking with O2 Operations: None Procedures: - - Left hip replacement Summary of Care Provided: 67 y/o male with PMHx of COPD/CAD/Hypertension, Type 2M, Hyperlipidemia admitted from SNF with worsening left hip pain and found to have fracture of left hip. 1. POD#2 for acute traumatic impacted fracture of left femoral neck, history of recurrent falls, s/p left hip hemiarthroplasty, pain controlled with morphine and oxycodone. Discharged to SNF. 2. Acute postop anemia with a component of hemodilution, hemoglobin is 7.8, repeat H&H 8.1, discharged on po iron. 3. Chronic hypoxic/hypercapneic respiratory failure secondary to COPD, not in acute exacerbation, on breathing treatments prn 4. CAD, last stress test on 06/13/2017 was normal, on aspirin, calcium channel blockers, ranolazine 5. Type 2 DM, A1c is 6.3, sugars are controlled, on Tradjenta, Accu-Cheks with insulin sliding scale 6. TYLER, patient baseline creatinine is around 1, admitted with Cr 1.38, resolved 7. Hypertension, controlled, continue with home regimen. 8. Paroxysmal atrial fibrillation, in NSR, on aspirin, calcium channel [place], digoxin, digoxin level is 1.68 9. Anxiety/depression, on celexa 10. Hypothyroidism, on levothyroxine Discharge Diet: Low fat/ Low Cholesterol, 2000 Calorie Control Diet, 2000 mg Sodium Diet, Carb Control Diet Discharge Activity: Return to Normal Activity Weight Bearing Status: Weight bearing as tolerated Home Medications: Medications to take at Discharge Digoxin 125 mcg PO DAILY 05/27/16 Levothyroxine [Synthroid] 75 mcg PO DAILY 05/27/16 Ranolazine [Ranexa] 500 mg PO BID 01/10/17 Mirtazapine 15 mg PO QHS 06/25/17 Citalopram [Celexa] 10 mg PO DAILY 08/20/17 Diltiazem CD [Cardizem CD] 180 mg PO DAILY 08/20/17 Pantoprazole Sodium [Protonix] 20 mg PO BID 08/20/17 Aspirin [Aspirin, Baby] 81 mg PO DAILY@0800 tab.chew 08/23/17 Polyethylene Glycol 3350 [Miralax] 17 gm PO DAILY packet 08/23/17 Argin/Glut/Cahmb/Collag/Mv-Min [Wilfredo Packet] 1 each PO BID 09/05/17 Bisacodyl 10 mg RC DAILY PRN PRN 09/05/17 Linagliptin [Tradjenta] 5 mg PO DAILY 09/05/17 Magnesium Hydroxide [Milk of Magnesia] 30 ml PO PRN PRN 09/05/17 Mineral Oil 133 ml RC DAILY PRN PRN 09/05/17 Ferrous Sulfate 325 mg PO BIDCM tablet 09/07/17 Folic Acid 1 mg PO DAILY@0800 tablet 09/07/17 Glucerna Shake 120 ml PO 4X/DAY liquid 09/07/17 Heparin Injection (Vial) [Heparin Na] 5,000 unit SC Q8 vial 09/07/17 Insulin Lispro [Humalog KwikPen] See Protocol SC ACHS insuln.pen 09/07/17 Ipratropium/Albuterol Sulfate [Duoneb] 3 ml INHALATION Q4HWA.RT PRN ampul.neb 09/07/17 Multivitamins,Therapeutic [Multivitamin] 1 tablet PO DAILYCM tablet 09/07/17 Oxycodone [Oxyir] 5 mg PO Q4H PRN PRN 5 Days #20 tab 09/07/17 Following Prescrptions Were Given to Patient: Oxycodone [Oxyir] 5 mg PO Q4H PRN PRN 5 Days #20 tab PRN Reason: Mod-Severe Pain (4-10/10) Primary Care Physician: Russell White MD [Primary Care Provider] - Please follow up with your Primary Care Physician in: within 2 weeks of discharge Please Follow Up With: Howard Waite DO When: in 2 weeks, call office for appointment Disposition: Correction facility Minutes spent on discharge:: 45 Patient Condition:: Stable Medical Necessity - Tobacco Use Smoking Status: Current every day smoker Tobacco Use: Non-smoker Meaningful Use Info Meaningful Use Diagnoses (Choose all that apply): None applicable Code Visit Inpatient E&M: 78971 Disch Hosp
--- NOTE | 2017-09-07 15:11 | DS.PCM_ITS ---
Discharge Date and Diagnosis - Problem List Patient Problems: Active and Suspected Problems (Last Updated 09/05/17 @ 04:05 by Ike Rosas DO) Closed left hip fracture (Acute) Date of Admission: 09/05/17 Date of Discharge: 09/07/17 - Primary Discharge Diagnosis Active and Suspected Problems (Last Updated 09/05/17 @ 04:05 by Ike Rosas DO) Closed left hip fracture (Acute) Post-op anemia - Secondary Discharge Diagnosis Chronic Problems (Last Updated 09/05/17 @ 04:05 by Ike Rosas DO) Stage 2 moderate COPD by GOLD classification (Chronic) FEV1 51% of predicted History of tonsillectomy (Chronic) History of inguinal hernia repair (Chronic) Depression (Chronic) Tobacco dependence due to cigarettes (Chronic) Severe malnutrition (Chronic) WHIT (obstructive sleep apnea) (Chronic) BiPAP 10/6 cm of water CAD (coronary artery disease) (Chronic) LHC: 10/07/2010, 09/06/2015 HTN (hypertension) (Chronic) Paroxysmal atrial fibrillation (Chronic) HLD (hyperlipidemia) (Chronic) DM2 (diabetes mellitus, type 2) (Chronic) COPD (chronic obstructive pulmonary disease) (Chronic) Hospital Course and Treatment Imaging Results: Clinical Impression(s) from Imaging Studies Chest X-Ray 09/04/17 22:59 IMPRESSION: Stable hyperinflation likely post obstruction. No pulmonary edema, congestive heart failure or confluent pneumonia. Electronically Signed: Divine Scott MD at 1:31 EDT , Service support , Hip/Pelvis X-Ray 09/04/17 23:00 IMPRESSION: Impacted fracture of the base of the femoral neck. 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 1. POD#2 for acute traumatic impacted fracture of left femoral neck, history of recurrent falls, s/p left hip hemiarthroplasty, pain controlled with morphine and oxycodone. Discharged to SNF. 2. Acute postop anemia with a component of hemodilution, hemoglobin is 7.8, repeat H&H 8.1, discharged on po iron. 3. Chronic hypoxic/hypercapneic respiratory failure secondary to COPD, not in acute exacerbation, on breathing treatments prn 4. CAD, last stress test on 06/13/2017 was normal, on aspirin, calcium channel blockers, ranolazine 5. Type 2 DM, A1c is 6.3, sugars are controlled, on Tradjenta, Accu-Cheks with insulin sliding scale 6. TYLER, patient baseline creatinine is around 1, admitted with Cr 1.38, resolved 7. Hypertension, controlled, continue with home regimen. 8. Paroxysmal atrial fibrillation, in NSR, on aspirin, calcium channel kenya, digoxin, digoxin level is 1.68 9. Anxiety/depression, on celexa 10. Hypothyroidism, on levothyroxine Discharge Diet: Low fat/ Low Cholesterol, 2000 Calorie Control Diet, 2000 mg Sodium Diet, Carb Control Diet Discharge Activity: Return to Normal Activity Weight Bearing Status: Weight bearing as tolerated Home Medications: Medications to take at Discharge Digoxin 125 mcg PO DAILY 05/27/16 Levothyroxine [Synthroid] 75 mcg PO DAILY 05/27/16 Ranolazine [Ranexa] 500 mg PO BID 01/10/17 Mirtazapine 15 mg PO QHS 06/25/17 Citalopram [Celexa] 10 mg PO DAILY 08/20/17 Diltiazem CD [Cardizem CD] 180 mg PO DAILY 08/20/17 Pantoprazole Sodium [Protonix] 20 mg PO BID 08/20/17 Aspirin [Aspirin, Baby] 81 mg PO DAILY@0800 tab.chew 08/23/17 Polyethylene Glycol 3350 [Miralax] 17 gm PO DAILY packet 08/23/17 Argin/Glut/Cahmb/Collag/Mv-Min [Wilfredo Packet] 1 each PO BID 09/05/17 Bisacodyl 10 mg RC DAILY PRN PRN 09/05/17 Linagliptin [Tradjenta] 5 mg PO DAILY 09/05/17 Magnesium Hydroxide [Milk of Magnesia] 30 ml PO PRN PRN 09/05/17 Mineral Oil 133 ml RC DAILY PRN PRN 09/05/17 Ferrous Sulfate 325 mg PO BIDCM tablet 09/07/17 Folic Acid 1 mg PO DAILY@0800 tablet 09/07/17 Glucerna Shake 120 ml PO 4X/DAY liquid 09/07/17 Heparin Injection (Vial) [Heparin Na] 5,000 unit SC Q8 vial 09/07/17 Insulin Lispro [Humalog KwikPen] See Protocol SC ACHS insuln.pen 09/07/17 Ipratropium/Albuterol Sulfate [Duoneb] 3 ml INHALATION Q4HWA.RT PRN ampul.neb 09/07/17 Multivitamins,Therapeutic [Multivitamin] 1 tablet PO DAILYCM tablet 09/07/17 Oxycodone [Oxyir] 5 mg PO Q4H PRN PRN 5 Days #20 tab 09/07/17 Following Prescrptions Were Given to Patient: Oxycodone [Oxyir] 5 mg PO Q4H PRN PRN 5 Days #20 tab PRN Reason: Mod-Severe Pain (4-10/10) Primary Care Physician: Russell White MD [Primary Care Provider] - Please follow up with your Primary Care Physician in: within 2 weeks of discharge Please Follow Up With: Howard Waite DO When: in 2 weeks, call office for appointment [facility] Minutes spent on discharge:: 45 Patient Condition:: Stable Medical Necessity - Tobacco Use Smoking Status: Current every day smoker Tobacco Use: Non-smoker Meaningful Use Info Meaningful Use Diagnoses (Choose all that apply): None applicable Code Visit Inpatient E&M: 91955 Disch Hosp
--- NOTE | 2017-09-07 15:15 | NURSING ---
left Davidson Recio a voicemail at 's request that ortho needs to give OK for discharge, they need to do their discharge instructions/orders and they need to order the pain meds at discharge.
--- NOTE | 2017-09-07 15:20 | NURSING ---
received return call from [facility] regarding voicemail, states that he put in his notes ok for discharge and his instructions and after discussed 's statement regarding pain medication Davidson requested a way to contact Dr. Leonardo. Her pager number was given to [facility].
--- NOTE | 2017-09-07 15:46 | CASEMGMT ---
Social Work Note Pt is being discharged to [facility] today. SW faxed transfer to extended care facility, signed medication list and any scripts. Originals in SNF folder and copy on pt's chart. ROSANA set up transportation through [facility] via cot for 6:00pm. Transportation form on SNF folder and copy on pt's chart. SW doesn't need to complete HENS as pt is from skilled side at [facility] and is returning to skilled side. ROSANA updated RN Molly Woodson at [facility] and pt of transportation time. Pt denied wanting this worker to call any family or friends stating that he will call them. Pt denied additional needs or concerns at this time. Plan: Discharge to [facility] today skilled through [facility] via cot at 6:00pm. 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
[2017-09-07 16:41] LABS: Bedside Glucose 199 mg/dL (70-110)
--- NOTE | 2017-09-07 18:22 | NURSING ---
[facility] TO TRANSPORT PT TO [facility]
== END 2017-09-07 18:25 | disposition skilled nursing facility (03) | DRG 469 ==
LOC: ED 23:05 → MS3 09-05 01:38
PROVIDERS: Anesthesiology; Orthopaedic Surgery; Admitting Provider Internal Medicine; Emergency Provider Emergency Medicine; Family Provider Internal Medicine; PCP Internal Medicine; Visit Provider Internal Medicine
PROC: 0SRS0J9 Replacement of Left Hip Joint, Femoral Surface with Synthetic Substitute, Cemented, Open Approach (ICD-10-PCS; CPT 27125; principal; 2017-09-05 11:55)
DX: S72.042A Displaced fracture of base of neck of left femur, initial encounter for closed fracture (principal); E43 Unspecified severe protein-calorie malnutrition; J96.12 Chronic respiratory failure with hypercapnia; J96.11 Chronic respiratory failure with hypoxia; N17.9 Acute kidney failure, unspecified; I48.0 Paroxysmal atrial fibrillation; E78.5 Hyperlipidemia, unspecified; I25.10 Atherosclerotic heart disease of native coronary artery without angina pectoris; E11.9 Type 2 diabetes mellitus without complications; J44.9 Chronic obstructive pulmonary disease, unspecified; F17.210 Nicotine dependence, cigarettes, uncomplicated; F32.9 Major depressive disorder, single episode, unspecified; Z79.899 Other long term (current) drug therapy; E03.9 Hypothyroidism, unspecified; Z79.84 Long term (current) use of oral hypoglycemic drugs; W19.XXXA Unspecified fall, initial encounter; Y92.039 Unspecified place in apartment as the place of occurrence of the external cause; D64.9 Anemia, unspecified; Z68.21 Body mass index [BMI] 21.0-21.9, adult; Z99.81 Dependence on supplemental oxygen; I10 Essential (primary) hypertension; G47.33 Obstructive sleep apnea (adult) (pediatric)
CPT/HCPCS: 36415; 71045; 73502; 80048; 80162; 82962; 83036; 85014; 85018; 85025; 85610; 86850; 86900; 93005; 94640; 97162; 97165; 97530; 97802; 99284; C1776; J7030; A4216; J2405

== ENCOUNTER 2017-09-13 19:20 | Emergency (ER) | payer MEDICARE, SELFPAY ==
[2017-09-13 19:22] VITALS: BP 110/55; PULSE 70; RESP 14; TEMP 37.2; O2SAT 99; BMI 23.3
[2017-09-13] MEDS: oxyCODONE 5 MG Tablet 10 MG PO (19:59)
--- NOTE | 2017-09-13 20:05 | RAD_ITS ---
STUDY: X-RAY - RIGHT ELBOW REASON FOR EXAM: Male, 67 years old. Pain, Prior fracture TECHNIQUE: 3 view(s) of the elbow. COMPARISON: August 08, 2017 FINDINGS: No evidence for acute fracture or dislocation.. Calcific tendinitis is observed. Diffuse soft tissue swelling is present. There is mild cortical disruption of the distal posterior humeral epicondyle possibly representing early changes of acute osteomyelitis. Would recommend clinical correlation and three-phase bone scan or MRI for further assessment if indicated RAD/Elbow min 3 Views IMPRESSION: Degenerative changes. No evidence for acute fracture Cannot exclude early osteomyelitis of the distal posterior humeral epicondyle best visualized on the lateral projection. Electronically Signed: Eliel Schmitz MD at 20:36 EDT , Service support ,
--- NOTE | 2017-09-13 21:23 | ED.DCSUM_ITS ---
- ER Visit Summary Date of Service: 09/13/17 Chief Complaint: Right elbow fracture History of Present Illness: The patient is a [address] White. He is a very poor informant. He had an x-ray at the long term that showed a fracture that is intercondylar on the right. He denies any recent fall. He reports he has had pain for approximately 1 week. It is a sharp pain that is 10 out of 10 with movement 8 out of 10 currently. He denies any paresthesias. Reports that the only other pain is his left hip pain following the surgical repair for this and it is 2 out of 10 in severity. Review of systems: General: No fever, chills, cold sweats. Cardiovascular: No chest pain, palpitations. Respiratory: No cough, shortness of breath, dyspnea on exertion. Gastrointestinal: No abdominal pain, nausea, vomiting, diarrhea, melena, or hematochezia. Genitourinary: No dysuria, frequency, hematuria. Skin: No rash. Neuro: No headache, numbness, weakness. Physical Examination: Vitals: Stable. Afebrile. General: Well-nourished and well-developed. Head: Normocephalic atraumatic. Neck: Supple, no lymphadenopathy. No JVD. Nontender. Cardiovascular: Regular rate and rhythm. No murmurs. Respiratory: No respiratory distress. Clear to auscultation bilaterally. Abdominal: Soft, nontender, nondistended, normal bowel sounds. No guarding, rebound, or peritoneal signs. Back: Nontender. Extremities: Moderate tenderness palpation over the right olecranon process. There is soft tissue swelling. He has limited range of motion due to pain. He is neurovascular intact distally. Skin: Normal color, no rash. Neurologic: Alert and oriented ?3. Cranial nerves II through XII are intact. Normal strength and sensation. Psych: Normal affect. Test Results: Right elbow x-ray shows an intercondylar fracture with no displacement. Emergency Department Course and Treatment: Patient was treated with Percocet and placed in a long-arm Ortho-Glass splint. Treatment Plan: Patient was discussed with Dr. Epps. He will be discharged on Percocet instructed to follow-up with Dr. Howard Waite in 1 week for another exam. Disposition: To home in improved and stable condition. Impression: 1. Right elbow intercondylar fracture. 2. Posterior long-arm splint, fabricated. This note was generated with [employer] dictation software. It may contain incorrect words, spelling, and punctuation that were not noted in review of the chart prior to signing ED Disposition - Plan for ED Patient: Chief Complaint: Upper Extremity Injury Instructions: ED Fx Elbow Prescriptions: Oxycodone HCl/Acetaminophen [Percocet 5/325] 1 tablet PO Q6H PRN PRN 5 Days #20 tablet PRN Reason: Pain Referrals: Howard Waite DO [STAFF PHYSICIAN] - 1 Week
--- NOTE | 2017-09-13 21:39 | NURSING ---
[facility] TO BE HERE WITHIN 45 MINUTES TO AN HOUR
[2017-09-13 22:48] VITALS: BP 118/51; PULSE 67; RESP 14; O2SAT 95
== END 2017-09-13 23:57 | disposition skilled nursing facility (03) ==
PROVIDERS: Emergency Provider Emergency Medicine; Family Provider Internal Medicine; PCP Internal Medicine
DX: S42.494A Other nondisplaced fracture of lower end of right humerus, initial encounter for closed fracture (principal); X58.XXXA Exposure to other specified factors, initial encounter; Y93.9 Activity, unspecified; Y92.129 Unspecified place in nursing home as the place of occurrence of the external cause; I25.10 Atherosclerotic heart disease of native coronary artery without angina pectoris; I10 Essential (primary) hypertension; E78.00 Pure hypercholesterolemia, unspecified; E11.9 Type 2 diabetes mellitus without complications; F32.9 Major depressive disorder, single episode, unspecified; G47.33 Obstructive sleep apnea (adult) (pediatric); Z72.0 Tobacco use; I48.0 Paroxysmal atrial fibrillation; J44.9 Chronic obstructive pulmonary disease, unspecified; Z79.82 Long term (current) use of aspirin; Z79.4 Long term (current) use of insulin; Z79.84 Long term (current) use of oral hypoglycemic drugs; Z79.899 Other long term (current) drug therapy
CPT/HCPCS: 29105; 73080; 99284

== ENCOUNTER → 2017-10-17 12:43 | Outpatient (CLI) | payer MEDICARE, SELFPAY ==
--- NOTE | 2017-10-17 15:18 | PFTCOMP ---
COMPLETE PULMONARY FUNCTION TEST INTERPRETATION Brief HPI: Patient is a 67 year old male, currently under the care of myself, who presents to [facility] for complete pulmonary function tests secondary to diagnosis of COPD. Respiratory therapist reports good effort and reproducible results. Interpretation: Forced expiration spirometry shows a severe large airways obstructive ventilatory defect with an FEV1 of 38% predicted. There is no significant bronchodilator response by ATS criteria. Spirograms are of good quality and plateau slowly, indicating slowly emptying areas of the lungs. The respiratory flow volume loop shows decreased expiratory flow rates at all lung volumes consistent with airway obstruction. Lung volumes by body plethysmography show a normal total lung capacity at 5 L, 86% predicted. FRC and RV are elevated out of proportion. Lung volume measurements are consistent with air-trapping. Diffusion capacity by carbon monoxide is decreased at 46% predicted. The airway resistance is elevated. Compared to previous pulmonary function tests from 10/24/2016, there has been a significant reduction in FVC, FEV1, TLC and DLCO by 12%, 25%, 11% and 17% respectively. Impression: Irreversible severe large airways obstructive ventilatory defect with a symmetric reduction diffusing capacity. There has been significant worsening over the last year.
== END ==
PROVIDERS: Family Provider Internal Medicine; PCP Internal Medicine; Visit Provider Nurse Practitioner Acute Care
DX: J44.9 Chronic obstructive pulmonary disease, unspecified (principal)
CPT/HCPCS: 94060; 94726; 94729

== ENCOUNTER 2017-11-19 17:34 | Inpatient (IN) | payer MEDICARE, SELFPAY ==
[2017-11-19] VITALS (9 sets, daily range): BP systolic 111–148; BP diastolic 55–75; PULSE 73–87; RESP 12–20; TEMP 36.4–36.8; O2SAT 87–97; BMI 25.5; BMI 24.1; BMI 25.6
--- NOTE | 2017-11-19 17:52 | EKG12_ITS ---
Test Reason : SOB Blood Pressure : / mmHG Vent. Rate : 073 BPM Atrial Rate : 073 BPM P-R Int : 136 ms QRS Dur : 110 ms QT Int : 378 ms P-R-T Axes : 063 015 068 degrees QTc Int : 416 ms Normal sinus rhythm with sinus arrhythmia Nonspecific T wave abnormality Abnormal ECG Confirmed by JOSE HERNANDEZ, FRANCO ([id number]), image editor KWAKU MOSER ([id number]) on 11/21/2017 1:45:22 PM Referred By: BREANA Confirmed By:FRANCO GARCIA MD
[2017-11-19] MEDS: Ipratropium/Albuterol Sulfate 3 ML AMPUL.NEB INHALATION (18:01)
--- NOTE | 2017-11-19 18:04 | RAD_ITS ---
STUDY: X-RAY CHEST REASON FOR EXAM: Male, 67 years old. SOB. TECHNIQUE: Portable chest. COMPARISON: 09/04/2017. FINDINGS: There is a moderate left pleural effusion and a small right pleural effusion. Demonstrated aj and mediastinal shadows are unremarkable. Atelectasis is noted in the lung bases. Upper lung zones are clear. Mild degenerative spine changes are noted. Soft tissues and bony structures are otherwise unremarkable. RAD/Chest 1 View (Portable) IMPRESSION: Bilateral pleural effusions. Electronically Signed: Little Jasso MD at 18:38 EDT Tel , Service support ,
[2017-11-19 18:15] LABS: Absolute Lymphocyte Count 1.47 X10^3/ul (0.83-4.51); Basophil# 0.06 X10^3/uL; Basophil% 0.6 % (0-1); Eosinophil# 0.57 X10^3/uL; Eosinophils% 6.1 % (0-5); Hematocrit 41.3 % (40-54); Hemoglobin 12.9 g/dl (13.0-16.5); Lymphocyte # 1.47 X10^3/ul (4.0); Lymphocyte % 15.8 % (19-41); Mean Corp Hgb Conc 31.2 g/gl (32-36); Mean Corpuscular Hgb 30.3 pg (27.0-32.0); Mean Corpuscular Volume 96.9 fL (80-94); Monocyte# 1.18 X10^3/uL; Monocyte% 12.7 % (0-10); Neutrophil # 6.01 X10^3/uL (2.7-7.7); Neutrophil % 64.6 % (47-70); Platelet Count 300 K/mm3 (150-450); RBC Distribution Width CV 14.8 % (11.6-14.6); RBC Distribution Width SD 50.8 fl (35.1-43.9); Red Blood Count 4.26 M/mm3 (4.6-6.2); White Blood Count 9.3 K/mm3 (4.4-11.0)
[2017-11-19 18:29] LABS: POSITIVE COUNT NO; POSITIVE DIFFERENTIAL NO; POSITIVE MORPHOLOGY NO
[2017-11-19 18:33] LABS: Anion Gap 2 (5-15); BUN 43 mg/dL (7-18); BUN/Creat Ratio 31.2 RATIO (10-20); Calcium,Total 8.9 mg/dL (8.5-10.1); Chloride 98 mmol/L (98-107); Creatinine, Serum 1.38 mg/dL (0.70-1.30); EST Glomerular Filtration Rate 54 mL/min (>60); Est Glom Filt Rate - Afr Amer 66 mL/min (>60); Glucose 120 mg/dL (74-106); Potassium 4.6 mmol/L (3.5-5.1); Sodium Level 137 mmol/L (136-145)
[2017-11-19] MEDS: MethylPREDNISolone 125 MG/2 ML Vial IV (18:50)
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
[2017-11-19 19:19] LABS: BNP,B-Type NATRIURETIC PEPTIDE 50.6 pg/mL (0-100)
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
[2017-11-19 19:26] LABS: Digoxin Level 1.67 ng/mL (0.80-2.00)
--- NOTE | 2017-11-19 19:27 | ED.VISSUMM ---
- ER Visit Summary Date of Service: 11/19/17 Chief Complaint: [Shortness of breath and hypoxia] History of Present Illness: The patient is a 67 M [presents the emergency department via EMS from [facility] after being found by staff to be blue and in respiratory distress. Patient pulse ox was in the 40s. Patient does not normally wear O2 and has it ordered as as needed. Patient does have a history of COPD and CHF. Once the patient was placed on nonrebreather mask his O2 sat improved quickly. On arrival patient does state that he has had a cough. He denies any fever. Denies any chest pain currently. Patient does have a history of diabetes, A. fib, hypertension, and high cholesterol.] Physical Examination: [HEENT-PERRLA, EOMI. Cranial nerves II through XII grossly intact. TMs clear. Mucous membranes moist. No adenopathy. Cardiovascular-regular rate and rhythm without murmur or ectopy Lungs-breath sounds in the bases. Rales bilaterally. Mild tachypnea. Patient has expiratory wheezes bilaterally. No accessory muscle use or retractions. Abdomen-normoactive bowel sounds, soft, nontender, no rebound or rigidity, no peritoneal signs. Extremities-intact ?4, normal range of motion, normal pulses, atraumatic]. +1 edema. Test Results: [EKG obtained on arrival showed a sinus rhythm with a ventricular rate 73 bpm with some nonspecific ST changes. CBC with differential showed a white count of 9.3, hemoglobin 12.9, hematocrit 41, platelets 300. Chemistries unremarkable. BUN was 43 and creatinine 1.38. Troponin was less than 0.015. BNP was 50. Chest x-ray showed bilateral pleural effusions which appear to be new.] Emergency Department Course and Treatment: [Was given Lasix 40 mill grams IV. Patient was given DuoNeb aerosol and Solu-Medrol 25 mill grams IV] Treatment Plan: [Admit] Disposition: [Admit] Impression: [Bilateral pleural effusions Dyspnea COPD exacerbation Hypoxemia] This note was generated with [employer] dictation software. It may contain incorrect words, spelling, and punctuation that were not noted in review of the chart prior to signing ED Disposition - Plan for ED Patient: Chief Complaint: Shortness of Breath Referrals: Oscar Heller MD [Primary Care Provider] -
--- NOTE | 2017-11-19 19:54 | NURSING ---
spoke with ED endoscopy technicanKolby to confirm Pt okay to come to PCU
[2017-11-19] MEDS: Furosemide 40 MG/4 ML Vial IV (20:19)
[2017-11-19 21:05] LABS: Magnesium 2.3 mg/dL (1.6-2.6)
[2017-11-19 21:58] LABS: Bacteria 0 SEEN /hpf (None Seen); Mucous, Urine 0 SEEN /hpf (<or=2+); Squamous Epithelial Cells - UA 0 SEEN /hpf (0-5)
[2017-11-19 22:00] LABS: Color, Urine Yellow (Yellow); Glucose, Dipstick Normal (Normal); Ketone-Dipstick Negative (Negative); Leukocyte Esterase-Dipstick Negative /ul (Negative); Nitrite-Dipstick Negative (Negative); Occult Blood-Urine Negative /ul (Negative); Protein-Dipstick Negative (Negative); Specific Gravity, Urine 1.005 (1.002-1.030); Urine Bilirubin Dipstick Negative (Negative); Urine Clarity Clear (Clear); Urine Urobilinogen Normal (Normal)
[2017-11-19 22:08] LABS: Hyaline Cast 0 SEEN /lpf (0-5)
[2017-11-19 22:09] LABS: Red Blood Cells-Urine 0-5 SEEN /hpf (0-5)
[2017-11-19 22:10] LABS: White Blood Cells 0-5 SEEN /hpf (0-5)
--- NOTE | 2017-11-19 22:11 | NURSING ---
Spoke with Ritu nurse from [place] about patient status
[2017-11-19] MEDS: Glucerna Shake 120 ML LIQUID PO (22:39)
[2017-11-19] MEDS: Heparin Injection (Vial) 5,000 UNIT/ML VIAL 5000 UNIT SC (22:39)
[2017-11-19] MEDS: Insulin Lispro 100 UNIT/ML INSULN.PEN SC (22:39)
[2017-11-19] MEDS: Ranolazine 500 MG Tablet PO (22:40)
[2017-11-19] MEDS: guaiFENesin 600 MG Tablet PO (22:40)
[2017-11-19] MEDS: Mirtazapine 15 MG Tablet PO (22:41)
[2017-11-19] MEDS: 0.9% NaCl Peripheral Flush Adult/Peds IV (22:41)
[2017-11-19 22:56] LABS: Bedside Glucose 172 mg/dL (70-110)
[2017-11-20] VITALS (17 sets, daily range): BP systolic 130–146; BP diastolic 58–67; PULSE 79–144; RESP 12–22; TEMP 36.8–37.5; O2SAT 93–96
[2017-11-20] MEDS: oxyCODONE 5 MG Tablet PO ×2 (02:54→22:01)
[2017-11-20] MEDS: Heparin Injection (Vial) 5,000 UNIT/ML VIAL 5000 UNIT SC ×3 (05:11→22:00)
[2017-11-20] MEDS: Levothyroxine 75 MCG Tablet PO (05:11)
[2017-11-20 06:16] LABS: Allen Test POS; Base Excess 15 mmol/L (-2 to +2); Bicarbonate 40.7 mmol/L (22-26); Blood Gas Specimen Type ART; O2 Delivery Device Nasal Can; PO2 65 mmHG (75-100); SITE R Radial; SO2 89 % (95-99); Time Given 1940; Total Carbon Dioxide 43 mmol/L; pCO2 76.6 mmHg (35-45); pH 7.33 (7.35-7.45)
[2017-11-20 06:49] LABS: Anion Gap 6 (5-15); BUN 45 mg/dL (7-18); BUN/Creat Ratio 27.8 RATIO (10-20); Chloride 92 mmol/L (98-107); Creatinine, Serum 1.62 mg/dL (0.70-1.30); EST Glomerular Filtration Rate 45 mL/min (>60); Est Glom Filt Rate - Afr Amer 55 mL/min (>60); Glucose 297 mg/dL (74-106); Potassium 4.3 mmol/L (3.5-5.1); Sodium Level 136 mmol/L (136-145)
[2017-11-20 07:00] LABS: Absolute Lymphocyte Count 0.53 X10^3/ul (0.83-4.51); Basophil# 0.01 X10^3/uL; Basophil% 0.2 % (0-1); Hematocrit 43.7 % (40-54); Hemoglobin 13.7 g/dl (13.0-16.5); Lymphocyte # 0.53 X10^3/ul (4.0); Lymphocyte % 8.1 % (19-41); Mean Corp Hgb Conc 31.4 g/gl (32-36); Mean Corpuscular Hgb 29.9 pg (27.0-32.0); Mean Corpuscular Volume 95.4 fL (80-94); Mean Platelet Vol. 10.4 fl (6.2-12.0); Monocyte# 0.02 X10^3/uL; Monocyte% 0.3 % (0-10); Neutrophil # 5.96 X10^3/uL (2.7-7.7); Neutrophil % 91.2 % (47-70); Platelet Count 314 K/mm3 (150-450); RBC Distribution Width CV 14.7 % (11.6-14.6); RBC Distribution Width SD 49.7 fl (35.1-43.9); Red Blood Count 4.58 M/mm3 (4.6-6.2); White Blood Count 6.5 K/mm3 (4.4-11.0)
[2017-11-20 07:04] LABS: Differential Indicated SCAN CRITERIA MET; POSITIVE COUNT NO; POSITIVE DIFFERENTIAL YES; POSITIVE MORPHOLOGY NO
[2017-11-20 07:05] LABS: Bedside Glucose 297 mg/dL (70-110)
[2017-11-20] MEDS: Citalopram 10 MG Tablet PO (09:05)
[2017-11-20] MEDS: guaiFENesin 600 MG Tablet PO ×2 (09:05→22:01)
[2017-11-20] MEDS: Digoxin 125 MCG Tablet PO (09:05)
[2017-11-20] MEDS: Multivitamins,Therapeutic Tablet 1 TABLET PO (09:05)
[2017-11-20] MEDS: Ranolazine 500 MG Tablet PO ×2 (09:05→22:01)
[2017-11-20] MEDS: Insulin Lispro 100 UNIT/ML INSULN.PEN SC ×4 (09:06→22:00)
[2017-11-20] MEDS: Folic Acid 1 MG Tablet PO (09:06)
[2017-11-20] MEDS: Glucerna Shake 120 ML LIQUID PO ×3 (09:06→22:00)
[2017-11-20] MEDS: Ferrous Sulfate 325 MG Tablet PO ×2 (09:06→16:40)
[2017-11-20] MEDS: dilTIAZem CD 180 MG Capsule PO (09:06)
[2017-11-20] MEDS: Polyethylene Glycol 3350 17 GM PACKET PO (09:12)
--- NOTE | 2017-11-20 09:41 | PN_ITS ---
Patient Problems: Active and Suspected Problems (Last Reviewed 10/23/17 @ 12:12 by Brianne Waldron ) COPD exacerbation (Acute) TYLER (acute kidney injury) (Acute) Acute and chronic respiratory failure with hypoxia (Acute) CHF exacerbation (Acute) Subjective: Patient is a 67-year-old gentleman currently residing at an extended care facility brought in with shortness of breath and significant hypoxia at his ECF. An assessment of COPD with acute exacerbation was made admitted to a monitored bed for further management Objective: GENERAL: Patient looks frail. HEENT: neck is supple, normal thyroid, CHEST: Diminished to auscultation bilaterally, HEART: Irregularly irregular ABDOMEN: soft, non-tender, normoactive bowel sounds, RECTAL: deferred MUSCULOSKELETAL: No joint swelling EXTREMITIES: No edema, no clubbing, no cyanosis. 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 SKIN: Dry Vitals/I&O's: Vital Signs Temp Pulse Resp BP Pulse Ox 98.3 F 105 H 18 132/60 H 96 11/20/17 08:45 11/20/17 09:05 11/20/17 08:45 11/20/17 08:45 11/20/17 08:45 Oxygen Flow Rate (L/min) 2 Oxygen Delivery Method Nasal Cannula Weight: 69.9 kg Body Mass Index (BMI) 24.1 Intake and Output for Last 24 Hours 11/18/17 11/19/17 11/20/17 23:59 23:59 23:59 Intake Total 420 / 420 240 / 240 Output Total 1000 / 1000 325 / 325 Balance -580 / -580 -85 / -85 Microbiology Past 72 Hours 11/19/17 22:00 Mucosa - Nose Respiratory Panel (PCR) - Final Rhinovirus 11/19/17 21:25 Urine, Clean Catch Streptococcus pneumoniae Antigen (M - Final 11/19/17 21:25 Urine, Clean Catch Legionella Antigen - Final Laboratory Results 11/19/17 21:22: Troponin I < 0.015 11/19/17 21:25: Urine Color Yellow, Urine Clarity Clear, Urine pH 7.0, Ur Specific [place] 1.005, Urine Protein Negative, Urine Glucose (UA) Normal, Urine Ketones Negative, Urine Occult Blood Negative, Urine Nitrite Negative, Urine Bilirubin Negative, Urine Urobilinogen Normal, Ur Leukocyte Esterase Negative, Urine RBC 0-5 SEEN, Urine WBC 0-5 SEEN, Ur Squamous Epith Cells 0 SEEN , Urine Bacteria 0 SEEN, Hyaline Casts 0 SEEN, Urine Mucus 0 SEEN 11/19/17 22:34: POC Glucose 172 H 11/20/17 00:15: Troponin I < 0.015 11/20/17 05:30: Sodium 136, Potassium 4.3, Chloride 92 L, Carbon Dioxide 38.0 H , Anion Gap 6, BUN 45 H, Creatinine 1.62 H, Estim Creat Clear Calc 40.80, Est GFR (MDRD) Af Amer 55 L, Est GFR (MDRD) Non-Af 45 L, BUN/Creatinine Ratio 27.8 H , Glucose 297 H, Calcium 9.0 11/20/17 05:30: WBC 6.5, RBC 4.58 L, Hgb 13.7, Hct 43.7, MCV 95.4 H, MCH 29.9, MCHC 31.4 L, RDW 14.7 H, RDW Differential 49.7 H, Plt Count 314, MPV 10.4, Immature Gran % (Auto) 0.200, Neut % (Auto) 91.2 H, Lymph % (Auto) 8.1 L, [place] % (Auto) 0.3, Eos % (Auto) 0.0, Baso % (Auto) 0.2, Absolute Neuts (auto) 6.0, Absolute Lymphs (auto) 0.53 L, Total Counted Not Reportable 11/20/17 07:02: POC Glucose 297 H Current Medications Acetaminophen (Tylenol) 650 mg PO Q6H PRN PRN PRN Reason: Mild Pain (scale 0-3)/T>100.7 Al Hydroxide/Mg Hydroxide (Mylanta Ii) 30 ml PO Q6H PRN PRN PRN Reason: Gastric burning Albuterol Sulfate (Ventolin Aerosols) 2.5 mg INHALATION Q2H PRN PRN PRN Reason: SHORTNESS OF BREATH Albuterol/Ipratropium (Duoneb) 3 ml INHALATION Q4HWA.RT PRN PRN Reason: SOB &/OR WHEEZING Citalopram Hydrobromide (Celexa) 10 mg PO DAILY [facility] Last Admin: 11/20/17 09:05 Dose: 10 mg Digoxin (Lanoxin) 125 mcg PO DAILY [facility] Last Admin: 11/20/17 09:05 Dose: 125 mcg Diltiazem HCl (Cardizem Cd) 180 mg PO DAILY [facility] Last Admin: 11/20/17 09:06 Dose: 180 mg [facility]ous S[facility]) [facility] Admin: 11/20/17 09:06 Dose: 325 mg Folic Acid (Folic Acid) 1 mg PO DAILY@0800 [facility] Last Admin: 11/20/17 09:06 Dose: 1 mg Guaifenesin (Mucinex) 600 mg PO BID [facility] Last Admin: 11/20/17 09:05 Dose: 600 mg Heparin Sodium (Porcine) (Heparin Na) 5,000 unit SC Q8 [facility] Last Admin: 11/20/17 05:11 Dose: 5,000 unit Insulin Human Lispro (Humalog Kwikpen (Bkc)) 0 unit SC ACHS [facility] PRN Reason: Protocol Last Admin: 11/20/17 09:06 Dose: 4 u Levothyroxine Sodium (Synthroid) 75 mcg PO DAILY@0600 [facility] Last Admin: 11/20/17 05:11 Dose: 75 mcg Magnesium Hydroxide (Milk Of Magnesia) 30 ml PO DAILY PRN PRN Reason: Constipation Methylprednisolone (Solu-Medrol) 40 mg IV Q8 [facility] Last Admin: 11/20/17 05:11 Dose: 40 mg Mirtazapine (Remeron) 15 mg PO QHS [facility] Last Admin: 11/19/17 22:41 Dose: 15 mg Multivitamins ([facility]ivitamin) [facility] Last Admin: 11/20/17 09:05 Dose: 1 tablet Nutritional Formula (Wilfredo - [place] Flavor) 1 packet PO BID [facility] Last Admin: 11/20/17 09:06 Dose: 1 packet Nutritional Formula (Lactose Free) (Glucerna Shake) 120 ml PO 4X/DAY [facility] Last Admin: 11/20/17 09:06 Dose: 120 mls Ondansetron HCl (Zofran) 4 mg IV Q8H PRN PRN PRN Reason: NAUSEA Oxycodone HCl (Oxyir) 5 mg PO Q4H PRN PRN PRN Reason: MOD-SEVERE PAIN (4-10/10) Last Admin: 11/20/17 02:54 Dose: 5 mg Polyethylene Glycol (Miralax) 17 gm PO DAILY [facility] Last Admin: 11/20/17 09:12 Dose: 17 gm Promethazine HCl (Phenergan) 12.5 mg IV Q6H PRN PRN PRN Reason: NAUSEA/VOMITING Ranolazine (Ranexa) 500 mg PO BID [facility] Last Admin: 11/20/17 09:05 Dose: 500 mg Sodium Chloride () 5 - 30 ml IV UD PRN PRN Reason: SALINE FLUSH Last Admin: 11/19/17 22:41 Dose: 10 ml Medical Necessity - Tobacco Use Smoking Status: Current every day smoker Tobacco Use: Cigars Assessment/Plan All Active Problems (Last Reviewed 10/23/17 @ 12:12 by Brianne Waldron) COPD exacerbation (Acute) TYLER (acute kidney injury) (Acute) Acute and chronic respiratory failure with hypoxia (Acute) CHF exacerbation (Acute) Closed left hip fracture (Acute) Failure to thrive (Resolved) ARF (acute renal failure) (Resolved) Dysphagia (Resolved) History of left heart catheterization (LHC) (Resolved) Hypoglycemia (Resolved) Fall (Resolved) Hypokalemia (Resolved) Chest pain (Resolved) COPD with exacerbation (Resolved) Dilated cardiomyopathy (Resolved) Lower extremity edema (Resolved) Overweight (Resolved) Unspecified systolic (congestive) heart failure (Resolved) Patient is a 67-year-old gentleman currently residing at an extended care facility brought in with shortness of breath and significant hypoxia at his ECF. An assessment of COPD with acute exacerbation was made admitted to a monitored bed for further management 1. Acute hypoxic respiratory failure secondary to COPD with acute exacerbation : Patient has been admitted to a monitored bed managed with systemic steroids aerosol treatment as well as antibiotics in addition to supplemental oxygen 2. 2. Chronic Hypoxic respiratory failure secondary to COPD patient is on baseline home O2 COPD exacerbation managed with steroids and bronchodilators as well as antibiotics 3. 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 Patient oral regimen held on admission please and Accu-Cheks before meals and at bedtime with sliding scale coverage 4. Hypothyroidism: Continued levothyroxine 5. Paroxysmal A. fib rate controlled 6. Chronic systolic heart failure stable; currently compensated 7. Hypertension-blood pressure controlled, home medications continued with dose adjustment as needed 8. Tobacco dependence counseled on cessation, offered nicotine patch for tobacco cravings 9. CAD stable enzymes have remained negative to date 10. DVT Prophylaxis: SCDs, heparin. 11. Severe protein calorie malnutrition evidenced by muscle wasting decreased energy level. Consultation placed to dietitian Active Medications Acetaminophen (Tylenol) 650 mg PO Q6H PRN PRN PRN Reason: Mild Pain (scale 0-3)/T>100.7 Al Hydroxide/Mg Hydroxide (Mylanta Ii) 30 ml PO Q6H PRN PRN PRN Reason: Gastric burning Albuterol Sulfate (Ventolin Aerosols) 2.5 mg INHALATION Q2H PRN PRN PRN Reason: SHORTNESS OF BREATH Albuterol/Ipratropium (Duoneb) 3 ml INHALATION Q4HWA.RT PRN PRN Reason: SOB &/OR WHEEZING Citalopram Hydrobromide (Celexa) 10 mg PO DAILY [facility] Last Admin: 11/20/17 09:05 Dose: 10 mg Digoxin (Lanoxin) 125 mcg PO DAILY [facility] Last Admin: 11/20/17 09:05 Dose: 125 mcg Diltiazem HCl (Cardizem Cd) 180 mg PO DAILY [facility] Last Admin: 11/20/17 09:06 Dose: 180 mg Ferrous Sulfate ([facility] Sulfate) [facility] Last Admin: 11/20/17 09:06 Dose: 325 mg Folic Acid (Folic Acid) 1 mg PO DAILY@0800 [facility] Last Admin: 11/20/17 09:06 Dose: 1 mg Guaifenesin (Mucinex) 600 mg PO BID [facility] Last Admin: 11/20/17 09:05 Dose: 600 mg Heparin Sodium (Porcine) (Heparin Na) 5,000 unit SC Q8 [facility] Last Admin: 11/20/17 05:11 Dose: 5,000 unit Insulin Human Lispro (Humalog Kwikpen (Bkc)) 0 unit SC ACHS [facility] PRN Reason: Protocol Last Admin: 11/20/17 09:06 Dose: 4 u Levothyroxine Sodium (Synthroid) 75 mcg PO DAILY@0600 [facility] Last Admin: 11/20/17 05:11 Dose: 75 mcg Magnesium Hydroxide (Milk Of Magnesia) 30 ml PO DAILY PRN PRN Reason: Constipation Methylprednisolone (Solu-Medrol) 40 mg IV Q8 [facility] Last Admin: 11/20/17 05:11 Dose: 40 mg Mirtazapine (Remeron) 15 mg PO QHS [facility] Last Admin: 11/19/17 22:41 Dose: 15 mg Multivitamins (Multivitamin) [facility] Last Admin: 11/20/17 09:05 Dose: 1 tablet Nutritional Formula (Wilfredo - [place] Flavor) 1 packet PO BID [facility] Last Admin: 11/20/17 09:06 Dose: 1 packet Nutritional Formula (Lactose Free) (Glucerna Shake) 120 ml PO 4X/DAY [facility] Last Admin: 11/20/17 09:06 Dose: 120 mls Ondansetron HCl (Zofran) 4 mg IV Q8H PRN PRN PRN Reason: NAUSEA Oxycodone HCl (Oxyir) 5 mg PO Q4H PRN PRN PRN Reason: MOD-SEVERE PAIN (-12/19) Last Admin: 11/20/17 02:54 Dose: 5 mg Polyethylene Glycol (Miralax) 17 gm PO DAILY [facility] Last Admin: 11/20/17 09:12 Dose: 17 gm Promethazine HCl (Phenergan) 12.5 mg IV Q6H PRN PRN PRN Reason: NAUSEA/VOMITING Ranolazine (Ranexa) 500 mg PO BID [facility] Last Admin: 11/20/17 09:05 Dose: 500 mg Sodium Chloride () 5 - 30 ml IV UD PRN PRN Reason: SALINE FLUSH Last Admin: 11/19/17 22:41 Dose: 10 ml Clinical Impression(s) from Imaging Studies Chest X-Ray 11/19/17 18:04 IMPRESSION: Bilateral pleural effusions. Electronically Signed: Little Jasso MD at 18:38 EDT Tel , Service support , Code Visit Inpatient E&M: 96203 [facility] L3
--- NOTE | 2017-11-20 10:48 | CASEMGMT ---
Patient is from [place]. SW sent them updates. Sandrita SMALL PARTY DEMONSTRATOR
[2017-11-20 11:10] LABS: Bedside Glucose 327 mg/dL (70-110)
--- NOTE | 2017-11-20 11:15 | EKG12_ITS ---
Test Reason : RHYTHYM CHANGE Blood Pressure : / mmHG Vent. Rate : 105 BPM Atrial Rate : 105 BPM P-R Int : 134 ms QRS Dur : 096 ms QT Int : 308 ms P-R-T Axes : 059 029 124 degrees QTc Int : 407 ms Sinus tachycardia with frequent Premature ventricular complexes Nonspecific ST and T wave abnormality Abnormal ECG When compared with ECG of 19-NOV-2017 18:03, MANUAL COMPARISON REQUIRED, DATA IS UNCONFIRMED Confirmed by JOSE HERNANDEZ, FRANCO ([id number]), editorial director KWAKU MOSER ([id number]) on 11/21/2017 1:53:01 PM Referred By: MARCOS Confirmed By:FRANCO GARCIA MD
--- NOTE | 2017-11-20 14:01 | NURSING ---
wound photo: left ischium
[2017-11-20 16:45] LABS: Bedside Glucose 272 mg/dL (70-110)
[2017-11-20] MEDS: Mirtazapine 15 MG Tablet PO (22:01)
[2017-11-20] MEDS: 0.9% NaCl Peripheral Flush Adult/Peds IV (22:02)
[2017-11-20 22:20] LABS: Bedside Glucose 308 mg/dL (70-110)
[2017-11-21] VITALS (14 sets, daily range): BP systolic 137–156; BP diastolic 70–78; PULSE 76–124; RESP 12–20; TEMP 36.6–37.2; O2SAT 94–96
[2017-11-21] MEDS: 0.9% NaCl Peripheral Flush Adult/Peds IV ×2 (05:33→14:35)
[2017-11-21] MEDS: Levothyroxine 75 MCG Tablet PO (05:33)
[2017-11-21] MEDS: Heparin Injection (Vial) 5,000 UNIT/ML VIAL 5000 UNIT SC ×3 (05:33→21:23)
[2017-11-21 06:50] LABS: Bedside Glucose 260 mg/dL (70-110)
--- NOTE | 2017-11-21 08:45 | CASEMGMT ---
Addendum entered by Sandrita Almeida 11/21/17 10:08: SW heard back from [facility] and patient will need a pre-cert to return. Sandrita RAMIREZ Original Note: ROSANA placed a call to [facility] and inquired if patient needs a pre-cert to return or is he there snf. ROSANA spoke with [place] who was not sure and Abigail is out today. She will check with the ROSANA when she comes in and get back to . Sandrita SMALL MSW
[2017-11-21] MEDS: Insulin Lispro 100 UNIT/ML INSULN.PEN SC ×4 (08:46→21:31)
[2017-11-21] MEDS: Ferrous Sulfate 325 MG Tablet PO ×2 (08:47→16:17)
[2017-11-21] MEDS: Citalopram 10 MG Tablet PO (08:48)
[2017-11-21] MEDS: Multivitamins,Therapeutic Tablet 1 TABLET PO (08:48)
[2017-11-21] MEDS: dilTIAZem CD 180 MG Capsule PO (08:48)
[2017-11-21] MEDS: Folic Acid 1 MG Tablet PO (08:48)
[2017-11-21] MEDS: Glucerna Shake 120 ML LIQUID PO ×3 (08:49→17:46)
[2017-11-21] MEDS: guaiFENesin 600 MG Tablet PO ×2 (08:50→21:23)
[2017-11-21] MEDS: Ranolazine 500 MG Tablet PO ×2 (08:50→21:23)
[2017-11-21] MEDS: Digoxin 125 MCG Tablet PO (08:50)
--- NOTE | 2017-11-21 09:10 | PCM.PN.HOSP ---
Patient Problems: Active and Suspected Problems (Last Reviewed 10/23/17 @ 12:12 by Brianne Waldron) COPD exacerbation (Acute) TYLER (acute kidney injury) (Acute) Acute and chronic respiratory failure with hypoxia (Acute) CHF exacerbation (Acute) Subjective: Seen still remains dyspneic at rest currently on 4 L of oxygen still complains of significant cough however remains unproductive. Patient respiratory assay came back positive for rhinovirus. Subsequently placed in droplet precautions Objective: GENERAL: Patient looks frail. HEENT: neck is supple, normal thyroid, CHEST: Diminished to auscultation bilaterally, HEART: Irregularly irregular ABDOMEN: soft, non-tender, normoactive bowel sounds, RECTAL: deferred MUSCULOSKELETAL: No joint swelling EXTREMITIES: No edema, no clubbing, no cyanosis. 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 SKIN: Dry Vitals/I&O's: Vital Signs Temp Pulse Resp BP Pulse Ox 98.3 F 86 14 153/71 H 95 11/21/17 03:56 11/21/17 08:50 11/21/17 03:56 11/21/17 03:56 11/21/17 06:50 Oxygen Flow Rate (L/min) 4 Oxygen Delivery Method Nasal Cannula Weight: 69.9 kg Body Mass Index (BMI) 24.1 Intake and Output for Last 24 Hours 11/19/17 11/20/17 11/21/17 23:59 23:59 23:59 Intake Total 420 / 420 1080 / 1080 60 / 60 Output Total 1000 / 1000 525 / 525 125 / 125 Balance -580 / -580 555 / 555 -65 / -65 Microbiology Past 72 Hours 11/19/17 21:25 Wound - Buttock Gram Stain - Final 11/19/17 21:25 Wound - Buttock Wound Culture - Preliminary Gram positive organism 11/19/17 22:00 Mucosa - Nose Respiratory Panel (PCR) - Final Rhinovirus 11/19/17 21:25 Urine, Clean Catch Streptococcus pneumoniae Antigen (M - Final 11/19/17 21:25 Urine, Clean Catch Legionella Antigen - Final Laboratory Results 11/20/17 11:07: POC Glucose 327 H 11/20/17 16:37: POC Glucose 272 H 11/20/17 21:57: POC Glucose 308 H 11/21/17 06:42: POC Glucose 260 H Current Medications Acetaminophen (Tylenol) 650 mg PO Q6H PRN PRN PRN Reason: Mild Pain (scale 0-3)/T>100.7 Al Hydroxide/Mg Hydroxide (Mylanta Ii) 30 ml PO Q6H PRN PRN PRN Reason: Gastric burning Albuterol Sulfate (Ventolin Aerosols) 2.5 mg INHALATION Q2H PRN PRN PRN Reason: SHORTNESS OF BREATH Albuterol/Ipratropium (Duoneb) 3 ml INHALATION Q4HWA.RT PRN PRN Reason: SOB &/OR WHEEZING Citalopram Hydrobromide (Celexa) 10 mg PO DAILY [facility] Last Admin: 11/21/17 08:48 Dose: 10 mg Digoxin (Lanoxin) 125 mcg PO DAILY [facility] Last Admin: 11/21/17 08:50 Dose: 125 mcg Diltiazem HCl (Cardizem Cd) 180 mg PO DAILY [facility] Last Admin: 11/21/17 08:48 Dose: 180 mg [facility]) [facility] Last Admin: 11/21/17 08:47 Dose: 325 mg Folic Acid (Folic Acid) 1 mg PO DAILY@0800 [facility] Last Admin: 11/21/17 08:48 Dose: 1 mg Guaifenesin (Mucinex) 600 mg PO BID [facility] Last Admin: 11/21/17 08:50 Dose: 600 mg Heparin Sodium (Porcine) (Heparin Na) 5,000 unit SC Q8 [facility] Last Admin: 11/21/17 05:33 Dose: 5,000 unit Insulin Human Lispro (Humalog Kwikpen (Bkc)) 0 unit SC ACHS [facility] PRN Reason: Protocol Last Admin: 11/21/17 08:46 Dose: 3 units Levothyroxine Sodium (Synthroid) 75 mcg PO DAILY@0600 [facility] Last Admin: 11/21/17 05:33 Dose: 75 mcg Magnesium Hydroxide (Milk Of Magnesia) 30 ml PO DAILY PRN PRN Reason: Constipation Methylprednisolone (Solu-Medrol) 40 mg IV Q8 [facility] Last Admin: 11/21/17 05:33 Dose: 40 mg Mirtazapine (Remeron) 15 mg PO QHS [facility] Last Admin: 11/20/17 22:01 Dose: 15 mg Multivitamins ([facility]amin) [facility] Last Admin: 11/21/17 08:48 Dose: 1 tablet Nutritional Formula (Wilfredo - [place] Flavor) 1 packet PO BID [facility] Last Admin: 11/21/17 08:49 Dose: 1 packet Nutritional Formula (Lactose Free) (Glucerna Shake) 120 ml PO 4X/DAY [facility] Last Admin: 11/21/17 08:49 Dose: 120 mls Ondansetron HCl (Zofran) 4 mg IV Q8H PRN PRN PRN Reason: NAUSEA Oxycodone HCl (Oxyir) 5 mg PO Q4H PRN PRN PRN Reason: MOD-SEVERE PAIN (4-10/10) Last Admin: 11/20/17 22:01 Dose: 5 mg Polyethylene Glycol (Miralax) 17 gm PO DAILY [facility] Last Admin: 11/21/17 08:51 Dose: Not Given Promethazine HCl (Phenergan) 12.5 mg IV Q6H PRN PRN PRN Reason: NAUSEA/VOMITING Ranolazine (Ranexa) 500 mg PO BID [facility] Last Admin: 11/21/17 08:50 Dose: 500 mg Sodium Chloride () 5 - 30 ml IV UD PRN PRN Reason: SALINE FLUSH Last Admin: 11/21/17 05:33 Dose: 10 ml Medical Necessity - Tobacco Use Smoking Status: Current every day smoker Tobacco Use: Cigars Assessment/Plan All Active Problems (Last Reviewed 10/23/17 @ 12:12 by Brianne Waldron) COPD exacerbation (Acute) TYLER (acute kidney injury) (Acute) Acute and chronic respiratory failure with hypoxia (Acute) CHF exacerbation (Acute) Closed left hip fracture (Acute) Failure to thrive (Resolved) ARF (acute renal failure) (Resolved) Dysphagia (Resolved) History of left heart catheterization (LHC) (Resolved) Hypoglycemia (Resolved) Fall (Resolved) Hypokalemia (Resolved) Chest pain (Resolved) COPD with exacerbation (Resolved) Dilated cardiomyopathy (Resolved) Lower extremity edema (Resolved) Overweight (Resolved) Unspecified systolic (congestive) heart failure (Resolved) Patient is a 67-year-old gentleman currently residing at an extended care facility brought in with shortness of breath and significant hypoxia at his ECF. An assessment of COPD with acute exacerbation was made admitted to a monitored bed for further management 1. Acute hypoxic respiratory failure secondary to COPD with acute exacerbation: Patient has been admitted to a monitored bed managed with systemic steroids aerosol treatment as well as antibiotics in addition to supplemental oxygen 2. Chronic Hypoxic respiratory failure secondary to COPD patient is on baseline home O2 COPD exacerbation managed with steroids and bronchodilators as well as antibiotics 3. 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 Patient oral regimen held on admission please and Accu-Cheks before meals and at bedtime with sliding scale coverage 4. Hypothyroidism: Continued levothyroxine 5. Paroxysmal A. fib rate controlled 6. Chronic systolic heart failure stable; currently compensated 7. Hypertension-blood pressure controlled, home medications continued with dose adjustment as needed 8. Tobacco dependence counseled on cessation, offered nicotine patch for tobacco cravings 9. CAD stable enzymes have remained negative to date 10. DVT Prophylaxis: SCDs, heparin. 11. Severe protein calorie malnutrition evidenced by muscle wasting decreased energy level. Consultation placed to dietitian 12. Rhinovirus infection patient placed in droplet precautions Active Medications Acetaminophen (Tylenol) 650 mg PO Q6H PRN PRN PRN Reason: Mild Pain (scale 0-3)/T>100.7 Al Hydroxide/Mg Hydroxide (Mylanta Ii) 30 ml PO Q6H PRN PRN PRN Reason: Gastric burning Albuterol Sulfate (Ventolin Aerosols) 2.5 mg INHALATION Q2H PRN PRN PRN Reason: SHORTNESS OF BREATH Albuterol/Ipratropium (Duoneb) 3 ml INHALATION Q4HWA.RT PRN PRN Reason: SOB &/OR WHEEZING Citalopram Hydrobromide (Celexa) 10 mg PO DAILY [facility] Last Admin: 11/20/17 09:05 Dose: 10 mg Digoxin (Lanoxin) 125 mcg PO DAILY [facility] Last Admin: 11/20/17 09:05 Dose: 125 mcg Diltiazem HCl (Cardizem Cd) 180 mg PO DAILY [facility] Last Admin: 11/20/17 09:06 Dose: 180 mg Ferrous Sulfate (Ferrous Sulfate) 325 mg PO [facility]CM [facility] Last Admin: 11/20/17 09:06 Dose: 325 mg Folic Acid (Folic Acid) 1 mg PO DAILY@0800 [facility] Last Admin: 11/20/17 09:06 Dose: 1 mg Guaifenesin (Mucinex) 600 mg PO BID [facility] Last Admin: 11/20/17 09:05 Dose: 600 mg Heparin Sodium (Porcine) (Heparin Na) 5,000 unit SC Q8 [facility] Last Admin: 11/20/17 05:11 Dose: 5,000 unit Insulin Human Lispro (Humalog Kwikpen (Bkc)) 0 unit SC ACHS [facility] PRN Reason: Protocol Last Admin: 11/20/17 09:06 Dose: 4 u Levothyroxine Sodium (Synthroid) 75 mcg PO DAILY@0600 [facility] Last Admin: 11/20/17 05:11 Dose: 75 mcg Magnesium Hydroxide (Milk Of Magnesia) 30 ml PO DAILY PRN PRN Reason: Constipation Methylprednisolone (Solu-Medrol) 40 mg IV Q8 [facility] Last Admin: 11/20/17 05:11 Dose: 40 mg Mirtazapine (Remeron) 15 mg PO QHS [facility] Last Admin: 11/19/17 22:41 Dose: 15 mg [facility]ivit[facility] ([facility]) [facility] Last Admin: 11/20/17 09:05 Dose: 1 tablet Nutritional Formula (Wilfredo - [place] Flavor) 1 packet PO BID [facility] Last Admin: 11/20/17 09:06 Dose: 1 packet Nutritional Formula (Lactose Free) (Glucerna Shake) 120 ml PO 4X/DAY [facility] Last Admin: 11/20/17 09:06 Dose: 120 mls Ondansetron HCl (Zofran) 4 mg IV Q8H PRN PRN PRN Reason: NAUSEA Oxycodone HCl (Oxyir) 5 mg PO Q4H PRN PRN PRN Reason: MOD-SEVERE PAIN (4-12/19) Last Admin: 11/20/17 02:54 Dose: 5 mg Polyethylene Glycol (Miralax) 17 gm PO DAILY [facility] Last Admin: 11/20/17 09:12 Dose: 17 gm Promethazine HCl (Phenergan) 12.5 mg IV Q6H PRN PRN PRN Reason: NAUSEA/VOMITING Ranolazine (Ranexa) 500 mg PO BID [facility] Last Admin: 11/20/17 09:05 Dose: 500 mg Sodium Chloride () 5 - 30 ml IV UD PRN PRN Reason: SALINE FLUSH Last Admin: 11/19/17 22:41 Dose: 10 ml Clinical Impression(s) from Imaging Studies Chest X-Ray 11/19/17 18:04 IMPRESSION: Bilateral pleural effusions. Electronically Signed: Little Jasso MD at 18:38 EDT Tel , Service support , Code Visit Inpatient E&M: 10989 [facility] L3
--- NOTE | 2017-11-21 09:14 | PN_ITS ---
Patient Problems: Active and Suspected Problems (Last Reviewed 10/23/17 @ 12:12 by Brianne Waldron ) COPD exacerbation (Acute) TYLER (acute kidney injury) (Acute) Acute and chronic respiratory failure with hypoxia (Acute) CHF exacerbation (Acute) Subjective: Seen still remains dyspneic at rest currently on 4 L of oxygen still complains of significant cough however remains unproductive. Patient respiratory assay came back positive for rhinovirus. Subsequently placed in droplet precautions Objective: GENERAL: Patient looks frail. HEENT: neck is supple, normal thyroid, CHEST: Diminished to auscultation bilaterally, HEART: Irregularly irregular ABDOMEN: soft, non-tender, normoactive bowel sounds, RECTAL: deferred MUSCULOSKELETAL: No joint swelling EXTREMITIES: No edema, no clubbing, no cyanosis. SUPERVISOR WEBBING: Awake, no lateralizing signs. SKIN: Dry Vitals/I&O's: Vital Signs Temp Pulse Resp BP Pulse Ox 98.3 F 86 14 153/71 H 95 11/21/17 03:56 11/21/17 08:50 11/21/17 03:56 11/21/17 03:56 11/21/17 06:50 Oxygen Flow Rate (L/min) 4 Oxygen Delivery Method Nasal Cannula Weight: 69.9 kg Body Mass Index (BMI) 24.1 Intake and Output for Last 24 Hours 11/19/17 11/20/17 11/21/17 23:59 23:59 23:59 Intake Total 420 / 420 1080 / 1080 60 / 60 Output Total 1000 / 1000 525 / 525 125 / 125 Balance -580 / -580 555 / 555 -65 / -65 Microbiology Past 72 Hours 11/19/17 21:25 Wound - Buttock Gram Stain - Final 11/19/17 21:25 Wound - Buttock Wound Culture - Preliminary Gram positive organism 11/19/17 22:00 Mucosa - Nose Respiratory Panel (PCR) - Final Rhinovirus 11/19/17 21:25 Urine, Clean Catch Streptococcus pneumoniae Antigen (M - Final 11/19/17 21:25 Urine, Clean Catch Legionella Antigen - Final Laboratory Results 11/20/17 11:07: POC Glucose 327 H 11/20/17 16:37: POC Glucose 272 H 11/20/17 21:57: POC Glucose 308 H 11/21/17 06:42: POC Glucose 260 H Current Medications Acetaminophen (Tylenol) 650 mg PO Q6H PRN PRN PRN Reason: Mild Pain (scale 0-3)/T>100.7 Al Hydroxide/Mg Hydroxide (Mylanta Ii) 30 ml PO Q6H PRN PRN PRN Reason: Gastric burning Albuterol Sulfate (Ventolin Aerosols) 2.5 mg INHALATION Q2H PRN PRN PRN Reason: SHORTNESS OF BREATH Albuterol/Ipratropium (Duoneb) 3 ml INHALATION Q4HWA.RT PRN PRN Reason: SOB &/OR WHEEZING Citalopram Hydrobromide (Celexa) 10 mg PO DAILY [facility] Last Admin: 11/21/17 08:48 Dose: 10 mg Digoxin (Lanoxin) 125 mcg PO DAILY [facility] Last Admin: 11/21/17 08:50 Dose: 125 mcg Diltiazem HCl (Cardizem Cd) 180 mg PO DAILY [facility] Last Admin: 11/21/17 08:48 Dose: 180 mg [facility] Last Admin: 11/21/17 08:47 Dose: 325 mg Folic Acid (Folic Acid) 1 mg PO DAILY@0800 [facility] Last Admin: 11/21/17 08:48 Dose: 1 mg Guaifenesin (Mucinex) 600 mg PO BID [facility] Last Admin: 11/21/17 08:50 Dose: 600 mg Heparin Sodium (Porcine) (Heparin Na) 5,000 unit SC Q8 [facility] Last Admin: 11/21/17 05:33 Dose: 5,000 unit Insulin Human Lispro (Humalog Kwikpen (Bkc)) 0 unit SC ACHS [facility] PRN Reason: Protocol Last Admin: 11/21/17 08:46 Dose: 3 units Levothyroxine Sodium (Synthroid) 75 mcg PO DAILY@0600 [facility] Last Admin: 11/21/17 05:33 Dose: 75 mcg Magnesium Hydroxide (Milk Of Magnesia) 30 ml PO DAILY PRN PRN Reason: Constipation Methylprednisolone (Solu-Medrol) 40 mg IV Q8 [facility] Last Admin: 11/21/17 05:33 Dose: 40 mg Mirtazapine (Remeron) 15 mg PO QHS [facility] Last Admin: 11/20/17 22:01 Dose: 15 mg Multivitamins ([facility]amin) [facility] Last Admin: 11/21/17 08:48 Dose: 1 tablet Nutritional Formula (Wilfredo - [place] Flavor) 1 packet PO BID [facility] Last Admin: 11/21/17 08:49 Dose: 1 packet Nutritional Formula (Lactose Free) (Glucerna Shake) 120 ml PO 4X/DAY [facility] Last Admin: 11/21/17 08:49 Dose: 120 mls Ondansetron HCl (Zofran) 4 mg IV Q8H PRN PRN PRN Reason: NAUSEA Oxycodone HCl (Oxyir) 5 mg PO Q4H PRN PRN PRN Reason: MOD-SEVERE PAIN (4-10/10) Last Admin: 11/20/17 22:01 Dose: 5 mg Polyethylene Glycol (Miralax) 17 gm PO DAILY [facility] Last Admin: 11/21/17 08:51 Dose: Not Given Promethazine HCl (Phenergan) 12.5 mg IV Q6H PRN PRN PRN Reason: NAUSEA/VOMITING Ranolazine (Ranexa) 500 mg PO BID [facility] Last Admin: 11/21/17 08:50 Dose: 500 mg Sodium Chloride () 5 - 30 ml IV UD PRN PRN Reason: SALINE FLUSH Last Admin: 11/21/17 05:33 Dose: 10 ml Medical Necessity - Tobacco Use Smoking Status: Current every day smoker Tobacco Use: Cigars Assessment/Plan All Active Problems (Last Reviewed 10/23/17 @ 12:12 by Brianne Waldron) COPD exacerbation (Acute) TYLER (acute kidney injury) (Acute) Acute and chronic respiratory failure with hypoxia (Acute) CHF exacerbation (Acute) Closed left hip fracture (Acute) Failure to thrive (Resolved) ARF (acute renal failure) (Resolved) Dysphagia (Resolved) History of left heart catheterization (LHC) (Resolved) Hypoglycemia (Resolved) Fall (Resolved) Hypokalemia (Resolved) Chest pain (Resolved) COPD with exacerbation (Resolved) Dilated cardiomyopathy (Resolved) Lower extremity edema (Resolved) Overweight (Resolved) Unspecified systolic (congestive) heart failure (Resolved) Patient is a 67-year-old gentleman currently residing at an extended care facility brought in with shortness of breath and significant hypoxia at his ECF. An assessment of COPD with acute exacerbation was made admitted to a monitored bed for further management 1. Acute hypoxic respiratory failure secondary to COPD with acute exacerbation : Patient has been admitted to a monitored bed managed with systemic steroids aerosol treatment as well as antibiotics in addition to supplemental oxygen 2. Chronic Hypoxic respiratory failure secondary to COPD patient is on baseline home O2 COPD exacerbation managed with steroids and bronchodilators as well as antibiotics 3. 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 Patient oral regimen held on admission please and Accu-Cheks before meals and at bedtime with sliding scale coverage 4. Hypothyroidism: Continued levothyroxine 5. Paroxysmal A. fib rate controlled 6. Chronic systolic heart failure stable; currently compensated 7. Hypertension-blood pressure controlled, home medications continued with dose adjustment as needed 8. Tobacco dependence counseled on cessation, offered nicotine patch for tobacco cravings 9. CAD stable enzymes have remained negative to date 10. DVT Prophylaxis: SCDs, heparin. 11. Severe protein calorie malnutrition evidenced by muscle wasting decreased energy level. Consultation placed to dietitian 12. Rhinovirus infection patient placed in droplet precautions Active Medications Acetaminophen (Tylenol) 650 mg PO Q6H PRN PRN PRN Reason: Mild Pain (scale 0-3)/T>100.7 Al Hydroxide/Mg Hydroxide (Mylanta Ii) 30 ml PO Q6H PRN PRN PRN Reason: Gastric burning Albuterol Sulfate (Ventolin Aerosols) 2.5 mg INHALATION Q2H PRN PRN PRN Reason: SHORTNESS OF BREATH Albuterol/Ipratropium (Duoneb) 3 ml INHALATION Q4HWA.RT PRN PRN Reason: SOB &/OR WHEEZING Citalopram Hydrobromide (Celexa) 10 mg PO DAILY [facility] Last Admin: 11/20/17 09:05 Dose: 10 mg Digoxin (Lanoxin) 125 mcg PO DAILY [facility] Last Admin: 11/20/17 09:05 Dose: 125 mcg Diltiazem HCl (Cardizem Cd) 180 mg PO DAILY [facility] Last Admin: 11/20/17 09:06 Dose: 180 mg Ferrous Sulfate (Ferrous Sulfate) 325 mg PO BIDCM [facility] Last Admin: 11/20/17 09:06 Dose: 325 mg Folic Acid (Folic Acid) 1 mg PO DAILY@0800 [facility] Last Admin: 11/20/17 09:06 Dose: 1 mg Guaifenesin (Mucinex) 600 mg PO BID [facility] Last Admin: 11/20/17 09:05 Dose: 600 mg Heparin Sodium (Porcine) (Heparin Na) 5,000 unit SC Q8 [facility] Last Admin: 11/20/17 05:11 Dose: 5,000 unit Insulin Human Lispro (Humalog Kwikpen (Bkc)) 0 unit SC ACHS [facility] PRN Reason: Protocol Last Admin: 11/20/17 09:06 Dose: 4 u Levothyroxine Sodium (Synthroid) 75 mcg PO DAILY@0600 [facility] Last Admin: 11/20/17 05:11 Dose: 75 mcg Magnesium Hydroxide (Milk Of Magnesia) 30 ml PO DAILY PRN PRN Reason: Constipation Methylprednisolone (Solu-Medrol) 40 mg IV Q8 [facility] Last Admin: 11/20/17 05:11 Dose: 40 mg Mirtazapine (Remeron) 15 mg PO QHS [facility] Last Admin: 11/19/17 22:41 Dose: 15 mg Multivitamins ([facility]amin) [facility] Last Admin: 11/20/17 09:05 Dose: 1 tablet Nutritional Formula (Wilfredo - [place] Flavor) 1 packet PO BID [facility] Last Admin: 11/20/17 09:06 Dose: 1 packet Nutritional Formula (Lactose Free) (Glucerna Shake) 120 ml PO 4X/DAY [facility] Last Admin: 11/20/17 09:06 Dose: 120 mls Ondansetron HCl (Zofran) 4 mg IV Q8H PRN PRN PRN Reason: NAUSEA Oxycodone HCl (Oxyir) 5 mg PO Q4H PRN PRN PRN Reason: MOD-SEVERE PAIN (4-12/19) Last Admin: 11/20/17 02:54 Dose: 5 mg Polyethylene Glycol (Miralax) 17 gm PO DAILY [facility] Last Admin: 11/20/17 09:12 Dose: 17 gm Promethazine HCl (Phenergan) 12.5 mg IV Q6H PRN PRN PRN Reason: NAUSEA/VOMITING Ranolazine (Ranexa) 500 mg PO BID [facility] Last Admin: 11/20/17 09:05 Dose: 500 mg Sodium Chloride () 5 - 30 ml IV UD PRN PRN Reason: SALINE FLUSH Last Admin: 11/19/17 22:41 Dose: 10 ml Clinical Impression(s) from Imaging Studies Chest X-Ray 11/19/17 18:04 IMPRESSION: Bilateral pleural effusions. Electronically Signed: Little Jasso MD at 18:38 EDT Tel , Service support , Code Visit Inpatient E&M: [id number] Subs Hosp L3
[2017-11-21 11:05] LABS: Bedside Glucose 311 mg/dL (70-110)
--- NOTE | 2017-11-21 15:53 | NURSING ---
Read SN documentation
[2017-11-21 16:31] LABS: Bedside Glucose 293 mg/dL (70-110)
[2017-11-21] MEDS: oxyCODONE 5 MG Tablet PO (17:47)
[2017-11-21] MEDS: Mirtazapine 15 MG Tablet PO (21:23)
[2017-11-21 22:56] LABS: Bedside Glucose 327 mg/dL (70-110)
[2017-11-22] VITALS (13 sets, daily range): BP systolic 146–163; BP diastolic 67–77; PULSE 82–108; RESP 12–22; TEMP 36.2–37.3; O2SAT 94–98
[2017-11-22] MEDS: Levothyroxine 75 MCG Tablet PO (05:52)
[2017-11-22] MEDS: 0.9% NaCl Peripheral Flush Adult/Peds IV ×3 (05:52→22:33)
[2017-11-22] MEDS: Heparin Injection (Vial) 5,000 UNIT/ML VIAL 5000 UNIT SC ×3 (05:53→22:28)
[2017-11-22] MEDS: oxyCODONE 5 MG Tablet PO ×2 (06:01→10:53)
[2017-11-22] MEDS: Ipratropium/Albuterol Sulfate 3 ML AMPUL.NEB INHALATION (06:43)
[2017-11-22 07:01] LABS: Bedside Glucose 247 mg/dL (70-110)
[2017-11-22] MEDS: Folic Acid 1 MG Tablet PO (08:14)
[2017-11-22] MEDS: Multivitamins,Therapeutic Tablet 1 TABLET PO (08:14)
[2017-11-22] MEDS: Ferrous Sulfate 325 MG Tablet PO ×2 (08:14→18:29)
[2017-11-22] MEDS: Insulin Lispro 100 UNIT/ML INSULN.PEN SC ×4 (08:15→22:27)
--- NOTE | 2017-11-22 10:50 | PN_ITS ---
Patient Problems: Active and Suspected Problems (Last Reviewed 10/23/17 @ 12:12 by Brianne Waldron ) COPD exacerbation (Acute) TYLER (acute kidney injury) (Acute) Acute and chronic respiratory failure with hypoxia (Acute) CHF exacerbation (Acute) Subjective: Patient seen still remains significantly frail yet to ambulate his respiratory status is improving Objective: GENERAL: Patient looks frail. HEENT: neck is supple, normal thyroid, CHEST: Diminished to auscultation bilaterally, HEART: Irregularly irregular ABDOMEN: soft, non-tender, normoactive bowel sounds, RECTAL: deferred MUSCULOSKELETAL: No joint swelling EXTREMITIES: No edema, no clubbing, no cyanosis. CATEGORY ANALYST: Awake, no lateralizing signs. SKIN: Dry Vitals/I&O's: Vital Signs Temp Pulse Resp BP Pulse Ox 97.1 F L 92 19 H 163/77 H 94 11/22/17 08:10 11/22/17 08:10 11/22/17 08:10 11/22/17 08:10 11/22/17 08:10 Oxygen Flow Rate (L/min) 4 Oxygen Delivery Method Nasal Cannula Weight: 69.9 kg Body Mass Index (BMI) 24.1 Intake and Output for Last 24 Hours 11/20/17 11/21/17 11/22/17 23:59 23:59 23:59 Intake Total 1080 / 1080 1410 / 1410 240 / 240 Output Total 525 / 525 2075 / 2075 Balance 555 / 555 -665 / -665 240 / 240 Microbiology Past 72 Hours 11/19/17 21:25 Wound - Buttock Gram Stain - Final 11/19/17 21:25 Wound - Buttock Wound Culture - Preliminary Proteus mirabilis Proteus mirabilis#2 Streptococcus group C Staphylococcus species 11/19/17 21:25 Urine, Clean Catch Urine Culture - Final Mixed Gram Pos & Gram Neg Org 11/19/17 22:00 Mucosa - Nose Respiratory Panel (PCR) - Final Rhinovirus 11/19/17 21:25 Urine, Clean Catch Streptococcus pneumoniae Antigen (M - Final 11/19/17 21:25 Urine, Clean Catch Legionella Antigen - Final Laboratory Results 11/21/17 10:58: POC Glucose 311 H 11/21/17 16:16: POC Glucose 293 H 11/21/17 21:21: POC Glucose 327 H 11/22/17 06:50: POC Glucose 247 H Current Medications Acetaminophen (Tylenol) 650 mg PO Q6H PRN PRN PRN Reason: Mild Pain (scale 0-3)/T>100.7 Al Hydroxide/Mg Hydroxide (Mylanta Ii) 30 ml PO Q6H PRN PRN PRN Reason: Gastric burning Albuterol Sulfate (Ventolin Aerosols) 2.5 mg INHALATION Q2H PRN PRN PRN Reason: SHORTNESS OF BREATH Albuterol/Ipratropium (Duoneb) 3 ml INHALATION Q4HWA.RT PRN PRN Reason: SOB &/OR WHEEZING Last Admin: 11/22/17 06:43 Dose: 3 ml Citalopram Hydrobromide (Celexa) 10 mg PO DAILY [facility] Last Admin: 11/21/17 08:48 Dose: 10 mg Digoxin (Lanoxin) 125 mcg PO DAILY [facility] Last Admin: 11/21/17 08:50 Dose: 125 mcg Diltiazem HCl (Cardizem Cd) 180 mg PO DAILY [facility] Last Admin: 11/21/17 08:48 Dose: 180 mg [facility]ous Sulf[facility]) [facility] Last Admin: 11/22/17 08:14 Dose: 325 mg Folic Acid (Folic Acid) 1 mg PO DAILY@0800 [facility] Last Admin: 11/22/17 08:14 Dose: 1 mg Guaifenesin (Mucinex) 600 mg PO BID [facility] Last Admin: 11/21/17 21:23 Dose: 600 mg Heparin Sodium (Porcine) (Heparin Na) 5,000 unit SC Q8 [facility] Last Admin: 11/22/17 05:53 Dose: 5,000 unit Insulin Human Lispro (Humalog Kwikpen (Bkc)) 0 unit SC ACHS [facility] PRN Reason: Protocol Last Admin: 11/22/17 08:15 Dose: 3 units Levothyroxine Sodium (Synthroid) 75 mcg PO DAILY@0600 [facility] Last Admin: 11/22/17 05:52 Dose: 75 mcg Magnesium Hydroxide (Milk Of Magnesia) 30 ml PO DAILY PRN PRN Reason: Constipation Methylprednisolone (Solu-Medrol) 40 mg IV Q8 [facility] Last Admin: 11/22/17 05:53 Dose: 40 mg Mirtazapine (Remeron) 15 mg PO QHS [facility] Last Admin: 11/21/17 21:23 Dose: 15 mg Multivitamins (Multivitamin) 1 tablet PO DAILYCM [facility] Last Admin: 11/22/17 08:14 Dose: 1 tablet Nutritional Formula (Wilfredo - [place] Flavor) 1 packet PO BID [facility] Last Admin: 11/21/17 21:24 Dose: 1 packet Nutritional Formula (Lactose Free) (Glucerna Shake) 120 ml PO 4X/DAY [facility] Last Admin: 11/21/17 21:23 Dose: Not Given Ondansetron HCl (Zofran) 4 mg IV Q8H PRN PRN PRN Reason: NAUSEA Oxycodone HCl (Oxyir) 5 mg PO Q4H PRN PRN PRN Reason: MOD-SEVERE PAIN (4-1010) Last Admin: 11/22/17 06:01 Dose: 5 mg Polyethylene Glycol (Miralax) 17 gm PO DAILY [facility] Last Admin: 11/21/17 08:51 Dose: Not Given Promethazine HCl (Phenergan) 12.5 mg IV Q6H PRN PRN PRN Reason: NAUSEA/VOMITING Ranolazine (Ranexa) 500 mg PO BID [facility] Last Admin: 11/21/17 21:23 Dose: 500 mg Sodium Chloride () 5 - 30 ml IV UD PRN PRN Reason: SALINE FLUSH Last Admin: 11/22/17 05:52 Dose: 10 ml Medical Necessity - Tobacco Use Smoking Status: Current every day smoker Tobacco Use: Cigars Assessment/Plan All Active Problems (Last Reviewed 10/23/17 @ 12:12 by Brianne Waldron) COPD exacerbation (Acute) TYLER (acute kidney injury) (Acute) Acute and chronic respiratory failure with hypoxia (Acute) CHF exacerbation (Acute) Closed left hip fracture (Acute) Failure to thrive (Resolved) ARF (acute renal failure) (Resolved) Dysphagia (Resolved) History of left heart catheterization (LHC) (Resolved) Hypoglycemia (Resolved) Fall (Resolved) Hypokalemia (Resolved) Chest pain (Resolved) COPD with exacerbation (Resolved) Dilated cardiomyopathy (Resolved) Lower extremity edema (Resolved) Overweight (Resolved) Unspecified systolic (congestive) heart failure (Resolved) Patient is a 67-year-old gentleman currently residing at an extended care facility brought in with shortness of breath and significant hypoxia at his ECF. An assessment of COPD with acute exacerbation was made admitted to a monitored bed for further management 1. Acute hypoxic respiratory failure secondary to COPD with acute exacerbation : Patient has been admitted to a monitored bed managed with systemic steroids aerosol treatment as well as antibiotics in addition to supplemental oxygen 2. Chronic Hypoxic respiratory failure secondary to COPD patient is on baseline home O2 COPD exacerbation managed with steroids and bronchodilators as well as antibiotics 3. 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 Patient oral regimen held on admission please and Accu-Cheks before meals and at bedtime with sliding scale coverage 4. Hypothyroidism: Continued levothyroxine 5. Paroxysmal A. fib rate controlled 6. Chronic systolic heart failure stable; currently compensated 7. Hypertension-blood pressure controlled, home medications continued with dose adjustment as needed 8. Tobacco dependence counseled on cessation, offered nicotine patch for tobacco cravings 9. CAD stable enzymes have remained negative to date 10. DVT Prophylaxis: SCDs, heparin. 11. Severe protein calorie malnutrition evidenced by muscle wasting decreased energy level. Consultation placed to dietitian 12. Rhinovirus infection patient placed in droplet precautions 13. Physical debility requested for PT OT eval and social service assistant to assist with discharge planning 14. Stage III left ischial decubitus ulcer. Cultures were obtained on admission however wound does not look infected. Patient is being followed by wound care nurse Active Medications Acetaminophen (Tylenol) 650 mg PO Q6H PRN PRN PRN Reason: Mild Pain (scale 0-3)/T>100.7 Al Hydroxide/Mg Hydroxide (Mylanta Ii) 30 ml PO Q6H PRN PRN PRN Reason: Gastric burning Albuterol Sulfate (Ventolin Aerosols) 2.5 mg INHALATION Q2H PRN PRN PRN Reason: SHORTNESS OF BREATH Albuterol/Ipratropium (Duoneb) 3 ml INHALATION Q4HWA.RT PRN PRN Reason: SOB &/OR WHEEZING Citalopram Hydrobromide (Celexa) 10 mg PO DAILY [facility] Last Admin: 11/20/17 09:05 Dose: 10 mg Digoxin (Lanoxin) 125 mcg PO DAILY [facility] Last Admin: 11/20/17 09:05 Dose: 125 mcg Diltiazem HCl (Cardizem Cd) 180 mg PO DAILY [facility] Last Admin: 11/20/17 09:06 Dose: 180 mg Ferrous Sulfate ([facility]ous Sulfate) [facility] Last Admin: 11/20/17 09:06 Dose: 325 mg Folic Acid (Folic Acid) 1 mg PO DAILY@0800 [facility] Last Admin: 11/20/17 09:06 Dose: 1 mg Guaifenesin (Mucinex) 600 mg PO BID [facility] Last Admin: 11/20/17 09:05 Dose: 600 mg Heparin Sodium (Porcine) (Heparin Na) 5,000 unit SC Q8 [facility] Last Admin: 11/20/17 05:11 Dose: 5,000 unit Insulin Human Lispro (Humalog Kwikpen (Bkc)) 0 unit SC ACHS [facility] PRN Reason: Protocol Last Admin: 11/20/17 09:06 Dose: 4 u Levothyroxine Sodium (Synthroid) 75 mcg PO DAILY@0600 [facility] Last Admin: 11/20/17 05:11 Dose: 75 mcg Magnesium Hydroxide (Milk Of Magnesia) 30 ml PO DAILY PRN PRN Reason: Constipation Methylprednisolone (Solu-Medrol) 40 mg IV Q8 [facility] Last Admin: 11/20/17 05:11 Dose: 40 mg Mirtazapine (Remeron) 15 mg PO QHS [facility] Last Admin: 11/19/17 22:41 Dose: 15 mg Multivitamins (Multivitamin) [facility] Last Admin: 11/20/17 09:05 Dose: 1 tablet Nutritional Formula (Wilfredo - [place] Flavor) 1 packet PO BID [facility] Last Admin: 11/20/17 09:06 Dose: 1 packet Nutritional Formula (Lactose Free) (Glucerna Shake) 120 ml PO 4X/DAY [facility] Last Admin: 11/20/17 09:06 Dose: 120 mls Ondansetron HCl (Zofran) 4 mg IV Q8H PRN PRN PRN Reason: NAUSEA Oxycodone HCl (Oxyir) 5 mg PO Q4H PRN PRN PRN Reason: MOD-SEVERE PAIN (4-10/10) Last Admin: 11/20/17 02:54 Dose: 5 mg Polyethylene Glycol (Miralax) 17 gm PO DAILY [facility] Last Admin: 11/20/17 09:12 Dose: 17 gm Promethazine HCl (Phenergan) 12.5 mg IV Q6H PRN PRN PRN Reason: NAUSEA/VOMITING Ranolazine (Ranexa) 500 mg PO BID [facility] Last Admin: 11/20/17 09:05 Dose: 500 mg Sodium Chloride () 5 - 30 ml IV UD PRN PRN Reason: SALINE FLUSH Last Admin: 11/19/17 22:41 Dose: 10 ml Clinical Impression(s) from Imaging Studies Chest X-Ray 11/19/17 18:04 IMPRESSION: Bilateral pleural effusions. Electronically Signed: Little Jasso MD at 18:38 EDT Tel , Service support , Code Visit Inpatient E&M: [id number] Subs Hosp L3
[2017-11-22] MEDS: Digoxin 125 MCG Tablet PO (10:54)
[2017-11-22] MEDS: Glucerna Shake 120 ML LIQUID PO ×4 (10:54→22:28)
[2017-11-22] MEDS: Ranolazine 500 MG Tablet PO ×2 (10:54→22:26)
[2017-11-22] MEDS: guaiFENesin 600 MG Tablet PO ×2 (10:55→22:26)
[2017-11-22] MEDS: Citalopram 10 MG Tablet PO (10:55)
[2017-11-22] MEDS: dilTIAZem CD 180 MG Capsule PO (10:55)
[2017-11-22] MEDS: Polyethylene Glycol 3350 17 GM PACKET PO (10:55)
[2017-11-22 12:30] LABS: Bedside Glucose 412 mg/dL (70-110)
--- NOTE | 2017-11-22 15:03 | CASEMGMT ---
Faxed updates to [facility]. Sandrita SMALL [employer]ESSOR [employer]
[2017-11-22 16:41] LABS: Bedside Glucose 284 mg/dL (70-110)
[2017-11-22] MEDS: Mirtazapine 15 MG Tablet PO (22:26)
[2017-11-23] VITALS (14 sets, daily range): BP systolic 147–160; BP diastolic 72–76; PULSE 76–99; RESP 12–21; TEMP 36.4–37.1; O2SAT 91–96
[2017-11-23] LABS: Bedside Glucose 325 mg/dL (70-110)
[2017-11-23] MEDS: Levothyroxine 75 MCG Tablet PO (06:17)
[2017-11-23] MEDS: Heparin Injection (Vial) 5,000 UNIT/ML VIAL 5000 UNIT SC ×3 (06:17→22:33)
[2017-11-23] MEDS: 0.9% NaCl Peripheral Flush Adult/Peds IV ×3 (06:18→22:46)
[2017-11-23 07:21] LABS: Bedside Glucose 381 mg/dL (70-110)
[2017-11-23] MEDS: Folic Acid 1 MG Tablet PO (08:11)
[2017-11-23] MEDS: Ferrous Sulfate 325 MG Tablet PO ×2 (08:11→18:19)
[2017-11-23] MEDS: Multivitamins,Therapeutic Tablet 1 TABLET PO (08:11)
[2017-11-23] MEDS: Insulin Lispro 100 UNIT/ML INSULN.PEN SC ×4 (08:13→22:35)
[2017-11-23] MEDS: Glucerna Shake 120 ML LIQUID PO ×4 (10:06→22:33)
[2017-11-23] MEDS: dilTIAZem CD 180 MG Capsule PO (10:08)
[2017-11-23] MEDS: Ranolazine 500 MG Tablet PO ×2 (10:08→22:53)
[2017-11-23] MEDS: Digoxin 125 MCG Tablet PO (10:08)
[2017-11-23] MEDS: guaiFENesin 600 MG Tablet PO ×2 (10:08→22:33)
[2017-11-23] MEDS: Citalopram 10 MG Tablet PO (10:08)
[2017-11-23] MEDS: Polyethylene Glycol 3350 17 GM PACKET PO (10:08)
[2017-11-23 11:50] LABS: Bedside Glucose 338 mg/dL (70-110)
--- NOTE | 2017-11-23 11:57 | CASEMGMT ---
ROSANA spoke with Abigail at Agency this am. She said they sent information to [facility] the other day when ROSANA asked. However, when she called [facility] they said they did not get the information. They re-faxed information to insurance. Await pre-cert. Plan: d/c back to Agency under skilled level of care pending insurance approval. Sandrita SMALL MSW
--- NOTE | 2017-11-23 14:23 | PCM.PN.HOSP ---
Patient Problems: Active and Suspected Problems (Last Reviewed 10/23/17 @ 12:12 by Brianne Waldron) COPD exacerbation (Acute) TYLER (acute kidney injury) (Acute) Acute and chronic respiratory failure with hypoxia (Acute) CHF exacerbation (Acute) Subjective: Patient is still short of breath. At night, patient is on BiPAP. As per the nursing staff, shortness of breath, and overall respiratory status is improving; although gradually Vitals/I&O's: Vital Signs Temp Pulse Resp BP Pulse Ox 97.6 F L 94 18 156/76 H 91 11/23/17 13:56 11/23/17 13:56 11/23/17 13:56 11/23/17 13:56 11/23/17 13:56 Oxygen Flow Rate (L/min) 4 Oxygen Delivery Method Nasal Cannula Weight: 154 lb 1.65 oz Body Mass Index (BMI) 24.1 Intake and Output for Last 24 Hours 11/21/17 11/22/17 11/23/17 23:59 23:59 23:59 Intake Total 1410 / 1410 1390 / 1390 480 / 480 Output Total 2075 / 2075 400 / 400 1050 / 1050 Balance -665 / -665 990 / 990 -570 / -570 General: Alert, Oriented x3, Cooperative HEENT: Atraumatic, PERRLA, EOMI, Normocephalic Neck: Supple, No JVD, Negative Carotid Bruits Lungs: Diminished, Rhonchi, Short of Breath Cardiovascular: Regular rate, Normal S1, Normal S2, No murmurs Abdomen: Bowel Sounds Present, Soft, Non Tender Extremities: No edema, Capillary Refill Less than 3 Seconds Skin: No rashes, No breakdown Musculoskeletal: No Tenderness to Palpation of Joints or Extremities, Arthritic Changes, Muscle Wasting Neurological: Cranial nerves II-XII grossly intact Psych/Mental Status: Normal Affect, Appropriate Microbiology Past 72 Hours 11/22/17 09:05 Sputum, Expectorated/Coughed Gram Stain - Final 11/22/17 09:05 Sputum, Expectorated/Coughed Respiratory Culture - Preliminary Appears to be normal respiratory maggy. Further studies to follow. 11/19/17 21:25 Wound - Buttock Gram Stain - Final 11/19/17 21:25 Wound - Buttock Wound Culture - Final Proteus mirabilis Proteus mirabilis#2 Streptococcus group C Staphylococcus aureus 11/19/17 21:25 Urine, Clean Catch Urine Culture - Final Mixed Gram Pos & Gram Neg Org Laboratory Results 11/22/17 16:32: POC Glucose 284 H 11/22/17 22:24: POC Glucose 325 H 11/23/17 07:12: POC Glucose 381 H 11/23/17 11:45: POC Glucose 338 H Current Medications Acetaminophen (Tylenol) 650 mg PO Q6H PRN PRN PRN Reason: Mild Pain (scale 0-3)/T>100.7 Al Hydroxide/Mg Hydroxide (Mylanta Ii) 30 ml PO Q6H PRN PRN PRN Reason: Gastric burning Albuterol Sulfate (Ventolin Aerosols) 2.5 mg INHALATION Q2H PRN PRN PRN Reason: SHORTNESS OF BREATH Albuterol/Ipratropium (Duoneb) 3 ml INHALATION Q4HWA.RT PRN PRN Reason: SOB &/OR WHEEZING Last Admin: 11/22/17 06:43 Dose: 3 ml Citalopram Hydrobromide (Celexa) 10 mg PO DAILY ON LICENSE OF [facility] Last Admin: 11/23/17 10:08 Dose: 10 mg Digoxin (Lanoxin) 125 mcg PO DAILY ON LICENSE OF [facility] Last Admin: 11/23/17 10:08 Dose: 125 mcg Diltiazem HCl (Cardizem Cd) 180 mg PO DAILY ON LICENSE OF [facility] Last Admin: 11/23/17 10:08 Dose: 180 mg Ferrous Sulfate (Ferrous Sulfate) 325 mg PO BIDCM ON LICENSE OF [facility] Last Admin: 11/23/17 08:11 Dose: 325 mg Folic Acid (Folic Acid) 1 mg PO DAILY@0800 ON LICENSE OF [facility] Last Admin: 11/23/17 08:11 Dose: 1 mg Guaifenesin (Mucinex) 600 mg PO BID ON LICENSE OF [facility] Last Admin: 11/23/17 10:08 Dose: 600 mg Heparin Sodium (Porcine) (Heparin Na) 5,000 unit SC Q8 ON LICENSE OF [facility] Last Admin: 11/23/17 13:48 Dose: 5,000 unit Insulin Human Lispro (Humalog Kwikpen (Bkc)) 0 unit SC ACHS ON LICENSE OF [facility] PRN Reason: Protocol Last Admin: 11/23/17 13:42 Dose: 5 units Levothyroxine Sodium (Synthroid) 75 mcg PO DAILY@0600 ON LICENSE OF [facility] Last Admin: 11/23/17 06:17 Dose: 75 mcg Magnesium Hydroxide (Milk Of Magnesia) 30 ml PO DAILY PRN PRN Reason: Constipation Methylprednisolone (Solu-Medrol) 40 mg IV Q8 ON LICENSE OF [facility] Last Admin: 11/23/17 13:48 Dose: 40 mg Mirtazapine (Remeron) 15 mg PO QHS ON LICENSE OF [facility] Last Admin: 11/22/17 22:26 Dose: 15 mg [facility] Last Admin: 11/23/17 08:11 Dose: 1 tablet Nutritional Formula (Wilfredo - Abbott Flavor) 1 packet PO BID ON LICENSE OF [facility] Last Admin: 11/23/17 10:08 Dose: 1 packet Nutritional Formula (Lactose Free) (Glucerna Shake) 120 ml PO 4X/DAY ON LICENSE OF [facility] Last Admin: 11/23/17 13:43 Dose: 120 mls Ondansetron HCl (Zofran) 4 mg IV Q8H PRN PRN PRN Reason: NAUSEA Oxycodone HCl (Oxyir) 5 mg PO Q4H PRN PRN PRN Reason: MOD-SEVERE PAIN (4-10/10) Last Admin: 11/22/17 10:53 Dose: 5 mg Polyethylene Glycol (Miralax) 17 gm PO DAILY ON LICENSE OF [facility] Last Admin: 11/23/17 10:08 Dose: 17 gm Promethazine HCl (Phenergan) 12.5 mg IV Q6H PRN PRN PRN Reason: NAUSEA/VOMITING Ranolazine (Ranexa) 500 mg PO BID ON LICENSE OF [facility] Last Admin: 11/23/17 10:08 Dose: 500 mg Sodium Chloride () 5 - 30 ml IV UD PRN PRN Reason: SALINE FLUSH Last Admin: 11/23/17 13:49 Dose: 10 ml Medical Necessity - Tobacco Use Smoking Status: Current every day smoker Tobacco Use: Cigars Assessment/Plan All Active Problems (Last Reviewed 10/23/17 @ 12:12 by Brianne Waldron) COPD exacerbation (Acute) TYLER (acute kidney injury) (Acute) Acute and chronic respiratory failure with hypoxia (Acute) CHF exacerbation (Acute) Closed left hip fracture (Acute) Failure to thrive (Resolved) ARF (acute renal failure) (Resolved) Dysphagia (Resolved) History of left heart catheterization (LHC) (Resolved) Hypoglycemia (Resolved) Fall (Resolved) Hypokalemia (Resolved) Chest pain (Resolved) COPD with exacerbation (Resolved) Dilated cardiomyopathy (Resolved) Lower extremity edema (Resolved) Overweight (Resolved) Unspecified systolic (congestive) heart failure (Resolved) Patient is a 67-year-old gentleman currently residing at an extended care facility, [place] brought in with shortness of breath and significant hypoxia at his ECF. An assessment of COPD with acute exacerbation was made and admitted to a monitored bed for further management 1. Acute hypoxic respiratory failure secondary to COPD with acute exacerbation due to rhinovirus viral bronchitis: Patient has been admitted to a monitored bed managed with systemic steroids aerosol treatment as well as antibiotics in addition to supplemental oxygen. Patient is on BiPAP at night. During the day, pulse ox 91% on 4 L of oxygen. At night he is on 45% BiPAP. 2. Chronic Hypoxic respiratory failure secondary to COPD patient is on baseline home O2 COPD exacerbation managed with steroids and bronchodilators as well as antibiotics 3. 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 Patient oral regimen held on admission please and Accu-Cheks before meals and at bedtime with sliding scale coverage 4. Hypothyroidism: Continued levothyroxine 5. Paroxysmal A. fib rate controlled 6. Chronic systolic heart failure stable; currently compensated 7. Hypertension-blood pressure controlled, home medications continued with dose adjustment as needed 8. Tobacco dependence counseled on cessation, offered nicotine patch for tobacco cravings 9. CAD stable enzymes have remained negative to date 10. DVT Prophylaxis: SCDs, heparin. 11. Severe protein calorie malnutrition evidenced by muscle wasting decreased energy level. Consultation placed to dietitian 12. Rhinovirus infection patient placed in droplet precautions 13. Physical debility requested for PT OT eval and child welfare social worker to assist with discharge planning 14. Stage III left ischial decubitus ulcer. Cultures were obtained on admission however wound does not look infected. Patient is being followed by wound care nurse. Wound cultures growing 3+ Proteus mirabilis, 1+ Proteus mirabilis #2, 2+ streptococcus group C and rare MSSA. Patient is allergic to penicillin. Started on IV cefazolin. Active Medications Acetaminophen (Tylenol) 650 mg PO Q6H PRN PRN PRN Reason: Mild Pain (scale 0-3)/T>100.7 Al Hydroxide/Mg Hydroxide (Mylanta Ii) 30 ml PO Q6H PRN PRN PRN Reason: Gastric burning Albuterol Sulfate (Ventolin Aerosols) 2.5 mg INHALATION Q2H PRN PRN PRN Reason: SHORTNESS OF BREATH Albuterol/Ipratropium (Duoneb) 3 ml INHALATION Q4HWA.RT PRN PRN Reason: SOB &/OR WHEEZING Last Admin: 11/22/17 06:43 Dose: 3 ml Citalopram Hydrobromide (Celexa) 10 mg PO DAILY ON [facility] OF [facility] Last Admin: 11/23/17 10:08 Dose: 10 mg Digoxin (Lanoxin) 125 mcg PO DAILY ON [facility] Last Admin: 11/23/17 10:08 Dose: 125 mcg Diltiazem HCl (Cardizem Cd) 180 mg PO DAILY ON [facility] OF [facility] Last Admin: 11/23/17 10:08 Dose: 180 mg [facility]ous Sulfate ([facility]) [facility] Last Admin: 11/23/17 08:11 Dose: 325 mg Folic Acid (Folic Acid) 1 mg PO DAILY@0800 ON [facility] Last Admin: 11/23/17 08:11 Dose: 1 mg Guaifenesin (Mucinex) 600 mg PO BID ON [facility] OF [facility] Last Admin: 11/23/17 10:08 Dose: 600 mg Heparin Sodium (Porcine) (Heparin Na) 5,000 unit SC Q8 ON LICENSE OF [facility] Last Admin: 11/23/17 13:48 Dose: 5,000 unit Insulin Human Lispro (Humalog Kwikpen (Bkc)) 0 unit SC ACHS ON LICENSE OF [facility] PRN Reason: Protocol Last Admin: 11/23/17 13:42 Dose: 5 units Levothyroxine Sodium (Synthroid) 75 mcg PO DAILY@0600 ON [facility] OF [facility] Last Admin: 11/23/17 06:17 Dose: 75 mcg Magnesium Hydroxide (Milk Of Magnesia) 30 ml PO DAILY PRN PRN Reason: Constipation Methylprednisolone (Solu-Medrol) 40 mg IV Q8 ON [facility] Last Admin: 11/23/17 13:48 Dose: 40 mg Mirtazapine (Remeron) 15 mg PO QHS ON [facility] Last Admin: 11/22/17 22:26 Dose: 15 mg [facility]ivitamins ([facility]amin) [facility] Last Admin: 11/23/17 08:11 Dose: 1 tablet Nutritional Formula (Wilfredo - Abbott Flavor) 1 packet PO BID ON [facility] Last Admin: 11/23/17 10:08 Dose: 1 packet Nutritional Formula (Lactose Free) (Glucerna Shake) 120 ml PO 4X/DAY ON LICENSE OF [facility] Last Admin: 11/23/17 13:43 Dose: 120 mls Ondansetron HCl (Zofran) 4 mg IV Q8H PRN PRN PRN Reason: NAUSEA Oxycodone HCl (Oxyir) 5 mg PO Q4H PRN PRN PRN Reason: MOD-SEVERE PAIN (4-12/19) Last Admin: 11/22/17 10:53 Dose: 5 mg Polyethylene Glycol (Miralax) 17 gm PO DAILY ON [facility] OF [facility] Last Admin: 11/23/17 10:08 Dose: 17 gm Promethazine HCl (Phenergan) 12.5 mg IV Q6H PRN PRN PRN Reason: NAUSEA/VOMITING Ranolazine (Ranexa) 500 mg PO BID ON [facility] OF [facility] Last Admin: 11/23/17 10:08 Dose: 500 mg Sodium Chloride () 5 - 30 ml IV UD PRN PRN Reason: SALINE FLUSH Last Admin: 11/23/17 13:49 Dose: 10 ml Code Visit Inpatient E&M: 92644 Subs Hosp L3
--- NOTE | 2017-11-23 14:35 | PN_ITS ---
Patient Problems: Active and Suspected Problems (Last Reviewed 10/23/17 @ 12:12 by Brianne Waldron ) COPD exacerbation (Acute) TYLER (acute kidney injury) (Acute) Acute and chronic respiratory failure with hypoxia (Acute) CHF exacerbation (Acute) Subjective: Patient is still short of breath. At night, patient is on BiPAP. As per the nursing staff, shortness of breath, and overall respiratory status is improving ; although gradually Vitals/I&O's: Vital Signs Temp Pulse Resp BP Pulse Ox 97.6 F L 94 18 156/76 H 91 11/23/17 13:56 11/23/17 13:56 11/23/17 13:56 11/23/17 13:56 11/23/17 13:56 Oxygen Flow Rate (L/min) 4 Oxygen Delivery Method Nasal Cannula Weight: 154 lb 1.65 oz Body Mass Index (BMI) 24.1 Intake and Output for Last 24 Hours 11/21/17 11/22/17 11/23/17 23:59 23:59 23:59 Intake Total 1410 / 1410 1390 / 1390 480 / 480 Output Total 2075 / 2075 400 / 400 1050 / 1050 Balance -665 / -665 990 / 990 -570 / -570 General: Alert, Oriented x3, Cooperative HEENT: Atraumatic, PERRLA, EOMI, Normocephalic Neck: Supple, No JVD, Negative Carotid Bruits Lungs: Diminished, Rhonchi, Short of Breath Cardiovascular: Regular rate, Normal S1, Normal S2, No murmurs Abdomen: Bowel Sounds Present, Soft, Non Tender Extremities: No edema, Capillary Refill Less than 3 Seconds Skin: No rashes, No breakdown Musculoskeletal: No Tenderness to Palpation of Joints or Extremities, Arthritic Changes, Muscle Wasting Neurological: Cranial nerves II-XII grossly intact Psych/Mental Status: Normal Affect, Appropriate Microbiology Past 72 Hours 11/22/17 09:05 Sputum, Expectorated/Coughed Gram Stain - Final 11/22/17 09:05 Sputum, Expectorated/Coughed Respiratory Culture - Preliminary Appears to be normal respiratory maggy. Further studies to follow. 11/19/17 21:25 Wound - Buttock Gram Stain - Final 11/19/17 21:25 Wound - Buttock Wound Culture - Final Proteus mirabilis Proteus mirabilis#2 Streptococcus group C Staphylococcus aureus 11/19/17 21:25 Urine, Clean Catch Urine Culture - Final Mixed Gram Pos & Gram Neg Org Laboratory Results 11/22/17 16:32: POC Glucose 284 H 11/22/17 22:24: POC Glucose 325 H 11/23/17 07:12: POC Glucose 381 H 11/23/17 11:45: POC Glucose 338 H Current Medications Acetaminophen (Tylenol) 650 mg PO Q6H PRN PRN PRN Reason: Mild Pain (scale 0-3)/T>100.7 Al Hydroxide/Mg Hydroxide (Mylanta Ii) 30 ml PO Q6H PRN PRN PRN Reason: Gastric burning Albuterol Sulfate (Ventolin Aerosols) 2.5 mg INHALATION Q2H PRN PRN PRN Reason: SHORTNESS OF BREATH Albuterol/Ipratropium (Duoneb) 3 ml INHALATION Q4HWA.RT PRN PRN Reason: SOB &/OR WHEEZING Last Admin: 11/22/17 06:43 Dose: 3 ml Citalopram Hydrobromide (Celexa) 10 mg PO DAILY [facility] Last Admin: 11/23/17 10:08 Dose: 10 mg Digoxin (Lanoxin) 125 mcg PO DAILY [facility] Last Admin: 11/23/17 10:08 Dose: 125 mcg Diltiazem HCl (Cardizem Cd) 180 mg PO DAILY [facility] Last Admin: 11/23/17 10:08 Dose: 180 mg Ferrous Sulfate (Ferrous Sulfate) 325 mg PO BIDCM [facility] Last Admin: 11/23/17 08:11 Dose: 325 mg Folic Acid (Folic Acid) 1 mg PO DAILY@0800 [facility] Last Admin: 11/23/17 08:11 Dose: 1 mg Guaifenesin (Mucinex) 600 mg PO BID [facility] Last Admin: 11/23/17 10:08 Dose: 600 mg Heparin Sodium (Porcine) (Heparin Na) 5,000 unit SC Q8 [facility] Last Admin: 11/23/17 13:48 Dose: 5,000 unit Insulin Human Lispro (Humalog Kwikpen (Bkc)) 0 unit SC ACHS [facility] PRN Reason: Protocol Last Admin: 11/23/17 13:42 Dose: 5 units Levothyroxine Sodium (Synthroid) 75 mcg PO DAILY@0600 [facility] Last Admin: 11/23/17 06:17 Dose: 75 mcg Magnesium Hydroxide (Milk Of Magnesia) 30 ml PO DAILY PRN PRN Reason: Constipation Methylprednisolone (Solu-Medrol) 40 mg IV Q8 [facility] Last Admin: 11/23/17 13:48 Dose: 40 mg Mirtazapine (Remeron) 15 mg PO QHS [facility] Last Admin: 11/22/17 22:26 Dose: 15 mg [facility] Last Admin: 11/23/17 08:11 Dose: 1 tablet Nutritional Formula (Wilfredo - [place] Flavor) 1 packet PO BID [facility] Last Admin: 11/23/17 10:08 Dose: 1 packet Nutritional Formula (Lactose Free) (Glucerna Shake) 120 ml PO 4X/DAY [facility] Last Admin: 11/23/17 13:43 Dose: 120 mls Ondansetron HCl (Zofran) 4 mg IV Q8H PRN PRN PRN Reason: NAUSEA Oxycodone HCl (Oxyir) 5 mg PO Q4H PRN PRN PRN Reason: MOD-SEVERE PAIN (4-10/10) Last Admin: 11/22/17 10:53 Dose: 5 mg Polyethylene Glycol (Miralax) 17 gm PO DAILY [facility] Last Admin: 11/23/17 10:08 Dose: 17 gm Promethazine HCl (Phenergan) 12.5 mg IV Q6H PRN PRN PRN Reason: NAUSEA/VOMITING Ranolazine (Ranexa) 500 mg PO BID [facility] Last Admin: 11/23/17 10:08 Dose: 500 mg Sodium Chloride () 5 - 30 ml IV UD PRN PRN Reason: SALINE FLUSH Last Admin: 11/23/17 13:49 Dose: 10 ml Medical Necessity - Tobacco Use Smoking Status: Current every day smoker Tobacco Use: Cigars Assessment/Plan All Active Problems (Last Reviewed 10/23/17 @ 12:12 by Brianne Waldron) COPD exacerbation (Acute) TYLER (acute kidney injury) (Acute) Acute and chronic respiratory failure with hypoxia (Acute) CHF exacerbation (Acute) Closed left hip fracture (Acute) Failure to thrive (Resolved) ARF (acute renal failure) (Resolved) Dysphagia (Resolved) History of left heart catheterization (LHC) (Resolved) Hypoglycemia (Resolved) Fall (Resolved) Hypokalemia (Resolved) Chest pain (Resolved) COPD with exacerbation (Resolved) Dilated cardiomyopathy (Resolved) Lower extremity edema (Resolved) Overweight (Resolved) Unspecified systolic (congestive) heart failure (Resolved) Patient is a 67-year-old gentleman currently residing at an extended care facility, [place] brought in with shortness of breath and significant hypoxia at his ECF. An assessment of COPD with acute exacerbation was made and admitted to a monitored bed for further management 1. Acute hypoxic respiratory failure secondary to COPD with acute exacerbation due to rhinovirus viral bronchitis: Patient has been admitted to a monitored bed managed with systemic steroids aerosol treatment as well as antibiotics in addition to supplemental oxygen. Patient is on BiPAP at night. During the day , pulse ox 91% on 4 L of oxygen. At night he is on 45% BiPAP. 2. Chronic Hypoxic respiratory failure secondary to COPD patient is on baseline home O2 COPD exacerbation managed with steroids and bronchodilators as well as antibiotics 3. 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 Patient oral regimen held on admission please and Accu-Cheks before meals and at bedtime with sliding scale coverage 4. Hypothyroidism: Continued levothyroxine 5. Paroxysmal A. fib rate controlled 6. Chronic systolic heart failure stable; currently compensated 7. Hypertension-blood pressure controlled, home medications continued with dose adjustment as needed 8. Tobacco dependence counseled on cessation, offered nicotine patch for tobacco cravings 9. CAD stable enzymes have remained negative to date 10. DVT Prophylaxis: SCDs, heparin. 11. Severe protein calorie malnutrition evidenced by muscle wasting decreased energy level. Consultation placed to dietitian 12. Rhinovirus infection patient placed in droplet precautions 13. Physical debility requested for PT OT eval and executive secretary social welfare to assist with discharge planning 14. Stage III left ischial decubitus ulcer. Cultures were obtained on admission however wound does not look infected. Patient is being followed by wound care nurse. Wound cultures growing 3+ Proteus mirabilis, 1+ Proteus mirabilis #2, 2+ streptococcus group C and rare MSSA. Patient is allergic to penicillin. Started on IV cefazolin. Active Medications Acetaminophen (Tylenol) 650 mg PO Q6H PRN PRN PRN Reason: Mild Pain (scale 0-3)/T>100.7 Al Hydroxide/Mg Hydroxide (Mylanta Ii) 30 ml PO Q6H PRN PRN PRN Reason: Gastric burning Albuterol Sulfate (Ventolin Aerosols) 2.5 mg INHALATION Q2H PRN PRN PRN Reason: SHORTNESS OF BREATH Albuterol/Ipratropium (Duoneb) 3 ml INHALATION Q4HWA.RT PRN PRN Reason: SOB &/OR WHEEZING Last Admin: 11/22/17 06:43 Dose: 3 ml Citalopram Hydrobromide (Celexa) 10 mg PO DAILY [facility] Last Admin: 11/23/17 10:08 Dose: 10 mg Digoxin (Lanoxin) 125 mcg PO DAILY [facility] Last Admin: 11/23/17 10:08 Dose: 125 mcg Diltiazem HCl (Cardizem Cd) 180 mg PO DAILY [facility] Last Admin: 11/23/17 10:08 Dose: 180 mg Ferrous Sulfate (F[facility]ous Sulfate) [facility] Last Admin: 11/23/17 08:11 Dose: 325 mg Folic Acid (Folic Acid) 1 mg PO DAILY@0800 [facility] Last Admin: 11/23/17 08:11 Dose: 1 mg Guaifenesin (Mucinex) 600 mg PO BID [facility] Last Admin: 11/23/17 10:08 Dose: 600 mg Heparin Sodium (Porcine) (Heparin Na) 5,000 unit SC Q8 [facility] Last Admin: 11/23/17 13:48 Dose: 5,000 unit Insulin Human Lispro (Humalog Kwikpen (Bkc)) 0 unit SC ACHS [facility] PRN Reason: Protocol Last Admin: 11/23/17 13:42 Dose: 5 units Levothyroxine Sodium (Synthroid) 75 mcg PO DAILY@0600 [facility] Last Admin: 11/23/17 06:17 Dose: 75 mcg Magnesium Hydroxide (Milk Of Magnesia) 30 ml PO DAILY PRN PRN Reason: Constipation Methylprednisolone (Solu-Medrol) 40 mg IV Q8 [facility] Last Admin: 11/23/17 13:48 Dose: 40 mg Mirtazapine (Remeron) 15 mg PO QHS [facility] Last Admin: 11/22/17 22:26 Dose: 15 mg Multivitamins ([facility]ivitamin) [facility] Last Admin: 11/23/17 08:11 Dose: 1 tablet Nutritional Formula (Wilfredo - [place] Flavor) 1 packet PO BID [facility] Last Admin: 11/23/17 10:08 Dose: 1 packet Nutritional Formula (Lactose Free) (Glucerna Shake) 120 ml PO 4X/DAY [facility] Last Admin: 11/23/17 13:43 Dose: 120 mls Ondansetron HCl (Zofran) 4 mg IV Q8H PRN PRN PRN Reason: NAUSEA Oxycodone HCl (Oxyir) 5 mg PO Q4H PRN PRN PRN Reason: MOD-SEVERE PAIN (4-12/19) Last Admin: 11/22/17 10:53 Dose: 5 mg Polyethylene Glycol (Miralax) 17 gm PO DAILY [facility] Last Admin: 11/23/17 10:08 Dose: 17 gm Promethazine HCl (Phenergan) 12.5 mg IV Q6H PRN PRN PRN Reason: NAUSEA/VOMITING Ranolazine (Ranexa) 500 mg PO BID [facility] Last Admin: 11/23/17 10:08 Dose: 500 mg Sodium Chloride () 5 - 30 ml IV UD PRN PRN Reason: SALINE FLUSH Last Admin: 11/23/17 13:49 Dose: 10 ml Code Visit Inpatient E&M: 48630 Subs Hosp L3
--- NOTE | 2017-11-23 14:43 | CASEMGMT ---
ROSANA spoke with patient per his request. He told SW he was wondering if he could switch to [facility]. ROSANA told him that we have already started the process to get insurance authorization to return to [place]. ROSANA told him if we change now it would delay the discharge as [facility] would have to cancel their request and [facility] would have to start over. ROSANA told him that when he gets back to [facility] he can ask them about helping him move to [facility]. He was okay with this. He also told SW that he gave his nephew his debit card to pay his rent and get him some incidentals. He said he texted his nephew while he was here in the hospital and he has not gotten back to him. He said his account is overdrawn now. He was wondering if he should cancel his card. ROSANA told him he should cancel his card. ROSANA called Abigail at [facility] and she said she talked to insurance and she thinks they are going to approve him, but didn't give her the official approval. She thinks he would be fine to return if he is ready. ROSANA also told her about patient wanting to possibly switch to [facility]. Plan: D/c back to [facility] when ready. Sandrita SMALL MSW
[2017-11-23] MEDS: Cefazolin 1 GM/50 ML BAG IV ×2 (16:21→22:40)
[2017-11-23 17:15] LABS: Bedside Glucose 302 mg/dL (70-110)
[2017-11-23] MEDS: Mirtazapine 15 MG Tablet PO (22:33)
[2017-11-23 23:06] LABS: Bedside Glucose 362 mg/dL (70-110)
[2017-11-24] VITALS (15 sets, daily range): BP systolic 153–165; BP diastolic 68–78; PULSE 72–98; RESP 12–20; TEMP 36.6–37.3; O2SAT 94–97
--- NOTE | 2017-11-24 00:55 | NURSING ---
Handoff given to Chelsea MARTIN who will take over care of pt. at this time.
[2017-11-24] MEDS: Heparin Injection (Vial) 5,000 UNIT/ML VIAL 5000 UNIT SC ×3 (06:12→21:51)
[2017-11-24] MEDS: Levothyroxine 75 MCG Tablet PO (06:12)
[2017-11-24] MEDS: Cefazolin 1 GM/50 ML BAG IV ×3 (06:12→21:50)
[2017-11-24 07:06] LABS: Bedside Glucose 369 mg/dL (70-110)
[2017-11-24] MEDS: Ferrous Sulfate 325 MG Tablet PO ×2 (08:11→16:16)
[2017-11-24] MEDS: Citalopram 10 MG Tablet PO (08:11)
[2017-11-24] MEDS: Digoxin 125 MCG Tablet PO (08:11)
[2017-11-24] MEDS: Multivitamins,Therapeutic Tablet 1 TABLET PO (08:11)
[2017-11-24] MEDS: dilTIAZem CD 180 MG Capsule PO (08:11)
[2017-11-24] MEDS: Ranolazine 500 MG Tablet PO ×2 (08:11→21:50)
[2017-11-24] MEDS: Folic Acid 1 MG Tablet PO (08:11)
[2017-11-24] MEDS: Glucerna Shake 120 ML LIQUID PO ×4 (08:12→21:50)
[2017-11-24] MEDS: Polyethylene Glycol 3350 17 GM PACKET PO (08:12)
[2017-11-24] MEDS: guaiFENesin 600 MG Tablet PO ×2 (08:12→21:50)
[2017-11-24] MEDS: Insulin Lispro 100 UNIT/ML INSULN.PEN SC ×4 (08:14→21:51)
[2017-11-24 11:25] LABS: Bedside Glucose 333 mg/dL (70-110)
--- NOTE | 2017-11-24 11:35 | PCM.PN.HOSP ---
Patient Problems: Active and Suspected Problems (Last Reviewed 10/23/17 @ 12:12 by Brianne Waldron) COPD exacerbation (Acute) TYLER (acute kidney injury) (Acute) Acute and chronic respiratory failure with hypoxia (Acute) CHF exacerbation (Acute) Subjective: Patient is still short of breath even while talking. He is on BiPAP at night and oxygen through nasal cannula during daytime. He had a smoking history of 50+ years and is advanced COPD/emphysema with bilateral pleural effusion, left worse than right on chest x-ray and atelectasis in lung bases Vitals/I&O's: Vital Signs Temp Pulse Resp BP Pulse Ox 97.8 F 96 18 165/78 H 95 11/24/17 08:09 11/24/17 11:30 11/24/17 08:09 11/24/17 08:11 11/24/17 08:09 Oxygen Flow Rate (L/min) 4 Oxygen Delivery Method Nasal Cannula Weight: 154 lb 1.65 oz Body Mass Index (BMI) 24.1 Intake and Output for Last 24 Hours 11/22/17 11/23/17 11/24/17 23:59 23:59 23:59 Intake Total 1390 / 1390 1180 / 1180 405 / 405 Output Total 400 / 400 1250 / 1250 675 / 675 Balance 990 / 990 -70 / -70 -270 / -270 General: Alert, Oriented x3, Cooperative HEENT: Atraumatic, PERRLA, EOMI, Normocephalic Neck: Supple, No JVD, Negative Carotid Bruits Lungs: Diminished, Rhonchi, Short of Breath Cardiovascular: Regular rate, Normal S1, Normal S2, No murmurs Abdomen: Bowel Sounds Present, Soft, Non Tender, Non-Distended Extremities: No edema, Capillary Refill Less than 3 Seconds Skin: No rashes, No breakdown Musculoskeletal: No Tenderness to Palpation of Joints or Extremities, Arthritic Changes, Muscle Wasting Neurological: Cranial nerves II-XII grossly intact Psych/Mental Status: Normal Affect, Appropriate Microbiology Past 72 Hours 11/22/17 09:05 Sputum, Expectorated/Coughed Gram Stain - Final 11/22/17 09:05 Sputum, Expectorated/Coughed Respiratory Culture - Final 11/19/17 21:25 Wound - Buttock Gram Stain - Final 11/19/17 21:25 Wound - Buttock Wound Culture - Final Proteus mirabilis Proteus mirabilis#2 Streptococcus group C Staphylococcus aureus 11/19/17 21:25 Urine, Clean Catch Urine Culture - Final Mixed Gram Pos & Gram Neg Org Laboratory Results 11/23/17 11:45: POC Glucose 338 H 11/23/17 16:30: POC Glucose 302 H 11/23/17 22:23: POC Glucose 362 H 11/24/17 06:58: POC Glucose 369 H 11/24/17 11:14: POC Glucose 333 H Current Medications Acetaminophen (Tylenol) 650 mg PO Q6H PRN PRN PRN Reason: Mild Pain (scale 0-3)/T>100.7 Al Hydroxide/Mg Hydroxide (Mylanta Ii) 30 ml PO Q6H PRN PRN PRN Reason: Gastric burning Albuterol Sulfate (Ventolin Aerosols) 2.5 mg INHALATION Q2H PRN PRN PRN Reason: SHORTNESS OF BREATH Albuterol/Ipratropium (Duoneb) 3 ml INHALATION Q4HWA.RT PRN PRN Reason: SOB &/OR WHEEZING Last Admin: 11/22/17 06:43 Dose: 3 ml Citalopram Hydrobromide (Celexa) 10 mg PO DAILY [facility] Last Admin: 11/24/17 08:11 Dose: 10 mg Digoxin (Lanoxin) 125 mcg PO DAILY [facility] Last Admin: 11/24/17 08:11 Dose: 125 mcg Diltiazem HCl (Cardizem Cd) 180 mg PO DAILY [facility] Last Admin: 11/24/17 08:11 Dose: 180 mg [facility]) [facility] Last Admin: 11/24/17 08:11 Dose: 325 mg Folic Acid (Folic Acid) 1 mg PO DAILY@0800 [facility] Last Admin: 11/24/17 08:11 Dose: 1 mg Guaifenesin (Mucinex) 600 mg PO BID [facility] Last Admin: 11/24/17 08:12 Dose: 600 mg Heparin Sodium (Porcine) (Heparin Na) 5,000 unit SC Q8 [facility] Last Admin: 11/24/17 06:12 Dose: 5,000 unit Cefazolin Sodium () 1 gm in 50 mls @ 100 mls/hr IV Q8 [facility] Last Admin: 11/24/17 06:12 Dose: 100 mls/hr Insulin Human Lispro (Humalog Kwikpen (Bkc)) 0 unit SC ACHS [facility] PRN Reason: Protocol Last Admin: 11/24/17 11:16 Dose: 5 units Levothyroxine Sodium (Synthroid) 75 mcg PO DAILY@0600 [facility] Last Admin: 11/24/17 06:12 Dose: 75 mcg Magnesium Hydroxide (Milk Of Magnesia) 30 ml PO DAILY PRN PRN Reason: Constipation Methylprednisolone (Solu-Medrol) 40 mg IV Q8 [facility] Last Admin: 11/24/17 06:12 Dose: 40 mg Mirtazapine (Remeron) 15 mg PO QHS [facility] Last Admin: 11/23/17 22:33 Dose: 15 mg Multivitamins (Multivitamin) 1 tablet PO DAILYCM [facility] Last Admin: 11/24/17 08:11 Dose: 1 tablet Nutritional Formula (Wilfredo - Grant Flavor) 1 packet PO BID [facility] Last Admin: 11/24/17 08:11 Dose: 1 packet Nutritional Formula (Lactose Free) (Glucerna Shake) 120 ml PO 4X/DAY [facility] Last Admin: 11/24/17 08:12 Dose: 120 mls Ondansetron HCl (Zofran) 4 mg IV Q8H PRN PRN PRN Reason: NAUSEA Oxycodone HCl (Oxyir) 5 mg PO Q4H PRN PRN PRN Reason: MOD-SEVERE PAIN (4-10/10) Last Admin: 11/22/17 10:53 Dose: 5 mg Polyethylene Glycol (Miralax) 17 gm PO DAILY [facility] Last Admin: 11/24/17 08:12 Dose: 17 gm Promethazine HCl (Phenergan) 12.5 mg IV Q6H PRN PRN PRN Reason: NAUSEA/VOMITING Ranolazine (Ranexa) 500 mg PO BID [facility] Last Admin: 11/24/17 08:11 Dose: 500 mg Sodium Chloride () 5 - 30 ml IV UD PRN PRN Reason: SALINE FLUSH Last Admin: 11/23/17 22:46 Dose: 10 ml Medical Necessity - Tobacco Use Smoking Status: Current every day smoker Tobacco Use: Cigars Assessment/Plan All Active Problems (Last Reviewed 10/23/17 @ 12:12 by Brianne Waldron) COPD exacerbation (Acute) TYLER (acute kidney injury) (Acute) Acute and chronic respiratory failure with hypoxia (Acute) CHF exacerbation (Acute) Closed left hip fracture (Acute) Failure to thrive (Resolved) ARF (acute renal failure) (Resolved) Dysphagia (Resolved) History of left heart catheterization (LHC) (Resolved) Hypoglycemia (Resolved) Fall (Resolved) Hypokalemia (Resolved) Chest pain (Resolved) COPD with exacerbation (Resolved) Dilated cardiomyopathy (Resolved) Lower extremity edema (Resolved) Overweight (Resolved) Unspecified systolic (congestive) heart failure (Resolved) Patient is a 67-year-old gentleman currently residing at an extended care facility, [place] brought in with shortness of breath and significant hypoxia at his ECF. An assessment of COPD with acute exacerbation was made and admitted to a monitored bed for further management 1. Acute hypoxic respiratory failure secondary to COPD with acute exacerbation due to rhinovirus viral bronchitis: Patient has been admitted to a monitored bed managed with systemic steroids aerosol treatment as well as antibiotics in addition to supplemental oxygen. Patient is on BiPAP at night. During the day, pulse ox 91% on 4 L of oxygen. At night he is on 45% BiPAP. Patient expressed his wishes that he wants to keep on BiPAP until it is absolutely needed for intubation in order to survive 2. Chronic Hypoxic respiratory failure secondary to COPD patient is on baseline home O2 COPD exacerbation managed with steroids and bronchodilators as well as antibiotics 3. 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 Patient oral regimen held on admission please and Accu-Cheks before meals and at bedtime with sliding scale coverage 4. Hypothyroidism: Continued levothyroxine 5. Paroxysmal A. fib rate controlled 6. Chronic systolic heart failure stable; currently compensated. Patient does not have lower extremity edema but has bilateral pleural effusion, left worse than right on chest x-ray. We will repeat the chest x-ray. BNP normal. Does not seem to be acute heart failure. 7. Hypertension-blood pressure controlled, home medications continued with dose adjustment as needed 8. Tobacco dependence counseled on cessation, offered nicotine patch for tobacco cravings 9. CAD stable enzymes have remained negative to date 10. DVT Prophylaxis: SCDs, heparin. 11. Severe protein calorie malnutrition evidenced by muscle wasting decreased energy level. Consultation placed to dietitian 12. Rhinovirus infection patient placed in droplet precautions 13. Physical debility requested for PT OT eval and drug abuse social worker to assist with discharge planning 14. Stage III left ischial decubitus ulcer, present since admission. Cultures were obtained on admission however wound does not look infected. Patient is being followed by wound care nurse. Wound cultures growing 3+ Proteus mirabilis, 1+ Proteus mirabilis #2, 2+ streptococcus group C and rare MSSA. Patient is allergic to penicillin. Started on IV cefazolin. Severe protein calorie malnutrition with left ischial decubitus ulcer, present since admission and also advanced COPD Active Medications Acetaminophen (Tylenol) 650 mg PO Q6H PRN PRN PRN Reason: Mild Pain (scale 0-3)/T>100.7 Al Hydroxide/Mg Hydroxide (Mylanta Ii) 30 ml PO Q6H PRN PRN PRN Reason: Gastric burning Albuterol Sulfate (Ventolin Aerosols) 2.5 mg INHALATION Q2H PRN PRN PRN Reason: SHORTNESS OF BREATH Albuterol/Ipratropium (Duoneb) 3 ml INHALATION Q4HWA.RT PRN PRN Reason: SOB &/OR WHEEZING Last Admin: 11/22/17 06:43 Dose: 3 ml Citalopram Hydrobromide (Celexa) 10 mg PO DAILY [facility] Last Admin: 11/23/17 10:08 Dose: 10 mg Digoxin (Lanoxin) 125 mcg PO DAILY [facility] Last Admin: 11/23/17 10:08 Dose: 125 mcg Diltiazem HCl (Cardizem Cd) 180 mg PO DAILY [facility] Last Admin: 11/23/17 10:08 Dose: 180 mg Ferrous Sulfate (Ferrous Sulfate) 325 mg PO BIDCM [facility] Last Admin: 11/23/17 08:11 Dose: 325 mg Folic Acid (Folic Acid) 1 mg PO DAILY@0800 [facility] Last Admin: 11/23/17 08:11 Dose: 1 mg Guaifenesin (Mucinex) 600 mg PO BID [facility] Last Admin: 11/23/17 10:08 Dose: 600 mg Heparin Sodium (Porcine) (Heparin Na) 5,000 unit SC Q8 [facility] Last Admin: 11/23/17 13:48 Dose: 5,000 unit Insulin Human Lispro (Humalog Kwikpen (Bkc)) 0 unit SC ACHS [facility] PRN Reason: Protocol Last Admin: 11/23/17 13:42 Dose: 5 units Levothyroxine Sodium (Synthroid) 75 mcg PO DAILY@0600 [facility] Last Admin: 11/23/17 06:17 Dose: 75 mcg Magnesium Hydroxide (Milk Of Magnesia) 30 ml PO DAILY PRN PRN Reason: Constipation Methylprednisolone (Solu-Medrol) 40 mg IV Q8 [facility] Last Admin: 11/23/17 13:48 Dose: 40 mg Mirtazapine (Remeron) 15 mg PO QHS [facility] Last Admin: 11/22/17 22:26 Dose: 15 mg Multivitamins (Multivitamin) 1 tablet PO DAILYCM [facility] Last Admin: 11/23/17 08:11 Dose: 1 tablet Nutritional Formula (Wilfredo - Grant Flavor) 1 packet PO BID [facility] Last Admin: 11/23/17 10:08 Dose: 1 packet Nutritional Formula (Lactose Free) (Glucerna Shake) 120 ml PO 4X/DAY [facility] Last Admin: 11/23/17 13:43 Dose: 120 mls Ondansetron HCl (Zofran) 4 mg IV Q8H PRN PRN PRN Reason: NAUSEA Oxycodone HCl (Oxyir) 5 mg PO Q4H PRN PRN PRN Reason: MOD-SEVERE PAIN (4-10/10) Last Admin: 11/22/17 10:53 Dose: 5 mg Polyethylene Glycol (Miralax) 17 gm PO DAILY [facility] Last Admin: 11/23/17 10:08 Dose: 17 gm Promethazine HCl (Phenergan) 12.5 mg IV Q6H PRN PRN PRN Reason: NAUSEA/VOMITING Ranolazine (Ranexa) 500 mg PO BID [facility] Last Admin: 11/23/17 10:08 Dose: 500 mg Sodium Chloride () 5 - 30 ml IV UD PRN PRN Reason: SALINE FLUSH Last Admin: 11/23/17 13:49 Dose: 10 ml Code Visit Inpatient E&M: 44428 Subs Hosp L3
--- NOTE | 2017-11-24 11:44 | PN_ITS ---
Patient Problems: Active and Suspected Problems (Last Reviewed 10/23/17 @ 12:12 by Brianne Waldron ) COPD exacerbation (Acute) TYLER (acute kidney injury) (Acute) Acute and chronic respiratory failure with hypoxia (Acute) CHF exacerbation (Acute) Subjective: Patient is still short of breath even while talking. He is on BiPAP at night and oxygen through nasal cannula during daytime. He had a smoking history of 50 + years and is advanced COPD/emphysema with bilateral pleural effusion, left worse than right on chest x-ray and atelectasis in lung bases Vitals/I&O's: Vital Signs Temp Pulse Resp BP Pulse Ox 97.8 F 96 18 165/78 H 95 11/24/17 08:09 11/24/17 11:30 11/24/17 08:09 11/24/17 08:11 11/24/17 08:09 Oxygen Flow Rate (L/min) 4 Oxygen Delivery Method Nasal Cannula Weight: 154 lb 1.65 oz Body Mass Index (BMI) 24.1 Intake and Output for Last 24 Hours 11/22/17 11/23/17 11/24/17 23:59 23:59 23:59 Intake Total 1390 / 1390 1180 / 1180 405 / 405 Output Total 400 / 400 1250 / 1250 675 / 675 Balance 990 / 990 -70 / -70 -270 / -270 General: Alert, Oriented x3, Cooperative HEENT: Atraumatic, PERRLA, EOMI, Normocephalic Neck: Supple, No JVD, Negative Carotid Bruits Lungs: Diminished, Rhonchi, Short of Breath Cardiovascular: Regular rate, Normal S1, Normal S2, No murmurs Abdomen: Bowel Sounds Present, Soft, Non Tender, Non-Distended Extremities: No edema, Capillary Refill Less than 3 Seconds Skin: No rashes, No breakdown Musculoskeletal: No Tenderness to Palpation of Joints or Extremities, Arthritic Changes, Muscle Wasting Neurological: Cranial nerves II-XII grossly intact Psych/Mental Status: Normal Affect, Appropriate Microbiology Past 72 Hours 11/22/17 09:05 Sputum, Expectorated/Coughed Gram Stain - Final 11/22/17 09:05 Sputum, Expectorated/Coughed Respiratory Culture - Final 11/19/17 21:25 Wound - Buttock Gram Stain - Final 11/19/17 21:25 Wound - Buttock Wound Culture - Final Proteus mirabilis Proteus mirabilis#2 Streptococcus group C Staphylococcus aureus 11/19/17 21:25 Urine, Clean Catch Urine Culture - Final Mixed Gram Pos & Gram Neg Org Laboratory Results 11/23/17 11:45: POC Glucose 338 H 11/23/17 16:30: POC Glucose 302 H 11/23/17 22:23: POC Glucose 362 H 11/24/17 06:58: POC Glucose 369 H 11/24/17 11:14: POC Glucose 333 H Current Medications Acetaminophen (Tylenol) 650 mg PO Q6H PRN PRN PRN Reason: Mild Pain (scale 0-3)/T>100.7 Al Hydroxide/Mg Hydroxide (Mylanta Ii) 30 ml PO Q6H PRN PRN PRN Reason: Gastric burning Albuterol Sulfate (Ventolin Aerosols) 2.5 mg INHALATION Q2H PRN PRN PRN Reason: SHORTNESS OF BREATH Albuterol/Ipratropium (Duoneb) 3 ml INHALATION Q4HWA.RT PRN PRN Reason: SOB &/OR WHEEZING Last Admin: 11/22/17 06:43 Dose: 3 ml Citalopram Hydrobromide (Celexa) 10 mg PO DAILY [facility] Last Admin: 11/24/17 08:11 Dose: 10 mg Digoxin (Lanoxin) 125 mcg PO DAILY [facility] Last Admin: 11/24/17 08:11 Dose: 125 mcg Diltiazem HCl (Cardizem Cd) 180 mg PO DAILY [facility] Last Admin: 11/24/17 08:11 Dose: 180 mg [facility] Last Admin: 11/24/17 08:11 Dose: 325 mg Folic Acid (Folic Acid) 1 mg PO DAILY@0800 [facility] Last Admin: 11/24/17 08:11 Dose: 1 mg Guaifenesin (Mucinex) 600 mg PO BID [facility] Last Admin: 11/24/17 08:12 Dose: 600 mg Heparin Sodium (Porcine) (Heparin Na) 5,000 unit SC Q8 [facility] Last Admin: 11/24/17 06:12 Dose: 5,000 unit Cefazolin Sodium () 1 gm in 50 mls @ 100 mls/hr IV Q8 [facility] Last Admin: 11/24/17 06:12 Dose: 100 mls/hr Insulin Human Lispro (Humalog Kwikpen (Bkc)) 0 unit SC ACHS [facility] PRN Reason: Protocol Last Admin: 11/24/17 11:16 Dose: 5 units Levothyroxine Sodium (Synthroid) 75 mcg PO DAILY@0600 [facility] Last Admin: 11/24/17 06:12 Dose: 75 mcg Magnesium Hydroxide (Milk Of Magnesia) 30 ml PO DAILY PRN PRN Reason: Constipation Methylprednisolone (Solu-Medrol) 40 mg IV Q8 [facility] Last Admin: 11/24/17 06:12 Dose: 40 mg Mirtazapine (Remeron) 15 mg PO QHS [facility] Last Admin: 11/23/17 22:33 Dose: 15 mg Multivitamins (Multivitamin) 1 tablet PO DAILYCM [facility] Last Admin: 11/24/17 08:11 Dose: 1 tablet Nutritional Formula (Wilfredo - [place] Flavor) 1 packet PO BID [facility] Last Admin: 11/24/17 08:11 Dose: 1 packet Nutritional Formula (Lactose Free) (Glucerna Shake) 120 ml PO 4X/DAY [facility] Last Admin: 11/24/17 08:12 Dose: 120 mls Ondansetron HCl (Zofran) 4 mg IV Q8H PRN PRN PRN Reason: NAUSEA Oxycodone HCl (Oxyir) 5 mg PO Q4H PRN PRN PRN Reason: MOD-SEVERE PAIN (4-10/10) Last Admin: 11/22/17 10:53 Dose: 5 mg Polyethylene Glycol (Miralax) 17 gm PO DAILY [facility] Last Admin: 11/24/17 08:12 Dose: 17 gm Promethazine HCl (Phenergan) 12.5 mg IV Q6H PRN PRN PRN Reason: NAUSEA/VOMITING Ranolazine (Ranexa) 500 mg PO BID [facility] Last Admin: 11/24/17 08:11 Dose: 500 mg Sodium Chloride () 5 - 30 ml IV UD PRN PRN Reason: SALINE FLUSH Last Admin: 11/23/17 22:46 Dose: 10 ml Medical Necessity - Tobacco Use Smoking Status: Current every day smoker Tobacco Use: Cigars Assessment/Plan All Active Problems (Last Reviewed 10/23/17 @ 12:12 by Brianne Waldron) COPD exacerbation (Acute) TYLER (acute kidney injury) (Acute) Acute and chronic respiratory failure with hypoxia (Acute) CHF exacerbation (Acute) Closed left hip fracture (Acute) Failure to thrive (Resolved) ARF (acute renal failure) (Resolved) Dysphagia (Resolved) History of left heart catheterization (LHC) (Resolved) Hypoglycemia (Resolved) Fall (Resolved) Hypokalemia (Resolved) Chest pain (Resolved) COPD with exacerbation (Resolved) Dilated cardiomyopathy (Resolved) Lower extremity edema (Resolved) Overweight (Resolved) Unspecified systolic (congestive) heart failure (Resolved) Patient is a 67-year-old gentleman currently residing at an extended care facility, [place] brought in with shortness of breath and significant hypoxia at his ECF. An assessment of COPD with acute exacerbation was made and admitted to a monitored bed for further management 1. Acute hypoxic respiratory failure secondary to COPD with acute exacerbation due to rhinovirus viral bronchitis: Patient has been admitted to a monitored bed managed with systemic steroids aerosol treatment as well as antibiotics in addition to supplemental oxygen. Patient is on BiPAP at night. During the day , pulse ox 91% on 4 L of oxygen. At night he is on 45% BiPAP. Patient expressed his wishes that he wants to keep on BiPAP until it is absolutely needed for intubation in order to survive 2. Chronic Hypoxic respiratory failure secondary to COPD patient is on baseline home O2 COPD exacerbation managed with steroids and bronchodilators as well as antibiotics 3. 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 Patient oral regimen held on admission please and Accu-Cheks before meals and at bedtime with sliding scale coverage 4. Hypothyroidism: Continued levothyroxine 5. Paroxysmal A. fib rate controlled 6. Chronic systolic heart failure stable; currently compensated. Patient does not have lower extremity edema but has bilateral pleural effusion, left worse than right on chest x-ray. We will repeat the chest x-ray. BNP normal. Does not seem to be acute heart failure. 7. Hypertension-blood pressure controlled, home medications continued with dose adjustment as needed 8. Tobacco dependence counseled on cessation, offered nicotine patch for tobacco cravings 9. CAD stable enzymes have remained negative to date 10. DVT Prophylaxis: SCDs, heparin. 11. Severe protein calorie malnutrition evidenced by muscle wasting decreased energy level. Consultation placed to dietitian 12. Rhinovirus infection patient placed in droplet precautions 13. Physical debility requested for PT OT eval and social work program coordinator to assist with discharge planning 14. Stage III left ischial decubitus ulcer, present since admission. Cultures were obtained on admission however wound does not look infected. Patient is being followed by wound care nurse. Wound cultures growing 3+ Proteus mirabilis , 1+ Proteus mirabilis #2, 2+ streptococcus group C and rare MSSA. Patient is allergic to penicillin. Started on IV cefazolin. Severe protein calorie malnutrition with left ischial decubitus ulcer, present since admission and also advanced COPD Active Medications Acetaminophen (Tylenol) 650 mg PO Q6H PRN PRN PRN Reason: Mild Pain (scale 0-3)/T>100.7 Al Hydroxide/Mg Hydroxide (Mylanta Ii) 30 ml PO Q6H PRN PRN PRN Reason: Gastric burning Albuterol Sulfate (Ventolin Aerosols) 2.5 mg INHALATION Q2H PRN PRN PRN Reason: SHORTNESS OF BREATH Albuterol/Ipratropium (Duoneb) 3 ml INHALATION Q4HWA.RT PRN PRN Reason: SOB &/OR WHEEZING Last Admin: 11/22/17 06:43 Dose: 3 ml Citalopram Hydrobromide (Celexa) 10 mg PO DAILY [facility] Last Admin: 11/23/17 10:08 Dose: 10 mg Digoxin (Lanoxin) 125 mcg PO DAILY [facility] Last Admin: 11/23/17 10:08 Dose: 125 mcg Diltiazem HCl (Cardizem Cd) 180 mg PO DAILY [facility] Last Admin: 11/23/17 10:08 Dose: 180 mg Ferrous Sulfate (Ferrous Sulfate) 325 mg PO BIDCM [facility] Last Admin: 11/23/17 08:11 Dose: 325 mg Folic Acid (Folic Acid) 1 mg PO DAILY@0800 [facility] Last Admin: 11/23/17 08:11 Dose: 1 mg Guaifenesin (Mucinex) 600 mg PO BID [facility] Last Admin: 11/23/17 10:08 Dose: 600 mg Heparin Sodium (Porcine) (Heparin Na) 5,000 unit SC Q8 [facility] Last Admin: 11/23/17 13:48 Dose: 5,000 unit Insulin Human Lispro (Humalog Kwikpen (Bkc)) 0 unit SC ACHS [facility] PRN Reason: Protocol Last Admin: 11/23/17 13:42 Dose: 5 units Levothyroxine Sodium (Synthroid) 75 mcg PO DAILY@0600 [facility] Last Admin: 11/23/17 06:17 Dose: 75 mcg Magnesium Hydroxide (Milk Of Magnesia) 30 ml PO DAILY PRN PRN Reason: Constipation Methylprednisolone (Solu-Medrol) 40 mg IV Q8 [facility] Last Admin: 11/23/17 13:48 Dose: 40 mg Mirtazapine (Remeron) 15 mg PO QHS [facility] Last Admin: 11/22/17 22:26 Dose: 15 mg Multivitamins (Multivitamin) 1 tablet PO DAILYCM [facility] Last Admin: 11/23/17 08:11 Dose: 1 tablet Nutritional Formula (Wilfredo - [place] Flavor) 1 packet PO BID [facility] Last Admin: 11/23/17 10:08 Dose: 1 packet Nutritional Formula (Lactose Free) (Glucerna Shake) 120 ml PO 4X/DAY [facility] Last Admin: 11/23/17 13:43 Dose: 120 mls Ondansetron HCl (Zofran) 4 mg IV Q8H PRN PRN PRN Reason: NAUSEA Oxycodone HCl (Oxyir) 5 mg PO Q4H PRN PRN PRN Reason: MOD-SEVERE PAIN (4-10/10) Last Admin: 11/22/17 10:53 Dose: 5 mg Polyethylene Glycol (Miralax) 17 gm PO DAILY [facility] Last Admin: 11/23/17 10:08 Dose: 17 gm Promethazine HCl (Phenergan) 12.5 mg IV Q6H PRN PRN PRN Reason: NAUSEA/VOMITING Ranolazine (Ranexa) 500 mg PO BID [facility] Last Admin: 11/23/17 10:08 Dose: 500 mg Sodium Chloride () 5 - 30 ml IV UD PRN PRN Reason: SALINE FLUSH Last Admin: 11/23/17 13:49 Dose: 10 ml Code Visit Inpatient E&M: [id number] Subs Hosp L3
[2017-11-24 16:26] LABS: Bedside Glucose 274 mg/dL (70-110)
[2017-11-24] MEDS: Mirtazapine 15 MG Tablet PO (21:51)
[2017-11-24] MEDS: Insulin Lispro 100 UNIT/ML INSULN.PEN 10 UNIT SC (22:48)
[2017-11-24 23:31] LABS: Bedside Glucose 335 mg/dL (70-110)
[2017-11-25] VITALS (16 sets, daily range): BP systolic 143–164; BP diastolic 66–74; PULSE 69–98; RESP 12–22; TEMP 36.5–36.9; O2SAT 93–98
--- NOTE | 2017-11-25 04:15 | RAD_ITS ---
STUDY: X-RAY CHEST REASON FOR EXAM: Male, 67 years old. Bilateral pleural effusions. TECHNIQUE: Frontal and lateral views of the chest. COMPARISON: 11/19/2017. FINDINGS: There are small bilateral pleural effusions, with interval improvement from previous study. There is overlying atelectasis or infiltration in the lower lung lynne. There is interstitial prominence in the remainder of lung lynne suggesting CHF. There is borderline cardiomegaly. Normal mediastinum and aj. Normal visualized pulmonary arteries. There is atherosclerotic calcification of the aortic arch with tortuosity. There are diffuse degenerative changes of the visualized thoracic spine. Normal visualized ribs, clavicles, and shoulders. There is no demonstrated abnormality of the visualized soft tissue structures of the upper abdomen. RAD/Chest PA and Lateral IMPRESSION: CHF and small bilateral pleural effusions. There is interval improvement from previous study. Electronically Signed: Leonard Sanchez MD at 6:29 EDT , Service support ,
[2017-11-25 06:24] LABS: Absolute Lymphocyte Count 0.51 X10^3/ul (0.83-4.51); Absolute Neutrophil Count 10.1 X10^3/uL (2.0-7.7); Hemoglobin 12.9 g/dl (13.0-16.5); Lymphocyte # 0.51 X10^3/ul (4.0); Lymphocyte % 4.6 % (19-41); Mean Corp Hgb Conc 32.3 g/gl (32-36); Mean Platelet Vol. 10.7 fl (6.2-12.0); Monocyte# 0.38 X10^3/uL; Monocyte% 3.4 % (0-10); Neutrophil # 10.14 X10^3/uL (2.7-7.7); Neutrophil % 91.9 % (47-70); Platelet Count 232 K/mm3 (150-450); RBC Distribution Width SD 46.1 fl (35.1-43.9)
[2017-11-25 06:29] LABS: Differential Indicated SCAN CRITERIA MET; POSITIVE COUNT NO; POSITIVE DIFFERENTIAL YES; POSITIVE MORPHOLOGY NO
[2017-11-25] MEDS: Cefazolin 1 GM/50 ML BAG IV ×3 (06:57→21:17)
[2017-11-25] MEDS: Heparin Injection (Vial) 5,000 UNIT/ML VIAL 5000 UNIT SC ×3 (06:58→21:18)
[2017-11-25] MEDS: Levothyroxine 75 MCG Tablet PO (06:58)
[2017-11-25 07:09] LABS: Anion Gap 4 (5-15); BUN 58 mg/dL (7-18); BUN/Creat Ratio 49.6 RATIO (10-20); Calcium,Total 8.6 mg/dL (8.5-10.1); Chloride 99 mmol/L (98-107); Creatinine, Serum 1.17 mg/dL (0.70-1.30); EST Glomerular Filtration Rate 66 mL/min (>60); Est Glom Filt Rate - Afr Amer 80 mL/min (>60); Glucose 247 mg/dL (74-106); Potassium 5.1 mmol/L (3.5-5.1); Sodium Level 140 mmol/L (136-145)
[2017-11-25 07:16] LABS: Bedside Glucose 306 mg/dL (70-110)
[2017-11-25] MEDS: Insulin Lispro 100 UNIT/ML INSULN.PEN SC ×4 (09:02→21:19)
[2017-11-25] MEDS: Citalopram 10 MG Tablet PO (09:03)
[2017-11-25] MEDS: Digoxin 125 MCG Tablet PO (09:03)
[2017-11-25] MEDS: Ranolazine 500 MG Tablet PO ×2 (09:03→21:17)
[2017-11-25] MEDS: guaiFENesin 600 MG Tablet PO ×2 (09:04→21:17)
[2017-11-25] MEDS: Folic Acid 1 MG Tablet PO (09:04)
[2017-11-25] MEDS: Glucerna Shake 120 ML LIQUID PO ×4 (09:04→21:17)
[2017-11-25] MEDS: Multivitamins,Therapeutic Tablet 1 TABLET PO (09:04)
[2017-11-25] MEDS: dilTIAZem CD 180 MG Capsule PO (09:04)
[2017-11-25] MEDS: Ferrous Sulfate 325 MG Tablet PO ×2 (09:04→16:27)
[2017-11-25] MEDS: Polyethylene Glycol 3350 17 GM PACKET PO (09:04)
[2017-11-25] MEDS: oxyCODONE 5 MG Tablet PO ×3 (09:16→21:18)
--- NOTE | 2017-11-25 11:13 | PN_ITS ---
Patient Problems: Active and Suspected Problems (Last Reviewed 10/23/17 @ 12:12 by Brianne Waldron ) COPD exacerbation (Acute) TYLER (acute kidney injury) (Acute) Acute and chronic respiratory failure with hypoxia (Acute) CHF exacerbation (Acute) Subjective: Patient remains short of breath with no improvement. Since patient is BiPAP dependent on high oxygen secondary to severe COPD. During daytime is on 4 L of oxygen but easily short of breath on conversation and has to catch breath for speaking full sentences. Vitals/I&O's: Vital Signs Temp Pulse Resp BP Pulse Ox 98.2 F 88 18 158/74 H 94 11/25/17 09:00 11/25/17 09:03 11/25/17 09:00 11/25/17 09:03 11/25/17 09:00 Oxygen Flow Rate (L/min) 4 Oxygen Delivery Method Nasal Cannula Weight: 154 lb 1.65 oz Body Mass Index (BMI) 24.1 Intake and Output for Last 24 Hours 11/23/17 11/24/17 11/25/17 23:59 23:59 23:59 Intake Total 1180 / 1180 405 / 405 865.9 / 865.9 Output Total 1250 / 1250 675 / 675 Balance -70 / -70 -270 / -270 865.9 / 865.9 General: Alert, Oriented x3, Cooperative HEENT: Atraumatic, PERRLA, EOMI, Normocephalic Neck: Supple, No JVD, Negative Carotid Bruits Lungs: Diminished, Rhonchi, Short of Breath Cardiovascular: Regular rate, No murmurs Abdomen: Bowel Sounds Present, Soft, Non Tender, Non-Distended Extremities: No edema, Capillary Refill Less than 3 Seconds Skin: Ulcer/ Wound - Stage III left ischial decubitus ulcer, present since admission Musculoskeletal: No Tenderness to Palpation of Joints or Extremities, Arthritic Changes, Muscle Wasting Neurological: Cranial nerves II-XII grossly intact Psych/Mental Status: Normal Affect, Appropriate Microbiology Past 72 Hours 11/22/17 09:05 Sputum, Expectorated/Coughed Gram Stain - Final 11/22/17 09:05 Sputum, Expectorated/Coughed Respiratory Culture - Final 11/19/17 21:25 Wound - Buttock Gram Stain - Final 11/19/17 21:25 Wound - Buttock Wound Culture - Final Proteus mirabilis Proteus mirabilis#2 Streptococcus group C Staphylococcus aureus Laboratory Results 11/24/17 11:14: POC Glucose 333 H 11/24/17 16:13: POC Glucose 274 H 11/24/17 23:25: POC Glucose 335 H 11/25/17 05:15: WBC 11.0, RBC 4.30 L, Hgb 12.9 L, Hct 40.0, MCV 93.0, MCH 30.0, MCHC 32.3, RDW 14.0, RDW Differential 46.1 H, Plt Count 232, MPV 10.7, Immature Gran % (Auto) 0.100, Neut % (Auto) 91.9 H, Lymph % (Auto) 4.6 L, Iron % (Auto) 3.4, Eos % (Auto) 0.0, Baso % (Auto) 0.0, Absolute Neuts (auto) 10.1 H, Absolute Lymphs (auto) 0.51 L, Total Counted Not Reportable 11/25/17 05:15: Sodium 140, Potassium 5.1, Chloride 99, Carbon Dioxide 37.0 H, Anion Gap 4 L, BUN 58 H, Creatinine 1.17, Estim Creat Clear Calc 56.50, Est GFR (MDRD) Af Amer 80, Est GFR (MDRD) Non-Af 66, BUN/Creatinine Ratio 49.6 H, Glucose 247 H, Calcium 8.6, Prealbumin 21.0, Folate 33.90 11/25/17 05:15: Vitamin B12 Pending, Vitamin D 25-Hydroxy Pending 11/25/17 06:56: POC Glucose 306 H Current Medications Acetaminophen (Tylenol) 650 mg PO Q6H PRN PRN PRN Reason: Mild Pain (scale 0-3)/T>100.7 Al Hydroxide/Mg Hydroxide (Mylanta Ii) 30 ml PO Q6H PRN PRN PRN Reason: Gastric burning Albuterol Sulfate (Ventolin Aerosols) 2.5 mg INHALATION Q2H PRN PRN PRN Reason: SHORTNESS OF BREATH Albuterol/Ipratropium (Duoneb) 3 ml INHALATION Q4HWA.RT PRN PRN Reason: SOB &/OR WHEEZING Last Admin: 11/22/17 06:43 Dose: 3 ml Citalopram Hydrobromide (Celexa) 10 mg PO DAILY [facility] Last Admin: 11/25/17 09:03 Dose: 10 mg Digoxin (Lanoxin) 125 mcg PO DAILY [facility] Last Admin: 11/25/17 09:03 Dose: 125 mcg Diltiazem HCl (Cardizem Cd) 180 mg PO DAILY [facility] Last Admin: 11/25/17 09:04 Dose: 180 mg [facility]ous [facility] Last Admin: 11/25/17 09:04 Dose: 325 mg Folic Acid (Folic Acid) 1 mg PO DAILY@0800 [facility] Last Admin: 11/25/17 09:04 Dose: 1 mg Guaifenesin (Mucinex) 600 mg PO BID [facility] Last Admin: 11/25/17 09:04 Dose: 600 mg Heparin Sodium (Porcine) (Heparin Na) 5,000 unit SC Q8 [facility] Last Admin: 11/25/17 06:58 Dose: 5,000 unit Cefazolin Sodium () 1 gm in 50 mls @ 100 mls/hr IV Q8 [facility] Last Admin: 11/25/17 06:57 Dose: 100 mls/hr Insulin Human Lispro (Humalog Kwikpen (Bkc)) 0 unit SC ACHS [facility] PRN Reason: Protocol Last Admin: 11/25/17 09:02 Dose: 9 u Levothyroxine Sodium (Synthroid) 75 mcg PO DAILY@0600 [facility] Last Admin: 11/25/17 06:58 Dose: 75 mcg Magnesium Hydroxide (Milk Of Magnesia) 30 ml PO DAILY PRN PRN Reason: Constipation Methylprednisolone (Solu-Medrol) 40 mg IV Q8 [facility] Last Admin: 11/25/17 06:57 Dose: 40 mg Mirtazapine (Remeron) 15 mg PO QHS [facility] Last Admin: 11/24/17 21:51 Dose: 15 mg Multivitamins (Multivitamin) [facility] Last Admin: 11/25/17 09:04 Dose: 1 tablet Nutritional Formula (Wilfredo - [place] Flavor) 1 packet PO BID [facility] Last Admin: 11/25/17 09:02 Dose: 1 packet Nutritional Formula (Lactose Free) (Glucerna Shake) 120 ml PO 4X/DAY [facility] Last Admin: 11/25/17 09:04 Dose: 120 mls Ondansetron HCl (Zofran) 4 mg IV Q8H PRN PRN PRN Reason: NAUSEA Oxycodone HCl (Oxyir) 5 mg PO Q4H PRN PRN PRN Reason: MOD-SEVERE PAIN (4-10/10) Last Admin: 11/25/17 09:16 Dose: 5 mg Polyethylene Glycol (Miralax) 17 gm PO DAILY [facility] Last Admin: 11/25/17 09:04 Dose: 17 gm Promethazine HCl (Phenergan) 12.5 mg IV Q6H PRN PRN PRN Reason: NAUSEA/VOMITING Ranolazine (Ranexa) 500 mg PO BID [facility] Last Admin: 11/25/17 09:03 Dose: 500 mg Sodium Chloride () 5 - 30 ml IV UD PRN PRN Reason: SALINE FLUSH Last Admin: 11/23/17 22:46 Dose: 10 ml Medical Necessity - Tobacco Use Smoking Status: Current every day smoker Tobacco Use: Cigars Assessment/Plan All Active Problems (Last Reviewed 10/23/17 @ 12:12 by Brianne Waldron) COPD exacerbation (Acute) TYLER (acute kidney injury) (Acute) Acute and chronic respiratory failure with hypoxia (Acute) CHF exacerbation (Acute) Closed left hip fracture (Acute) Failure to thrive (Resolved) ARF (acute renal failure) (Resolved) Dysphagia (Resolved) History of left heart catheterization (LHC) (Resolved) Hypoglycemia (Resolved) Fall (Resolved) Hypokalemia (Resolved) Chest pain (Resolved) COPD with exacerbation (Resolved) Dilated cardiomyopathy (Resolved) Lower extremity edema (Resolved) Overweight (Resolved) Unspecified systolic (congestive) heart failure (Resolved) Patient is a 67-year-old [facility] and significant hypoxia at his F. An assessment of COPD with acute exacerbation was made and admitted to a monitored bed for further management 1. Acute hypoxic respiratory failure secondary to COPD with acute exacerbation due to rhinovirus viral bronchitis: Patient has been admitted to a monitored bed managed with systemic steroids aerosol treatment as well as antibiotics in addition to supplemental oxygen. Patient is on BiPAP at night. During the day , pulse ox 91% on 4 L of oxygen. At night he is on 45% BiPAP. Patient expressed his wishes that he wants to keep on BiPAP until it is absolutely needed for intubation in order to survive. Discussed with Dr. Hernandez today and requested consult. He has seen Dr. Hernandez as an outpatient. Patient has a stage IV COPD and requires BiPAP. 2. Chronic Hypoxic respiratory failure secondary to COPD patient is on baseline home O2 COPD exacerbation managed with steroids and bronchodilators as well as antibiotics 3. 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 Patient oral regimen held on admission please and Accu-Cheks before meals and at bedtime with sliding scale coverage 4. Hypothyroidism: Continued levothyroxine 5. Paroxysmal A. fib rate controlled 6. Chronic systolic heart failure stable; currently compensated. Patient does not have lower extremity edema but has bilateral pleural effusion, left worse than right on chest x-ray. We will repeat the chest x-ray. BNP normal. Does not seem to be acute heart failure. 7. Hypertension-blood pressure controlled, home medications continued with dose adjustment as needed 8. Tobacco dependence counseled on cessation, offered nicotine patch for tobacco cravings 9. CAD stable enzymes have remained negative to date 10. DVT Prophylaxis: SCDs, heparin. 11. Severe protein calorie malnutrition evidenced by muscle wasting decreased energy level. Consultation placed to dietitian 12. Rhinovirus infection patient placed in droplet precautions 13. Physical debility requested for PT OT eval and health social work professor to assist with discharge planning 14. Stage III left ischial decubitus ulcer, present since admission. Cultures were obtained on admission however wound does not look infected. Patient is being followed by wound care nurse. Wound cultures growing 3+ Proteus mirabilis , 1+ Proteus mirabilis #2, 2+ streptococcus group C and rare MSSA. Patient is allergic to penicillin. Started on IV cefazolin. Severe protein calorie malnutrition with left ischial decubitus ulcer, present since admission and also advanced COPD Microbiology Past 72 Hours 11/19/17 19:15 Blood Culture (Wb) #2 - Left Forearm Blood Culture - Final No growth in 5 days. 11/19/17 17:55 Blood Culture (Wb) - Left Forearm Blood Culture - Final No growth in 5 days. 11/22/17 09:05 Sputum, Expectorated/Coughed Gram Stain - Final 11/22/17 09:05 Sputum, Expectorated/Coughed Respiratory Culture - Final 11/19/17 21:25 Wound - Buttock Gram Stain - Final 11/19/17 21:25 Wound - Buttock Wound Culture - Final Proteus mirabilis Proteus mirabilis#2 Streptococcus group C Staphylococcus aureus Laboratory Results 11/24/17 16:13: POC Glucose 274 H 11/24/17 23:25: POC Glucose 335 H 11/25/17 05:15: WBC 11.0, RBC 4.30 L, Hgb 12.9 L, Hct 40.0, MCV 93.0, MCH 30.0, MCHC 32.3, RDW 14.0, RDW Differential 46.1 H, Plt Count 232, MPV 10.7, Immature Gran % (Auto) 0.100, Neut % (Auto) 91.9 H, Lymph % (Auto) 4.6 L, Iron % (Auto) 3.4, Eos % (Auto) 0.0, Baso % (Auto) 0.0, Absolute Neuts (auto) 10.1 H, Absolute Lymphs (auto) 0.51 L, Total Counted Not Reportable 11/25/17 05:15: Sodium 140, Potassium 5.1, Chloride 99, Carbon Dioxide 37.0 H, Anion Gap 4 L, BUN 58 H, Creatinine 1.17, Estim Creat Clear Calc 56.50, Est GFR (MDRD) Af Amer 80, Est GFR (MDRD) Non-Af 66, BUN/Creatinine Ratio 49.6 H, Glucose 247 H, Calcium 8.6, Prealbumin 21.0, Folate 33.90 11/25/17 05:15: Vitamin B12 Pending, Vitamin D 25-Hydroxy Pending 11/25/17 06:56: POC Glucose 306 H 11/25/17 11:46: POC Glucose 312 H Active Medications Acetaminophen (Tylenol) 650 mg PO Q6H PRN PRN PRN Reason: Mild Pain (scale 0-3)/T>100.7 Al Hydroxide/Mg Hydroxide (Mylanta Ii) 30 ml PO Q6H PRN PRN PRN Reason: Gastric burning Albuterol Sulfate (Ventolin Aerosols) 2.5 mg INHALATION Q2H PRN PRN PRN Reason: SHORTNESS OF BREATH Albuterol/Ipratropium (Duoneb) 3 ml INHALATION Q4HWA.RT PRN PRN Reason: SOB &/OR WHEEZING Last Admin: 11/22/17 06:43 Dose: 3 ml Citalopram Hydrobromide (Celexa) 10 mg PO DAILY [facility] Last Admin: 11/25/17 09:03 Dose: 10 mg Digoxin (Lanoxin) 125 mcg PO DAILY [facility] Last Admin: 11/25/17 09:03 Dose: 125 mcg Diltiazem HCl (Cardizem Cd) 180 mg PO DAILY [facility] Last Admin: 11/25/17 09:04 Dose: 180 mg Ferrous Sulfate (F[facility]ous Sulfate) [facility] Last Admin: 11/25/17 09:04 Dose: 325 mg Folic Acid (Folic Acid) 1 mg PO DAILY@0800 [facility] Last Admin: 11/25/17 09:04 Dose: 1 mg Guaifenesin (Mucinex) 600 mg PO BID [facility] Last Admin: 11/25/17 09:04 Dose: 600 mg Heparin Sodium (Porcine) (Heparin Na) 5,000 unit SC Q8 [facility] Last Admin: 11/25/17 13:27 Dose: 5,000 unit Cefazolin Sodium () 1 gm in 50 mls @ 100 mls/hr IV Q8 [facility] Last Admin: 11/25/17 13:26 Dose: 100 mls/hr Insulin Human Lispro (Humalog Kwikpen (Bkc)) 0 unit SC ACHS [facility] PRN Reason: Protocol Last Admin: 11/25/17 11:49 Dose: 9 u Levothyroxine Sodium (Synthroid) 75 mcg PO DAILY@0600 [facility] Last Admin: 11/25/17 06:58 Dose: 75 mcg Magnesium Hydroxide (Milk Of Magnesia) 30 ml PO DAILY PRN PRN Reason: Constipation Methylprednisolone (Solu-Medrol) 40 mg IV Q8 [facility] Last Admin: 11/25/17 13:26 Dose: 40 mg Mirtazapine (Remeron) 15 mg PO QHS [facility] Last Admin: 11/24/17 21:51 Dose: 15 mg Multivitamins (Multivitamin) [facility] Last Admin: 11/25/17 09:04 Dose: 1 tablet Nutritional Formula (Wilfredo - [place] Flavor) 1 packet PO BID [facility] Last Admin: 11/25/17 09:02 Dose: 1 packet Nutritional Formula (Lactose Free) (Glucerna Shake) 120 ml PO 4X/DAY [facility] Last Admin: 11/25/17 13:26 Dose: 120 mls Ondansetron HCl (Zofran) 4 mg IV Q8H PRN PRN PRN Reason: NAUSEA Oxycodone HCl (Oxyir) 5 mg PO Q4H PRN PRN PRN Reason: MOD-SEVERE PAIN (4-12/19) Last Admin: 11/25/17 09:16 Dose: 5 mg Polyethylene Glycol (Miralax) 17 gm PO DAILY [facility] Last Admin: 11/25/17 09:04 Dose: 17 gm Promethazine HCl (Phenergan) 12.5 mg IV Q6H PRN PRN PRN Reason: NAUSEA/VOMITING Ranolazine (Ranexa) 500 mg PO BID [facility] Last Admin: 11/25/17 09:03 Dose: 500 mg Sodium Chloride () 5 - 30 ml IV UD PRN PRN Reason: SALINE FLUSH Last Admin: 11/23/17 22:46 Dose: 10 ml Code Visit Inpatient E&M: 90921 Subs Hosp L3
[2017-11-25 11:55] LABS: Bedside Glucose 312 mg/dL (70-110)
[2017-11-25 16:45] LABS: Bedside Glucose 393 mg/dL (70-110)
[2017-11-25] MEDS: Mirtazapine 15 MG Tablet PO (21:18)
[2017-11-26] VITALS (12 sets, daily range): BP systolic 156–175; BP diastolic 71–77; PULSE 73–95; RESP 12–20; TEMP 36.3–36.8; O2SAT 94–98
[2017-11-26 00:06] LABS: Bedside Glucose 374 mg/dL (70-110)
[2017-11-26] MEDS: Heparin Injection (Vial) 5,000 UNIT/ML VIAL 5000 UNIT SC ×2 (06:34→13:58)
[2017-11-26] MEDS: Levothyroxine 75 MCG Tablet PO (06:35)
[2017-11-26] MEDS: Cefazolin 1 GM/50 ML BAG IV ×2 (06:35→13:52)
[2017-11-26 07:01] LABS: Bedside Glucose 282 mg/dL (70-110)
[2017-11-26 07:04] LABS: Anion Gap 6 (5-15); BUN 57 mg/dL (7-18); BUN/Creat Ratio 53.3 RATIO (10-20); Calcium,Total 8.6 mg/dL (8.5-10.1); Chloride 95 mmol/L (98-107); Creatinine, Serum 1.07 mg/dL (0.70-1.30); EST Glomerular Filtration Rate 73 mL/min (>60); Est Glom Filt Rate - Afr Amer 88 mL/min (>60); Estimated Creatinine Clearance 61.78 ml/min; Glucose 268 mg/dL (74-106); Potassium 5.2 mmol/L (3.5-5.1); Sodium Level 138 mmol/L (136-145)
[2017-11-26] MEDS: Multivitamins,Therapeutic Tablet 1 TABLET PO (08:19)
[2017-11-26] MEDS: Ferrous Sulfate 325 MG Tablet PO (08:19)
[2017-11-26] MEDS: Folic Acid 1 MG Tablet PO (08:19)
[2017-11-26] MEDS: Insulin Lispro 100 UNIT/ML INSULN.PEN SC ×3 (08:21→16:38)
[2017-11-26 09:02] LABS: Vitamin B12 572 pg/mL (211-911); Vitamin D,25 Hydroxy 30.6 ng/mL (29.95-100.01)
--- NOTE | 2017-11-26 10:24 | PCM.CONS.GEN ---
Problem List (1) COPD exacerbation Status: Acute (2) TYLER (acute kidney injury) Status: Acute (3) Tobacco use Status: Chronic (4) Chronic respiratory failure with hypoxia Status: Chronic (5) Macrocytic anemia Status: Chronic (6) Non-ischemic cardiomyopathy Status: Chronic (7) Failure to thrive Status: Resolved (8) ARF (acute renal failure) Status: Resolved (9) History of tonsillectomy Status: Chronic (10) History of inguinal hernia repair Status: Chronic (11) Depression Status: Chronic Qualifiers: (12) Chronic anticoagulation Status: Inactive (13) WHIT (obstructive sleep apnea) Status: Chronic Comment: BiPAP 10/6 cm of water (14) HTN (hypertension) Status: Chronic Qualifiers: Hypertension type: essential hypertension Qualified Code(s): I10 - Essential (primary) hypertension (15) Paroxysmal atrial fibrillation Status: Chronic (16) HLD (hyperlipidemia) Status: Chronic Qualifiers: Hyperlipidemia type: pure hypercholesterolemia Qualified Code(s): E78.00 - Pure hypercholesterolemia, unspecified; E78.0 - Pure hypercholesterolemia (17) DM2 (diabetes mellitus, type 2) Status: Chronic Qualifiers: 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 Patient was reportedly cyanotic on EMS arrival. On arrival to the emergency department, patient was given Lasix, Solu-Medrol and increased supplemental oxygen. Patient reportedly had moderate effusions noted bilaterally. Patient was admitted to the PCU and was later found to be positive for rhinovirus. Patient has been using BiPAP overnight and receiving systemic steroids with aerosol therapy. Over the course of patient's hospitalization, patient has not improved significantly, so a pulmonary consult was obtained. On my arrival, patient was able to answer minimally. Patient falling asleep skilled nursing through his answers. Patient does report some improvement following BiPAP therapy. Patient reportedly has been on his 4 L nasal cannula and saturating in the high 90s for several days. Patient denied any pain during my evaluation. Patient did not report that he had been out of bed recently. Patient has been seen as an outpatient in my office and completed a PFT on 10/17/2017 showing severe large airways obstructive ventilatory defect with symmetric reduction diffusing capacity and significant worsening compared to previous study one year prior. Patient did not show up for his follow-up the following week, but has been admitted with a hip fracture and seen in the ER multiple times by review of the electronic medical record. Pulmonary consultations have been obtained over this time. Patient unable to provide review of systems at this time. Past Medical History Past Medical History (Chronic Problems): Chronic Problems (Last Reviewed 10/23/17 @ 12:12 by Brianne Waldron) CKD (chronic kidney disease) stage 3, GFR 30-59 ml/min (Chronic) Tobacco use (Chronic) Chronic respiratory failure with hypoxia (Chronic) Macrocytic anemia (Chronic) Non-ischemic cardiomyopathy (Chronic) Stage 2 moderate COPD by GOLD classification (Chronic) FEV1 51% of predicted History of tonsillectomy (Chronic) History of inguinal hernia repair (Chronic) Depression (Chronic) Tobacco dependence due to cigarettes (Chronic) Severe malnutrition (Chronic) WHIT (obstructive sleep apnea) (Chronic) BiPAP 10/6 cm of water CAD (coronary artery disease) (Chronic) LH: 10/07/2010, 09/06/2015 HTN (hypertension) (Chronic) Paroxysmal atrial fibrillation (Chronic) HLD (hyperlipidemia) (Chronic) DM2 (diabetes mellitus, type 2) (Chronic) COPD (chronic obstructive pulmonary disease) (Chronic) Medical History: Medical History (Last Reviewed 10/23/17 @ 12:12 by Brianne Waldron) Hypoglycemia (Resolved) E16.2 Fall (Resolved) W19.XXXA Depression (Chronic) F32.9 Chronic anticoagulation (Inactive) Z79.01 Esophageal spasm (Suspected) K22.4 Tobacco dependence due to cigarettes (Chronic) F17.210 Severe malnutrition (Chronic) E43 Hypokalemia (Resolved) E87.6 WHIT (obstructive sleep apnea) (Chronic) G47.33 BiPAP 10/6 cm of water CAD (coronary artery disease) (Chronic) I25.10 LHC: 10/07/2010, 09/06/2015 HTN (hypertension) (Chronic) I10 Paroxysmal atrial fibrillation (Chronic) I48.0 HLD (hyperlipidemia) (Chronic) E78.5 Chest pain (Resolved) R07.9 DM2 (diabetes mellitus, type 2) (Chronic) E11.9 COPD (chronic obstructive pulmonary disease) (Chronic) J44.9 Dilated cardiomyopathy (Resolved) I42.0 Unspecified systolic (congestive) heart failure (Resolved) I50.20 Allergies Penicillins Allergy (Verified 11/19/17 19:21) Shortness of breath Home Medications: Ambulatory Orders Medication Instructions Recorded Digoxin 125 mcg PO DAILY 05/27/16 Levothyroxine [Synthroid] 75 mcg PO DAILY 05/27/16 Ranolazine [Ranexa] 500 mg PO BID 01/10/17 Mirtazapine 15 mg PO QHS 06/25/17 Citalopram [Celexa] 10 mg PO DAILY 08/20/17 Polyethylene Glycol 3350 [Miralax] 17 gm PO DAILY packet 08/23/17 Argin/Glut/Cahmb/Collag/Mv-Min 1 each PO BID 09/05/17 [Wilfredo Packet] Bisacodyl 10 mg RC DAILY PRN PRN 09/05/17 Linagliptin [Tradjenta] 5 mg PO DAILY 09/05/17 Magnesium Hydroxide [Milk of 30 ml PO PRN PRN 09/05/17 Magnesia] Mineral Oil 133 ml RC DAILY PRN PRN 09/05/17 Folic Acid 1 mg PO DAILY@0800 tablet 09/07/17 Oxycodone [Oxyir] 5 mg PO Q4H PRN PRN 5 Days #20 tab 09/07/17 Calcium Carbonate [Tums] 500 mg PO Q4H PRN PRN 11/19/17 Diltiazem HCl [Diltiazem 12Hr ER] 180 mg PO DAILY 11/19/17 Ferrous Sulfate 325 mg PO BIDCM 11/19/17 Insulin Lispro [Humalog] See Protocol SQ ACHS 11/19/17 Ipratropium/Albuterol Respimat 3 mg PO Q4H PRN 11/19/17 [Combivent Respimat Inhal Ralston] Multivitamins,Therapeutic 1 tablet PO DAILYCM 11/19/17 [Multivitamin] Surgical History: Surgical History (Last Reviewed 10/23/17 @ 12:12 by Brianne Waldron) History of left heart catheterization (LHC) (Resolved) Z98.890 LHC: 10/07/2010, 09/06/2015 History of tonsillectomy (Chronic) Z98.890, Z90.89 History of inguinal hernia repair (Chronic) Z98.890, Z87.19 Surgical History: herniorrhaphy, tonsillectomy, - - L Hip surgical intervention s/p fall w/ fx. Psychiatric History: No pertinent psych hx Lives: [facility] Smoking Status: Current every day smoker Tobacco Use: Cigars Alcohol: None Drugs: None - *Family History Maternal Family History: Family History (Last Reviewed 10/23/17 @ 12:12 by Brianne Waldron) Father CAD (coronary artery disease) History Items: Heart Disease, Hypertension Paternal Family History: Family History (Last Reviewed 10/23/17 @ 12:12 by Brianne Waldron) Father CAD (coronary artery disease) History Items: Heart Disease, Hypertension, - - Rheumatic heart disease Review of Systems Unable to obtain accurate/complete ROS d/t: Decreased mentation Patient Problems: Active and Suspected Problems (Last Reviewed 10/23/17 @ 12:12 by Brianne Waldron) COPD exacerbation (Acute) TYLER (acute kidney injury) (Acute) Acute and chronic respiratory failure with hypoxia (Acute) CHF exacerbation (Acute) Objective: Chest x-ray was personally reviewed and shows bilateral effusions with cephalization, but improved compared to previous. PFT was described in the HPI. - Physical Exam General: Confused, Disoriented, Lethargic, Non-Cooperative, - - Appears older than stated age. Speaking in 2-3 word sentences and then falling asleep. HEENT: Atraumatic, PERRLA, EOMI, Normocephalic, - - No scleral icterus or injection noted. Oral: No Gingival or Mucosal Lesions/ Ulcerations, Dry Mucosa, - - Poor dentition. Neck: Supple, No JVD, No Nodes, Trachea Midline Lungs: No rhonchi, No rales, Diminished, Wheezes, - - Symmetric expansion. No dullness to percussion. Cardiovascular: Normal S1, Normal S2, No murmurs, Irregular Rate, No rub noted, No Gallop Abdomen: Bowel Sounds Present, Soft, Non Tender, Non-Distended Extremities: No cyanosis, No edema, Capillary Refill Less than 3 Seconds, Clubbing Skin: No rashes, Ulcer/ Wound - Stage III decubitus ulcer on left ischium -dressed by wound nurse Musculoskeletal: No Tenderness to Palpation of Joints or Extremities Lymphatic: No Cervical, Supraclavicular, or Inguinal Adenopathy Neurological: Cranial nerves II-XII grossly intact, Neuro grossly intact Psych/Mental Status: Flat Affect Vital Signs Temp Pulse Resp BP Pulse Ox 36.3 C L 82 20 H 175/75 H 95 11/26/17 08:50 11/26/17 08:50 11/26/17 08:50 11/26/17 08:50 11/26/17 08:50 Oxygen Flow Rate (L/min) 4 Oxygen Delivery Method Nasal Cannula Weight: 69.9 kg Body Mass Index (BMI) 24.1 Intake and Output for Last 24 Hours 11/24/17 11/25/17 11/26/17 23:59 23:59 23:59 Intake Total 405 / 405 1460.9 / 1460.9 902 / 902 Output Total 675 / 675 1125 / 1125 Balance -270 / -270 1460.9 / 1460.9 -223 / -223 Microbiology Past 72 Hours 11/22/17 09:05 Gram Stain - Final Sputum, Expectorated/Coughed Respiratory Culture - Final 11/19/17 21:25 Gram Stain - Final Wound - Buttock Wound Culture - Final Proteus mirabilis Proteus mirabilis#2 Streptococcus group C Staphylococcus aureus Laboratory Tests Past 24 Hrs 11/25/17 11/26/17 05:15 06:35 Sodium 138 Potassium 5.2 H Chloride 95 L Carbon Dioxide 37.0 H Anion Gap 6 BUN 57 H Creatinine 1.07 Estim Creat Clear Calc 61.78 Est GFR (MDRD) Af Amer 88 Est GFR (MDRD) Non-Af 73 BUN/Creatinine Ratio 53.3 H Glucose 268 H Calcium 8.6 Vitamin B12 572 Vitamin D 25-Hydroxy 30.6 POC Glucose 11/26/17 11/25/17 11/25/17 06:41 21:04 16:25 POC Glucose 282 H 374 H 393 H 11/25/17 11:46 POC Glucose 312 H Clinical Impression(s) from Imaging Studies Chest X-Ray 11/19/17 18:04 IMPRESSION: Bilateral pleural effusions. Electronically Signed: Little Jasso MD at 18:38 EDT Tel , Service support , Chest X-Ray 11/25/17 04:15 IMPRESSION: CHF and small bilateral pleural effusions. There is interval improvement from previous study. Electronically Signed: Leonard Sanchez MD at 6:29 EDT , Service support , Assessment/Plan All Active Problems (Last Reviewed 10/23/17 @ 12:12 by Brianne Waldron) COPD exacerbation (Acute) TYLER (acute kidney injury) (Acute) Acute and chronic respiratory failure with hypoxia (Acute) CHF exacerbation (Acute) Closed left hip fracture (Acute) Failure to thrive (Resolved) ARF (acute renal failure) (Resolved) Dysphagia (Resolved) History of left heart catheterization (LHC) (Resolved) Hypoglycemia (Resolved) Fall (Resolved) Hypokalemia (Resolved) Chest pain (Resolved) COPD with exacerbation (Resolved) Dilated cardiomyopathy (Resolved) Lower extremity edema (Resolved) Overweight (Resolved) Unspecified systolic (congestive) heart failure (Resolved) RECOMMENDATIONS: 1. Obtain ABG stat 2. Decreased FiO2 to keep saturations 88-92% 3. Tinea Solu-Medrol and bronchodilators for now 4. Increase activity as tolerated 5. Initiate basal insulin IMPRESSIONS: 1. Acute on chronic hypoxic respiratory failure secondary to COPD exacerbation secondary to rhinovirus Patient has been on steroid therapy for a week now with no significant improvement in respiratory status. Patient is on 4 L nasal cannula, but is saturating in the upper 90s. Patient is on BiPAP overnight and appears to be tolerating this well. Patient is not answering appropriately and elevated bicarbonate is suggestive of CO2 retention. Will obtain an ABG for evaluation. Oxygen should be lowered to keep saturations 88-92%. Continue with bronchodilators for now. Chest x-ray shows improved effusions and cephalization compared to previous. 2. Diabetes mellitus type 2 with complications -uncontrolled Patient with blood sugars in the high 200s and low 300s. This is likely secondary to steroid therapy. Patient will be initiated on basal insulin. Unclear if patient will be able to tolerate oral regimen given current mental status. 3. Chronic systolic congestive heart failure No significant lower extremity edema appreciated, but patient does have bilateral pleural effusions. Chest x-ray appears to be somewhat improved compared to previous. Clinical suspicion for osmotic diuresis secondary to elevated blood sugars. 4. Severe protein calorie malnutrition/CAD/tobacco dependence/hypertension/paroxysmal A. fib/hypothyroidism/stage III decubitus Complicates care, management, recovery and prognosis. Patient would be a poor candidate for intubation given poor baseline reserve and failure to respond to steroid therapy over the last 7 days. Patient does not appear to be mentating appropriately at this time to allow for evaluation of CODE STATUS. Patient appears to be tolerating Ancef despite reported allergy to penicillins. Code Visit Inpatient E&M: [id number] Init Hosp L3
--- NOTE | 2017-11-26 10:31 | CON.PCM_ITS ---
Problem List (1) COPD exacerbation Status: Acute (2) TYLER (acute kidney injury) Status: Acute (3) Tobacco use Status: Chronic (4) Chronic respiratory failure with hypoxia Status: Chronic (5) Macrocytic anemia Status: Chronic (6) Non-ischemic cardiomyopathy Status: Chronic (7) Failure to thrive Status: Resolved (8) ARF (acute renal failure) Status: Resolved (9) History of tonsillectomy Status: Chronic (10) History of inguinal hernia repair Status: Chronic (11) Depression Status: Chronic Qualifiers: (12) Chronic anticoagulation Status: Inactive (13) WHIT (obstructive sleep apnea) Status: Chronic Comment: BiPAP 10/6 cm of water (14) HTN (hypertension) Status: Chronic Qualifiers: Hypertension type: essential hypertension Qualified Code(s): I10 - Essential (primary) hypertension (15) Paroxysmal atrial fibrillation Status: Chronic (16) HLD (hyperlipidemia) Status: Chronic Qualifiers: Hyperlipidemia type: pure hypercholesterolemia Qualified Code(s): E78.00 - Pure hypercholesterolemia, unspecified; E78.0 - Pure hypercholesterolemia (17) DM2 (diabetes mellitus, type 2) Status: Chronic Qualifiers: Diabetes mellitus long term care social worker insulin use: without intermediate use Diabetes mellitus complication status: with unspecified complications Qualified Code(s) : E11.8 - Type 2 diabetes mellitus with unspecified complications Reason for Consult Date of Consultation: 11/26/17 Reason for Consultation: Failure to improve, chronic respiratory failure History of Present Illness: The patient is a 67 year old M, with past medical history listed below, who presented to [facility] on 11/19/2017 secondary to hypoxemia, dyspnea, wheezing and cough. Patient was reportedly cyanotic on EMS arrival. On arrival to the emergency department, patient was given Lasix, Solu-Medrol and increased supplemental oxygen. Patient reportedly had moderate effusions noted bilaterally. Patient was admitted to the PCU and was later found to be positive for rhinovirus. Patient has been using BiPAP overnight and receiving systemic steroids with aerosol therapy. Over the course of patient's hospitalization, patient has not improved significantly, so a pulmonary consult was obtained. On my arrival, patient was able to answer minimally. Patient falling asleep residential through his answers. Patient does report some improvement following BiPAP therapy. Patient reportedly has been on his 4 L nasal cannula and saturating in the high 90s for several days. Patient denied any pain during my evaluation. Patient did not report that he had been out of bed recently. Patient has been seen as an outpatient in my office and completed a PFT on 2017 showing severe large airways obstructive ventilatory defect with symmetric reduction diffusing capacity and significant worsening compared to previous study one year prior. Patient did not show up for his follow-up the following week, but has been admitted with a hip fracture and seen in the ER multiple times by review of the electronic medical record. Pulmonary consultations have been obtained over this time. Patient unable to provide review of systems at this time. Past Medical History Past Medical History (Chronic Problems): Chronic Problems (Last Reviewed 10/23/17 @ 12:12 by Brianne Waldron) CKD (chronic kidney disease) stage 3, GFR 30-59 ml/min (Chronic) Tobacco use (Chronic) Chronic respiratory failure with hypoxia (Chronic) Macrocytic anemia (Chronic) Non-ischemic cardiomyopathy (Chronic) Stage 2 moderate COPD by GOLD classification (Chronic) FEV1 51% of predicted History of tonsillectomy (Chronic) History of inguinal hernia repair (Chronic) Depression (Chronic) Tobacco dependence due to cigarettes (Chronic) Severe malnutrition (Chronic) WHIT (obstructive sleep apnea) (Chronic) BiPAP 10/6 cm of water CAD (coronary artery disease) (Chronic) LH: 10/07/2010, 09/06/2015 HTN (hypertension) (Chronic) Paroxysmal atrial fibrillation (Chronic) HLD (hyperlipidemia) (Chronic) DM2 (diabetes mellitus, type 2) (Chronic) COPD (chronic obstructive pulmonary disease) (Chronic) Medical History: Medical History (Last Reviewed 10/23/17 @ 12:12 by Brianne Waldron) Hypoglycemia (Resolved) E16.2 Fall (Resolved) W19.XXXA Depression (Chronic) F32.9 Chronic anticoagulation (Inactive) Z79.01 Esophageal spasm (Suspected) K22.4 Tobacco dependence due to cigarettes (Chronic) F17.210 Severe malnutrition (Chronic) E43 Hypokalemia (Resolved) E87.6 WHIT (obstructive sleep apnea) (Chronic) G47.33 BiPAP 10/6 cm of water CAD (coronary artery disease) (Chronic) I25.10 LHC: 10/07/2010, 09/06/2015 HTN (hypertension) (Chronic) I10 Paroxysmal atrial fibrillation (Chronic) I48.0 HLD (hyperlipidemia) (Chronic) E78.5 Chest pain (Resolved) R07.9 DM2 (diabetes mellitus, type 2) (Chronic) E11.9 COPD (chronic obstructive pulmonary disease) (Chronic) J44.9 Dilated cardiomyopathy (Resolved) I42.0 Unspecified systolic (congestive) heart failure (Resolved) I50.20 Allergies Penicillins Allergy (Verified 11/19/17 19:21) Shortness of breath Home Medications: Ambulatory Orders Medication Instructions Recorded Digoxin 125 mcg PO DAILY 05/27/16 Levothyroxine [Synthroid] 75 mcg PO DAILY 05/27/16 Ranolazine [Ranexa] 500 mg PO BID 01/10/17 Mirtazapine 15 mg PO QHS 06/25/17 Citalopram [Celexa] 10 mg PO DAILY 08/20/17 Polyethylene Glycol 3350 [Miralax] 17 gm PO DAILY packet 08/23/17 Argin/Glut/Cahmb/Collag/Mv-Min 1 each PO BID 09/05/17 [Wilfredo Packet] Bisacodyl 10 mg RC DAILY PRN PRN 09/05/17 Linagliptin [Tradjenta] 5 mg PO DAILY 09/05/17 Magnesium Hydroxide [Milk of 30 ml PO PRN PRN 09/05/17 Magnesia] Mineral Oil 133 ml RC DAILY PRN PRN 09/05/17 Folic Acid 1 mg PO DAILY@0800 tablet 09/07/17 Oxycodone [Oxyir] 5 mg PO Q4H PRN PRN 5 Days #20 tab 09/07/17 Calcium Carbonate [Tums] 500 mg PO Q4H PRN PRN 11/19/17 Diltiazem HCl [Diltiazem 12Hr ER] 180 mg PO DAILY 11/19/17 Ferrous Sulfate 325 mg PO BIDCM 11/19/17 Insulin Lispro [Humalog] See Protocol SQ ACHS 11/19/17 Ipratropium/Albuterol Respimat 3 mg PO Q4H PRN 11/19/17 [Combivent Respimat Inhal [place]] Multivitamins,Therapeutic 1 tablet PO DAILYCM 11/19/17 [Multivitamin] Surgical History: Surgical History (Last Reviewed 10/23/17 @ 12:12 by Brianne Waldron) History of left heart catheterization (LHC) (Resolved) Z98.890 LHC: 10/07/2010, 09/06/2015 History of tonsillectomy (Chronic) Z98.890, Z90.89 History of inguinal hernia repair (Chronic) Z98.890, Z87.19 Surgical History: herniorrhaphy, tonsillectomy, - - L Hip surgical intervention s/p fall w/ fx. Psychiatric History: No pertinent psych hx Lives: [facility] Smoking Status: Current every day smoker Tobacco Use: Cigars Alcohol: None Drugs: None - *Family History Maternal Family History: Family History (Last Reviewed 10/23/17 @ 12:12 by Brianne Waldron) Father CAD (coronary artery disease) History Items: Heart Disease, Hypertension Paternal Family History: Family History (Last Reviewed 10/23/17 @ 12:12 by Brianne Waldron) Father CAD (coronary artery disease) History Items: Heart Disease, Hypertension, - - Rheumatic heart disease Review of Systems Unable to obtain accurate/complete ROS d/t: Decreased mentation Patient Problems: Active and Suspected Problems (Last Reviewed 10/23/17 @ 12:12 by Brianne Waldron ) COPD exacerbation (Acute) TYLER (acute kidney injury) (Acute) Acute and chronic respiratory failure with hypoxia (Acute) CHF exacerbation (Acute) Objective: Chest x-ray was personally reviewed and shows bilateral effusions with cephalization, but improved compared to previous. PFT was described in the HPI. - Physical Exam General: Confused, Disoriented, Lethargic, Non-Cooperative, - - Appears older than stated age. Speaking in 2-3 word sentences and then falling asleep. HEENT: Atraumatic, PERRLA, EOMI, Normocephalic, - - No scleral icterus or injection noted. Oral: No Gingival or Mucosal Lesions/ Ulcerations, Dry Mucosa, - - Poor dentition. Neck: Supple, No JVD, No Nodes, Trachea Midline Lungs: No rhonchi, No rales, Diminished, Wheezes, - - Symmetric expansion. No dullness to percussion. Cardiovascular: Normal S1, Normal S2, No murmurs, Irregular Rate, No rub noted, No Gallop Abdomen: Bowel Sounds Present, Soft, Non Tender, Non-Distended Extremities: No cyanosis, No edema, Capillary Refill Less than 3 Seconds, Clubbing Skin: No rashes, Ulcer/ Wound - Stage III decubitus ulcer on left ischium - dressed by wound nurse Musculoskeletal: No Tenderness to Palpation of Joints or Extremities Lymphatic: No Cervical, Supraclavicular, or Inguinal Adenopathy Neurological: Cranial nerves II-XII grossly intact, Neuro grossly intact Psych/Mental Status: Flat Affect Vital Signs Temp Pulse Resp BP Pulse Ox 36.3 C L 82 20 H 175/75 H 95 11/26/17 08:50 11/26/17 08:50 11/26/17 08:50 11/26/17 08:50 11/26/17 08:50 Oxygen Flow Rate (L/min) 4 Oxygen Delivery Method Nasal Cannula Weight: 69.9 kg Body Mass Index (BMI) 24.1 Intake and Output for Last 24 Hours 11/24/17 11/25/17 11/26/17 23:59 23:59 23:59 Intake Total 405 / 405 1460.9 / 1460.9 902 / 902 Output Total 675 / 675 1125 / 1125 Balance -270 / -270 1460.9 / 1460.9 -223 / -223 Microbiology Past 72 Hours 11/22/17 09:05 Gram Stain - Final Sputum, Expectorated/Coughed Respiratory Culture - Final 11/19/17 21:25 Gram Stain - Final Wound - Buttock Wound Culture - Final Proteus mirabilis Proteus mirabilis#2 Streptococcus group C Staphylococcus aureus Laboratory Tests Past 24 Hrs 11/25/17 11/26/17 05:15 06:35 Sodium 138 Potassium 5.2 H Chloride 95 L Carbon Dioxide 37.0 H Anion Gap 6 BUN 57 H Creatinine 1.07 Estim Creat Clear Calc 61.78 Est GFR (MDRD) Af Amer 88 Est GFR (MDRD) Non-Af 73 BUN/Creatinine Ratio 53.3 H Glucose 268 H Calcium 8.6 Vitamin B12 572 Vitamin D 25-Hydroxy 30.6 POC Glucose 11/26/17 11/25/17 11/25/17 06:41 21:04 16:25 POC Glucose 282 H 374 H 393 H 11/25/17 11:46 POC Glucose 312 H Clinical Impression(s) from Imaging Studies Chest X-Ray 11/19/17 18:04 IMPRESSION: Bilateral pleural effusions. Electronically Signed: Little Jasso MD at 18:38 EDT Tel , Service support , Chest X-Ray 11/25/17 04:15 IMPRESSION: CHF and small bilateral pleural effusions. There is interval improvement from previous study. Electronically Signed: Leonard Sanchez MD at 6:29 EDT , Service support , Assessment/Plan All Active Problems (Last Reviewed 10/23/17 @ 12:12 by Brianne Waldron) COPD exacerbation (Acute) TYLER (acute kidney injury) (Acute) Acute and chronic respiratory failure with hypoxia (Acute) CHF exacerbation (Acute) Closed left hip fracture (Acute) Failure to thrive (Resolved) ARF (acute renal failure) (Resolved) Dysphagia (Resolved) History of left heart catheterization (LHC) (Resolved) Hypoglycemia (Resolved) Fall (Resolved) Hypokalemia (Resolved) Chest pain (Resolved) COPD with exacerbation (Resolved) Dilated cardiomyopathy (Resolved) Lower extremity edema (Resolved) Overweight (Resolved) Unspecified systolic (congestive) heart failure (Resolved) RECOMMENDATIONS: 1. Obtain ABG stat 2. Decreased FiO2 to keep saturations 88-92% 3. Tinea Solu-Medrol and bronchodilators for now 4. Increase activity as tolerated 5. Initiate basal insulin IMPRESSIONS: 1. Acute on chronic hypoxic respiratory failure secondary to COPD exacerbation secondary to rhinovirus Patient has been on steroid therapy for a week now with no significant improvement in respiratory status. Patient is on 4 L nasal cannula, but is saturating in the upper 90s. Patient is on BiPAP overnight and appears to be tolerating this well. Patient is not answering appropriately and elevated bicarbonate is suggestive of CO2 retention. Will obtain an ABG for evaluation. Oxygen should be lowered to keep saturations 88-92%. Continue with bronchodilators for now. Chest x-ray shows improved effusions and cephalization compared to previous. 2. Diabetes mellitus type 2 with complications -uncontrolled Patient with blood sugars in the high 200s and low 300s. This is likely secondary to steroid therapy. Patient will be initiated on basal insulin. Unclear if patient will be able to tolerate oral regimen given current mental status. 3. Chronic systolic congestive heart failure No significant lower extremity edema appreciated, but patient does have bilateral pleural effusions. Chest x-ray appears to be somewhat improved compared to previous. Clinical suspicion for osmotic diuresis secondary to elevated blood sugars. 4. Severe protein calorie malnutrition/CAD/tobacco dependence/hypertension/ paroxysmal A. fib/hypothyroidism/stage III decubitus Complicates care, management, recovery and prognosis. Patient would be a poor candidate for intubation given poor baseline reserve and failure to respond to steroid therapy over the last 7 days. Patient does not appear to be mentating appropriately at this time to allow for evaluation of CODE STATUS. Patient appears to be tolerating Ancef despite reported allergy to penicillins. Code Visit Inpatient E&M: 85763 Init Hosp L3
[2017-11-26] MEDS: Digoxin 125 MCG Tablet PO (10:36)
[2017-11-26] MEDS: Glucerna Shake 120 ML LIQUID PO ×2 (10:36→13:52)
[2017-11-26] MEDS: Ranolazine 500 MG Tablet PO (10:36)
[2017-11-26] MEDS: Citalopram 10 MG Tablet PO (10:36)
[2017-11-26] MEDS: dilTIAZem CD 180 MG Capsule PO (10:36)
[2017-11-26] MEDS: guaiFENesin 600 MG Tablet PO (10:36)
[2017-11-26 11:31] LABS: Bedside Glucose 396 mg/dL (70-110)
--- NOTE | 2017-11-26 12:05 | CASEMGMT ---
ROSANA faxed updates to [facility] and called letting them know he will not be returning today. Sandrita SMALL MSW
[2017-11-26 12:31] LABS: Allen Test POS; Base Excess 13 mmol/L (-2 to +2); Bicarbonate 37.9 mmol/L (22-26); Blood Gas Specimen Type ART; O2 Delivery Device Nasal Can; PO2 61 mmHG (75-100); SITE L Radial; SO2 90 % (95-99); Time Given 1215; Total Carbon Dioxide 40 mmol/L; pCO2 61.3 mmHg (35-45)
--- NOTE | 2017-11-26 13:56 | CASEMGMT ---
ROSANA spoke with Abigail at [facility] and she asked if patient was returning today. She said if he does not return today she will have to start all over with the pre-cert. ROSANA spoke with Dr Dey and she saw him today and she feels fine discharging him back to [facility] today. He will need bipap at night. ROSANA let Abigail know this and she will order one. Plan: d/c back to [facility] under skilled level of care. Staff to set up transport. Sandrita SMALL MSW
--- NOTE | 2017-11-26 14:00 | PN_ITS ---
Subjective: Patient was seen and examined. No new complains. He was lethargic earlier on but has since improved. Objective: General: Alert, Oriented x3, Cooperative, on 4L oxygen HEENT: Atraumatic, PERRLA, EOMI, Normocephalic Neck: Supple, No JVD, Negative Carotid Bruits Lungs: Diminished, Rhonchi, Vesicular BS Cardiovascular: Regular rate, No murmurs Abdomen: Bowel Sounds Present, Soft, Non Tender, Non-Distended Extremities: No edema, Capillary Refill Less than 3 Seconds Skin: Ulcer/ Wound - Stage III left ischial decubitus ulcer, present since admission Musculoskeletal: No Tenderness to Palpation of Joints or Extremities, Arthritic Changes, Muscle Wasting Neurological: Cranial nerves II-XII grossly intact Psych/Mental Status: Normal Affect, Appropriate Vitals/I&O's: Vital Signs Temp Pulse Resp BP Pulse Ox 97.9 F 89 20 H 159/71 H 94 11/26/17 11:19 11/26/17 11:41 11/26/17 11:19 11/26/17 11:19 11/26/17 11:19 Oxygen Flow Rate (L/min) 3 Oxygen Delivery Method Nasal Cannula Weight: 69.9 kg Body Mass Index (BMI) 24.1 Intake and Output for Last 24 Hours 11/24/17 11/25/17 11/26/17 23:59 23:59 23:59 Intake Total 405 / 405 1460.9 / 1460.9 1102 / 1102 Output Total 675 / 675 1125 / 1125 Balance -270 / -270 1460.9 / 1460.9 -23 / -23 Microbiology Past 72 Hours 11/19/17 21:25 Wound - Buttock Gram Stain - Final 11/19/17 21:25 Wound - Buttock Wound Culture - Final Proteus mirabilis Proteus mirabilis#2 Streptococcus group C Staphylococcus aureus 11/19/17 21:25 Wound - Buttock Anaerobic Culture - Final No anaerobic bacteria isolated. 11/22/17 09:05 Sputum, Expectorated/Coughed Gram Stain - Final 11/22/17 09:05 Sputum, Expectorated/Coughed Respiratory Culture - Final Laboratory Results 11/25/17 05:15: Vitamin B12 572, Vitamin D 25-Hydroxy 30.6 11/25/17 16:25: POC Glucose 393 H 11/25/17 21:04: POC Glucose 374 H 11/26/17 06:35: Sodium 138, Potassium 5.2 H, Chloride 95 L, Carbon Dioxide 37.0 H, Anion Gap 6, BUN 57 H, Creatinine 1.07, Estim Creat Clear Calc 61.78, Est GFR (MDRD) Af Amer 88, Est GFR (MDRD) Non-Af 73, BUN/Creatinine Ratio 53.3 H, Glucose 268 H, Calcium 8.6 11/26/17 06:41: POC Glucose 282 H 11/26/17 11:23: POC Glucose 396 H 11/26/17 12:25: Specimen Type ART, Sample Site L Radial, pH 7.40, Bicarbonate Actual 37.9 H, POC Total CO2 40, Base Excess 13 H, O2 Saturation 90 L, ABG pCO2 61.3 H, ABG pO2 61 L, Ketan Test POS, O2 Delivery Device Nasal Can, Liter Flow 3.0, Blood Gas Notified Whom ICU MD, Blood Gas Notified Time 1215 Current Medications Acetaminophen (Tylenol) 650 mg PO Q6H PRN PRN PRN Reason: Mild Pain (scale 0-3)/T>100.7 Al Hydroxide/Mg Hydroxide (Mylanta Ii) 30 ml PO Q6H PRN PRN PRN Reason: Gastric burning Albuterol Sulfate (Ventolin Aerosols) 2.5 mg INHALATION Q2H PRN PRN PRN Reason: SHORTNESS OF BREATH Albuterol/Ipratropium (Duoneb) 3 ml INHALATION Q4HWA.RT PRN PRN Reason: SOB &/OR WHEEZING Last Admin: 11/22/17 06:43 Dose: 3 ml Citalopram Hydrobromide (Celexa) 10 mg PO DAILY [facility] Last Admin: 11/26/17 10:36 Dose: 10 mg Digoxin (Lanoxin) 125 mcg PO DAILY [facility] Last Admin: 11/26/17 10:36 Dose: 125 mcg Diltiazem HCl (Cardizem Cd) 180 mg PO DAILY [facility] Last Admin: 11/26/17 10:36 Dose: 180 mg Ferrous Sulfate (Ferrous Sulfate) 325 mg PO BIDCM [facility] Last Admin: 11/26/17 08:19 Dose: 325 mg Folic Acid (Folic Acid) 1 mg PO DAILY@0800 [facility] Last Admin: 09/17/18 08:19 Dose: 1 mg Guaifenesin (Mucinex) 600 mg PO BID [facility] Last Admin: 11/26/17 10:36 Dose: 600 mg Heparin Sodium (Porcine) (Heparin Na) 5,000 unit SC Q8 [facility] Last Admin: 11/26/17 06:34 Dose: 5,000 unit Cefazolin Sodium () 1 gm in 50 mls @ 100 mls/hr IV Q8 [facility] Last Admin: 11/26/17 06:35 Dose: 100 mls/hr Insulin Glargine (Lantus (Bkc)) 10 units SC DAILY [facility] Last Admin: 11/26/17 10:37 Dose: 10 units Insulin Human Lispro (Humalog Kwikpen (Bk)) 0 unit SC ACHS [facility] PRN Reason: Protocol Last Admin: 11/26/17 12:21 Dose: 14 u Levothyroxine Sodium (Synthroid) 75 mcg PO DAILY@0600 [facility] Last Admin: 11/26/17 06:35 Dose: 75 mcg Magnesium Hydroxide (Milk Of Magnesia) 30 ml PO DAILY PRN PRN Reason: Constipation Methylprednisolone (Solu-Medrol) 40 mg IV Q8 [facility] Last Admin: 11/26/17 06:34 Dose: 40 mg Mirtazapine (Remeron) 15 mg PO QHS [facility] Last Admin: 11/25/17 21:18 Dose: 15 mg Multivitamins (Multivitamin) [facility] Last Admin: 11/26/17 08:19 Dose: 1 tablet Nutritional Formula (Wilfredo - [place] Flavor) 1 packet PO BID [facility] Last Admin: 11/26/17 10:35 Dose: 1 packet Nutritional Formula (Lactose Free) (Glucerna Shake) 120 ml PO 4X/DAY [facility] Last Admin: 11/26/17 10:36 Dose: 120 mls Ondansetron HCl (Zofran) 4 mg IV Q8H PRN PRN PRN Reason: NAUSEA Oxycodone HCl (Oxyir) 5 mg PO Q4H PRN PRN PRN Reason: MOD-SEVERE PAIN (4-10/10) Last Admin: 11/25/17 21:18 Dose: 5 mg Polyethylene Glycol (Miralax) 17 gm PO DAILY [facility] Last Admin: 11/26/17 10:37 Dose: Not Given Promethazine HCl (Phenergan) 12.5 mg IV Q6H PRN PRN PRN Reason: NAUSEA/VOMITING Ranolazine (Ranexa) 500 mg PO BID [facility] Last Admin: 11/26/17 10:36 Dose: 500 mg Sodium Chloride () 5 - 30 ml IV UD PRN PRN Reason: SALINE FLUSH Last Admin: 11/23/17 22:46 Dose: 10 ml Medical Necessity - Tobacco Use Smoking Status: Current every day smoker Tobacco Use: Cigars Assessment/Plan All Active Problems (Last Reviewed 10/23/17 @ 12:12 by Brianne Waldron) COPD exacerbation (Acute) TYLER (acute kidney injury) (Acute) Acute and chronic respiratory failure with hypoxia (Acute) CHF exacerbation (Acute) Closed left hip fracture (Acute) Failure to thrive (Resolved) ARF (acute renal failure) (Resolved) Dysphagia (Resolved) History of left heart catheterization (LHC) (Resolved) Hypoglycemia (Resolved) Fall (Resolved) Hypokalemia (Resolved) Chest pain (Resolved) COPD with exacerbation (Resolved) Dilated cardiomyopathy (Resolved) Lower extremity edema (Resolved) Overweight (Resolved) Unspecified systolic (congestive) heart failure (Resolved) Patient is a 67-year-old gentleman currently residing at an [facility] care [facility] brought in with shortness of breath and significant hypoxia at his ECF. 1. Acute on chronic hypoxic respiratory failure secondary to COPD with acute exacerbation due to rhinovirus viral bronchitis, improving, on breathing treatmnets and BiPAP at night, pulmonology following. 2. Diabetes mellitus type II with complications including diabetic nephropathy , BS were stable. 3. Hypothyroidism, on levothyroxine 4. Paroxysmal A. fib rate controlled 5. Chronic systolic heart failure, stable 6. Tobacco dependence, advised to quit. 7. CAD,stable 8. Severe protein calorie malnutrition evidenced by muscle wasting decreased energy level. Consultation placed to dietitian 9. Stage III left ischial decubitus ulcer, present since admission,was on IV cefazolin. 10. DVT PPx- Heparin SC Code Visit Inpatient E&M: 55471 Subs Hosp L2
--- NOTE | 2017-11-26 14:00 | PCM.TXEXTCAR ---
- Diet 11/19/17 19:48 Diet: Cardiac: Calorie-Controlled Food consistency:: Regular Liquid Consistency:: [place] Thick Dietary Modifications:: [place] Thick Liquids Is pt able to select menu?: No Diet Comments: avoid straws, upright 90 degrees during PO and 30-60min after How many daily calories?: 1800 calorie - Routine Orders/Code Status O2 Liters per Minute: 3-4 L O2 Frequency: Continuous Keep PO Greater than or Equal to (%): 92 - Bipap at night Routine Lab Work: CBC - in 3 days, BMP - in 3 days - Wound(s) L buttock Wound Type: Pressure Injury Dressing Change: Mepilex L neck Wound Type: scab - Therapies Weight Bearing: Weight bearing as tolerated Physical Therapy: Eval and Treat Occupational Therapy: Eval and Treat Speech Therapy: Eval and Treat - Allergies/Procedures Done in Hospital Allergies/Adverse Reactions: Allergies Penicillins Allergy (Verified 11/19/17 19:21) Shortness of breath Procedures: None - Type of Care/Length of Stay Estimated LOS: Convalescent Care Less Than 30 days Type of Care Needed: Skilled Rehab Potential: Fair Prognosis: Fair - Additional Orders/Day of Discharge Additional Orders: Continue with Bipap at night. Blood sugars were elevated during the admission secondary to steroids. He was started on Lantus as well as ISS. Blood sugars need to be monitored closesly and weaned off insulin when they improve. Day of Discharge: 11/26/17 - Dietary and Speech Recommendations Dietitian Recommendations/Changes: Continue 1800 agustina/cardiac with texture/consistency as per speech. - Follow Up Care Primary Care Physician: Oscar Heller MD [Primary Care Provider] - Please follow up with your Primary Care Physician in: within 2 weeks of discharge Please Follow Up With: Cehrelle Foster NP-C When: within 2 weeks
--- NOTE | 2017-11-26 14:05 | PCM.DC.SUM ---
Discharge Date and Diagnosis Date of Admission: 11/19/17 Date of Discharge: 11/26/17 - Primary Discharge Diagnosis Active and Suspected Problems (Last Reviewed 10/23/17 @ 12:12 by Brianne Waldron) COPD exacerbation (Acute) TYLER (acute kidney injury) (Acute) Acute and chronic respiratory failure with hypoxia (Acute) CHF exacerbation (Acute) - Secondary Discharge Diagnosis Chronic Problems (Last Reviewed 10/23/17 @ 12:12 by Brianne Waldron) CKD (chronic kidney disease) stage 3, GFR 30-59 ml/min (Chronic) Tobacco use (Chronic) Chronic respiratory failure with hypoxia (Chronic) Macrocytic anemia (Chronic) Non-ischemic cardiomyopathy (Chronic) Stage 2 moderate COPD by GOLD classification (Chronic) FEV1 51% of predicted History of tonsillectomy (Chronic) History of inguinal hernia repair (Chronic) Depression (Chronic) Tobacco dependence due to cigarettes (Chronic) Severe malnutrition (Chronic) WHIT (obstructive sleep apnea) (Chronic) BiPAP 10/6 cm of water CAD (coronary artery disease) (Chronic) LHC: 10/07/2010, 09/06/2015 HTN (hypertension) (Chronic) Paroxysmal atrial fibrillation (Chronic) HLD (hyperlipidemia) (Chronic) DM2 (diabetes mellitus, type 2) (Chronic) COPD (chronic obstructive pulmonary disease) (Chronic) Hospital Course and Treatment Imaging Results: Clinical Impression(s) from Imaging Studies Chest X-Ray 11/19/17 18:04 IMPRESSION: Bilateral pleural effusions. Electronically Signed: Little Jasso MD at 18:38 EDT Tel , Service support , Chest X-Ray 11/25/17 04:15 IMPRESSION: CHF and small bilateral pleural effusions. There is interval improvement from previous study. 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 Patient was managed for a long time on IV steroids, breathing treatments. Pulmonology was consulted. Patient was managed on BiPAP at night. He had gradual improvement in his mentation and also his respiratory status. He was discharged to follow-up with pulmonology. Discharge Diet: Low fat/ Low Cholesterol, 2000 mg Sodium Diet, Carb Control Diet Discharge Activity: Return to Normal Activity Home Medications: Medications to take at Discharge Digoxin 125 mcg PO DAILY 05/27/16 Levothyroxine [Synthroid] 75 mcg PO DAILY 05/27/16 Ranolazine [Ranexa] 500 mg PO BID 01/10/17 Mirtazapine 15 mg PO QHS 06/25/17 Citalopram [Celexa] 10 mg PO DAILY 08/20/17 Polyethylene Glycol 3350 [Miralax] 17 gm PO DAILY packet 08/23/17 Argin/Glut/Cahmb/Collag/Mv-Min [Wilfredo Packet] 1 each PO BID 09/05/17 Bisacodyl 10 mg RC DAILY PRN PRN 09/05/17 Linagliptin [Tradjenta] 5 mg PO DAILY 09/05/17 Magnesium Hydroxide [Milk of Magnesia] 30 ml PO PRN PRN 09/05/17 Mineral Oil 133 ml RC DAILY PRN PRN 09/05/17 Folic Acid 1 mg PO DAILY@0800 tablet 09/07/17 Calcium Carbonate [Tums] 500 mg PO Q4H PRN PRN 11/19/17 Diltiazem HCl [Diltiazem 12Hr ER] 180 mg PO DAILY 11/19/17 Ferrous Sulfate 325 mg PO BIDCM 11/19/17 Ipratropium/Albuterol Respimat [Combivent Respimat Inhal Carleton] 3 mg PO Q4H PRN 11/19/17 Multivitamins,Therapeutic [Multivitamin] 1 tablet PO DAILYCM 11/19/17 Glucerna Shake 120 ml PO 4X/DAY liquid 11/26/17 Guaifenesin [Mucinex] 600 mg PO BID tablet 11/26/17 Heparin Injection (Vial) [Heparin Na] 5,000 unit SC Q8 vial 11/26/17 Insulin Glargine [Lantus SoloStar Pen] 10 units SC DAILY pen 11/26/17 Insulin Lispro [Humalog KwikPen] See Protocol SC ACHS insuln.pen 11/26/17 Ipratropium/Albuterol Sulfate [Duoneb] 3 ml INHALATION Q4HWA.RT PRN ampul.neb 11/26/17 Oxycodone [Oxyir] 5 mg PO Q4H PRN PRN 5 Days #20 tab 11/26/17 Prednisone 10 mg PO UD #30 tablet 11/26/17 Following Prescrptions Were Given to Patient: Oxycodone [Oxyir] 5 mg PO Q4H PRN PRN 5 Days #20 tab PRN Reason: Mod-Severe Pain (4-12/19) Prednisone 10 mg PO UD #30 tablet Primary Care Physician: Oscar Heller MD [Primary Care Provider] - Please follow up with your Primary Care Physician in: within 2 weeks of discharge Please Follow Up With: Cherelle Foster, ANA-C When: within 2 weeks Disposition: Longterm facility Minutes spent on discharge:: 40 Patient Condition:: Stable Medical Necessity - Tobacco Use Smoking Status: Current every day smoker Tobacco Use: Cigars Meaningful Use Info Meaningful Use Diagnoses (Choose all that apply): None applicable Code Visit Inpatient E&M: 79588 Disch Hosp
--- NOTE | 2017-11-26 14:26 | PCA ---
Attempted to call his brother to notify him of discharge, call kept saying the carrier selected is unable to complete the call at this time.
[2017-11-26 15:07] LABS: Hemoglobin A1c 6.5 % (4.2-6.3)
[2017-11-26 15:10] LABS: Anion Gap 5 (5-15); BUN 63 mg/dL (7-18); BUN/Creat Ratio 49.6 RATIO (10-20); Calcium,Total 8.6 mg/dL (8.5-10.1); Chloride 94 mmol/L (98-107); Creatinine, Serum 1.27 mg/dL (0.70-1.30); EST Glomerular Filtration Rate 60 mL/min (>60); Est Glom Filt Rate - Afr Amer 72 mL/min (>60); Estimated Creatinine Clearance 52.05 ml/min; Glucose 370 mg/dL (74-106); Potassium 4.8 mmol/L (3.5-5.1); Sodium Level 135 mmol/L (136-145)
[2017-11-26 15:25] LABS: Bedside Glucose 442 mg/dL (70-110)
[2017-11-26 15:25] LABS: Bedside Glucose 494 mg/dL (70-110)
--- NOTE | 2017-11-26 15:47 | NURSING ---
wound photo: left buttock
[2017-11-26 16:46] LABS: Bedside Glucose 342 mg/dL (70-110)
== END 2017-11-26 17:42 | disposition skilled nursing facility (03) | DRG 189 ==
LOC: ED 18:17 → PCU 19:41
PROVIDERS: Internal Medicine; Internal Medicine Critical Care Medicine; Admitting Provider Family Medicine; Emergency Provider Emergency Medicine; Family Provider Family Medicine; PCP Family Medicine; Visit Provider Internal Medicine
DX: J96.21 Acute and chronic respiratory failure with hypoxia (principal); L89.323 Pressure ulcer of left buttock, stage 3; E43 Unspecified severe protein-calorie malnutrition; J44.1 Chronic obstructive pulmonary disease with (acute) exacerbation; N17.9 Acute kidney failure, unspecified; I13.0 Hypertensive heart and chronic kidney disease with heart failure and stage 1 through stage 4 chronic kidney disease, or unspecified chronic kidney disease; J44.0 Chronic obstructive pulmonary disease with (acute) lower respiratory infection; I50.22 Chronic systolic (congestive) heart failure; E11.22 Type 2 diabetes mellitus with diabetic chronic kidney disease; J20.6 Acute bronchitis due to rhinovirus; N18.3 Chronic kidney disease, stage 3 (moderate); D53.9 Nutritional anemia, unspecified; F32.9 Major depressive disorder, single episode, unspecified; G47.33 Obstructive sleep apnea (adult) (pediatric); E78.5 Hyperlipidemia, unspecified; I48.0 Paroxysmal atrial fibrillation; I25.10 Atherosclerotic heart disease of native coronary artery without angina pectoris; F17.210 Nicotine dependence, cigarettes, uncomplicated; Z79.84 Long term (current) use of oral hypoglycemic drugs; Z88.0 Allergy status to penicillin; E03.9 Hypothyroidism, unspecified; Z79.899 Other long term (current) drug therapy
CPT/HCPCS: 36415; 36600; 71045; 71046; 80048; 80162; 81001; 82306; 82607; 82746; 82803; 82962; 83036; 83735; 83880; 84100; 84134; 84484; 85025; 87040; 87070; 87075; 87077; 87086; 87088; 87186; 87205; 87449; 87633; 92507; 92526; 93005; 94002; 94003; 94640; 94667; 94668; 97110; 97162; 97166; 97530; 97535; 97802; 99251; 99285; J7040; A4216; G0463; J1940